=== PATIENT | female | born 1995 | race Caucasian/White ===

== ENCOUNTER 2020-07-05 13:17 | Emergency (ER) | payer MEDICARE, MEDICAID, SELFPAY ==
[2020-07-05 13:25] VITALS: BP 165/75; PULSE 100; RESP 20; TEMP 36.7; O2SAT 98; BMI 39.0
[2020-07-05 16:54] VITALS: BP 124/68; PULSE 88; RESP 18; TEMP 37.3; O2SAT 92
--- NOTE | 2020-07-05 17:20 | ED.ABDPAIN ---
HPI - Abdominal Pain General Chief Complaint: Abdominal Pain Stated Complaint: VOMITING Time Seen by Provider: 07/05/20 16:26 Source: patient Mode of arrival: ambulatory Limitations: no limitations History of Present Illness HPI narrative: Patient presents to ED for chronic abdominal pain, vomiting, and diarrhea for 6 months. Patient diagnosed with irritable bowel syndrome and gastroparesis and states he has been to many hospitals and cloth mercerizer back tender and continued to still have the same issue. Patient states she has been seen at [facility], [facility], and [facility] for this issue and she states no one is helping her. Patient states no change or worsening of belly pain or vomiting and diarrhea. Patient just states she wants this problem to be solved. Patient has history of bipolar and psycho conversion somatic disorder Related Data Allergies Allergy/AdvReac Type Severity Reaction Status Date / Time clonazepam [Klonopin] Allergy Unknown Verified 01/02/20 00:00 haloperidol [Haldol] Allergy Unknown Verified 01/02/20 00:00 NSAIDS (Non-Steroidal Allergy Unknown SWELLING Unverified 02/13/20 16:46 Anti-Inflamma [NSAIDS (NON-STEROIDAL ANTI-INFLAMMA] promethazine Allergy Unknown Verified 01/02/20 00:00 lorazepam [LORAZEPAM] AdvReac Unknown AGGRESSION Unverified 02/13/20 16:46 NSAIDS Allergy Unknown anaphylaxis Uncoded 01/02/20 00:00 seafood Allergy Unknown swelling Uncoded 01/02/20 00:00 Review of Systems Constitutional: Reports as per HPI and Reports no additional constitutional complaints Eyes: Reports as per HPI and Reports no additional eye complaints Reports system reviewed and no additional complaints, except as documented and Reports as per HPI Cardiovascular: Reports as per HPI and Reports no additional cardiovascular complaints Respiratory: Reports as per HPI and Reports no additional respiratory complaints Gastrointestinal: Reports as per HPI, Reports no additional gastrointestinal complaints, Reports abdominal pain, Reports diarrhea, Reports nausea and Reports vomiting Genitourinary: Reports no additional female genitourinary complaints and Reports as per HPI Musculoskeletal: Reports no additional musculoskeletal complaints and Reports as per HPI Reports system reviewed and no additional complaints, except as documented and Reports as per HPI Psychiatric: Reports no additional psychiatric complaints and Reports as per HPI Physical Exam Vital Signs: Vital Signs: Last Vital Signs Temp 99.1 F 07/05/20 16:54 Pulse 88 07/05/20 16:54 Resp 18 07/05/20 16:54 BP 124/68 07/05/20 16:54 Pulse Ox 92 07/05/20 16:54 Body Mass Index 39.0 Const: General: cooperative, healthy appearing, comfortable, no acute distress, well developed, alert, awake and Physically active Orientation/consciousness: patient oriented x3 HENMT: Head: Yes normal to inspection, Yes No palpable skull fracture present, Yes normocephalic, Yes atraumatic and Yes abrasion Eyes: General: appearance normal, both eyes and all related structures Neck: Neck: Yes normal visual inspection, Yes full ROM, Yes no lymphadenopathy, Yes no meningeal signs, Yes trachea midline, Yes supple and No tender Chest: Chest palpation & inspection: normal inspection of the chest and normal palpation of entire chest wall Resp: Effort & Inspection: normal respiratory effort and able to speak in complete sentences Auscultation: clear to auscultation bilaterally Cardio: Jugular venous distension: no JVD Heart sounds: S1 normal heart sound present and S2 normal heart sound present GI: Inspection: Yes normal to inspection and No abdominal wall ecchymosis Palpation (GI): Soft to palpation, not firm, nontender, no guarding and not rigid : General: No CVA tenderness and Yes no CVA tenderness Back/Spine/Pelvis: Back: no CVA tenderness, No CVA tenderness and No back tenderness Skin: General skin exam: no rashes or lesions noted and elasticity normal Neuro: General: patient oriented x3, no meningeal signs and CN's II-XI intact bilaterally Cranial nerves: Yes CN's II-XII intact bilaterally Extrem: General: Yes normal to inspection and Yes full ROM Psych: Appearance: grossly normal, well kempt and not disheveled Course Course Course Narrative: History physical exam indicate IBS or gastroparesis exacerbation. Patient will be given Bentyl, IV fluids, and Zofran. Not suspecting any surgical or emergent medical etiology. Reevaluation(s) Reevaluation #1: Reviewed multiple records from [facility]. I reviewed capsule endoscope the results from [facility] that was done on 03/25/2020 which shows normal endoscopically. Anoscopy was negative for Crohn's disease celiac disease or any small bowel pathology as per report. Endoscopy was negative for any gastic ulcer. Patient was seen in the ED on June 18 2020 at [facility] and the provider contacted her cloth mercerizer back tender as per ED note and her cloth mercerizer back tender in from the ED provider there was no need or indication for NG tube. Patient was discharged. On 04/21/2020 patient had her EGD which was negative for H pylori as per pathology of biopsy. Duodenal and gastric was normal. Patient worked up many times as per [facility] notes in the ED for admitting this patient and discharge. Patient is only admitted once. Time: 17:38 Reevaluation #2: Signed out AMA. Patient did not want to stay for results of magnesium or give urine last check for UTI. Patient was informed risks of , decreased quality of life, disability, from possible underlying deficiency shots of magnesium no patient still wanted to sign against medical advice. Patient refused to give a urine sample. Patient refused Bentyl. Patient does not want any prescription for Bentyl which is a treatment for IBS. Patient never had any episode of vomiting or diarrhea during ED visit. Time: 18:49 MDM - Abdominal Pain Lab Data Result diagrams: 07/05/20 17:20 Labs: Lab Results 07/05/20 07/05/20 07/05/20 Range/Units 17:20 17:20 17:20 WBC 11.3 H (4.8-10.8) X10*3/uL RBC 4.35 (4.20-5.50) X10*6/uL Hgb 12.5 (12.0-16.0) g/dl Hct 38.6 (37-47) % MCV 88.7 (80-98) fL MCH 28.7 (27.0-33.0) pg MCHC 32.4 (31.0-35.0) g/dl RDW 16.4 H (11.0-16.0) % Plt Count 305 (160-400) X10*3/uL MPV 10.2 (9.4-12.3) fL Immature Gran % (Auto) 0.2 (0.0-0.4) % Neut % (Auto) 54.6 (45-73) % Lymph % (Auto) 40.7 H (20-40) % [place] % (Auto) 4.1 (2-11) % Eos % (Auto) 0.2 (0-4) % Baso % (Auto) 0.2 (0-2) % Lymph # (Auto) 4.6 (1.2-4.9) X10*3/uL [place] # (Auto) 0.5 (0.1-1.2) X10*3/uL Eos # (Auto) 0.0 (0.0-0.4) X10*3/uL Baso # (Auto) 0.0 (0.0-0.2) X10*3/uL Abs Immat Gran (auto) 0.02 (0.00-0.03) X10*3/uL Absolute Neuts (auto) 6.2 (2.0-8.3) X10*3/uL Absolute Nucleated RBC 0.000 (0.0-0.012) X10*3/uL Nucleated RBC % (auto) 0.0 (0.0-0.2) /100WBC PT 13.1 H (10.8-13.0) SEC INR 1.1 (0.9-1.1) APTT 30.9 (24.1-38.0) SEC Magnesium 2.1 (1.6-2.6) mg/dL Total Bilirubin 0.3 (0.0-1.0) mg/dL Direct Bilirubin < 0.2 (0.0-0.5) mg/dL AST 25 (5-31) U/L ALT 33 H (0-31) U/L Alkaline Phosphatase 106 (39-117) U/L Total Protein 6.6 (6.5-8.0) g/dL Albumin 4.0 (3.5-5.0) g/dL Lipase 86 H (8-78) U/L Beta HCG, Quant < 2 mIU/mL Discharge Plan Discharge Clinical Impression: Irritable bowel syndrome (IBS), Abdominal pain, chronic, generalized Patient Disposition: Left Against Medical Advice Instructions: Irritable Bowel Syndrome (ED), Chronic Abdominal Pain (ED) Additional Instructions: Return to the ED immediately for worsening abdominal pain, fever, chills, nausea, vomiting, flank pain, dizziness, weakness, blood in stool, or any other concerning symptoms. Referrals: Cailin José PA [Primary Care Provider] - 2 days (Irritable bowel syndrome. Chronic abdominal pain. Patient refused to wait for magnesium results) Stand Alone Forms: Against Medical Advice Interventions: ED Discharge Assessment Last Done: 07/05/20 19:02 Discharge Date/Time: 07/05/20 19:04 Print Language: Tongan [facility] Past Medical History Medical History Anxiety Bipolar affective Depression Diabetes Gastroparesis IBS (irritable bowel syndrome) PTSD (post-traumatic stress disorder) Social History Social History Alcohol intake: never Smoking Status: Current every day smoker Use of substances other than those prescribed or required for medical reasons: Yes Substance Use Type: Marijuana Advance Directives: No Advance Directives Information Provided: No
[2020-07-05 17:24] LABS: MANUAL DIFF FLAG NO
[2020-07-05 17:26] LABS: Basophils Percent Auto 0.2 % (0-2); Eosinophils Percent Auto 0.2 % (0-4); Hematocrit 38.6 % (37-47); Hemoglobin 12.5 g/dl (12.0-16.0); Imm Gran Abs Auto 0.02 X10*3/uL (0.00-0.03); Imm Gran Pct Auto 0.2 % (0.0-0.4); Lymphocytes Absolute Auto 4.6 X10*3/uL (1.2-4.9); Lymphocytes Percent Auto 40.7 % (20-40); Mean Corpuscular HGB Conc 32.4 g/dl (31.0-35.0); Mean Corpuscular Hemoglobin 28.7 pg (27.0-33.0); Mean Corpuscular Volume 88.7 fL (80-98); Mean Platelet Volume 10.2 fL (9.4-12.3); Monocytes Absolute Auto 0.5 X10*3/uL (0.1-1.2); Monocytes Percent Auto 4.1 % (2-11); Neutrophils Absolute Auto 6.2 X10*3/uL (2.0-8.3); Neutrophils Percent Auto 54.6 % (45-73); Platelet Count 305 X10*3/uL (160-400); Red Blood Count 4.35 X10*6/uL (4.20-5.50); Red Cell Distribution Width 16.4 % (11.0-16.0); White Blood Count 11.3 X10*3/uL (4.8-10.8)
[2020-07-05 17:34] LABS: INTERNATIONAL NORM RATIO 1.1 (0.9-1.1); Prothrombin Time 13.1 SEC (10.8-13.0)
[2020-07-05 17:37] LABS: Partial Thromboplastin Time 30.9 SEC (24.1-38.0)
[2020-07-05] MEDS: ondansetron HCL 4 MG/2 ML VIAL IVPUSH (17:55)
[2020-07-05 18:00] LABS: HCG Quantitative < 2 mIU/mL
[2020-07-05 18:14] LABS: Alanine Aminotransferase 33 U/L (0-31); Alkaline Phosphatase 106 U/L (39-117); Aspartate Amino Transferase 25 U/L (5-31); Bilirubin Direct < 0.2 mg/dL (0.0-0.5); Bilirubin Total 0.3 mg/dL (0.0-1.0); Lipase 86 U/L (8-78); Total Protein 6.6 g/dL (6.5-8.0)
[2020-07-05] MEDS: PHENobarb/Hyoscy/Atropine/Scop 10 ML ELIXIR PO (18:25)
--- NOTE | 2020-07-05 18:44 | PC.NURSE ---
Pt refusing fluids, does not want to wait for pending lab results. Provider aware, plan to d/c.
[2020-07-05 18:49] LABS: Magnesium 2.1 mg/dL (1.6-2.6)
--- NOTE | 2020-07-05 19:02 | MHC.HEMONC ---
Prior to RN entering patient bedside patient seen to be resting in bed with no apparent distress. No grimacing or guarding noted.
== END 2020-07-05 19:04 | disposition left against medical advice (07) ==
PROVIDERS: Physician Assistant; Emergency Provider Internal Medicine; PCP Physician Assistant
DX: K58.9 Irritable bowel syndrome, unspecified (principal); G89.29 Other chronic pain; R10.84 Generalized abdominal pain; E11.9 Type 2 diabetes mellitus without complications; F17.200 Nicotine dependence, unspecified, uncomplicated
CPT/HCPCS: 36415; 80076; 83690; 83735; 84702; 85025; 85610; 85730; 96361; 96374; 99284; J2405

== ENCOUNTER → 2020-12-02 10:24 | Outpatient (BNVA) | payer MEDICARE, MEDICAID, SELFPAY | PROVIDERS: PCP Physician Assistant; Visit Provider Surgery | DX: L05.91 Pilonidal cyst without abscess (principal) | CPT/HCPCS: 99212 ==

== ENCOUNTER 2021-10-04 17:46 | Emergency (ER) | payer MEDICARE, MEDICAID, SELFPAY ==
[2021-10-04 17:52] VITALS: BP 152/110; PULSE 105; RESP 18; TEMP 36.3; O2SAT 97; BMI 46.6
[2021-10-04 18:12] VITALS: BP 155/100
--- NOTE | 2021-10-04 18:17 | ED_ITS ---
HPI - Psych General Chief Complaint: Psychiatric Symptoms Stated Complaint: Crisis eval Time Seen by Provider: 10/04/21 18:15 Source: patient Mode of arrival: ambulatory Limitations: no limitations History of Present Illness HPI Narrative: 2 months - preeclampsia taken off all BP meds due to hypotension actually was on labetalol and nifedipine at one point MD complaint: feels depressed and anxiety Onset (ago): week(s) (4) Duration: getting worse History of same: Yes Relieving factors: therapy Exacerbating factors: none Context: significant life stressor (lost services at [employer] ? patient didn't want certain services so she was cut off everything now her PCP is prescribing her) Associated psychiatric symptoms: depression Associated symptoms: denies other symptoms Treatments prior to arrival: none Related Data Home Medications Medication Instructions Recorded Confirmed albuterol sulfate 90 mcg/actuation 0 mcg INHALATION 12/02/20 aerosol inhaler blood sugar diagnostic #10 ea 12/02/20 bupropion HCl 150 mg 24 hr tablet, 300 mg PO QAM tab 12/02/20 extended release cetirizine 10 mg tablet 10 mg PO DAILY 12/02/20 diazepam 2 mg tablet 2 mg PO BID PRN 12/02/20 diphenhydramine HCl 25 mg capsule 25 mg PO BID PRN 12/02/20 gabapentin 100 mg capsule mg PO 12/02/20 lancets 28 gauge #100 ea 12/02/20 lithium carbonate 450 mg 450 mg PO BID 12/02/20 tablet,extended release multivitamin 1 tab PO DAILY 12/02/20 nicotine 21 mg/24 hr daily 1 patch TOPICAL DAILY 12/02/20 transdermal patch ondansetron HCl 8 mg tablet 8 mg PO TID 12/02/20 pantoprazole 20 mg tablet,delayed 20 mg PO BID 12/02/20 release propranolol 20 mg tablet 20 mg PO BID 12/02/20 quetiapine 25 mg tablet (Seroquel) 25 mg PO TID 12/02/20 valacyclovir 500 mg tablet 500 mg PO DAILY 12/02/20 Allergies Allergy/AdvReac Type Severity Reaction Status Date / Time clonazepam [Klonopin] Allergy Unknown Verified 01/02/20 00:00 haloperidol [Haldol] Allergy Unknown Verified 01/02/20 00:00 NSAIDS (Non-Steroidal Allergy Unknown SWELLING Unverified 02/13/20 16:46 Anti-Inflamma [NSAIDS (NON-STEROIDAL ANTI-INFLAMMA] promethazine Allergy Unknown Verified 01/02/20 00:00 lorazepam [LORAZEPAM] AdvReac Unknown AGGRESSION Unverified 02/13/20 16:46 NSAIDS Allergy Unknown anaphylaxis Uncoded 01/02/20 00:00 seafood Allergy Unknown swelling Uncoded 01/02/20 00:00 Review of Systems Review of Systems: Constitutional : No Fever, No Chills ENT/Mouth : No Ear Pain, No Nasal Congestion, No sore throat Eyes: No Eye Pain, No Swelling, No Redness Cardiovascular : No Chest Pain, No SOB Respiratory : No Cough, No Sputum, No Dyspnea Gastrointestinal : No Nausea, No Vomiting, No Diarrhea, No Hematochezia, No Melena Genitourinary : No Dysuria, No Urinary Frequency, No Hematuria Musculoskeletal : No Myalgias Skin : No Skin Lesions, No rash Neuro : No Weakness, No Numbness, No Paresthesias, No Dizziness, No Headache Psych : positive Anxiety, positive Depression, no SI/HI Heme/Lymph: No Lymphadenopathy Endocrine : No Polyuria, No Polydipsia All other systems reviewed and are negative [facility] Past Medical History Attestation statement: The following information was validated with the patient. Medical History Anxiety Bipolar affective Depression Diabetes Gastroparesis IBS (irritable bowel syndrome) Preeclampsia PTSD (post-traumatic stress disorder) Sacrococcygeal pilonidal cyst Social History Social History (Updated 10/04/21 @ 18:52 by Merlyn Calderon DO) Alcohol intake: never Patient Tobacco Use Status: Current everyday Tobacco user Substance Use Type: Marijuana Advance Directives: No Advance Directives Information Provided: No Patient : No Physical Exam Vital Signs: Vital Signs: Last Vital Signs Temp 97.4 F 10/04/21 17:52 Pulse 95 10/04/21 19:09 Resp 18 10/04/21 17:52 BP 143/89 H 10/04/21 19:09 Pulse Ox 97 10/04/21 17:52 BMI result Body Mass Index 46.6 Appearance: Alert. Oriented X3. No acute distress. Anxious at first and tearful but then able to be talked down and she seemed better Eyes: Pupils equal, round and reactive to light. ENT: Pharynx normal. Neck: Normal inspection. Neck supple. CVS: Normal heart rate and rhythm. Pulses normal. Respiratory: No respiratory distress. Breath sounds normal. Abdomen: Soft and non-tender. Skin: Skin warm and dry. Normal skin color. Normal skin turgor. Extremities: No lower extremity edema. No calf ttp Neuro: Oriented X 3. No motor deficit. No sensory deficit. Cn2-12 intact Course Course Course Narrative: BP trending down still anxious, plts and LFTs normal - RN team aware to trend and keep a close eye on BP Physician observation started at 721pm. Patient placed in physician observation because the patient needed more time for BHN to asses the need for psych admission. At the time observation was started the patient's vitals were stable, patient is alert and oriented but slightly agitated/anxious, Neuro: nonfocal, CV RRR, Lungs clear MDM - Psych MDM Narrative Medical decision making narrative: 25 yo female with hx of preeclampsia, depression, asthma 2 months PPM here with c/o feeling depressed and lost her services at [facility] - she reports that she is so depressed she cannot care for herself. At this time will need basic labs, repeat BP when she is less anxious and BHN consult Lab Data Result diagrams: 10/04/21 18:56 10/04/21 18:56 Labs: Lab Results 10/04/21 10/04/21 10/04/21 Range/Units 18:43 18:43 18:43 WBC (4.8-10.8) X10*3/uL RBC (4.20-5.50) X10*6/uL Hgb (12.0-16.0) g/dl Hct (37.0-47.0) % MCV (80.0-98.0) fL MCH (27.0-33.0) pg MCHC (31.0-35.0) g/dl RDW (11.0-16.0) % Plt Count (160-400) X10*3/uL MPV (9.4-12.3) fL Immature Gran % (Auto) (0.0-0.4) % Neut % (Auto) (45-73) % Lymph % (Auto) (20-40) % [place] % (Auto) (2-11) % Eos % (Auto) (0-4) % Baso % (Auto) (0-2) % Lymph # (Auto) (1.2-4.9) X10*3/uL [place] # (Auto) (0.1-1.2) X10*3/uL Eos # (Auto) (0.0-0.4) X10*3/uL Baso # (Auto) (0.0-0.2) X10*3/uL Abs Immat Gran (auto) (0.00-0.03) X10*3/uL Absolute Neuts (auto) (2.0-8.3) x10*3/uL Absolute Nucleated RBC (0.0-0.012) X10*3/uL Nucleated RBC % (auto) (0.0-0.2) /100WBC Sodium (135-145) mmol/L Potassium (3.3-5.1) mmol/L Chloride (96-108) mmol/L Carbon Dioxide (22-29) mmol/L Anion Gap (12-20) BUN (9-16) mg/dL Creatinine (0.5-1.4) mg/dL Estim Creat Clear Calc Estimated GFR Random Glucose (60-115) mg/dL Calcium (8.4-10.2) mg/dL Magnesium (1.6-2.6) mg/dL Total Bilirubin (0.0-1.0) mg/dL Direct Bilirubin (0.0-0.5) mg/dL AST (5-31) U/L ALT (0-31) U/L Alkaline Phosphatase (39-117) U/L Total Protein (6.5-8.0) g/dL Albumin (3.5-5.0) g/dL Urine Test NEGATIVE (NEGATIVE) Urine Opiates Screen Not Detected (Not Detect) Urine Fentanyl Screen Not Detected (Not Detect) Ur Barbiturates Screen Not Detected (Not Detect) Ur Phencyclidine Scrn Not Detected (Not Detect) Ur Amphetamines Screen Not Detected (Not Detect) U Benzodiazepines Scrn Not Detected (Not Detect) Urine Cocaine Screen Not Detected (Not Detect) U Marijuana (THC) Screen Not Detected (Not Detect) COVID-19 ([facility]AN [facility]ANCISCO) Negative (Negative) COVID-19 Clin Com See Note 10/04/21 10/04/21 Range/Units 18:56 18:56 WBC 9.0 (4.8-10.8) X10*3/uL RBC 4.61 (4.20-5.50) X10*6/uL Hgb 13.7 (12.0-16.0) g/dl Hct 41.7 (37.0-47.0) % MCV 90.5 (80.0-98.0) fL MCH 29.7 (27.0-33.0) pg MCHC 32.9 (31.0-35.0) g/dl RDW 13.6 (11.0-16.0) % Plt Count 361 (160-400) X10*3/uL MPV 9.2 L (9.4-12.3) fL Immature Gran % (Auto) 0.1 (0.0-0.4) % Neut % (Auto) 53.7 (45-73) % Lymph % (Auto) 39.6 (20-40) % [place] % (Auto) 5.4 (2-11) % Eos % (Auto) 0.9 (0-4) % Baso % (Auto) 0.3 (0-2) % Lymph # (Auto) 3.5 (1.2-4.9) X10*3/uL [place] # (Auto) 0.5 (0.1-1.2) X10*3/uL Eos # (Auto) 0.1 (0.0-0.4) X10*3/uL Baso # (Auto) 0.0 (0.0-0.2) X10*3/uL Abs Immat Gran (auto) 0.01 (0.00-0.03) X10*3/uL Absolute Neuts (auto) 4.8 (2.0-8.3) x10*3/uL Absolute Nucleated RBC 0.000 (0.0-0.012) X10*3/uL Nucleated RBC % (auto) 0.0 (0.0-0.2) /100WBC Sodium 143 (135-145) mmol/L Potassium 4.3 (3.3-5.1) mmol/L Chloride 112 H (96-108) mmol/L Carbon Dioxide 22 (22-29) mmol/L Anion Gap 13 (12-20) BUN 17 H (9-16) mg/dL Creatinine 1.04 (0.5-1.4) mg/dL Estim Creat Clear Calc 94.9 Estimated GFR > 60 Random Glucose 141 H (60-115) mg/dL Calcium 9.7 (8.4-10.2) mg/dL Magnesium 2.0 (1.6-2.6) mg/dL Total Bilirubin 0.2 (0.0-1.0) mg/dL Direct Bilirubin < 0.2 (0.0-0.5) mg/dL AST 15 (5-31) U/L ALT 16 (0-31) U/L Alkaline Phosphatase 139 H D (39-117) U/L Total Protein 7.6 (6.5-8.0) g/dL Albumin 4.5 (3.5-5.0) g/dL Urine Test (NEGATIVE) Urine Opiates Screen (Not Detect) Urine Fentanyl Screen (Not Detect) Ur Barbiturates Screen (Not Detect) Ur Phencyclidine Scrn (Not Detect) Ur Amphetamines Screen (Not Detect) U Benzodiazepines Scrn (Not Detect) Urine Cocaine Screen (Not Detect) U Marijuana (THC) Screen (Not Detect) COVID-19 ([facility]ANCISCO) (Negative) COVID-19 Clin Com Discharge Plan Discharge Clinical Impression: Depression Qualifiers: Depression Type: unspecified Qualified Code(s): F32.A - Depression, unspecified Patient Disposition: Still a Patient Prescriptions: No Action propranolol 20 mg tablet 20 mg PO BID 0RF cetirizine 10 mg tablet 10 mg PO DAILY 0RF pantoprazole 20 mg tablet,delayed release (DR/EC) 20 mg PO BID 0RF (DME) FreeStyle Lite Strips Strip See Rx Instructions ea Not Applicable BID Qty: 10 0RF Rx Instructions: As directed valacyclovir 500 mg tablet 500 mg PO DAILY 0RF multivitamin Tablet 1 tab PO DAILY 0RF nicotine 21 mg/24 hr patch 24 hour 1 patch topical DAILY 0RF bupropion HCl 150 mg tablet extended release 24 hr 300 mg PO QAM 0RF diazepam 2 mg tablet 2 mg PO BID PRN (Reason: anxiety) 0RF diphenhydramine HCl 25 mg capsule 25 mg PO BID PRN0RF lithium carbonate 450 mg tablet extended release 450 mg PO BID 0RF gabapentin 100 mg capsule PO 0RF ondansetron HCl 8 mg tablet 8 mg PO TID 0RF (DME) lancets 28 gauge misc See Rx Instructions ea topical BID Qty: 100 0RF Rx Instructions: As directed albuterol sulfate 90 mcg/actuation HFA aerosol inhaler 0 mcg inhalation 0RF quetiapine [Seroquel] 25 mg tablet 25 mg PO TID 0RF
[2021-10-04 18:59] LABS: UPreg QC Valid YES; Urine Pregnancy NEGATIVE (NEGATIVE)
[2021-10-04 19:01] LABS: MANUAL DIFF FLAG NO
[2021-10-04 19:06] LABS: Basophils Percent Auto 0.3 % (0-2); Eosinophils Absolute Auto 0.1 X10*3/uL (0.0-0.4); Eosinophils Percent Auto 0.9 % (0-4); Hematocrit 41.7 % (37.0-47.0); Hemoglobin 13.7 g/dl (12.0-16.0); Imm Gran Abs Auto 0.01 X10*3/uL (0.00-0.03); Imm Gran Pct Auto 0.1 % (0.0-0.4); Lymphocytes Absolute Auto 3.5 X10*3/uL (1.2-4.9); Lymphocytes Percent Auto 39.6 % (20-40); Mean Corpuscular HGB Conc 32.9 g/dl (31.0-35.0); Mean Corpuscular Hemoglobin 29.7 pg (27.0-33.0); Mean Corpuscular Volume 90.5 fL (80.0-98.0); Mean Platelet Volume 9.2 fL (9.4-12.3); Monocytes Absolute Auto 0.5 X10*3/uL (0.1-1.2); Monocytes Percent Auto 5.4 % (2-11); Neutrophils Absolute Auto 4.8 x10*3/uL (2.0-8.3); Neutrophils Percent Auto 53.7 % (45-73); Platelet Count 361 X10*3/uL (160-400); Red Blood Count 4.61 X10*6/uL (4.20-5.50); Red Cell Distribution Width 13.6 % (11.0-16.0)
[2021-10-04 19:08] LABS: Amphetamine Screen Urine Not Detected (Not Detect); Barbiturates, Urine Not Detected (Not Detect); Benzodiazepines Screen Urine Not Detected (Not Detect); Cannabinoid Screen Urine Not Detected (Not Detect); Cocaine Screen Urine Not Detected (Not Detect); Fentanyl, urine Not Detected (Not Detect); Opiate Screen Urine Not Detected (Not Detect); Phencyclidine Screen Urine Not Detected (Not Detect)
[2021-10-04 19:09] VITALS: BP 143/89; PULSE 95
[2021-10-04 19:14] LABS: COVID-19 Test Negative (Negative)
[2021-10-04 19:19] LABS: Alanine Aminotransferase 16 U/L (0-31); Albumin Level 4.5 g/dL (3.5-5.0); Alkaline Phosphatase 139 U/L (39-117); Anion Gap 13 (12-20); Aspartate Amino Transferase 15 U/L (5-31); Bilirubin Direct < 0.2 mg/dL (0.0-0.5); Bilirubin Total 0.2 mg/dL (0.0-1.0); Blood Urea Nitrogen 17 mg/dL (9-16); Calcium 9.7 mg/dL (8.4-10.2); Carbon Dioxide 22 mmol/L (22-29); Chloride 112 mmol/L (96-108); Creatinine Clr Calc Pharmacy 94.9; Estimated Glomerular Filt Rate > 60; Glucose Random 141 mg/dL (60-115); Potassium 4.3 mmol/L (3.3-5.1); Sodium 143 mmol/L (135-145); Total Protein 7.6 g/dL (6.5-8.0)
[2021-10-04 19:47] LABS: Glucose, Whole Blood 126 mg/dL (60-115)
[2021-10-04 19:57] VITALS: BP 134/87; PULSE 87; RESP 16; O2SAT 97
[2021-10-04 21:13] VITALS: BP 146/90; PULSE 87
--- NOTE | 2021-10-04 21:35 | PC.NURSE ---
Patient's healthcare proxy Maria G Alvarado notified [facility] that patient's toxemia was resolved and patient was taken off her antihypertensive medication. Per Sally patient's systolic BP currently fluctuate between 110 to 150, when it is at higher end anxiolytic helps bring her BP down. Patient had been assessed by care team/pending disposition, behavior labile, VSS, will continue to monitor.
--- NOTE | 2021-10-04 21:52 | PHA.MEDREC ---
Pharmacy Consult ? Medication Reconciliation Pharmacy has completed the medication reconciliation.
[2021-10-04 23:30] VITALS: BP 150/90; PULSE 74; RESP 16; TEMP 36.3; O2SAT 99
[2021-10-04] MEDS: ALPRAZolam 0.5 MG TABLET PO (23:44)
[2021-10-05] MEDS: hydrOXYzine HCL 25 MG TABLET PO ×3 (01:34→09:35)
[2021-10-05] MEDS: Pregabalin 150 MG CAPSULE PO ×2 (01:34→09:35)
[2021-10-05] MEDS: Famotidine 20 MG TABLET 40 MG PO ×2 (01:35→09:35)
[2021-10-05] MEDS: Ibuprofen 800 MG TABLET PO ×2 (01:35→06:19)
[2021-10-05] MEDS: Docusate Sodium 100 MG CAPSULE PO ×2 (01:35→09:35)
[2021-10-05] MEDS: Prazosin HCL 1 MG CAPSULE 4 MG PO (01:37)
[2021-10-05] MEDS: Omeprazole 20 MG CAPSULE.DR PO (05:39)
--- NOTE | 2021-10-05 06:20 | PC.NURSE ---
Patient slept through the night, no distress observed/reported except stomach pain for which Ibuprofen 800 mg administered as ordered, mood extremely labile, loud and disruptive at time, medication compliant, patient was assessed by care team pending disposition, EDWARD F/U by care team, VSS, patient has been pumping her breast milk/stored in refrigerator, VSS, will continue to monitor,
--- NOTE | 2021-10-05 07:49 | PC.NURSE ---
patient appears to remain asleep at present respirations are even and unlabored patient appears in no distress
[2021-10-05 08:58] VITALS: RESP 16
[2021-10-05] MEDS: lamoTRIgine 100 MG TABLET 200 MG PO (09:35)
[2021-10-05] MEDS: Aspirin Enteric Coated 81 MG TABLET.DR 162 MG PO (09:35)
[2021-10-05] MEDS: Multivitamin TABLET 1 TAB PO (09:35)
[2021-10-05] MEDS: QUEtiapine Fumarate 50 MG TABLET PO (09:35)
[2021-10-05] MEDS: buPROPion HCl XL 150 MG TAB.ER.24H PO (09:35)
[2021-10-05] MEDS: valACYclovir HCL 500 MG TABLET PO (09:36)
[2021-10-05] MEDS: ARIPiprazole 10 MG TABLET PO (09:36)
[2021-10-05] MEDS: Topiramate 25 MG TABLET PO (09:36)
[2021-10-05] MEDS: Prazosin HCL 1 MG CAPSULE PO (09:36)
[2021-10-05 09:38] VITALS: BP 110/80; PULSE 105; RESP 18; O2SAT 97
[2021-10-05] MEDS: ALPRAZolam 0.5 MG TABLET PO (11:56)
[2021-10-05] MEDS: QUEtiapine Fumarate 25 MG TABLET 12.5 MG PO (14:30)
--- NOTE | 2021-10-05 16:36 | MHC.CARE ---
CARE Team speaks with pt several times throughout the day regarding her plan. CARE Team has been working with pt on either a voluntary inpt admission or referral to PHP. Pt stated to TW this morning that she would prefer to attend PHP if she could get in quickly. CARE Team offered to have PHP intake while here in the ED at 1400, however, pt reported at this time that she did not want PHP because her family would not support her with children's attendant. Pt reports that her natural support system will only support a plan where pt is admitted inpt, however pt does not require an inpt admission to meet her goal of getting help with medication changes and re establishing outpatient providers. CARE Team speaks with [facility] crisis in [place] who know the pt well, and they confirm that pt has been doing very well. [facility] also reports that pt fired her therapist of 4 years, but she still has psychiatry with [facility] and can be reassigned to a new therapist. Plan is for pt to have an intake with PHP tomorrow, however, pt continues to vacillate about her treatment options. CARE Team speaks with pt' friend and HCP who agrees with PHP plan and is willing to come fiber picker pt. Case is discussed with ARMANDO Fernando.
== END 2021-10-05 16:51 | disposition home or self-care (01) ==
PROVIDERS: Emergency Provider Emergency Medicine; PCP Physician Assistant
DX: F32.A Depression, unspecified (principal); E11.9 Type 2 diabetes mellitus without complications; J45.909 Unspecified asthma, uncomplicated; Z87.59 Personal history of other complications of pregnancy, childbirth and the puerperium; Z20.822 Contact with and (suspected) exposure to COVID-19
CPT/HCPCS: 36415; 80048; 80076; 80307; 81025; 82947; 83735; 85025; 87635; 96372; 99284; 99285

== ENCOUNTER 2021-10-05 14:40 | Outpatient (RCR) | payer MEDICARE, MEDICAID, SELFPAY | END 2021-10-05 23:59 | disposition home or self-care (01) | LOC: HO.PHPA 14:40 | PROVIDERS: Visit Provider Psychiatry & Neurology Psychiatry | DX: F41.9 Anxiety disorder, unspecified (principal) ==

== ENCOUNTER 2021-10-06 13:47 | Outpatient (RCR) | payer MEDICARE, MEDICAID, SELFPAY | END 2021-10-06 23:59 | disposition home or self-care (01) | LOC: HO.PHPA 13:47 | PROVIDERS: Visit Provider Psychiatry & Neurology Psychiatry | DX: F31.32 Bipolar disorder, current episode depressed, moderate (principal); F60.3 Borderline personality disorder; F41.1 Generalized anxiety disorder | CPT/HCPCS: 90791 ==

== ENCOUNTER → 2021-11-17 15:39 | Outpatient (BNVA) | payer MEDICARE, MEDICAID, SELFPAY | PROVIDERS: PCP Physician Assistant; Visit Provider Surgery | DX: L05.91 Pilonidal cyst without abscess (principal) | CPT/HCPCS: 99212 ==

== ENCOUNTER 2021-12-07 07:34 | Day surgery (SDC) | payer MEDICARE, MEDICAID, SELFPAY ==
[2021-12-01 15:59] VITALS: BMI 44.6
--- NOTE | 2021-12-06 09:16 | P.CONAN_ITS ---
Documented by User: Diana Musa NP 12/06/21 09:23 HPI - Anesthesia Eval Consult details Narrative: 26yo F for Excision Pilonidal Cyst *Multiple allergies* ? - was per 09/2021 ED ([facility] crisis) note Factor V leiden, hx dvt and PE, no anticoag PTSD with hx of waking agitated PMFSH Active Problems Active Problems: All Active Problems (Updated 12/01/21 @ 16:04 by Dior Titus RN) Sacrococcygeal pilonidal cyst (Acute) Past Medical History Medical History (Updated 12/01/21 @ 16:04 by Dior Titus RN) Anxiety Asthma Bipolar affective Depression Diabetes Factor V Leiden Gastroparesis Hidradenitis suppurativa History of DVT (deep vein thrombosis) IBS (irritable bowel syndrome) IUD (intrauterine device) in place Loss of teeth due to extraction Nausea DARINEL (obstructive sleep apnea) Preeclampsia PTSD (post-traumatic stress disorder) Sacrococcygeal pilonidal cyst Wears hearing aid in both ears Surgical History Surgical History (Updated 12/01/21 @ 15:55 by Dior Titus RN) History of carpal tunnel release History of tonsillectomy and adenoidectomy Hx of section Hx of myringotomy Hx of umbilical hernia repair Social History Social History Household Members: Children Are you a primary critical care rn to a significant other at home: No (patient's Mother has custody of 4 month old son) Do you presently have visiting nurse or other home services: No Alcohol intake: never Patient Tobacco Use Status: Former Tobacco user Quit Date: 06/2021 Tobacco use type: Cigarette Substance Use Type: Marijuana Meds Allergies Allergy/AdvReac Type Severity Reaction Status Date / Time metoclopramide [From Reglan] Allergy Severe Hives Verified 12/01/21 15:08 NSAIDS (Non-Steroidal Allergy Severe Anaphylaxis Verified 12/01/21 15:07 Anti-Inflamma [NSAIDS (NON-STEROIDAL ANTI-INFLAMMA] clonazepam [Klonopin] AdvReac Severe Agitated Verified 12/01/21 15:08 droperidol AdvReac Severe Agitated Verified 12/01/21 15:07 haloperidol [Haldol] AdvReac Severe Agitated Verified 12/01/21 15:08 lorazepam [LORAZEPAM] AdvReac Severe AGGRESSION Verified 12/01/21 15:07 promethazine AdvReac Severe Agitated Verified 12/01/21 15:08 seafood Allergy Intermediate swelling Uncoded 12/01/21 15:07 Home Medications Medication Instructions Recorded Confirmed Last Taken Type blood sugar diagnostic #10 ea 12/02/20 11/17/21 Unknown History lancets 28 gauge #100 ea 12/02/20 11/17/21 Unknown History acetaminophen 500 mg tablet 1,000 mg PO Q4H PRN Pain 10/04/21 12/01/21 Unknown History albuterol sulfate 90 mcg/actuation 2 inh inhalation Q4H PRN Shortness 10/04/21 12/01/21 Unknown History aerosol inhaler Of Breath bupropion HCl 150 mg 24 hr tablet, 1 tab PO DAILY 10/04/21 12/01/21 12/07/21 Hi story extended release docusate sodium 100 mg capsule 100 mg PO BID 10/04/21 12/01/21 12/07/21 History famotidine 40 mg tablet 1 tab PO DAILY 10/04/21 12/01/21 12/07/21 History fluticasone propionate 220 1 puff inhalation BID PRN 10/04/21 12/01/21 Unknown History mcg/actuation HFA aerosol inhaler Shortness Of Breath Or Wheezing hydroxyzine HCl 25 mg tablet 25 mg PO BID 10/04/21 12/01/21 12/07/21 History hydroxyzine pamoate 25 mg capsule 25 mg PO DAILY PRN Anxiety 10/04/21 12/01/21 Unknown History lamotrigine 200 mg tablet 200 mg PO DAILY 10/04/21 12/01/21 12/07/21 History (Lamictal) lansoprazole 30 mg capsule,delayed 30 mg PO DAILY 10/04/21 12/01/21 12/07/21 History release melatonin 10 mg PO BEDTIME 10/04/21 12/01/21 Unknown History multivitamin with folic acid 400 1 tab PO DAILY 10/04/21 12/01/21 Unknown History mcg tablet (Daily-Elin (with folic acid)) ondansetron 8 mg disintegrating 8 mg PO Q8H PRN Nausea 10/04/21 12/01/21 Unknown History tablet prazosin 1 mg capsule 1 mg PO DAILY@0730 10/04/21 12/01/21 Unknown History prazosin 1 mg capsule 4 mg PO BEDTIME 10/04/21 12/01/21 12/07/21 History pregabalin 150 mg capsule 150 mg PO BID 10/04/21 12/01/21 12/07/21 History prochlorperazine maleate 10 mg 1 tab PO BID PRN Nausea 10/04/21 12/01/21 12/07/21 History tablet quetiapine 25 mg tablet 12.5 mg PO BID PRN Anxiety 10/04/21 12/01/21 12/07/21 History quetiapine 50 mg tablet 25 mg PO DAILY 10/04/21 12/01/21 Unknown History topiramate 25 mg tablet 25 mg PO DAILY 10/04/21 12/01/21 12/07/21 History valacyclovir 500 mg tablet 500 mg PO DAILY 10/04/21 12/01/21 12/07/21 History diazepam 2 mg tablet 1 tab PO BID 12/01/21 12/01/21 12/07/21 History lithium carbonate 300 mg 1 tab PO BID 12/01/21 12/01/21 12/07/21 History tablet,extended release sumatriptan succinate 100 mg tablet 0.5 tab PO DAILY PRN Migraine 12/01/21 12/01/21 Unknown History Headache Exam Exam Date and Time: December 06, 2021 0916 Height,Weight and Vital Signs: Height 5 ft 1.5 in Weight 108.862 kg Pertinent Lab Results Pertinent Lab Results: Laboratory Tests 10/04/21 10/04/21 18:56 18:56 WBC 9.0 Hgb 13.7 Hct 41.7 Plt Count 361 Sodium 143 Potassium 4.3 Chloride 112 H Carbon Dioxide 22 Creatinine 1.04 Assessment and Plan Assessment Anesthesia Assessment: Chart Reviewed Documented by User: Krunal Cazares MD 12/07/21 16:49 HPI - Anesthesia Eval Consult details Narrative: 26yo F for Excision Pilonidal Cyst *Multiple allergies* ? - was per 09/2021 ED ([facility] crisis) note Factor V leiden, hx dvt and PE, no anticoag PTSD with hx of waking agitated As per patient she is not any more [facility] Past Medical History Medical History (Updated 12/01/21 @ 16:04 by Dior Titus, RN) Anxiety Asthma Bipolar affective Depression Diabetes Factor V Leiden Gastroparesis Hidradenitis suppurativa History of DVT (deep vein thrombosis) IBS (irritable bowel syndrome) IUD (intrauterine device) in place Loss of teeth due to extraction Nausea DARINEL (obstructive sleep apnea) Preeclampsia PTSD (post-traumatic stress disorder) Sacrococcygeal pilonidal cyst Wears hearing aid in both ears Family History Family history of problems with anesthesia: No Surgical History Surgical History (Updated 12/01/21 @ 15:55 by Dior Titus, RN) History of carpal tunnel release History of tonsillectomy and adenoidectomy Hx of section Hx of myringotomy Hx of umbilical hernia repair History of Problems with Anesthesia: Yes (agitation at emergence ) Social History Social History Household Members: Children Are you a primary critical care rn to a significant other at home: No (patient's Mother has custody of 4 month old son) Do you presently have visiting nurse or other home services: No Alcohol intake: never Patient Tobacco Use Status: Former Tobacco user Quit Date: 06/2021 Tobacco use type: Cigarette Substance Use Type: Marijuana Meds Allergies Allergy/AdvReac Type Severity Reaction Status Date / Time metoclopramide [From Reglan] Allergy Severe Hives Verified 12/01/21 15:08 NSAIDS (Non-Steroidal Allergy Severe Anaphylaxis Verified 12/01/21 15:07 Anti-Inflamma [NSAIDS (NON-STEROIDAL ANTI-INFLAMMA] clonazepam [Klonopin] AdvReac Severe Agitated Verified 12/01/21 15:08 droperidol AdvReac Severe Agitated Verified 12/01/21 15:07 haloperidol [Haldol] AdvReac Severe Agitated Verified 12/01/21 15:08 lorazepam [LORAZEPAM] AdvReac Severe AGGRESSION Verified 12/01/21 15:07 promethazine AdvReac Severe Agitated Verified 12/01/21 15:08 seafood Allergy Intermediate swelling Uncoded 12/01/21 15:07 Home Medications Medication Instructions Recorded Confirmed Last Taken Type blood sugar diagnostic #10 ea 12/02/20 11/17/21 Unknown History lancets 28 gauge #100 ea 12/02/20 11/17/21 Unknown History acetaminophen 500 mg tablet 1,000 mg PO Q4H PRN Pain 10/04/21 12/01/21 Unknown History albuterol sulfate 90 mcg/actuation 2 inh inhalation Q4H PRN Shortness 10/04/21 12/01/21 Unknown History aerosol inhaler Of Breath bupropion HCl 150 mg 24 hr tablet, 1 tab PO DAILY 10/04/21 12/01/21 12/07/21 History extended release docusate sodium 100 mg capsule 100 mg PO BID 10/04/21 12/01/21 12/07/21 History famotidine 40 mg tablet 1 tab PO DAILY 10/04/21 12/01/21 12/07/21 History fluticasone propionate 220 1 puff inhalation BID PRN 10/04/21 12/01/21 Unknown History mcg/actuation HFA aerosol inhaler Shortness Of Breath Or Wheezing hydroxyzine HCl 25 mg tablet 25 mg PO BID 10/04/21 12/01/21 12/07/21 History hydroxyzine pamoate 25 mg capsule 25 mg PO DAILY PRN Anxiety 10/04/21 12/01/21 Unknown History lamotrigine 200 mg tablet 200 mg PO DAILY 10/04/21 12/01/21 12/07/21 History (Lamictal) lansoprazole 30 mg capsule,delayed 30 mg PO DAILY 10/04/21 12/01/21 12/07/21 History release melatonin 10 mg PO BEDTIME 10/04/21 12/01/21 Unknown History multivitamin with folic acid 400 1 tab PO DAILY 10/04/21 12/01/21 Unknown History mcg tablet (Daily-Elin (with folic acid)) ondansetron 8 mg disintegrating 8 mg PO Q8H PRN Nausea 10/04/21 12/01/21 Unknown History tablet prazosin 1 mg capsule 1 mg PO DAILY@0730 10/04/21 12/01/21 Unknown History prazosin 1 mg capsule 4 mg PO BEDTIME 10/04/21 12/01/21 12/07/21 History pregabalin 150 mg capsule 150 mg PO BID 10/04/21 12/01/21 12/07/21 History prochlorperazine maleate 10 mg 1 tab PO BID PRN Nausea 10/04/21 12/01/21 12/07/21 History tablet quetiapine 25 mg tablet 12.5 mg PO BID PRN Anxiety 10/04/21 12/01/21 12/07/21 History quetiapine 50 mg tablet 25 mg PO DAILY 10/04/21 12/01/21 Unknown History topiramate 25 mg tablet 25 mg PO DAILY 10/04/21 12/01/21 12/07/21 History valacyclovir 500 mg tablet 500 mg PO DAILY 10/04/21 12/01/21 12/07/21 History diazepam 2 mg tablet 1 tab PO BID 12/01/21 12/01/21 12/07/21 History lithium carbonate 300 mg 1 tab PO BID 12/01/21 12/01/21 12/07/21 History tablet,extended release sumatriptan succinate 100 mg tablet 0.5 tab PO DAILY PRN Migraine 12/01/21 12/01/21 Unknown History Headache Exam Airway Mallampati Class: III TM Dist: >3cm Neck ROM: Full Denture: Upper and Lower Loose/Missing/Broken Teeth: Yes Heart: S1,S2 Lungs: b/l breath sounds Assessment and Plan Assessment Anesthesia Assessment: Anesthesia Plan Discussed Final Anesthetic Review Family History of Problems with Anesthesia: No History of Problems with Anesthesia: Yes (agitation at emergence ) NPO: Yes ASA Class: III Final Preanesthetic Review: Meds/Allgs Chart Reviewed, Consent Obtained/Reviewed and Anes Risks/Benef Reviewed Patient Risk: High Procedure Risk: Intermediate Anesthetic Plan Anesthetic Plan: GA Disposition: Standard PACU
[2021-12-07] VITALS (17 sets, daily range): BP systolic 105–129; BP diastolic 53–80; PULSE 52–87; RESP 16–20; TEMP 35.9–36.3; O2SAT 95–100
[2021-12-07 09:51] LABS: UPreg QC Valid YES; Urine Pregnancy NEGATIVE (NEGATIVE)
[2021-12-07] MEDS: Lactated Ringers 1,000 ML 100 ML IVCONT (10:28)
[2021-12-07] MEDS: Heparin Sodium,Porcine 5,000 UNIT/ML VIAL 5000 UNIT SUBCUT (10:29)
[2021-12-07 11:18] LABS: COVID-19 Test Negative (Negative)
--- NOTE | 2021-12-07 11:32 | MHC.SHP ---
Pre-Procedural Eval Section A Date of Service: 12/07/21 Section B Chief Complaint: pilonidal cyst Details of Present Illness: has had recurrent swelling and drainage , sacrococcygeal area Relevant Family History (Specify if Yes): No Relevant Social History: Tobacco Use Present Medications: see Short Stay Collaborative assessment Medical History: Significant History (HTN , bipolar d/o, DM, ex-smoker) Allergies: Allergies Allergy/AdvReac Type Severity Reaction Status Date / Time metoclopramide [From Reglan] Allergy Severe Hives Verified 12/01/21 15:08 NSAIDS (Non-Steroidal Allergy Severe Anaphylaxis Verified 12/01/21 15:07 Anti-Inflamma [NSAIDS (NON-STEROIDAL ANTI-INFLAMMA] clonazepam [Klonopin] AdvReac Severe Agitated Verified 12/01/21 15:08 droperidol AdvReac Severe Agitated Verified 12/01/21 15:07 haloperidol [Haldol] AdvReac Severe Agitated Verified 12/01/21 15:08 lorazepam [LORAZEPAM] AdvReac Severe AGGRESSION Verified 12/01/21 15:07 promethazine AdvReac Severe Agitated Verified 12/01/21 15:08 seafood Allergy Intermediate swelling Uncoded 12/01/21 15:07 Review of Systems Sugical H&P ROS: Negative: Constitution, Cardiovascular, Respiratory, Neurological, Psychiatric, Hem-Onc, Allergic/Immunologic, Gastrointestinal, Genitourinary, Musculoskeletal, Integumentary, Endocrine and Eyes/Ears/Nose/Throat Exam Surgical H&P Exam: Normal: HEENT, Normal: Heart, Normal: Lungs, Normal: Extremities, Normal: Abdomen, Normal: Skin and Normal: Neurological Exam Comment: induration and draining sinus, sacrococcygeal area Plan Diagnosis/Plan: Unchanged I have reviewed the history and physical and performed a pertinent physical examination on my patient. No changes have occurred unless specified.
--- NOTE | 2021-12-07 12:40 | W.PM.OPN ---
Operative Note Operative Note Date of Service: 12/07/21 Narrative: Preop diagnosis: Pilonidal cyst, sacrococcygeal area Postop diagnosis: pilonidal cyst, sacrococcygeal area Procedure: Excision of pilonidal cyst, sacrococcygeal area Surgeon: Etienne Lucero MD Outpatient Phlebotomist: janelle Jeong student The patient is a 26-year-old female with an area of recurrent pain , swelling, drainage in the sacrococcygeal aspect. Examination showed an induration with the sinus to the right of the midline. This was suggestive of a pilonidal cyst. She understood the technique of excision under anesthesia. She was aware of the risks, benefits, and alternatives She was brought to the operating room and placed in prone position. She was under general anesthesia via endotracheal tube. The sacrococcygeal area is prepped and draped in the usual sterile fashion. A surgical time-out was done. The patient received cefazolin 2 g IV preoperatively Examination showed an induration with a sinus on the sacrococcygeal area to the right of the midline. There seemed to be another sinus more inferior to this in the midline as well. I infiltrated the planned line of incision with lidocaine 1%. I made an elliptical incision surrounding this induration way to the gluteal cleft include what appeared to be other areas of induration using a blade 15. This carried down with electrocautery through the full-thickness of the skin subcutaneous fat. I proceeded to excise this entire area of induration and there was note of some sinuses as well as hypergranulation tissue which I included with the specimen. I excised this all the way to the deep subcutaneous layer. I sent the specimen for pathology. The excised area measured about 10.5 cm long by about 2.5 cm wide. I cauterized all oozing areas until good hemostasis was confirmed. I undermined the thick subcutaneous layer with electrocautery to allow closure without tension. I closed the deep subcutaneous layer with multiple Dexon 3-0 interrupted sutures. Skin closure was achieved with nylon 2-0 vertical mattress sutures herniating with simple interrupted sutures. I infiltrated the area with Marcaine 0.5% for postop analgesia. Thick dressings were applied. The procedure was completed. The patient tolerated procedure well. There were no complications noted. Initial final counts of sponges and instruments were correct. Estimated blood loss about 40 cc . The patient was extubated without difficulty and transferred to the recovery room with stable vital signs.
[2021-12-07] MEDS: HYDROmorphone HCl 0.5 MG/0.5 ML SYRINGE IVPUSH (13:22)
[2021-12-07] MEDS: HYDROmorphone HCl 0.5 MG/0.5 ML SYRINGE 0.25 MG IVPUSH ×3 (13:45→14:55)
[2021-12-07] MEDS: ondansetron HCL 4 MG/2 ML VIAL IVPUSH (14:51)
== END 2021-12-07 15:59 | disposition home or self-care (01) ==
PROVIDERS: Anesthesiology; Nurse Practitioner; PCP Physician Assistant; Visit Provider Surgery
PROC: (CPT 11771; principal; 2021-12-07 10:20)
DX: L05.91 Pilonidal cyst without abscess (principal); G47.33 Obstructive sleep apnea (adult) (pediatric); F31.9 Bipolar disorder, unspecified; F41.8 Other specified anxiety disorders; F43.10 Post-traumatic stress disorder, unspecified; K31.84 Gastroparesis; E11.9 Type 2 diabetes mellitus without complications; Z79.51 Long term (current) use of inhaled steroids; Z79.899 Other long term (current) drug therapy; Z79.82 Long term (current) use of aspirin; Z88.1 Allergy status to other antibiotic agents; Z88.8 Allergy status to other drugs, medicaments and biological substances; Z20.822 Contact with and (suspected) exposure to COVID-19; F17.210 Nicotine dependence, cigarettes, uncomplicated; F12.90 Cannabis use, unspecified, uncomplicated
CPT/HCPCS: 11771; 81025; 87635; 88304; J0131; J0690; J1100; J1170; J2250; J2405; J3010

== ENCOUNTER 2021-12-16 11:54 | Emergency (ER) | payer MEDICARE, MEDICAID, SELFPAY | END 2021-12-16 15:40 | disposition left against medical advice (07) | PROVIDERS: Emergency Provider Emergency Medicine | DX: M53.3 Sacrococcygeal disorders, not elsewhere classified (principal) ==

== ENCOUNTER 2021-12-19 20:55 | Emergency (ER) | payer MEDICARE, MEDICAID, SELFPAY ==
[2021-12-19 20:58] VITALS: BP 121/74; PULSE 84; RESP 18; TEMP 37.1; O2SAT 98; BMI 45.3
--- NOTE | 2021-12-20 00:27 | ED_ITS ---
HPI - Wound/Laceration General Chief Complaint: Wound/Laceration Stated Complaint: cellutitis, Dr order Time Seen by Provider: 12/20/21 00:26 Source: patient Mode of arrival: ambulatory Limitations: no limitations History of Present Illness HPI narrative: Patient history of perineal abscess status post I&D done on 12/07/21 for last 1 week patient with noticing increased discharge was seen at [facility] 4 days ago had a CT scan done which shows only a cellulitis no fluid collection was given IV antibiotic and started on Flagyl and Keflex patient comes here as still having the drainage and increased pain. No fever no chills patient Dilaudid 2 mg every 4 hours and asking for more Related Data Home Medications Medication Instructions Recorded Confirmed blood sugar diagnostic #10 ea 12/02/20 11/17/21 lancets 28 gauge #100 ea 12/02/20 11/17/21 acetaminophen 500 mg tablet 1,000 mg PO Q4H PRN Pain 10/04/21 12/01/21 albuterol sulfate 90 mcg/actuation 2 inh inhalation Q4H PRN Shortness 10/04/21 12/01/21 aerosol inhaler Of Breath bupropion HCl 150 mg 24 hr tablet, 1 tab PO DAILY 10/04/21 12/01/21 extended release docusate sodium 100 mg capsule 100 mg PO BID 10/04/21 12/01/21 famotidine 40 mg tablet 1 tab PO DAILY 10/04/21 12/01/21 fluticasone propionate 220 1 puff inhalation BID PRN 10/04/21 12/01/21 mcg/actuation HFA aerosol inhaler Shortness Of Breath Or Wheezing hydroxyzine HCl 25 mg tablet 25 mg PO BID 10/04/21 12/01/21 hydroxyzine pamoate 25 mg capsule 25 mg PO DAILY PRN Anxiety 10/04/21 12/01/21 lamotrigine 200 mg tablet 200 mg PO DAILY 10/04/21 12/01/21 (Lamictal) lansoprazole 30 mg capsule,delayed 30 mg PO DAILY 10/04/21 12/01/21 release melatonin 10 mg PO BEDTIME 10/04/21 12/01/21 multivitamin with folic acid 400 1 tab PO DAILY 10/04/21 12/01/21 mcg tablet (Daily-Elin (with folic acid)) ondansetron 8 mg disintegrating 8 mg PO Q8H PRN Nausea 10/04/21 12/01/21 tablet prazosin 1 mg capsule 1 mg PO DAILY@0730 10/04/21 12/01/21 prazosin 1 mg capsule 4 mg PO BEDTIME 10/04/21 12/01/21 pregabalin 150 mg capsule 150 mg PO BID 10/04/21 12/01/21 prochlorperazine maleate 10 mg 1 tab PO BID PRN Nausea 10/04/21 12/01/21 tablet quetiapine 25 mg tablet 12.5 mg PO BID PRN Anxiety 10/04/21 12/01/21 quetiapine 50 mg tablet 25 mg PO DAILY 10/04/21 12/01/21 topiramate 25 mg tablet 25 mg PO DAILY 10/04/21 12/01/21 valacyclovir 500 mg tablet 500 mg PO DAILY 10/04/21 12/01/21 diazepam 2 mg tablet 1 tab PO BID 12/01/21 12/01/21 lithium carbonate 300 mg 1 tab PO BID 12/01/21 12/01/21 tablet,extended release sumatriptan succinate 100 mg tablet 0.5 tab PO DAILY PRN Migraine 12/01/21 12/01/21 Headache Previous Rx's Medication Instructions Recorded hydromorphone 2 mg tablet 2 mg PO Q4-6H PRN pain #20 tabs 12/11/21 (Dilaudid) hydromorphone 2 mg tablet 2 mg PO Q4-6H PRN pain #20 tabs 12/11/21 (Dilaudid) oxycodone-acetaminophen 5 mg-325 1 tab PO Q4-6H PRN pain #30 tabs 12/15/21 mg tablet (Percocet) hydromorphone 2 mg tablet 2 mg PO Q4H #20 tabs 12/16/21 (Dilaudid) Allergies Allergy/AdvReac Type Severity Reaction Status Date / Time metoclopramide [From Reglan] Allergy Severe Hives Verified 12/19/21 20:58 NSAIDS (Non-Steroidal Allergy Severe Anaphylaxis Verified 12/19/21 20:58 Anti-Inflamma [NSAIDS (NON-STEROIDAL ANTI-INFLAMMA] clonazepam [Klonopin] AdvReac Severe Agitated Verified 12/19/21 20:58 droperidol AdvReac Severe Agitated Verified 12/19/21 20:58 haloperidol [Haldol] AdvReac Severe Agitated Verified 12/19/21 20:58 lorazepam [LORAZEPAM] AdvReac Severe AGGRESSION Verified 12/19/21 20:58 promethazine AdvReac Severe Agitated Verified 12/19/21 20:58 seafood Allergy Intermediate swelling Uncoded 12/01/21 15:07 Review of Systems Review of Systems: Yes all other systems are reviewed and are negative PMFSH Past Medical History Medical History Anxiety Asthma Bipolar affective Depression Diabetes Factor V Leiden Gastroparesis Hidradenitis suppurativa History of DVT (deep vein thrombosis) IBS (irritable bowel syndrome) IUD (intrauterine device) in place Loss of teeth due to extraction Nausea DARINEL (obstructive sleep apnea) Preeclampsia PTSD (post-traumatic stress disorder) Sacrococcygeal pilonidal cyst Wears hearing aid in both ears Surgical History History of carpal tunnel release History of tonsillectomy and adenoidectomy Hx of section Hx of myringotomy Hx of umbilical hernia repair Social History Social History Household Members: Children Are you a primary group care worker to a significant other at home: No (patient's Mother has custody of 4 month old son) Do you presently have visiting nurse or other home services: No Alcohol intake: never Patient Tobacco Use Status: Former Tobacco user Quit Date: 06/2021 Tobacco use type: Cigarette Substance Use Type: Marijuana Advance Directives: No Advance Directives Information Provided: Yes Physical Exam Vital Signs: Vital Signs: Last Vital Signs Temp 98.8 F 12/19/21 20:58 Pulse 84 12/19/21 20:58 Resp 18 12/19/21 20:58 BP 121/74 12/19/21 20:58 Pulse Ox 98 12/19/21 20:58 O2 Del Method 12/19/21 20:58 BMI result Body Mass Index 45.3 Appearance: Alert. Oriented X3. No acute distress. Obese emotionally crying Neck: Normal inspection. Neck supple. CVS: Normal heart rate and rhythm. Pulses normal. Respiratory: No respiratory distress. Equal air entry bilateral, Abdomen: Soft and nontender. Bowel sounds are present, no mass palpable, Skin: Skin warm and dry. Normal skin color. Normal skin turgor. back: Healing surgical wound without any surrounding erythema minimal serosanguineous discharge Neuro: Oriented X 3. MDM - Wound/Laceration MDM Narrative Medical decision making narrative: Patient very dramatic emotional crying asking for more pain medication wound looks healthy no pus discharge was seen two bottom sutures were removed to drain any pus patient advised to follow-up with Dr. Garcia Discharge Plan Discharge Clinical Impression: Sacrococcygeal pilonidal cyst Patient Disposition: Home, Self-Care Instructions: Pilonidal Cyst (ED) Additional Instructions: Local care as advised Continue antibiotics Schedule outpatient appointment with Dr. Lucero for re-evaluation Prescriptions: No Action hydromorphone [Dilaudid] 2 mg tablet 2 mg PO Q4-6H PRN (Reason: pain) Qty: 20 0RF Rx Instructions: Partial Fill upon patient request. hydromorphone [Dilaudid] 2 mg tablet 2 mg PO Q4-6H PRN (Reason: pain) Qty: 20 0RF Rx Instructions: Partial Fill upon patient request. oxycodone-acetaminophen [Percocet] 5-325 mg tablet 1 tab PO Q4-6H PRN (Reason: pain) Qty: 30 0RF Rx Instructions: Partial Fill upon patient request. hydromorphone [Dilaudid] 2 mg tablet 2 mg PO Q4H Qty: 20 0RF Rx Instructions: Partial Fill upon patient request. lithium carbonate 300 mg tablet extended release 1 tab PO BID sumatriptan succinate 100 mg tablet 0.5 tab PO DAILY PRN (Reason: Migraine Headache) diazepam 2 mg tablet 1 tab PO BID bupropion HCl 150 mg tablet extended release 24 hr 1 tab PO DAILY valacyclovir 500 mg tablet 500 mg PO DAILY hydroxyzine HCl 25 mg tablet 25 mg PO BID famotidine 40 mg tablet 1 tab PO DAILY multivitamin with folic acid [Daily-Elin (with folic acid)] 400 mcg tablet 1 tab PO DAILY topiramate 25 mg Tablet 25 mg PO DAILY quetiapine 50 mg Tablet 25 mg PO DAILY quetiapine 25 mg Tablet 12.5 mg PO BID PRN (Reason: Anxiety) lamotrigine [Lamictal] 200 mg Tablet 200 mg PO DAILY pregabalin 150 mg Capsule 150 mg PO BID fluticasone propionate [Flovent] 220 mcg/actuation Hfa Aerosol Inhaler 1 puff INHALATION BID PRN (Reason: Shortness Of Breath Or Wheezing) melatonin 10 mg 10 mg PO BEDTIME docusate sodium 100 mg Capsule 100 mg PO BID prazosin 1 mg Capsule 4 mg PO BEDTIME prazosin 1 mg Capsule 1 mg PO DAILY@0730 lansoprazole 30 mg Capsule,Delayed Release(Dr/Ec) 30 mg PO DAILY prochlorperazine maleate 10 mg tablet 1 tab PO BID PRN (Reason: Nausea) acetaminophen 500 mg Tablet 1,000 mg PO Q4H PRN (Reason: Pain) ondansetron 8 mg Tablet,Disintegrating 8 mg PO Q8H PRN (Reason: Nausea) albuterol sulfate 90 mcg/actuation Hfa Aerosol Inhaler 2 inh INHALATION Q4H PRN (Reason: Shortness Of Breath) hydroxyzine pamoate 25 mg Capsule 25 mg PO DAILY PRN (Reason: Anxiety) (DME) FreeStyle Lite Strips Strip See Rx Instructions Not Applicable BID Qty: 10 Rx Instructions: As directed (DME) lancets 28 gauge misc See Rx Instructions topical BID Qty: 100 Rx Instructions: As directed
[2021-12-20] MEDS: HYDROmorphone HCl 2 MG/ML VIAL IM (01:01)
== END 2021-12-20 01:31 | disposition home or self-care (01) ==
PROVIDERS: Emergency Provider Internal Medicine
DX: L05.91 Pilonidal cyst without abscess (principal); Z87.891 Personal history of nicotine dependence; Z79.899 Other long term (current) drug therapy
CPT/HCPCS: 10060; 96372; 99282; 99284; J1170

== ENCOUNTER → 2022-01-26 11:14 | Outpatient (BNVA) | payer MEDICARE, MEDICAID, SELFPAY | PROVIDERS: Visit Provider Surgery | DX: L05.91 Pilonidal cyst without abscess (principal) | CPT/HCPCS: 99212 ==

== ENCOUNTER → 2022-03-16 13:21 | Outpatient (BNVA) | payer MEDICARE, MEDICAID, SELFPAY | PROVIDERS: Visit Provider Surgery | DX: L73.2 Hidradenitis suppurativa (principal) | CPT/HCPCS: 99212 ==

== ENCOUNTER 2022-03-18 09:57 | Day surgery (SDC) | payer MEDICARE, MEDICAID, SELFPAY ==
[2022-03-18] VITALS (11 sets, daily range): BP systolic 92–129; BP diastolic 58–75; PULSE 72–89; RESP 12–20; TEMP 36.2–36.6; O2SAT 93–99; BMI 40.1
[2022-03-18 10:54] LABS: UPreg QC Valid YES; Urine Pregnancy NEGATIVE (NEGATIVE)
--- NOTE | 2022-03-18 11:22 | PC.NURSE ---
difficult iv stick reported . iv attempt x 3 without success. per anesthesia diabetic diet controlled - ok to use foot. animal caretaker at bedside. emotional support given - pt tearful. holding stuffed animal.
[2022-03-18] MEDS: Lactated Ringers 1,000 ML 100 ML IVCONT (11:39)
--- NOTE | 2022-03-18 11:57 | P.CONAN_ITS ---
HPI - Anesthesia Eval Consult details Narrative: 26 F for excision of Hidradenitis axilla ? Factor V leiden, hx dvt and PE, no anticoag PTSD with hx of waking agitated PMFSH Active Problems Active Problems: All Active Problems (Updated 03/16/22 @ 13:43 by Etienne Lucero MD) Axillary hidradenitis suppurativa (Acute) Sacrococcygeal pilonidal cyst (Acute) Past Medical History Medical History Anxiety Asthma Axillary hidradenitis suppurativa Bipolar affective Depression Diabetes Factor V Leiden Gastroparesis Hidradenitis suppurativa History of DVT (deep vein thrombosis) IBS (irritable bowel syndrome) IUD (intrauterine device) in place Loss of teeth due to extraction Nausea DARINEL (obstructive sleep apnea) Preeclampsia PTSD (post-traumatic stress disorder) Sacrococcygeal pilonidal cyst Wears hearing aid in both ears Functional capacity: independent ambulation Family History Family history of problems with anesthesia: No Surgical History Surgical History History of carpal tunnel release History of tonsillectomy and adenoidectomy Hx of section Hx of myringotomy Hx of umbilical hernia repair History of Problems with Anesthesia: Yes (agitation at emergence ) Social History Social History Household Members: Children Are you a primary care support representative to a significant other at home: No (patient's Mother has custody of 4 month old son) Do you presently have visiting nurse or other home services: No Alcohol intake: never Patient Tobacco Use Status: Former Tobacco user Quit Date: 06/2021 Tobacco use type: Smokeless Tobacco Substance Use Type: Marijuana Meds Allergies Allergy/AdvReac Type Severity Reaction Status Date / Time metoclopramide [From Reglan] Allergy Severe Hives Verified 03/16/22 13:29 NSAIDS (Non-Steroidal Allergy Severe Anaphylaxis Verified 03/16/22 13:29 Anti-Inflamma [NSAIDS (NON-STEROIDAL ANTI-INFLAMMA] clonazepam [Klonopin] AdvReac Severe Agitated Verified 03/16/22 13:29 droperidol AdvReac Severe Agitated Verified 03/16/22 13:29 haloperidol [Haldol] AdvReac Severe Agitated Verified 03/16/22 13:29 lorazepam [LORAZEPAM] AdvReac Severe AGGRESSION Verified 03/16/22 13:29 promethazine AdvReac Severe Agitated Verified 03/16/22 13:29 seafood Allergy Intermediate swelling Uncoded 03/16/22 13:29 Active Medications: Current Medications Albuterol Sulfate (Albuterol Sulfate (0.083%) 2.5 Mg/3 Ml Vial.Neb) 2.5 mg INHALE ONCE PRN PRN Reason: Shortness of Breath/Wheezing Lactated Ringer's (Lr) 1,000 mls @ 100 mls/hr IVCONT .Q10H ELLY Last Admin: 03/18/22 11:39 Dose: 100 mls/hr Home Medications Medication Instructions Recorded Confirmed Last Taken Type blood sugar diagnostic #10 ea 12/02/20 03/16/22 03/18/22 History lancets 28 gauge #100 ea 12/02/20 03/16/22 03/18/22 History acetaminophen 500 mg tablet 1,000 mg PO Q4H PRN Pain 10/04/21 03/16/22 03/18/22 History albuterol sulfate 90 mcg/actuation 2 inh inhalation Q4H PRN Shortness 10/04/21 03/16/22 03/18/22 History aerosol inhaler Of Breath bupropion HCl 150 mg 24 hr tablet, 1 tab PO DAILY 10/04/21 03/16/22 03/18/22 History extended release famotidine 40 mg tablet 1 tab PO DAILY 10/04/21 03/16/22 03/18/22 History lamotrigine 200 mg tablet 200 mg PO DAILY 10/04/21 03/16/22 03/18/22 History (Lamictal) lansoprazole 30 mg capsule,delayed 30 mg PO DAILY 10/04/21 03/16/22 03/18/22 History release prazosin 1 mg capsule 1 mg PO DAILY@0730 10/04/21 03/16/22 03/18/22 History pregabalin 150 mg capsule 150 mg PO BID 10/04/21 03/16/22 03/18/22 History prochlorperazine maleate 10 mg 1 tab PO BID PRN Nausea 10/04/21 03/16/22 03/18/22 History tablet topiramate 25 mg tablet 25 mg PO DAILY 10/04/21 03/16/22 03/18/22 History valacyclovir 500 mg tablet 500 mg PO DAILY 10/04/21 03/16/22 03/18/22 History diazepam 2 mg tablet 1 tab PO BID 12/01/21 03/16/22 03/18/22 History lithium carbonate 300 mg 1 tab PO BID 12/01/21 03/16/22 03/18/22 History tablet,extended release Exam Exam Date and Time: March 18, 2022 1157 Height,Weight and Vital Signs: Height 5 ft 5.5 in Weight 111.13 kg Last Vital Signs Temp 97.9 F 03/18/22 10:46 Pulse 79 03/18/22 10:46 Resp 18 03/18/22 10:46 Pulse Ox 98 03/18/22 10:46 Pertinent Lab Results Pertinent Lab Results: Laboratory Tests 03/18/22 10:30 Urine Test NEGATIVE Airway Mallampati Class: III TM Dist: >3cm Denture: Upper and Lower Loose/Missing/Broken Teeth: Yes Heart: S1,S2 Lungs: b/l breath sounds Assessment and Plan Assessment Anesthesia Assessment: Anesthesia Plan Discussed and Chart Reviewed Final Anesthetic Review Family History of Problems with Anesthesia: No History of Problems with Anesthesia: Yes (agitation at emergence ) NPO: Yes ASA Class: III Final Preanesthetic Review: Meds/Allgs Chart Reviewed, Consent Obtained/Reviewed and Anes Risks/Benef Reviewed Patient Risk: Intermediate Procedure Risk: Intermediate Anesthetic Plan Anesthetic Plan: GA Disposition: Standard PACU
--- NOTE | 2022-03-18 12:40 | MHC.SHP ---
Pre-Procedural Eval Section A Date of Service: 03/18/22 The patient is an INPATIENT: No Changes since office visit: No Cold of Flu in the past 2 weeks, No New Medical Problems, No Changes in Medication and No Patient answered all questions The History & Physical has been completed within 30 days and I have reviewed it.: Yes Section B Chief Complaint: Hidradenitis suppurativa Allergies: Allergies Allergy/AdvReac Type Severity Reaction Status Date / Time metoclopramide [From Reglan] Allergy Severe Hives Verified 03/16/22 13:29 NSAIDS (Non-Steroidal Allergy Severe Anaphylaxis Verified 03/16/22 13:29 Anti-Inflamma [NSAIDS (NON-STEROIDAL ANTI-INFLAMMA] clonazepam [Klonopin] AdvReac Severe Agitated Verified 03/16/22 13:29 droperidol AdvReac Severe Agitated Verified 03/16/22 13:29 haloperidol [Haldol] AdvReac Severe Agitated Verified 03/16/22 13:29 lorazepam [LORAZEPAM] AdvReac Severe AGGRESSION Verified 03/16/22 13:29 promethazine AdvReac Severe Agitated Verified 03/16/22 13:29 seafood Allergy Intermediate swelling Uncoded 03/16/22 13:29 Plan I have reviewed the history and physical and performed a pertinent physical examination on my patient. No changes have occurred unless specified.
--- NOTE | 2022-03-18 13:21 | W.PM.OPN ---
Operative Note Operative Note Date of Service: 03/18/22 Narrative: Preop diagnosis: Hidradenitis suppurativa right axilla Postop diagnosis: The same Procedure: Excision of hidradenitis suppurativa right axilla Surgeon: Etienne Lucero MD technical support assistant: ARMANDO Michel The patient is a 26 year-old female with hidradenitis suppurativa on various areas of her body, seen in the office because of pain, swelling and tenderness on the right axilla is consistent with hidradenitis. She understood the technique of excision. She was aware of risks, benefits, and alternatives She was brought the operating room and placed supine with right arm abducted. She was under general anesthesia via laryngeal mask airway.The right axilla was prepped and draped in the usual sterile fashion. A surgical time-out was done. The patient received cefazolin 2 g IV preoperatively. I infiltrated the planned line of incision with lidocaine 1%. I made the incision using blade 15. Elliptically around this area of induration. This was carried down with electrocautery through the full-thickness of the skin subcutaneous fat. I excise this entire indurated area this was sent as specimen. This excised area measured about 3 cm wide by 9 cm long . . I cauterized oozing areas. Once hemostasis achieved, proceeded then reapposed the subcutaneous layer with Dexon 3-0 interrupted sutures. Skin closure was achieved with Dexon nylon 3-0 simple interrupted sutures. Dressings were applied. The area was infiltrated with Marcaine 0.5% for postop analgesia. The procedure was then completed. The patient tolerated The procedure well. There were no immediate complications. Initial and final counts of sponges and instruments were correct. Estimated blood loss about 5 cc The patient was extubated without difficulty and transferred to the recovery room with stable vital signs.
[2022-03-18] MEDS: oxyCODONE HCl Immed Release 5 MG TABLET 10 MG PO (14:06)
[2022-03-18] MEDS: fentaNYL citrate/PF 100 MCG/2 ML VIAL 50 MCG IVPUSH (14:26)
== END 2022-03-18 15:20 | disposition home or self-care (01) ==
PROVIDERS: Anesthesiology; PCP Physician Assistant; Visit Provider Surgery
PROC: (CPT 11450; principal; 2022-03-18 13:00)
DX: L73.2 Hidradenitis suppurativa (principal); G47.33 Obstructive sleep apnea (adult) (pediatric); E11.9 Type 2 diabetes mellitus without complications; F43.10 Post-traumatic stress disorder, unspecified; F32.A Depression, unspecified; Z79.899 Other long term (current) drug therapy; Z88.8 Allergy status to other drugs, medicaments and biological substances; Z86.718 Personal history of other venous thrombosis and embolism; Z87.891 Personal history of nicotine dependence
CPT/HCPCS: 11450; 81025; 88305; J0690; J2250; J2405; J2795; J3010

== ENCOUNTER → 2022-04-13 15:57 | Outpatient (BNVA) | payer MEDICARE, MEDICAID, SELFPAY | PROVIDERS: PCP Physician Assistant; Visit Provider Surgery | DX: L73.2 Hidradenitis suppurativa (principal) | CPT/HCPCS: 99212 ==

== ENCOUNTER → 2022-04-27 08:15 | Outpatient (BNVA) | payer MEDICARE, MEDICAID, SELFPAY | PROVIDERS: PCP Physician Assistant; Visit Provider Surgery | DX: E66.01 Morbid (severe) obesity due to excess calories (principal); K21.9 Gastro-esophageal reflux disease without esophagitis; K31.84 Gastroparesis; F31.9 Bipolar disorder, unspecified; E11.9 Type 2 diabetes mellitus without complications; J45.909 Unspecified asthma, uncomplicated; D68.51 Activated protein C resistance | CPT/HCPCS: Q3014 ==

== ENCOUNTER → 2022-05-05 11:21 | Outpatient (BNVA) | payer MEDICARE, MEDICAID, SELFPAY | PROVIDERS: PCP Physician Assistant; Visit Provider Surgery | DX: L73.2 Hidradenitis suppurativa (principal) | CPT/HCPCS: 99212 ==

== ENCOUNTER → 2022-05-18 10:47 | Outpatient (BNVA) | payer MEDICARE, MEDICAID, SELFPAY | PROVIDERS: PCP Physician Assistant; Visit Provider Physician Assistant Surgical | DX: E66.01 Morbid (severe) obesity due to excess calories (principal); Z68.42 Body mass index [BMI] 45.0-49.9, adult | CPT/HCPCS: 99212 ==

== ENCOUNTER → 2022-05-24 12:30 | Outpatient (BNVA) | payer MEDICARE, MEDICAID, SELFPAY | PROVIDERS: PCP Physician Assistant; Visit Provider Counselor Mental Health | DX: F31.30 Bipolar disorder, current episode depressed, mild or moderate severity, unspecified (principal); F43.10 Post-traumatic stress disorder, unspecified; E66.01 Morbid (severe) obesity due to excess calories | CPT/HCPCS: 90791 ==

== ENCOUNTER → 2022-05-26 10:01 | Outpatient (BNVA) | payer MEDICARE, MEDICAID, SELFPAY | PROVIDERS: PCP Physician Assistant; Visit Provider Physician Assistant Surgical | DX: L73.2 Hidradenitis suppurativa (principal) | CPT/HCPCS: 99212 ==

== ENCOUNTER 2022-06-02 08:47 | Day surgery (SDC) | payer MEDICARE, MEDICAID, SELFPAY ==
[2022-05-27 10:20] VITALS: BMI 47.4
[2022-05-27 11:07] VITALS: BMI 46.1
--- NOTE | 2022-05-27 20:22 | MHC.SHP ---
Pre-Procedural Eval Section A Date of Service: 05/27/22 The patient is an INPATIENT: No The History & Physical has been completed within 30 days and I have reviewed it.: Yes Section B Chief Complaint: reflux Relevant Family History (Specify if Yes): No Relevant Social History: None Present Medications: None Medical History: No relevant PMH History of Previous Operations: No relevant previous surgery Allergies: Allergies Allergy/AdvReac Type Severity Reaction Status Date / Time metoclopramide [From Reglan] Allergy Severe Hives Verified 05/26/22 10:06 NSAIDS (Non-Steroidal Allergy Severe Anaphylaxis Verified 05/26/22 10:06 Anti-Inflamma [NSAIDS (NON-STEROIDAL ANTI-INFLAMMA] clonazepam [Klonopin] AdvReac Severe Agitated Verified 05/26/22 10:06 droperidol AdvReac Severe Agitated Verified 05/26/22 10:06 haloperidol [Haldol] AdvReac Severe Agitated Verified 05/26/22 10:06 lorazepam [LORAZEPAM] AdvReac Severe AGGRESSION Verified 05/26/22 10:06 promethazine AdvReac Severe Agitated Verified 05/26/22 10:06 seafood Allergy Intermediate swelling Uncoded 05/05/22 11:35 Review of Systems Sugical H&P ROS: Negative: Constitution, Cardiovascular, Respiratory, Neurological, Psychiatric, Hem-Onc, Allergic/Immunologic, Gastrointestinal, Genitourinary, Musculoskeletal, Integumentary, Endocrine and Eyes/Ears/Nose/Throat Exam Surgical H&P Exam: Normal: HEENT, Normal: Heart, Normal: Lungs, Normal: Extremities, Normal: Abdomen, Normal: Skin and Normal: Neurological Plan Diagnosis/Plan: Unchanged (EGD to assess for esphagitis. Inability to stop PPIs for H pylori test. Risks for perforation and bleeding were discussed with patient. She is in agreement with the plan) I have reviewed the history and physical and performed a pertinent physical examination on my patient. No changes have occurred unless specified. Time Spent With Patient Time: Total time managing care of this patient today ____ minutes.
--- NOTE | 2022-06-01 10:36 | P.CONAN_ITS ---
Documented by User: Diana Musa NP 06/01/22 10:37 HPI - Anesthesia Eval Consult details Narrative: 26yo F for Upper Endoscopy *Multiple Allergies* Factor V with hx DVT, no chronic anticoag PMFSH Active Problems Active Problems: All Active Problems (Updated 05/27/22 @ 09:57 by Dior Titus RN) Bipolar disorder current episode depressed (Acute) Suppurative hidradenitis (Acute) Back pain (Acute) Migraines (Acute) Insomnia (Acute) GERD (gastroesophageal reflux disease) (Acute) Factor V Leiden (Acute) PTSD (post-traumatic stress disorder) (Acute) Gastroparesis (Acute) Diabetes (Acute) Depression (Acute) Anxiety (Acute) Asthma (Acute) Bipolar affective (Acute) Morbid obesity (Acute) Axillary hidradenitis suppurativa (Acute) Sacrococcygeal pilonidal cyst (Acute) Past Medical History Medical History Anxiety Asthma Axillary hidradenitis suppurativa Back pain Bipolar affective Depression Diabetes Factor V Leiden Gastroparesis GERD (gastroesophageal reflux disease) Hidradenitis Hidradenitis suppurativa History of DVT (deep vein thrombosis) IBS (irritable bowel syndrome) Insomnia IUD (intrauterine device) in place Loss of teeth due to extraction Migraines Morbid obesity Nausea DARINEL (obstructive sleep apnea) Pilonidal cyst Preeclampsia PTSD (post-traumatic stress disorder) Sacrococcygeal pilonidal cyst Suppurative hidradenitis Wears hearing aid in both ears Family History Family History Mother Mental health disorder Obesity Father Hypertension High cholesterol Son No problems noted. Brother No problems noted. Sister Asthma Family history of problems with anesthesia: No Surgical History Surgical History History of carpal tunnel release History of tonsillectomy and adenoidectomy Hx of section Hx of myringotomy Hx of umbilical hernia repair History of Problems with Anesthesia: Yes (agitation at emergence ) Social History Social History Household Members: Children Are you a primary acute care physical therapist to a significant other at home: No (Mother has custody of 10 month old son) Do you presently have visiting nurse or other home services: Yes ([employer] 92 hours per week) Alcohol intake: former Patient Tobacco Use Status: Current everyday Tobacco user Tobacco use type: Smokeless Tobacco Substance Use Type: Marijuana Substance Use Frequency: Occasionally Have you been hit, kicked, punched, or otherwise hurt by someone within the past year? If so, by whom?: No Are you DNR?: No Advance Directives: Yes Advance Directives Information Provided: No Advance Directives on File: Yes Advance Directives Date on File: 12/07/21 Recently lost weight without trying: No Nutrition Risks: Dental problems Patient : No FDLMP: 05/23/2022 : No Poor oral hygiene: Yes (full upper and lower dentures) Meds Allergies Allergy/AdvReac Type Severity Reaction Status Date / Time metoclopramide [From Reglan] Allergy Severe Hives Verified 06/02/22 09:03 NSAIDS (Non-Steroidal Allergy Severe Anaphylaxis Verified 06/02/22 09:03 Anti-Inflamma [NSAIDS (NON-STEROIDAL ANTI-INFLAMMA] clonazepam [Klonopin] AdvReac Severe Agitated Verified 06/02/22 09:03 droperidol AdvReac Severe Agitated Verified 06/02/22 09:03 haloperidol [Haldol] AdvReac Severe Agitated Verified 06/02/22 09:03 lorazepam [LORAZEPAM] AdvReac Severe AGGRESSION Verified 06/02/22 09:03 promethazine AdvReac Severe Agitated Verified 06/02/22 09:03 seafood Allergy Intermediate swelling Uncoded 06/02/22 09:03 Home Medications Medication Instructions Recorded Confirmed Last Taken Type blood sugar diagnostic #10 ea 12/02/20 06/02/22 03/18/22 History lancets 28 gauge #100 ea 12/02/20 06/02/22 03/18/22 History acetaminophen 500 mg tablet 1,000 mg PO Q4H PRN Pain 10/04/21 06/02/22 06/02/22 06:30 History albuterol sulfate 90 mcg/actuation 2 inh inhalation Q4H PRN Shortness 10/04/21 06/02/22 03/18/22 History aerosol inhaler Of Breath diazepam 2 mg tablet 1 tab PO BID 12/01/21 06/02/22 06/02/22 06:30 History lithium carbonate 300 mg capsule 300 mg PO BID 04/13/22 06/02/22 06/02/22 06:30 History famotidine 40 mg tablet (Pepcid) 40 mg PO BID 04/27/22 06/02/22 06/02/22 06:30 History hydroxyzine pamoate 25 mg capsule 25 mg PO TID PRN Anxiety 04/27/22 06/02/22 06/02/22 06:30 History (Vistaril) melatonin 5 mg tablet 5 mg PO BEDTIME PRN Insomnia 04/27/22 06/02/22 Unknown History omeprazole 40 mg capsule,delayed 40 mg PO DAILY 04/27/22 06/02/22 06/02/22 06:30 History release ondansetron HCl 4 mg tablet 4 mg PO Q6H PRN Nausea 04/27/22 06/02/22 Unknown History prazosin 2 mg capsule 1 mg PO DAILY@0730 04/27/22 06/02/22 06/02/22 06:30 History prochlorperazine maleate 10 mg 10 mg PO BID PRN Nausea And 04/27/22 06/02/22 06/02/22 06:30 History tablet (Compazine) Vomiting quetiapine 25 mg tablet (Seroquel) 25 mg PO DAILY PRN Anxiety 04/27/22 06/02/22 Unknown History quetiapine 50 mg tablet (Seroquel) 50 mg PO DAILY 04/27/22 06/02/22 06/02/22 06:30 History sumatriptan succinate 100 mg 100 mg PO Q2-4H PRN Migraine 04/27/22 06/02/22 Unknown History tablet (Imitrex) Headache bupropion HCl 150 mg 24 hr tablet, 150 mg PO DAILY 05/18/22 06/02/22 06/02/22 06:30 History extended release lamotrigine 100 mg tablet 200 mg PO DAILY 05/18/22 06/02/22 06/02/22 06:30 History topiramate 25 mg tablet 25 mg PO DAILY 05/18/22 06/02/22 06/02/22 06:30 History albuterol sulfate 90 mcg/actuation 2 puff inhalation Q4H 05/27/22 06/02/22 Unknown History aerosol inhaler (Ventolin HFA) multivitamin 1 tab PO DAILY 05/27/22 06/02/22 06/02/22 06:30 History prazosin 2 mg capsule 2 cap PO BEDTIME 05/27/22 06/02/22 Unknown History valacyclovir 500 mg tablet 1 tab PO DAILY 05/27/22 06/02/22 06/02/22 06:30 History Exam Exam Date and Time: June 01, 2022 1036 Height,Weight and Vital Signs: Height 5 ft 1.5 in Weight 112.582 kg Pertinent Lab Results Pertinent Lab Results: Laboratory Tests 10/04/21 10/04/21 18:56 18:56 WBC 9.0 Hgb 13.7 Hct 41.7 Plt Count 361 Sodium 143 Potassium 4.3 Chloride 112 H Carbon Dioxide 22 BUN 17 H Creatinine 1.04 Assessment and Plan Assessment Anesthesia Assessment: Chart Reviewed Final Anesthetic Review Family History of Problems with Anesthesia: No History of Problems with Anesthesia: Yes (agitation at emergence ) Documented by User: Bri Hdz MD 06/02/22 10:30 [facility] Past Medical History Medical History Anxiety Asthma Axillary hidradenitis suppurativa Back pain Bipolar affective Depression Diabetes Factor V Leiden Gastroparesis GERD (gastroesophageal reflux disease) Hidradenitis Hidradenitis suppurativa History of DVT (deep vein thrombosis) IBS (irritable bowel syndrome) Insomnia IUD (intrauterine device) in place Loss of teeth due to extraction Migraines Morbid obesity Nausea DARINEL (obstructive sleep apnea) Pilonidal cyst Preeclampsia PTSD (post-traumatic stress disorder) Sacrococcygeal pilonidal cyst Suppurative hidradenitis Wears hearing aid in both ears Functional capacity: independent ambulation Patient : No Family History Family History Mother Mental health disorder Obesity Father Hypertension High cholesterol Son No problems noted. Brother No problems noted. Sister Asthma Surgical History Surgical History History of carpal tunnel release History of tonsillectomy and adenoidectomy Hx of section Hx of myringotomy Hx of umbilical hernia repair Social History Social History Household Members: Children Are you a primary acute care physical therapist to a significant other at home: No (Mother has custody of 10 month old son) Do you presently have visiting nurse or other home services: Yes ([employer] 92 hours per week) Alcohol intake: former Patient Tobacco Use Status: Current everyday Tobacco user Tobacco use type: Smokeless Tobacco Substance Use Type: Marijuana Substance Use Frequency: Occasionally Have you been hit, kicked, punched, or otherwise hurt by someone within the past year? If so, by whom?: No Are you DNR?: No Advance Directives: Yes Advance Directives Information Provided: No Advance Directives on File: Yes Advance Directives Date on File: 12/07/21 Recently lost weight without trying: No Nutrition Risks: Dental problems Patient : No FDLMP: 05/23/2022 : No Poor oral hygiene: Yes (full upper and lower dentures) Meds Allergies Allergy/AdvReac Type Severity Reaction Status Date / Time metoclopramide [From Reglan] Allergy Severe Hives Verified 06/02/22 09:03 NSAIDS (Non-Steroidal Allergy Severe Anaphylaxis Verified 06/02/22 09:03 Anti-Inflamma [NSAIDS (NON-STEROIDAL ANTI-INFLAMMA] clonazepam [Klonopin] AdvReac Severe Agitated Verified 06/02/22 09:03 droperidol AdvReac Severe Agitated Verified 06/02/22 09:03 haloperidol [Haldol] AdvReac Severe Agitated Verified 06/02/22 09:03 lorazepam [LORAZEPAM] AdvReac Severe AGGRESSION Verified 06/02/22 09:03 promethazine AdvReac Severe Agitated Verified 06/02/22 09:03 seafood Allergy Intermediate swelling Uncoded 06/02/22 09:03 Home Medications Medication Instructions Recorded Confirmed Last Taken Type blood sugar diagnostic #10 ea 12/02/20 06/02/22 03/18/22 History lancets 28 gauge #100 ea 12/02/20 06/02/22 03/18/22 History acetaminophen 500 mg tablet 1,000 mg PO Q4H PRN Pain 10/04/21 06/02/22 06/02/22 06:30 History albuterol sulfate 90 mcg/actuation 2 inh inhalation Q4H PRN Shortness 10/04/21 06/02/22 03/18/22 History aerosol inhaler Of Breath diazepam 2 mg tablet 1 tab PO BID 12/01/21 06/02/22 06/02/22 06:30 History lithium carbonate 300 mg capsule 300 mg PO BID 04/13/22 06/02/22 06/02/22 06:30 History famotidine 40 mg tablet (Pepcid) 40 mg PO BID 04/27/22 06/02/22 06/02/22 06:30 History hydroxyzine pamoate 25 mg capsule 25 mg PO TID PRN Anxiety 04/27/22 06/02/22 06/02/22 06:30 History (Vistaril) melatonin 5 mg tablet 5 mg PO BEDTIME PRN Insomnia 04/27/22 06/02/22 Unknown History omeprazole 40 mg capsule,delayed 40 mg PO DAILY 04/27/22 06/02/22 06/02/22 06:30 History release ondansetron HCl 4 mg tablet 4 mg PO Q6H PRN Nausea 04/27/22 06/02/22 Unknown History prazosin 2 mg capsule 1 mg PO DAILY@0730 04/27/22 06/02/22 06/02/22 06:30 History prochlorperazine maleate 10 mg 10 mg PO BID PRN Nausea And 04/27/22 06/02/22 06/02/22 06:30 History tablet (Compazine) Vomiting quetiapine 25 mg tablet (Seroquel) 25 mg PO DAILY PRN Anxiety 04/27/22 06/02/22 Unknown History quetiapine 50 mg tablet (Seroquel) 50 mg PO DAILY 04/27/22 06/02/22 06/02/22 06: 30 History sumatriptan succinate 100 mg 100 mg PO Q2-4H PRN Migraine 04/27/22 06/02/22 Unknown History tablet (Imitrex) Headache bupropion HCl 150 mg 24 hr tablet, 150 mg PO DAILY 05/18/22 06/02/22 06/02/22 06:30 History extended release lamotrigine 100 mg tablet 200 mg PO DAILY 05/18/22 06/02/22 06/02/22 06:30 History topiramate 25 mg tablet 25 mg PO DAILY 05/18/22 06/02/22 06/02/22 06:30 History albuterol sulfate 90 mcg/actuation 2 puff inhalation Q4H 05/27/22 06/02/22 Unknown History aerosol inhaler (Ventolin HFA) multivitamin 1 tab PO DAILY 05/27/22 06/02/22 06/02/22 06:30 History prazosin 2 mg capsule 2 cap PO BEDTIME 05/27/22 06/02/22 Unknown History valacyclovir 500 mg tablet 1 tab PO DAILY 05/27/22 06/02/22 06/02/22 06:30 History Exam Airway Mallampati Class: IV TM Dist: <=3cm Neck ROM: Full Heart: RRR Lungs: CTA Assessment and Plan Final Anesthetic Review NPO: Yes ASA Class: III Final Preanesthetic Review: No Changes in Pt Med Stat, Meds/Allgs Chart Reviewed, Consent Obtained/Reviewed and Anes Risks/Benef Reviewed Patient Risk: Intermediate Procedure Risk: Low Anesthetic Plan Anesthetic Plan: MAC: Disposition: Standard PACU
[2022-06-01 14:12] LABS: COVID-19 Test Negative (Negative); IDNOW Serial# 16C4AD1C
[2022-06-02 09:10] LABS: UPreg QC Valid YES; Urine Pregnancy NEGATIVE (NEGATIVE)
[2022-06-02 09:21] VITALS: BP 124/74; PULSE 88; RESP 16; TEMP 36.4; O2SAT 97
[2022-06-02 09:24] LABS: Glucose, Whole Blood 112 mg/dL (60-115)
--- NOTE | 2022-06-02 09:32 | PC.NURSE ---
Patient arrived with HCP Maria G Alvarado [phone]. Patient alert and oriented. Maria G present at bedside during intake due to high anxiety. Okayed per Lorraine. Relationship to patient is friend . No forms on file.
[2022-06-02] MEDS: Lactated Ringers 1,000 ML 80 ML IVCONT (09:58)
--- NOTE | 2022-06-02 10:23 | P.BOP_ITS ---
Brief Operative Note Date of Service: 06/02/22 Pre-op diagnosis: GERD and gastroparesis Post-op diagnosis: same Procedure: PROCEDURE DATE: 06/02/2022 PREOPERATIVE DIAGNOSIS: GERD and gastroparesis POSTOPERATIVE DIAGNOSIS: ?Same as above. 1) gastritis PROCEDURE: [id number]-[id number] with biopsies Surgeon: ?Aries Vidal M.D.. Ph.D. Eligibility Technician: None ? Anesthesia: IV sedation Estimated blood loss: ?Minimal FINDINGS AND PROCEDURE: ? OPERATIVE INDICATIONS: ?The patient is a 26 year old female known to me who is interested in bariatric surgery. The patient has severe GERD and gastroparesis and is unable to tolerate anything other than liquids. Based on this information I recommended an upper endoscopy to evaluate the patient's symptoms. Risks and complications of the surgery were discussed with the patient in advance particularly the possibility of perforation or bleeding that may require surgical intervention. The patient understood the risks and was in agreement with the plan. ? PROCEDURE: After informed consent was obtained by the patient, the patient was ?transferred to the Operating Room and was placed in the supine position.? After successful induction of IV sedation, a mouth block was inserted and the patient was placed in the left lateral decubitus position. An upper endoscopy was performed next, the oropharynx and esophagus appeared within the normal limits. There was no hiatal hernia. The z-line was smooth. Two biopsies were obtained from the distal esophagus 2-3 cm proximal to the GE junction and two additional biopsies from the GE junction. The stomach was enter ed and it appeared to be of normal size. There was mild gastritis at distal antrum. There was no stricture or ulcer. A biopsy was obtained from the distal antrum. No significant bleeding was noted from any of the biopsy sites. Retroflexion showed a normal gastric fundus. The scope was then advanced into the duodenum which appeared to be normal as well. At that point the duodenum ?and the stomach were decompressed and the scope was withdrawn from the patient's mouth. The patient extubated and was transferred in stable condition to the Recovery Room for further care. I was present and performed all steps of the procedure. There were no residents to assist with this case. Aries Vidal M.D., Ph.D. Surgeon: Joseph Vidal MD Anesthesia: MAC Was an Eligibility Technician used for this Procedure?: No Estimated blood loss (mL): 0 IV fluids (mL): 400 Urine output (mL): 0 (No Vega to record output) Pathology: other (1) distal esophagus x2, 2)GE junction x2, 3) fundus x1, 4) antrum x1) Condition: stable Disposition: PACU
[2022-06-02 11:08] VITALS: BP 139/88; PULSE 90; RESP 16; TEMP 36.4; O2SAT 98
[2022-06-02 11:23] VITALS: BP 133/86; PULSE 87; RESP 18; TEMP 36.4; O2SAT 97
--- NOTE | 2022-06-02 11:58 | HO.POSTANES ---
Post Anesthesia Evaluation Post Anesthesia Evaluation Vital Signs: Vital Signs Temp Pulse Resp BP Pulse Ox O2 Del Method 06/02/22 11:23 97.6 F 87 18 133/86 97 Room Air 06/02/22 11:08 97.6 F 90 16 139/88 98 Room Air 06/02/22 09:21 97.5 F 88 16 124/74 97 Room Air Anesthesia: Monitored Mental Status: Awake Pain Control: Satisfactory Nausea/Vomiting: None Hydration: Adequate Anesthesia-Related Issues: No Anes. Related Issues
--- NOTE | 2022-06-02 12:11 | PC.NURSE ---
PATIENT GOT UP FROM HER WC IN THE DISCHARGE AREA AND LEFT THE FACILITY ON HER OWN. ARIELA MCDONNELL ADVISED.
== END 2022-06-02 12:14 | disposition home or self-care (01) ==
PROVIDERS: Nurse Practitioner; Physician Assistant Surgical; PCP Physician Assistant; Visit Provider Surgery
PROC: 0DJ08ZZ Inspection of Upper Intestinal Tract, Via Natural or Artificial Opening Endoscopic (ICD-10-PCS; CPT 43235; principal; 2022-06-02 10:10)
DX: K21.9 Gastro-esophageal reflux disease without esophagitis (principal); K31.84 Gastroparesis; K29.60 Other gastritis without bleeding; G47.33 Obstructive sleep apnea (adult) (pediatric); E66.01 Morbid (severe) obesity due to excess calories; Z68.42 Body mass index [BMI] 45.0-49.9, adult; E11.9 Type 2 diabetes mellitus without complications; K58.9 Irritable bowel syndrome, unspecified; Z20.822 Contact with and (suspected) exposure to COVID-19; J45.909 Unspecified asthma, uncomplicated; D68.51 Activated protein C resistance; F41.1 Generalized anxiety disorder; F31.9 Bipolar disorder, unspecified; Z79.899 Other long term (current) drug therapy; Z88.8 Allergy status to other drugs, medicaments and biological substances
CPT/HCPCS: 43239; 81025; 82947; 87635; 88305; 88342; J2250

== ENCOUNTER 2022-06-14 07:18 | Day surgery (SDC) | payer MEDICARE, MEDICAID, SELFPAY ==
--- NOTE | 2022-06-13 10:12 | P.CONAN_ITS ---
Documented by User: Diana Musa NP 06/13/22 10:15 HPI - Anesthesia Eval Consult details Narrative: 26yo F for Left Excision Hidradenitis of Buttock s/p EGD 06/02/22 with TIVA Factor V leiden, hx dvt and PE, no anticoag PTSD with hx of waking agitated PMFSH Active Problems Active Problems: All Active Problems (Updated 05/27/22 @ 09:57 by Dior Titus RN) Bipolar disorder current episode depressed (Acute) Suppurative hidradenitis (Acute) Back pain (Acute) Migraines (Acute) Insomnia (Acute) GERD (gastroesophageal reflux disease) (Acute) Factor V Leiden (Acute) PTSD (post-traumatic stress disorder) (Acute) Gastroparesis (Acute) Diabetes (Acute) Depression (Acute) Anxiety (Acute) Asthma (Acute) Bipolar affective (Acute) Morbid obesity (Acute) Axillary hidradenitis suppurativa (Acute) Sacrococcygeal pilonidal cyst (Acute) Past Medical History Medical History Anxiety Asthma Axillary hidradenitis suppurativa Back pain Bipolar affective Depression Diabetes Factor V Leiden Gastroparesis GERD (gastroesophageal reflux disease) Hidradenitis Hidradenitis suppurativa History of DVT (deep vein thrombosis) IBS (irritable bowel syndrome) Insomnia IUD (intrauterine device) in place Loss of teeth due to extraction Migraines Morbid obesity Nausea DARINEL (obstructive sleep apnea) Pilonidal cyst Preeclampsia PTSD (post-traumatic stress disorder) Sacrococcygeal pilonidal cyst Suppurative hidradenitis Wears hearing aid in both ears Family History Family History Mother Mental health disorder Obesity Father Hypertension High cholesterol Son No problems noted. Brother No problems noted. Sister Asthma Family history of problems with anesthesia: No Surgical History Surgical History History of carpal tunnel release History of tonsillectomy and adenoidectomy Hx of section Hx of myringotomy Hx of umbilical hernia repair History of Problems with Anesthesia: Yes (agitation at emergence ) Social History Social History Household Members: Children Are you a primary customer care voice consultant to a significant other at home: No (Mother has cus tody of 10 month old son) Do you presently have visiting nurse or other home services: Yes ([employer] CO[employer]IN[employer] 92 hours per week) Alcohol intake: former Patient Tobacco Use Status: Current everyday Tobacco user Tobacco use type: Smokeless Tobacco Use of substances other than those prescribed or required for medical reasons: Yes Substance Use Type: Marijuana Substance Use Frequency: Occasionally Are you DNR?: No Advance Directives: Yes Advance Directives on File: Yes Advance Directives Date on File: 12/07/21 Meds Allergies Allergy/AdvReac Type Severity Reaction Status Date / Time metoclopramide [From Reglan] Allergy Severe Hives Verified 06/02/22 09:03 NSAIDS (Non-Steroidal Allergy Severe Anaphylaxis Verified 06/02/22 09:03 Anti-Inflamma [NSAIDS (NON-STEROIDAL ANTI-INFLAMMA] clonazepam [Klonopin] AdvReac Severe Agitated Verified 06/02/22 09:03 droperidol AdvReac Severe Agitated Verified 06/02/22 09:03 haloperidol [Haldol] AdvReac Severe Agitated Verified 06/02/22 09:03 lorazepam [LORAZEPAM] AdvReac Severe AGGRESSION Verified 06/02/22 09:03 promethazine AdvReac Severe Agitated Verified 06/02/22 09:03 seafood Allergy Intermediate swelling Uncoded 06/02/22 09:03 Home Medications Medication Instructions Recorded Confirmed Last Taken Type blood sugar diagnostic #10 ea 12/02/20 06/02/22 03/18/22 History lancets 28 gauge #100 ea 12/02/20 06/02/22 03/18/22 History acetaminophen 500 mg tablet 1,000 mg PO Q4H PRN Pain 10/04/21 06/02/22 06/02/22 06:30 History albuterol sulfate 90 mcg/actuation 2 inh inhalation Q4H PRN Shortness 10/04/21 06/02/22 03/18/22 History aerosol inhaler Of Breath diazepam 2 mg tablet 1 tab PO BID 12/01/21 06/02/22 06/14/22 05:00 History lithium carbonate 300 mg capsule 300 mg PO BID 04/13/22 06/02/22 06/14/22 05:00 History famotidine 40 mg tablet (Pepcid) 40 mg PO BID 04/27/22 06/02/22 06/14/22 05:00 History hydroxyzine pamoate 25 mg capsule 25 mg PO TID PRN Anxiety 04/27/22 06/02/22 06/14/22 05:00 History (Vistaril) melatonin 5 mg tablet 5 mg PO BEDTIME PRN Insomnia 04/27/22 06/02/22 Unknown History omeprazole 40 mg capsule,delayed 40 mg PO DAILY 04/27/22 06/02/22 06/14/22 05:00 History release ondansetron HCl 4 mg tablet 4 mg PO Q6H PRN Nausea 04/27/22 06/02/22 Unknown History prazosin 2 mg capsule 1 mg PO DAILY@0730 04/27/22 06/02/22 06/14/22 05:00 History prochlorperazine maleate 10 mg 10 mg PO BID PRN Nausea And 04/27/22 06/02/22 06/14/22 05:00 History tablet (Compazine) Vomiting quetiapine 25 mg tablet (Seroquel) 25 mg PO DAILY PRN Anxiety 04/27/22 06/02/22 Unknown History quetiapine 50 mg tablet (Seroquel) 50 mg PO DAILY 04/27/22 06/02/22 06/14/22 05:00 History sumatriptan succinate 100 mg 100 mg PO Q2-4H PRN Migraine 04/27/22 06/02/22 Unknown History tablet (Imitrex) Headache bupropion HCl 150 mg 24 hr tablet, 150 mg PO DAILY 05/18/22 06/02/22 06/14/22 05:00 History extended release lamotrigine 100 mg tablet 200 mg PO DAILY 05/18/22 06/02/22 06/14/22 05:00 History topiramate 25 mg tablet 25 mg PO DAILY 05/18/22 06/02/22 06/14/22 05:00 History albuterol sulfate 90 mcg/actuation 2 puff inhalation Q4H 05/27/22 06/02/22 Unknown History aerosol inhaler (Ventolin HFA) multivitamin 1 tab PO DAILY 05/27/22 06/02/22 06/02/22 06:30 History prazosin 2 mg capsule 2 cap PO BEDTIME 05/27/22 06/02/22 Unknown History valacyclovir 500 mg tablet 1 tab PO DAILY 05/27/22 06/02/22 06/14/22 05:00 History Exam Exam Date and Time: June 13, 2022 1012 Pertinent Lab Results Pertinent Lab Results: Laboratory Tests 10/04/21 10/04/21 18:56 18:56 WBC 9.0 Hgb 13.7 Hct 41.7 Plt Count 361 Sodium 143 Potassium 4.3 Chloride 112 H Carbon Dioxide 22 BUN 17 H Creatinine 1.04 Assessment and Plan Assessment Anesthesia Assessment: Chart Reviewed Final Anesthetic Review Family History of Problems with Anesthesia: No History of Problems with Anesthesia: Yes (agitation at emergence ) Documented by User: Марина Pisano MD 06/14/22 09:30 REPLACED BY [facility] Past Medical History Medical History Anxiety Asthma Axillary hidradenitis suppurativa Back pain Bipolar affective Depression Diabetes Factor V Leiden Gastroparesis GERD (gastroesophageal reflux disease) Hidradenitis Hidradenitis suppurativa History of DVT (deep vein thrombosis) IBS (irritable bowel syndrome) Insomnia IUD (intrauterine device) in place Loss of teeth due to extraction Migraines Morbid obesity Nausea DARINEL (obstructive sleep apnea) Pilonidal cyst Preeclampsia PTSD (post-traumatic stress disorder) Sacrococcygeal pilonidal cyst Suppurative hidradenitis Wears hearing aid in both ears Patient : No (HCG negative) Family History Family History Mother Mental health disorder Obesity Father Hypertension High cholesterol Son No problems noted. Brother No problems noted. 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) Alcohol intake: former Patient Tobacco Use Status: Current everyday Tobacco user Tobacco use type: Smokeless Tobacco Use of substances other than those prescribed or required for medical reasons: Yes Substance Use Type: Marijuana Substance Use Frequency: Occasionally Are you DNR?: No Advance Directives: Yes Advance Directives on File: Yes Advance Directives Date on File: 12/07/21 Meds Allergies Allergy/AdvReac Type Severity Reaction Status Date / Time metoclopramide [From Reglan] Allergy Severe Hives Verified 06/02/22 09:03 NSAIDS (Non-Steroidal Allergy Severe Anaphylaxis Verified 06/02/22 09:03 Anti-Inflamma [NSAIDS (NON-STEROIDAL ANTI-INFLAMMA] clonazepam [Klonopin] AdvReac Severe Agitated Verified 06/02/22 09:03 droperidol AdvReac Severe Agitated Verified 06/02/22 09:03 haloperidol [Haldol] AdvReac Severe Agitated Verified 06/02/22 09:03 lorazepam [LORAZEPAM] AdvReac Severe AGGRESSION Verified 06/02/22 09:03 promethazine AdvReac Severe Agitated Verified 06/02/22 09:03 seafood Allergy Intermediate swelling Uncoded 06/02/22 09:03 Home Medications Medication Instructions Recorded Confirmed Last Taken Type blood sugar diagnostic #10 ea 12/02/20 06/02/22 03/18/22 History lancets 28 gauge #100 ea 12/02/20 06/02/22 03/18/22 History acetaminophen 500 mg tablet 1,000 mg PO Q4H PRN Pain 10/04/21 06/02/22 06/02/22 06:30 History albuterol sulfate 90 mcg/actuation 2 inh inhalation Q4H PRN Shortness 10/04/21 06/02/22 03/18/22 History aerosol inhaler Of Breath diazepam 2 mg tablet 1 tab PO BID 12/01/21 06/02/22 06/14/22 05:00 History lithium carbonate 300 mg capsule 300 mg PO BID 04/13/22 06/02/22 06/14/22 05:00 History famotidine 40 mg tablet (Pepcid) 40 mg PO BID 04/27/22 06/02/22 06/14/22 05:00 History hydroxyzine pamoate 25 mg capsule 25 mg PO TID PRN Anxiety 04/27/22 06/02/22 06/14/22 05:00 History (Vistaril) melatonin 5 mg tablet 5 mg PO BEDTIME PRN Insomnia 04/27/22 06/02/22 Unknown History omeprazole 40 mg capsule,delayed 40 mg PO DAILY 04/27/22 06/02/22 06/14/22 05:00 History release ondansetron HCl 4 mg tablet 4 mg PO Q6H PRN Nausea 04/27/22 06/02/22 Unknown History prazosin 2 mg capsule 1 mg PO DAILY@0730 04/27/22 06/02/22 06/14/22 05:00 History prochlorperazine maleate 10 mg 10 mg PO BID PRN Nausea And 04/27/22 06/02/22 06/14/22 05:00 History tablet (Compazine) Vomiting quetiapine 25 mg tablet (Seroquel) 25 mg PO DAILY PRN Anxiety 04/27/22 06/02/22 Unknown History quetiapine 50 mg tablet (Seroquel) 50 mg PO DAILY 04/27/22 06/02/22 06/14/22 05:00 History sumatriptan succinate 100 mg 100 mg PO Q2-4H PRN Migraine 04/27/22 06/02/22 Unknown History tablet (Imitrex) Headache bupropion HCl 150 mg 24 hr tablet, 150 mg PO DAILY 05/18/22 06/02/22 06/14/22 05:00 History extended release lamotrigine 100 mg tablet 200 mg PO DAILY 05/18/22 06/02/22 06/14/22 05:00 History topiramate 25 mg tablet 25 mg PO DAILY 05/18/22 06/02/22 06/14/22 05:00 History albuterol sulfate 90 mcg/actuation 2 puff inhalation Q4H 05/27/22 06/02/22 Unknown History aerosol inhaler (Ventolin HFA) multivitamin 1 tab PO DAILY 05/27/22 06/02/22 06/02/22 06:30 History prazosin 2 mg capsule 2 cap PO BEDTIME 05/27/22 06/02/22 Unknown History valacyclovir 500 mg tablet 1 tab PO DAILY 05/27/22 06/02/22 06/14/22 05:00 History Exam Airway Mallampati Class: II TM Dist: >3cm Neck ROM: Full Loose/Missing/Broken Teeth: Yes Heart: RR Lungs: CTA Assessment and Plan Final Anesthetic Review History of Problems with Anesthesia: Yes (agitation at emergence clostrophobicwith mask extreme anxiey on transport to OR) NPO: Yes ASA Class: III Final Preanesthetic Review: No Changes in Pt Med Stat, Meds/Allgs Chart Reviewed, Consent Obtained/Reviewed and Anes Risks/Benef Reviewed Patient Risk: Intermediate Procedure Risk: Low Anesthetic Plan Anesthetic Plan: GA Disposition: Standard PACU
[2022-06-14] VITALS (8 sets, daily range): BP systolic 110–155; BP diastolic 59–84; PULSE 78–93; RESP 15–16; TEMP 36.4–37.2; O2SAT 96–99; BMI 45.3
[2022-06-14 08:03] LABS: UPreg QC Valid YES; Urine Pregnancy NEGATIVE (NEGATIVE)
[2022-06-14] MEDS: Lactated Ringers 1,000 ML 100 ML IVCONT (08:04)
--- NOTE | 2022-06-14 08:32 | MHC.SHP ---
Pre-Procedural Eval Section A Date of Service: 06/14/22 The patient is an INPATIENT: No Changes since office visit: No Cold of Flu in the past 2 weeks, No New Medical Problems, No Changes in Medication and No Patient answered all questions The History & Physical has been completed within 30 days and I have reviewed it.: Yes Section B Chief Complaint: Hidradenitis suppurativa Allergies: Allergies Allergy/AdvReac Type Severity Reaction Status Date / Time metoclopramide [From Reglan] Allergy Severe Hives Verified 06/02/22 09:03 NSAIDS (Non-Steroidal Allergy Severe Anaphylaxis Verified 06/02/22 09:03 Anti-Inflamma [NSAIDS (NON-STEROIDAL ANTI-INFLAMMA] clonazepam [Klonopin] AdvReac Severe Agitated Verified 06/02/22 09:03 droperidol AdvReac Severe Agitated Verified 06/02/22 09:03 haloperidol [Haldol] AdvReac Severe Agitated Verified 06/02/22 09:03 lorazepam [LORAZEPAM] AdvReac Severe AGGRESSION Verified 06/02/22 09:03 promethazine AdvReac Severe Agitated Verified 06/02/22 09:03 seafood Allergy Intermediate swelling Uncoded 06/02/22 09:03 Plan I have reviewed the history and physical and performed a pertinent physical examination on my patient. No changes have occurred unless specified. Time Spent With Patient Time: Total time managing care of this patient today ____ minutes.
--- NOTE | 2022-06-14 10:09 | P.OP_ITS ---
Operative Note Operative Note Date of Service: 06/14/22 Narrative: Preop diagnosis hidradenitis, left buttock Postop diagnosis: Hidradenitis, left buttock Procedure: Excision of hidradenitis, left buttock Surgeon: Etienne Lucero MD 1st medical assistant instructor: ARMANDO Michel The patient is a 26-year-old female with a long history of hidradenitis suppurativa on multiple areas who came to the office because of recurrent ear pain, swelling drainage on the left buttock. She had this 3 cm induration. She says that she has had this for a while and wanted to proceed with excision. She understood the technique of excision under anesthesia and was aware of the risks, benefits, and alternatives. She was brought to the operating room placed in right lateral decubitus position under monitored anesthesia care. The area of the induration on the left buttock was prepped and draped in the usual sterile fashion. A surgical time-out was done. The patient received cefazolin 2 g IV preoperatively. I infiltrated the planned line of incision with lidocaine 1%. I made an elliptical incision on the skin using blade 15. This carried down with electrocautery through the full-thickness of the skin and subcutaneous fat . The deeper subcutaneous layer was also divided with curved Harrington scissors until this entire indurated area was excised and sent as a specimen. The area removed was about 3 cm in widest dimension. The subcutaneous layer was reapposed with Dexon 3-0 interrupted sutures. Skin care shows that she with nylon 3-0 interrupted sutures. Dressings were applied. The procedure completed. She tolerated procedure well. There were no immediate complications. Initial and final counts of sponges and instruments were correct. Estimated blood loss was minimal. The patient was then transferred to the recovery room with stable vital signs.
[2022-06-14] MEDS: oxyCODONE HCl Immed Release 5 MG TABLET 10 MG PO (10:45)
[2022-06-14] MEDS: fentaNYL citrate/PF 100 MCG/2 ML VIAL 25 MCG IVPUSH ×2 (10:45→10:50)
[2022-06-14] MEDS: Acetaminophen 325 MG TABLET 650 MG PO (10:49)
== END 2022-06-14 11:56 | disposition home or self-care (01) ==
PROVIDERS: Nurse Practitioner; PCP Physician Assistant; Visit Provider Surgery
PROC: (CPT 11470; principal; 2022-06-14 09:40)
DX: L73.2 Hidradenitis suppurativa (principal); G47.33 Obstructive sleep apnea (adult) (pediatric); E66.01 Morbid (severe) obesity due to excess calories; Z68.42 Body mass index [BMI] 45.0-49.9, adult; J45.909 Unspecified asthma, uncomplicated; D68.51 Activated protein C resistance; E11.9 Type 2 diabetes mellitus without complications; F32.A Depression, unspecified; F43.10 Post-traumatic stress disorder, unspecified; H91.93 Unspecified hearing loss, bilateral; Z97.4 Presence of external hearing-aid; Z79.899 Other long term (current) drug therapy; Z88.8 Allergy status to other drugs, medicaments and biological substances; Z86.718 Personal history of other venous thrombosis and embolism; Z87.891 Personal history of nicotine dependence; F12.90 Cannabis use, unspecified, uncomplicated
CPT/HCPCS: 11470; 81025; 88304; J0690; J2250; J3010

== ENCOUNTER → 2022-06-15 13:30 | Outpatient (BNVA) | payer MEDICARE, MEDICAID, SELFPAY | PROVIDERS: PCP Physician Assistant; Visit Provider Counselor Mental Health | DX: F31.30 Bipolar disorder, current episode depressed, mild or moderate severity, unspecified (principal); F43.10 Post-traumatic stress disorder, unspecified; E66.01 Morbid (severe) obesity due to excess calories | CPT/HCPCS: 90832 ==

== ENCOUNTER → 2022-06-24 11:06 | Outpatient (BNVA) | payer MEDICARE, MEDICAID, SELFPAY | PROVIDERS: PCP Physician Assistant; Visit Provider Surgery | DX: Z48.00 Encounter for change or removal of nonsurgical wound dressing (principal) | CPT/HCPCS: 99211 ==

== ENCOUNTER → 2022-06-27 11:27 | Outpatient (BNVA) | payer MEDICARE, MEDICAID, SELFPAY | PROVIDERS: PCP Physician Assistant; Visit Provider Surgery | DX: Z13.89 Encounter for screening for other disorder (principal) | CPT/HCPCS: 99212 ==

== ENCOUNTER → 2022-09-05 11:13 | Outpatient (BNVA) | payer MEDICARE, MEDICAID, SELFPAY | PROVIDERS: PCP Physician Assistant; Visit Provider Surgery | DX: L72.0 Epidermal cyst (principal) | CPT/HCPCS: 99212 ==

== ENCOUNTER 2022-11-14 14:12 | Outpatient (REF) | payer MEDICARE, MEDICAID, SELFPAY | END 2022-11-14 14:13 | disposition home or self-care (01) | LOC: HO.LNP 14:12 | PROVIDERS: PCP Physician Assistant; Visit Provider Surgery | DX: L72.0 Epidermal cyst (principal) | CPT/HCPCS: 11402; 88304 ==

== ENCOUNTER 2023-06-09 10:22 | Outpatient (AMB) | payer MEDICARE, MEDICAID, SELFPAY ==
[2023-06-09 10:29] VITALS: BP 135/74; PULSE 83
--- NOTE | 2023-06-09 10:29 | MHC.OFFVIS ---
Intake Vital Signs 06/09/23 10:29 Weight 225 lb BP 135/74 Blood Pressure Location Rt brachial Position Sitting Pulse 83 Intake Visit Reasons: Painful groin abscess Intake Note: Patient here as a tuck in appointment. C/o inflamed abscess on Lt upper thigh. Patient c/o severe pain. feels warm to touch. Hx of ingrown cysts in same area. Building Mover Required: No Accompanied by: Self / Same As Patient Allergies metoclopramide [From Reglan] Allergy (Severe, Verified 11/14/22 14:28) Hives NSAIDS (Non-Steroidal Anti-Inflamma [NSAIDS (NON-STEROIDAL ANTI-INFLAMMA] Allergy (Severe, Verified 11/14/22 14:28) Anaphylaxis clonazepam [Klonopin] Adverse Reaction (Severe, Verified 11/14/22 14:28) Agitated droperidol Adverse Reaction (Severe, Verified 11/14/22 14:28) Agitated haloperidol [Haldol] Adverse Reaction (Severe, Verified 11/14/22 14:28) Agitated lorazepam [LORAZEPAM] Adverse Reaction (Severe, Verified 11/14/22 14:28) AGGRESSION promethazine Adverse Reaction (Severe, Verified 11/14/22 14:28) Agitated seafood Allergy (Intermediate, Uncoded 11/14/22 14:28) swelling Medication List - Last Reconciled 06/09/23 by Gilson Cee MD acetaminophen 1,000 mg PO Q4H PRN albuterol sulfate 90 mcg/actuation 2 inhalations inhalation Q4H PRN albuterol sulfate 90 mcg/actuation (Ventolin HFA) 2 puffs inhalation Q4H blood sugar diagnostic As directed bupropion HCl 150 mg PO DAILY diazepam 1 tab PO BID famotidine (Pepcid) 40 mg PO BID hydroxyzine pamoate (Vistaril) 25 mg PO TID PRN lamotrigine 200 mg PO DAILY lancets As directed lithium carbonate 300 mg PO BID melatonin 5 mg PO BEDTIME PRN multivitamin 1 tab PO DAILY omeprazole 40 mg PO DAILY ondansetron HCl 4 mg PO Q6H PRN prazosin 2 caps PO BEDTIME prazosin 1 mg PO DAILY@0730 prochlorperazine maleate (Compazine) 10 mg PO BID PRN quetiapine (Seroquel) 50 mg PO DAILY quetiapine (Seroquel) 25 mg PO DAILY PRN sumatriptan succinate (Imitrex) 100 mg PO Q2-4H PRN topiramate 25 mg PO DAILY valacyclovir 1 tab PO DAILY HPI HPI Comments History of Present Illness Details Patient has a longstanding history of H. suppurativa with multiple skin abscesses in the past who presents with a similar abscess to the left of the peritoneum/labia. She has had this several days time. His increasing size, becoming more symptomatic. Presents here for further evaluation. Chart was reviewed and patient evaluated [facility] Medical History Epidermal cyst Epidermal inclusion cyst Hidradenitis suppurativa (06/14/22) Pilonidal cyst Hidradenitis Suppurative hidradenitis Back pain Migraines Insomnia GERD (gastroesophageal reflux disease) Morbid obesity Axillary hidradenitis suppurativa IUD (intrauterine device) in place History of DVT (deep vein thrombosis) Factor V Leiden Nausea DARINEL (obstructive sleep apnea) Asthma Hidradenitis suppurativa Wears hearing aid in both ears Loss of teeth due to extraction Preeclampsia Sacrococcygeal pilonidal cyst Depression Anxiety PTSD (post-traumatic stress disorder) Bipolar affective IBS (irritable bowel syndrome) Diabetes Gastroparesis Surgical History History of removal of cyst (~11/14/22) Hx of umbilical hernia repair Hx of section History of carpal tunnel release Hx of myringotomy History of tonsillectomy and adenoidectomy Family History Mother Mental health disorder Obesity Father Hypertension High cholesterol Son No problems noted. Brother No problems noted. Sister Asthma Social History Household Members: Children Are you a primary customer care associate to a significant other at home: No (Mother has custody of 10 month old son) Do you presently have visiting nurse or other home services: Yes ([employer] 92 hours per week) Alcohol intake: former Comment: aware of trip hazard Patient Tobacco Use Status: Current everyday Tobacco user Tobacco use type: Smokeless Tobacco Substance Use Type: Marijuana Advance Directives Date on File: 12/07/21 Physical Exam Vital Signs: Last Vital Signs Pulse 83 06/09/23 10:29 BP 135/74 06/09/23 10:29 Other: Just lateral to the left labia a proximally 3 x 3 cm abscess. Very tender to palpation, fluctuant, erythematous Office Procedures I&D Drain Details: Risks, benefits, alternatives of incision and drainage of left perineal abscess were reviewed with the patient and included but not limited to bleeding, recurrence, numbness, pain, scarring, and the patient wished to proceed. All questions answered. After appropriate positioning, patient underwent 1% lidocaine and Betadine prep and uneventful incision and drainage of approximate 3 x 2 cm left perineal abscess. Cultures were taken wound was evacuated of purulence, irrigated, secured hemostasis, packed, and dressing applied. Patient tolerated procedure well. [id number] of Skin Abscess, simple All charges added?: Procedure code (CPT) selection complete Assessment & Plan Assessment & Plan (1) Perineal abscess, superficial: Code(s): L02.215 - Cutaneous abscess of perineum Plan: Patient has been given antibiotics, analgesics, local wound care instructions, and will see me as directed or p.r.n. Orders: Orders AMB Incision & Drainage Today L02.215 - Cutaneous abscess of perineum Routine Culture w Gram Stain Today L02.215 - Cutaneous abscess of perineum Medications: New hydrocodone-acetaminophen 5-325 mg Partial Fill upon patient request. 1 tab PO Q4-6H PRN 30 tabs 0RF pain cephalexin 500 mg PO BID 30 caps 0RF Coding Level of Care Code New Pt Level 4 (28510) Diagnoses Perineal abscess, superficial L02.215 CPT Codes I&D Drain - Drain 1: [id number] of Skin Abscess, simple ([id number])
== END 2023-06-09 10:47 | disposition home or self-care (01) ==
PROVIDERS: PCP Physician Assistant; Visit Provider Surgery
DX: L02.215 Cutaneous abscess of perineum (principal)
CPT/HCPCS: 10060; 99204

== ENCOUNTER 2023-06-09 10:22 | Outpatient (REF) | payer MEDICARE, MEDICAID, SELFPAY | END 2023-06-09 10:23 | disposition home or self-care (01) | LOC: HO.LNP 10:22 | PROVIDERS: PCP Physician Assistant; Visit Provider Surgery | DX: L02.215 Cutaneous abscess of perineum (principal); Z79.899 Other long term (current) drug therapy | CPT/HCPCS: 10060; 87070; 87205; 99202 ==

== ENCOUNTER 2023-10-04 15:48 | Outpatient (AMB) | payer MEDICARE, MEDICAID, SELFPAY ==
--- NOTE | 2023-10-04 15:49 | MHC.OFFVIS ---
Intake Visit Reasons: abscess inner thigh Intake Note: This patient presents for an assessment for abscess of the inner thigh. Patient c/o; reports she squeezed it and it got bigger. 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 Accompanied by: Self / Same As Patient Allergies metoclopramide [From Reglan] Allergy (Severe, Verified 10/04/23 15:56) Hives NSAIDS (Non-Steroidal Anti-Inflamma [NSAIDS (NON-STEROIDAL ANTI-INFLAMMA] Allergy (Severe, Verified 10/04/23 15:56) Anaphylaxis clonazepam [Klonopin] Adverse Reaction (Severe, Verified 10/04/23 15:56) Agitated droperidol Adverse Reaction (Severe, Verified 10/04/23 15:56) Agitated haloperidol [Haldol] Adverse Reaction (Severe, Verified 10/04/23 15:56) Agitated lorazepam [LORAZEPAM] Adverse Reaction (Severe, Verified 10/04/23 15:56) AGGRESSION promethazine Adverse Reaction (Severe, Verified 10/04/23 15:56) Agitated seafood Allergy (Intermediate, Uncoded 10/04/23 15:56) swelling Medication List - Last Reconciled 10/04/23 by Etienne Lucero MD acetaminophen 1,000 mg PO Q4H PRN albuterol sulfate 90 mcg/actuation 2 inhalations inhalation Q4H PRN albuterol sulfate 90 mcg/actuation (Ventolin HFA) 2 puffs inhalation Q4H blood sugar diagnostic As directed bupropion HCl XL 150 mg PO DAILY cephalexin 500 mg PO BID diazepam 1 tab PO BID famotidine (Pepcid) 40 mg PO BID hydrocodone-acetaminophen 5-325 mg 1 tab PO Q4-6H PRN hydrocodone-acetaminophen 5-325 mg 1 tab PO Q4-6H PRN hydroxyzine pamoate (Vistaril) 25 mg PO TID PRN lamotrigine 200 mg PO DAILY lancets As directed lithium carbonate 300 mg PO BID melatonin 5 mg PO BEDTIME PRN multivitamin 1 tab PO DAILY omeprazole 40 mg PO DAILY ondansetron HCl 4 mg PO Q6H PRN prazosin 2 caps PO BEDTIME prazosin 1 mg PO DAILY@0730 prochlorperazine maleate (Compazine) 10 mg PO BID PRN quetiapine (Seroquel) 50 mg PO DAILY quetiapine (Seroquel) 25 mg PO DAILY PRN sumatriptan succinate (Imitrex) 100 mg PO Q2-4H PRN topiramate 25 mg PO DAILY valacyclovir 1 tab PO DAILY HPI HPI abscess inner thigh: Details: 27-year-old female here in the office because of recurrent area of swelling and redness in the medial aspect of the right thigh. She is well known to me for hidradenitis suppurativa She has had excision of hidradenitis in the past . She points to an area in the inner aspect of the right thigh which she says has had some recurrent swelling and tenderness. She wants this area excised. COUNT INCLUDES THE [facility] Medical History Epidermal cyst Epidermal inclusion cyst Hidradenitis suppurativa (06/14/22) Pilonidal cyst Hidradenitis Suppurative hidradenitis Back pain Migraines Insomnia GERD (gastroesophageal reflux disease) Morbid obesity Axillary hidradenitis suppurativa IUD (intrauterine device) in place History of DVT (deep vein thrombosis) Factor V Leiden Nausea DARINEL (obstructive sleep apnea) Asthma Hidradenitis suppurativa Wears hearing aid in both ears Loss of teeth due to extraction Preeclampsia Sacrococcygeal pilonidal cyst Depression Anxiety PTSD (post-traumatic stress disorder) Bipolar affective IBS (irritable bowel syndrome) Diabetes Gastroparesis Surgical History History of removal of cyst (~11/14/22) Hx of umbilical hernia repair Hx of section History of carpal tunnel release Hx of myringotomy History of tonsillectomy and adenoidectomy Family History Mother Mental health disorder Obesity Father Hypertension High cholesterol Son No problems noted. Brother No problems noted. 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) Alcohol intake: former Comment: aware of trip hazard Patient Tobacco Use Status: Current everyday Tobacco user Tobacco use type: Smokeless Tobacco Substance Use Type: Marijuana Advance Directives Date on File: 12/07/21 Review of Systems Const Denies chills and Denies fever(s) Card Denies chest pain, Denies dyspnea and Denies dyspnea on exertion Resp Denies cough, Denies dyspnea and Denies dyspnea on exertion GI Denies hematochezia and Denies change in bowel habits Denies hematuria Musc Denies back pain and Denies limited range of motion Neuro Denies focal weakness and Denies convulsions Psych Reports anxiety, Denies depression and Reports mood swings Physical Exam Const General: comfortable and no acute distress Orientation/consciousness: patient oriented x3 Neck Neck: Yes no lymphadenopathy Resp Auscultation: clear to auscultation bilaterally Cardio Rhythm: regular rhythm GI Palpation (GI): Soft to palpation, nontender and no guarding Neuro General: patient oriented x3 Extrem Other: Induration with some tenderness on the medial aspect of the right thigh, about 3 x 4 cm in size, no fluctuance Assessment & Plan Assessment & Plan (1) Suppurative hidradenitis: Code(s): L73.2 - Hidradenitis suppurativa Category: Medical Plan: She has this area of induration on the medial aspect of the right thigh that seems to be consistent with hidradenitis. She wants this excised. I explained the technique of excision which probably should be done under anesthesia in view of the size. The patient also has severe anxiety I explained the risks including but not limited to bleeding, infections, postop pain, poor healing as well as the benefits and alternatives. She has given consent This will be scheduled under anesthesia in the operating room. Coding Level of Care Code Est Pt Level 3 (73416) Diagnoses Suppurative hidradenitis L73.2
== END 2023-10-04 16:30 | disposition home or self-care (01) ==
PROVIDERS: PCP Physician Assistant; Visit Provider Surgery
DX: L73.2 Hidradenitis suppurativa (principal)
CPT/HCPCS: 99213

== ENCOUNTER → 2023-10-04 15:48 | Outpatient (BNVA) | payer MEDICARE, MEDICAID, SELFPAY | PROVIDERS: PCP Physician Assistant; Visit Provider Surgery | DX: L73.2 Hidradenitis suppurativa (principal) | CPT/HCPCS: 99212 ==

== ENCOUNTER 2023-10-13 10:39 | Day surgery (SDC) | payer MEDICARE, MEDICAID, SELFPAY ==
[2023-10-11 13:05] VITALS: BMI 41.8
--- NOTE | 2023-10-11 14:02 | P.CONAN_ITS ---
Documented by User: Diana Musa NP 10/11/23 14:04 HPI - Anesthesia Eval Consult details Narrative: 27yo F for Right Excision Hidradenitis on thigh Factor V leiden, hx dvt and PE, no anticoag DM - no rx on external record PTSD with hx of waking agitated PMFSH Active Problems Active Problems: All Active Problems Perineal abscess, superficial (Acute) Bipolar disorder current episode depressed (Acute) Epidermal cyst (Acute) Epidermal inclusion cyst (Acute) Suppurative hidradenitis (Acute) Back pain (Acute) Migraines (Acute) Insomnia (Acute) GERD (gastroesophageal reflux disease) (Acute) Factor V Leiden (Acute) PTSD (post-traumatic stress disorder) (Acute) Gastroparesis (Acute) Diabetes (Acute) Depression (Acute) Anxiety (Acute) Asthma (Acute) Bipolar affective (Acute) Morbid obesity (Acute) Axillary hidradenitis suppurativa (Acute) Sacrococcygeal pilonidal cyst (Acute) Past Medical History Medical History Hidradenitis Epidermal cyst Epidermal inclusion cyst Pilonidal cyst Suppurative hidradenitis Back pain Migraines Insomnia GERD (gastroesophageal reflux disease) Morbid obesity Axillary hidradenitis suppurativa IUD (intrauterine device) in place History of DVT (deep vein thrombosis) Factor V Leiden Nausea DARINEL (obstructive sleep apnea) Asthma Wears hearing aid in both ears Loss of teeth due to extraction Preeclampsia Sacrococcygeal pilonidal cyst Depression Anxiety PTSD (post-traumatic stress disorder) Bipolar affective IBS (irritable bowel syndrome) Diabetes Gastroparesis Family History Family History Mother Mental health disorder Obesity Father Hypertension High cholesterol Son No problems noted. Brother No problems noted. Sister Asthma Family history of problems with anesthesia: No Surgical History Surgical History History of excision of pilonidal cyst History of esophagogastroduodenoscopy (EGD) History of removal of cyst (~11/14/22) Hx of umbilical hernia repair Hx of section History of carpal tunnel release Hx of myringotomy History of tonsillectomy and adenoidectomy History of Problems with Anesthesia: Yes (agitation at emergence clostrophobicwith mask extreme anxiey on transport to OR) Social History Social History Household Members: Children Are you a primary career education teacher to a significant other at home: No (Mother has custody of 10 month old son) Do you presently have visiting nurse or other home services: 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) Alcohol intake: former Comment: aware of trip hazard Patient Tobacco Use Status: Current everyday Tobacco user Tobacco use type: Cigarette Use of substances other than those prescribed or required for medical reasons: No Substance Use Type: Marijuana Are you DNR?: No Advance Directives: No Advance Directives Information Provided: Yes Advance Directives Date on File: 12/07/21 Meds Allergies Allergy/AdvReac Type Severity Reaction Status Date / Time metoclopramide [From Reglan] Allergy Severe Hives Verified 10/04/23 15:56 NSAIDS (Non-Steroidal Allergy Severe Anaphylaxis Verified 10/04/23 15:56 Anti-Inflamma [NSAIDS (NON-STEROIDAL ANTI-INFLAMMA] clonazepam [Klonopin] AdvReac Severe Agitated Verified 10/04/23 15:56 droperidol AdvReac Severe Agitated Verified 10/04/23 15:56 haloperidol [Haldol] AdvReac Severe Agitated Verified 10/04/23 15:56 lorazepam [LORAZEPAM] AdvReac Severe AGGRESSION Verified 10/04/23 15:56 promethazine AdvReac Severe Agitated Verified 10/04/23 15:56 seafood Allergy Intermediate swelling Uncoded 10/04/23 15:56 Home Medications ?Medication ?Instructions ?Recorded ?Confirmed ?Last Taken ?Type blood sugar diagnostic #10 ea 12/02/20 10/04/23 03/18/22 History lancets 28 gauge #100 ea 12/02/20 10/04/23 03/18/22 History acetaminophen 500 mg tablet 1,000 mg PO Q4H PRN Pain 10/04/21 10/11/23 06/02/22 06:30 History albuterol sulfate 90 mcg/actuation 2 inh inhalation Q4H PRN Shortness 10/04/21 10/11/23 03/18/22 History aerosol inhaler Of Breath diazepam 2 mg tablet 1 tab PO BID 12/01/21 10/11/23 06/14/22 05:00 History lithium carbonate 300 mg capsule 300 mg PO BID 04/13/22 10/13/23 10/13/23 History famotidine 40 mg tablet (Pepcid) 40 mg PO BID 04/27/22 10/13/23 10/13/23 History hydroxyzine pamoate 25 mg capsule 25 mg PO TID PRN Anxiety 04/27/22 10/11/23 06/14/22 05:00 History (Vistaril) melatonin 5 mg tablet 5 mg PO BEDTIME PRN Insomnia 04/27/22 10/11/23 Unknown History ondansetron HCl 4 mg tablet 4 mg PO Q6H PRN Nausea 04/27/22 10/11/23 Unknown History prochlorperazine maleate 10 mg 10 mg PO BID PRN Nausea And 04/27/22 10/11/23 06/14/22 05:00 History tablet (Compazine) Vomiting quetiapine 25 mg tablet (Seroquel) 25 mg PO DAILY PRN Anxiety 04/27/22 10/11/23 Unknown History sumatriptan succinate 100 mg 100 mg PO Q2-4H PRN Migraine 04/27/22 10/11/23 Unknown History tablet (Imitrex) Headache bupropion HCl 150 mg 24 hr tablet, 150 mg PO DAILY 05/18/22 10/13/23 10/13/23 History extended release topiramate 25 mg tablet 25 mg PO DAILY 05/18/22 10/13/23 10/13/23 History albuterol sulfate 90 mcg/actuation 2 puff inhalation Q4H 05/27/22 10/11/23 Unknown History aerosol inhaler (Ventolin HFA) multivitamin 1 tab PO DAILY 05/27/22 10/13/23 10/13/23 History prazosin 2 mg capsule 2 cap PO BEDTIME 05/27/22 10/11/23 Unknown History valacyclovir 500 mg tablet 1 tab PO DAILY 05/27/22 10/13/23 10/13/23 History Exam Height,Weight and Vital Signs: Height 5 ft 1.5 in Weight 102.058 kg Assessment and Plan Assessment Anesthesia Assessment: Chart Reviewed Final Anesthetic Review Family History of Problems with Anesthesia: No History of Problems with Anesthesia: Yes (agitation at emergence clostrophobicwith mask extreme anxiey on transport to OR) Documented by User: Kerry Escamilla MD 10/13/23 13:27 [facility] Past Medical History Medical History Hidradenitis Epidermal cyst Epidermal inclusion cyst Pilonidal cyst Suppurative hidradenitis Back pain Migraines Insomnia GERD (gastroesophageal reflux disease) Morbid obesity Axillary hidradenitis suppurativa IUD (intrauterine device) in place History of DVT (deep vein thrombosis) Factor V Leiden Nausea DARINEL (obstructive sleep apnea) Asthma Wears hearing aid in both ears Loss of teeth due to extraction Preeclampsia Sacrococcygeal pilonidal cyst Depression Anxiety PTSD (post-traumatic stress disorder) Bipolar affective IBS (irritable bowel syndrome) Diabetes Gastroparesis Family History Family History Mother Mental health disorder Obesity Father Hypertension High cholesterol Son No problems noted. Brother No problems noted. 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) Alcohol intake: former Comment: aware of trip hazard Patient Tobacco Use Status: Current everyday Tobacco user Tobacco use type: Cigarette Use of substances other than those prescribed or required for medical reasons: No Substance Use Type: Marijuana Are you DNR?: No Advance Directives: No Advance Directives Information Provided: Yes Advance Directives Date on File: 12/07/21 Meds Allergies Allergy/AdvReac Type Severity Reaction Status Date / Time metoclopramide [From Reglan] Allergy Severe Hives Verified 10/04/23 15:56 NSAIDS (Non-Steroidal Allergy Severe Anaphylaxis Verified 10/04/23 15:56 Anti-Inflamma [NSAIDS (NON-STEROIDAL ANTI-INFLAMMA] clonazepam [Klonopin] AdvReac Severe Agitated Verified 10/04/23 15:56 droperidol AdvReac Severe Agitated Verified 10/04/23 15:56 haloperidol [Haldol] AdvReac Severe Agitated Verified 10/04/23 15:56 lorazepam [LORAZEPAM] AdvReac Severe AGGRESSION Verified 10/04/23 15:56 promethazine AdvReac Severe Agitated Verified 10/04/23 15:56 seafood Allergy Intermediate swelling Uncoded 10/04/23 15:56 Home Medications ?Medication ?Instructions ?Recorded ?Confirmed ?Last Taken ?Type blood sugar diagnostic #10 ea 12/02/20 10/04/23 03/18/22 History lancets 28 gauge #100 ea 12/02/20 10/04/23 03/18/22 History acetaminophen 500 mg tablet 1,000 mg PO Q4H PRN Pain 10/04/21 10/11/23 06/02/22 06:30 History albuterol sulfate 90 mcg/actuation 2 inh inhalation Q4H PRN Shortness 10/04/21 10/11/23 03/18/22 History aerosol inhaler Of Breath diazepam 2 mg tablet 1 tab PO BID 12/01/21 10/11/23 06/14/22 05:00 History lithium carbonate 300 mg capsule 300 mg PO BID 04/13/22 10/13/23 10/13/23 History famotidine 40 mg tablet (Pepcid) 40 mg PO BID 04/27/22 10/13/23 10/13/23 History hydroxyzine pamoate 25 mg capsule 25 mg PO TID PRN Anxiety 04/27/22 10/11/23 06/14/22 05:00 History (Vistaril) melatonin 5 mg tablet 5 mg PO BEDTIME PRN Insomnia 04/27/22 10/11/23 Unknown History ondansetron HCl 4 mg tablet 4 mg PO Q6H PRN Nausea 04/27/22 10/11/23 Unknown History prochlorperazine maleate 10 mg 10 mg PO BID PRN Nausea And 04/27/22 10/11/23 06/14/22 05:00 History tablet (Compazine) Vomiting quetiapine 25 mg tablet (Seroquel) 25 mg PO DAILY PRN Anxiety 04/27/22 10/11/23 Unknown History sumatriptan succinate 100 mg 100 mg PO Q2-4H PRN Migraine 04/27/22 10/11/23 Unknown History tablet (Imitrex) Headache bupropion HCl 150 mg 24 hr tablet, 150 mg PO DAILY 05/18/22 10/13/23 10/13/23 History extended release topiramate 25 mg tablet 25 mg PO DAILY 05/18/22 10/13/23 10/13/23 History albuterol sulfate 90 mcg/actuation 2 puff inhalation Q4H 05/27/22 10/11/23 Unknown History aerosol inhaler (Ventolin HFA) multivitamin 1 tab PO DAILY 05/27/22 10/13/23 10/13/23 History prazosin 2 mg capsule 2 cap PO BEDTIME 05/27/22 10/11/23 Unknown History valacyclovir 500 mg tablet 1 tab PO DAILY 05/27/22 10/13/23 10/13/23 History Exam Airway Mallampati Class: II TM Dist: >3cm Neck ROM: Full Heart: rrr Lungs: cta Assessment and Plan Assessment Anesthesia Assessment: Anesthesia Plan Discussed Final Anesthetic Review NPO: Yes ASA Class: III Final Preanesthetic Review: No Changes in Pt Med Stat, Meds/Allgs Chart Reviewed, Consent Obtained/Reviewed and Anes Risks/Benef Reviewed Patient Risk: Intermediate Procedure Risk: Low Anesthetic Plan Anesthetic Plan: GA Disposition: Standard PACU
[2023-10-13 10:54] VITALS: BMI 41.8
[2023-10-13 11:35] VITALS: BP 122/69; PULSE 77; RESP 16; TEMP 36.1; O2SAT 98
[2023-10-13 11:37] LABS: UPreg QC Valid YES; Urine Pregnancy NEGATIVE (NEGATIVE)
[2023-10-13] MEDS: Lactated Ringers 1,000 ML 100 ML IVCONT (11:37)
[2023-10-13 11:44] LABS: Glucose, Whole Blood 103 mg/dL (60-115)
--- NOTE | 2023-10-13 13:11 | MHC.SHP ---
Pre-Procedural Eval Section A - 24 Hr Update-Section A only Date of Service: 10/13/23 The patient is an INPATIENT: No Changes since office visit: No Cold of Flu in the past 2 weeks, No New Medical Problems, No Changes in Medication and No Patient answered all questions The patient has been examined within 24 hours of the surgical procedure. The History & Physical has been completed within 30 days and I have reviewed it.: Yes Section B - Complete if H&P > 30 days Chief Complaint: Hidradenitis suppurativa Allergies: Allergies Allergy/AdvReac Type Severity Reaction Status Date / Time metoclopramide [From Reglan] Allergy Severe Hives Verified 10/04/23 15:56 NSAIDS (Non-Steroidal Allergy Severe Anaphylaxis Verified 10/04/23 15:56 Anti-Inflamma [NSAIDS (NON-STEROIDAL ANTI-INFLAMMA] clonazepam [Klonopin] AdvReac Severe Agitated Verified 10/04/23 15:56 droperidol AdvReac Severe Agitated Verified 10/04/23 15:56 haloperidol [Haldol] AdvReac Severe Agitated Verified 10/04/23 15:56 lorazepam [LORAZEPAM] AdvReac Severe AGGRESSION Verified 10/04/23 15:56 promethazine AdvReac Severe Agitated Verified 10/04/23 15:56 seafood Allergy Intermediate swelling Uncoded 10/04/23 15:56 Plan I have reviewed the history and physical and performed a pertinent physical examination on my patient. No changes have occurred unless specified. Time Spent With Patient Time: Total time managing care of this patient today ____ minutes.
--- NOTE | 2023-10-13 14:11 | W.PM.OPN ---
Operative Note Operative Note Date of Service: 10/13/23 Narrative: Preop diagnosis: Hidradenitis suppurativa, right thigh Postop diagnosis: The same Procedure: Excision of hidradenitis, right thigh Surgeon: Etienne Lucero MD Recreational Therapy Technician: ARMANDO Story student The patient is a 27-year-old female with known hidradenitis, who has this area of recurrent pain, swelling drainage on the right medial thigh. She wanted to proceed with excision because of this recurrent problem. She understood the technique of the procedure as was the risks, benefits, and alternatives She pointed the area and I had marked this in preop. She was brought to the operating room and placed in supine position and general anesthesia via laryngeal mask airway. The thighs were placed in frog-leg position to expose the area of the induration. This area was prepped and draped. Lidocaine 1% was used for local anesthesia. A surgical time-out had been done earlier. No preop antibiotics was given. I made an elliptical incision around this area of induration in the medial thigh on the right using blade 15. This carried down with electrocautery through the full-thickness of the skin and subcutaneous fat to excise this entire indurated area. This was sent as a specimen. The area removed was about 3 cm x 2 cm I irrigated. I closed the incision with full-thickness nylon 3-0 simple interrupted sutures. Marcaine was used to infiltrate the area for postop analgesia Dressings were applied and the procedure was completed The patient tolerated the procedure well. There were no immediate complications. Estimated blood loss about 5 cc The patient was extubated without difficulty and transferred to the recovery room with stable vital signs.
[2023-10-13 14:16] VITALS: BP 99/44; PULSE 66; RESP 16; TEMP 36.6; O2SAT 98
[2023-10-13 14:20] VITALS: BP 112/67; PULSE 78; RESP 16; O2SAT 98
[2023-10-13] MEDS: fentaNYL citrate/PF 100 MCG/2 ML VIAL 25 MCG IVPUSH ×2 (14:20→14:25)
[2023-10-13 14:25] VITALS: BP 102/74; PULSE 79; RESP 14; RESP 16; O2SAT 95
[2023-10-13 14:30] VITALS: BP 106/70; PULSE 81; RESP 14; O2SAT 95
[2023-10-13] MEDS: ondansetron HCL 4 MG/2 ML VIAL IVPUSH (14:44)
== END 2023-10-13 15:16 | disposition home or self-care (01) ==
PROVIDERS: Nurse Practitioner; PCP Physician Assistant; Visit Provider Surgery
PROC: (CPT 11462; principal; 2023-10-13 14:00)
DX: L73.2 Hidradenitis suppurativa (principal); M79.651 Pain in right thigh; D68.51 Activated protein C resistance; E11.9 Type 2 diabetes mellitus without complications; F31.9 Bipolar disorder, unspecified; F43.10 Post-traumatic stress disorder, unspecified; G47.33 Obstructive sleep apnea (adult) (pediatric); Z86.718 Personal history of other venous thrombosis and embolism; Z86.711 Personal history of pulmonary embolism; Z79.899 Other long term (current) drug therapy; Z88.8 Allergy status to other drugs, medicaments and biological substances; Z88.6 Allergy status to analgesic agent; Z98.890 Other specified postprocedural states; J45.909 Unspecified asthma, uncomplicated; F17.210 Nicotine dependence, cigarettes, uncomplicated
CPT/HCPCS: 11462; 81025; 82947; 88305; J2250; J2405; J2704; J2795; J3010

== ENCOUNTER → 2023-10-13 10:39 | Outpatient (BNV) | payer MEDICARE, MEDICAID, SELFPAY | PROVIDERS: PCP Physician Assistant; Visit Provider Surgery | DX: L73.2 Hidradenitis suppurativa (principal) | CPT/HCPCS: 11462 ==

== ENCOUNTER 2023-10-15 14:57 | Emergency (ER) | payer MEDICARE, MEDICAID, SELFPAY ==
[2023-10-15 15:01] VITALS: BP 133/81; PULSE 92; RESP 20; TEMP 36.6; O2SAT 98; BMI 43.8
--- NOTE | 2023-10-15 15:02 | ED.GENADULT ---
HPI - General Adult General Chief complaint: Skin/Abscess/Foreign Body Stated complaint: surgical site is bleeding Time Seen by Provider: 10/15/23 17:17 Source: patient Mode of arrival: ambulatory Limitations: no limitations History of Present Illness ED Provider: Katie Reed HPI narrative: 27-year-old female who is postop day 2 after having a area of hidradenitis surgically removed from her right thigh by Dr. Lucero who presents to the ER with complaints of increasing bleeding from the site, pain unrelieved with home oxycodone. Patient reports the last 24 hours she has had to change her surgical dressing 4 times. She also reports pain is unrelieved despite taking 5 mg of oxycodone every 6 hours. She denies any fevers or chills. She denies any AC therapy use. Related Data Home Medications ?Medication ?Instructions ?Recorded ?Confirmed blood sugar diagnostic #10 ea 12/02/20 10/04/23 lancets 28 gauge #100 ea 12/02/20 10/04/23 acetaminophen 500 mg tablet 1,000 mg PO Q4H PRN Pain 10/04/21 10/11/23 albuterol sulfate 90 mcg/actuation 2 inh inhalation Q4H PRN Shortness 10/04/21 10/11/23 aerosol inhaler Of Breath diazepam 2 mg tablet 1 tab PO BID 12/01/21 10/11/23 lithium carbonate 300 mg capsule 300 mg PO BID 04/13/22 10/13/23 famotidine 40 mg tablet (Pepcid) 40 mg PO BID 04/27/22 10/13/23 hydroxyzine pamoate 25 mg capsule 25 mg PO TID PRN Anxiety 04/27/22 10/11/23 (Vistaril) melatonin 5 mg tablet 5 mg PO BEDTIME PRN Insomnia 04/27/22 10/11/23 ondansetron HCl 4 mg tablet 4 mg PO Q6H PRN Nausea 04/27/22 10/11/23 prochlorperazine maleate 10 mg 10 mg PO BID PRN Nausea And 04/27/22 10/11/23 tablet (Compazine) Vomiting quetiapine 25 mg tablet (Seroquel) 25 mg PO DAILY PRN Anxiety 04/27/22 10/11/23 sumatriptan succinate 100 mg 100 mg PO Q2-4H PRN Migraine 04/27/22 10/11/23 tablet (Imitrex) Headache bupropion HCl 150 mg 24 hr tablet, 150 mg PO DAILY 05/18/22 10/13/23 extended release topiramate 25 mg tablet 25 mg PO DAILY 05/18/22 10/13/23 albuterol sulfate 90 mcg/actuation 2 puff inhalation Q4H 05/27/22 10/11/23 aerosol inhaler (Ventolin HFA) multivitamin 1 tab PO DAILY 05/27/22 10/13/23 prazosin 2 mg capsule 2 cap PO BEDTIME 05/27/22 10/11/23 valacyclovir 500 mg tablet 1 tab PO DAILY 05/27/22 10/13/23 Previous Rx's ?Medication ?Instructions ?Recorded cephalexin 500 mg capsule 500 mg PO BID #30 caps 06/09/23 hydrocodone 5 mg-acetaminophen 325 1 tab PO Q4-6H PRN pain #30 tabs 06/09/23 mg tablet hydrocodone 5 mg-acetaminophen 325 1 tab PO Q4-6H PRN pain #30 tabs 06/16/23 mg tablet oxycodone-acetaminophen 5 mg-325 1 tab PO Q4-6H PRN pain #15 tabs 10/13/23 mg tablet (Percocet) Allergies Allergy/AdvReac Type Severity Reaction Status Date / Time metoclopramide [From Reglan] Allergy Severe Hives Verified 10/15/23 15:05 NSAIDS (Non-Steroidal Allergy Severe Anaphylaxis Verified 10/15/23 15:05 Anti-Inflamma [NSAIDS (NON-STEROIDAL ANTI-INFLAMMA] clonazepam [Klonopin] AdvReac Severe Agitated Verified 10/15/23 15:05 droperidol AdvReac Severe Agitated Verified 10/15/23 15:05 haloperidol [Haldol] AdvReac Severe Agitated Verified 10/15/23 15:05 lorazepam [LORAZEPAM] AdvReac Severe AGGRESSION Verified 10/15/23 15:05 promethazine AdvReac Severe Agitated Verified 10/15/23 15:05 seafood Allergy Intermediate swelling Uncoded 10/15/23 15:05 Review of Systems Review of Systems: Yes all other systems are reviewed and are negative Constitutional: Constitutional: Reports no additional constitutional complaints, Denies body ache(s), Denies chills, Denies fever(s), Denies headache(s) and Denies weakness Eyes: Eyes: Reports no additional eye complaints and Denies change in vision ENT: Reports system reviewed and no additional complaints, except as documented, Denies dizziness, Denies headache(s), Denies nasal congestion, Denies nasal discharge and Denies neck pain Cardiovascular: Cardiovascular: Reports no additional cardiovascular complaints, Denies chest pain, Denies leg edema and Denies dyspnea Respiratory: Respiratory: Reports no additional respiratory complaints, Denies cough and Denies dyspnea Gastrointestinal: Gastrointestinal: Reports no additional gastrointestinal complaints, Denies abdominal pain, Denies diarrhea, Denies nausea and Denies vomiting Genitourinary: Genitourinary: Reports no additional female genitourinary complaints and Denies urinary incontinence Musculoskeletal: Musculoskeletal: Reports no additional musculoskeletal complaints, Denies back pain, Denies arthralgias, Denies joint swelling, Denies neck pain, Denies numbness and Denies tingling Integumentary/Breasts: Skin/Breast: Reports system reviewed and no additional complaints, except as docu and Denies rash Neurologic: Reports system reviewed and no additional complaints, except as documented, Denies Abnormal speech present, Denies dizziness, Denies headache(s), Denies numbness, Denies tingling and Denies weakness PMFSH Past Medical History Attestation statement: The following information was validated with the patient. Source: old records reviewed and nursing notes reviewed Medical History Hidradenitis Epidermal cyst Epidermal inclusion cyst Pilonidal cyst Suppurative hidradenitis Back pain Migraines Insomnia GERD (gastroesophageal reflux disease) Morbid obesity Axillary hidradenitis suppurativa IUD (intrauterine device) in place History of DVT (deep vein thrombosis) Factor V Leiden Nausea DARINEL (obstructive sleep apnea) Asthma Wears hearing aid in both ears Loss of teeth due to extraction Preeclampsia Sacrococcygeal pilonidal cyst Depression Anxiety PTSD (post-traumatic stress disorder) Bipolar affective IBS (irritable bowel syndrome) Diabetes Gastroparesis Surgical History History of excision of pilonidal cyst History of esophagogastroduodenoscopy (EGD) History of removal of cyst (~11/14/22) Hx of umbilical hernia repair Hx of section History of carpal tunnel release Hx of myringotomy History of tonsillectomy and adenoidectomy Family History Family History Mother Mental health disorder Obesity Father Hypertension High cholesterol Son No problems noted. Brother No problems noted. Sister Asthma Social History Social History Household Members: Children Are you a primary adult care provider to a significant other at home: No (Mother has custody of 10 month old son) Do you presently have visiting nurse or other home services: Yes ([employer] 92 hours per week) Alcohol intake: former Comment: counts correct Patient Tobacco Use Status: Current everyday Tobacco user Tobacco use type: Cigarette Substance Use Type: Marijuana Advance Directives: Yes Advance Directives on File: Yes Advance Directives Date on File: 12/07/21 Physical Exam ED Vital Signs: Vital Signs - 24 hr 10/15/23 15:01 Temperature 97.8 F Pulse Rate 92 Respiratory Rate 20 Blood Pressure 133/81 Pulse Oximetry 98 Oxygen Delivery Method Room Air BMI result Body Mass Index 43.8 Const General: cooperative, healthy appearing, comfortable and no acute distress Orientation/consciousness: patient oriented x3 Limitations: no limitations HENMT Head: Yes normal to inspection Ears: hearing grossly normal bilaterally General nose exam: Normal external nose present Face and sinus: Yes normal facial exam Mouth: Normal oral and palatal mucosa present Throat: Yes posterior oropharynx normal Eyes General: appearance normal, both eyes and all related structures Pupils: Equal, round and reactive pupils present Neck Neck: Yes normal visual inspection Chest Chest palpation & inspection: normal inspection of the chest Resp Effort & Inspection: normal respiratory effort Auscultation: clear to auscultation bilaterally Cardio Rate: regular rate Rhythm: regular rhythm Peripheral pulses: Peripheral pulses 2+ throughout GI Inspection: Yes normal to inspection Palpation (GI): Soft to palpation and nontender Auscultation: normal bowel sounds Back/Spine/Pelvis Thoracic/Lumbar Spine: thoracic and lumbar spine normal to inspection Skin General skin exam: no rashes or lesions noted Neuro General: patient oriented x3, no focal motor deficits and normal sensation to monofilament Cranial nerves: Yes Equal, round and reactive pupils present Cognition (Neuro): normal cognition Speech: No Abnormal speech present Gait exam (Neuro): Normal gait present Motor exam (neuro): 5/5 motor strength present throughout Extrem General: Yes normal to inspection Upper/lower leg/hip images: 1. surgical incision site noted- there are 4 sutures present. One of the central sutures appears to be missing. There is no active bleeding noted from the site. No erythema or drainage. Compartments are soft and compressible Course Course Course Narrative: This is an RME performed by Magaly Paige [employer]INET FIN[employer]: Additional HPI, ROS, PE not included below will be deferred to primary provider. Patient is a 27-year-old female past medical history of hidradenitis suppurativa presenting to the emergency department, reports 10/13/23 had sweat gland removed, reports large amount of bloody drainage, increasing today, severe pain unrelieved by percocet. Attempted to call the surgeon's office, spoke with on-call provider, advised to come to the emergency department for further evaluation/pain management treatment. She states this morning she began having nausea vomiting dizziness lightheadedness. Denies fevers. Exam: Unable to visualize area due to privacy concerns in triage. Plan: Serum labs Reevaluation(s) Reevaluation #1: pain is improved. Hemoglobin stable. No active bleeding noted. Patient can be discharged home to follow-up with general surgery tomorrow in the office. Reviewed worrisome signs and symptoms of when to return to emergency room. Comfortable plan for discharge home Medications Administered Discontinued Medications Generic Name Dose Route Start Last Admin Trade Name Teresa PRN Reason Stop Dose Admin Morphine Sulfate 6 mg 10/15/23 17:30 10/15/23 18:00 Morphine Sulfate 10 Mg/Ml Cartridge IM 10/15/23 17:31 6 mg ONCE ONE Administration Protocol Ondansetron HCl 8 mg 10/15/23 17:30 10/15/23 18:00 Ondansetron Odt 8 Mg Tab.Rapdis TRANSLINGU 10/15/23 17:31 8 mg ONCE ONE Administration Medical Decision Making Medical Decision Making MDM Narrative: 27-year-old female who is postop day 2 after having a area of hidradenitis surgically removed from her right thigh by Dr. Lucero who presents to the ER with complaints of increasing bleeding from the site, pain unrelieved with home oxycodone. Patient reports the last 24 hours she has had to change her surgical dressing 4 times. She also reports pain is unrelieved despite taking 5 mg of oxycodone every 6 hours. She denies any fevers or chills. She denies any AC therapy use. surgical incision site noted- there are 4 sutures present. One of the central sutures appears to be missing. There is no active bleeding noted from the site. No erythema or drainage. Compartments are soft and compressible the dressing was reapplied. I will provide analgesia for the patient. Anticipate discharge home with outpatient surgical follow-up or review labs ordered from triage Differential Diagnosis Differential Diagnoses: The differential diagnosis associated with the presentation includes surgical site bleeding, surgical site infection, dehiscience Admission/Observation Consideration of admission/observation: Escalation of care including admission/observation considered see course above Lab Data MDM Lab Attestation statement: I reviewed the patient's lab results. 10/15/23 15:58 10/15/23 15:58 Labs: Lab Results 10/15/23 Range/Units 15:58 WBC 12.3 H (4.8-10.8) X10*3/uL RBC 4.12 L (4.20-5.50) X10*6/uL Hgb 11.5 L (12.0-16.0) g/dl Hct 35.4 L (37.0-47.0) % MCV 85.9 (80.0-98.0) fL MCH 27.9 (27.0-33.0) pg MCHC 32.5 (31.0-35.0) g/dl RDW 15.9 (11.0-16.0) % Plt Count 339 (160-400) X10*3/uL MPV 10.0 (9.4-12.3) fL Immature Gran % (Auto) 0.2 (0.0-0.4) % Neut % (Auto) 60.7 (45-73) % Lymph % (Auto) 33.1 (20-40) % Fisher % (Auto) 4.8 (2-11) % Eos % (Auto) 0.9 (0-4) % Baso % (Auto) 0.3 (0-2) % Lymph # (Auto) 4.1 (1.2-4.9) X10*3/uL Fisher # (Auto) 0.6 (0.1-1.2) X10*3/uL Eos # (Auto) 0.1 (0.0-0.4) X10*3/uL Baso # (Auto) 0.0 (0.0-0.2) X10*3/uL Abs Immat Gran (auto) 0.03 (0.00-0.03) X10*3/uL Absolute Neuts (auto) 7.5 (2.0-8.3) x10*3/uL Absolute Nucleated RBC 0.000 (0.0-0.012) X10*3/uL Nucleated RBC % (auto) 0.0 (0.0-0.2) /100WBC Sodium 138 (135-145) mmol/L Potassium 4.1 (3.3-5.1) mmol/L Chloride 111 H (96-108) mmol/L Carbon Dioxide 18 L (22-29) mmol/L Anion Gap 13 (12-20) BUN 11 (9-16) mg/dL Creatinine 0.91 (0.5-1.4) mg/dL Estim Creat Clear Calc 101.8 Estimated GFR > 60 Random Glucose 104 (60-115) mg/dL Calcium 9.4 (8.4-10.2) mg/dL Prescription Management I considered prescription management with: Antibiotic Discharge Plan Discharge Clinical Impression: Pain at surgical site Patient Disposition: Home, Self-Care Instructions: Pain Management After Surgery (DC) Prescriptions: No Action diazepam 2 mg tablet 1 tab PO BID prazosin 2 mg capsule 2 cap PO BEDTIME multivitamin Tablet 1 tab PO DAILY valacyclovir 500 mg tablet 1 tab PO DAILY albuterol sulfate [Ventolin HFA] 90 mcg/actuation HFA aerosol inhaler 2 puff INHALATION Q4H acetaminophen 500 mg Tablet 1,000 mg PO Q4H PRN (Reason: Pain) albuterol sulfate 90 mcg/actuation Hfa Aerosol Inhaler 2 inh INHALATION Q4H PRN (Reason: Shortness Of Breath) hydrocodone-acetaminophen 5-325 mg tablet 1 tab PO Q4-6H PRN (Reason: pain) Qty: 30 0RF Rx Instructions: Partial Fill upon patient request. oxycodone-acetaminophen [Percocet] 5-325 mg tablet 1 tab PO Q4-6H PRN (Reason: pain) Qty: 15 0RF Rx Instructions: Partial Fill upon patient request. (DME) FreeStyle Lite Strips Strip See Rx Instructions Not Applicable BID Qty: 10 Rx Instructions: As directed (DME) lancets 28 gauge misc See Rx Instructions topical BID Qty: 100 Rx Instructions: As directed topiramate 25 mg tablet 25 mg PO DAILY bupropion HCl 150 mg tablet extended release 24 hr 150 mg PO DAILY lithium carbonate 300 mg capsule 300 mg PO BID melatonin 5 mg tablet 5 mg PO BEDTIME PRN (Reason: Insomnia) prochlorperazine maleate [Compazine] 10 mg tablet 10 mg PO BID PRN (Reason: Nausea And Vomiting) quetiapine [Seroquel] 25 mg tablet 25 mg PO DAILY PRN (Reason: Anxiety) hydroxyzine pamoate [Vistaril] 25 mg capsule 25 mg PO TID PRN (Reason: Anxiety) famotidine [Pepcid] 40 mg tablet 40 mg PO BID ondansetron HCl 4 mg tablet 4 mg PO Q6H PRN (Reason: Nausea) sumatriptan succinate [Imitrex] 100 mg tablet 100 mg PO Q2-4H PRN (Reason: Migraine Headache) Rx Instructions: do not exceed 2 doses per 24 hrs cephalexin 500 mg capsule 500 mg PO BID Qty: 30 0RF hydrocodone-acetaminophen 5-325 mg tablet 1 tab PO Q4-6H PRN (Reason: pain) Qty: 30 0RF Rx Instructions: Partial Fill upon patient request. Referrals: Etienne Lucero MD [Physician] - 2 days Print Language: Canadian
[2023-10-15 16:02] LABS: MANUAL DIFF FLAG NO
[2023-10-15 16:03] LABS: Basophils Percent Auto 0.3 % (0-2); Eosinophils Absolute Auto 0.1 X10*3/uL (0.0-0.4); Eosinophils Percent Auto 0.9 % (0-4); Hematocrit 35.4 % (37.0-47.0); Hemoglobin 11.5 g/dl (12.0-16.0); Imm Gran Abs Auto 0.03 X10*3/uL (0.00-0.03); Imm Gran Pct Auto 0.2 % (0.0-0.4); Lymphocytes Absolute Auto 4.1 X10*3/uL (1.2-4.9); Lymphocytes Percent Auto 33.1 % (20-40); Mean Corpuscular HGB Conc 32.5 g/dl (31.0-35.0); Mean Corpuscular Hemoglobin 27.9 pg (27.0-33.0); Mean Corpuscular Volume 85.9 fL (80.0-98.0); Monocytes Absolute Auto 0.6 X10*3/uL (0.1-1.2); Monocytes Percent Auto 4.8 % (2-11); Neutrophils Absolute Auto 7.5 x10*3/uL (2.0-8.3); Neutrophils Percent Auto 60.7 % (45-73); Platelet Count 339 X10*3/uL (160-400); Red Blood Count 4.12 X10*6/uL (4.20-5.50); Red Cell Distribution Width 15.9 % (11.0-16.0); White Blood Count 12.3 X10*3/uL (4.8-10.8)
[2023-10-15 16:37] LABS: Anion Gap 13 (12-20); Blood Urea Nitrogen 11 mg/dL (9-16); Calcium 9.4 mg/dL (8.4-10.2); Carbon Dioxide 18 mmol/L (22-29); Chloride 111 mmol/L (96-108); Creatinine Clr Calc Pharmacy 101.8; Estimated Glomerular Filt Rate > 60; Glucose Random 104 mg/dL (60-115); Potassium 4.1 mmol/L (3.3-5.1); Sodium 138 mmol/L (135-145)
[2023-10-15] MEDS: Ondansetron ODT 8 MG TAB.RAPDIS TRANSLINGU (18:00)
[2023-10-15] MEDS: Morphine Sulfate 10 MG/ML CARTRIDGE 6 MG IM (18:00)
--- NOTE | 2023-10-15 18:02 | PC.NURSE ---
pt medicated for 10/10 rt groin pain per order
[2023-10-15 18:31] VITALS: BP 128/88; PULSE 90; RESP 20; TEMP 36.7; O2SAT 99
== END 2023-10-15 18:32 | disposition home or self-care (01) ==
PROVIDERS: Nurse Practitioner Family; Emergency Provider Internal Medicine
DX: G89.18 Other acute postprocedural pain (principal); L73.2 Hidradenitis suppurativa; E11.9 Type 2 diabetes mellitus without complications; F17.210 Nicotine dependence, cigarettes, uncomplicated; F12.90 Cannabis use, unspecified, uncomplicated; E66.9 Obesity, unspecified; Z68.41 Body mass index [BMI] 40.0-44.9, adult; Z79.899 Other long term (current) drug therapy
CPT/HCPCS: 36415; 80048; 85025; 96372; 99283; 99284; J2270

== ENCOUNTER → 2023-10-24 09:31 | Outpatient (BNVA) | payer MEDICARE, MEDICAID, SELFPAY | PROVIDERS: Visit Provider Surgery | DX: Z48.1 Encounter for planned postprocedural wound closure (principal) | CPT/HCPCS: 99211 ==

== ENCOUNTER 2024-01-21 04:40 | Emergency (ER) | payer MEDICARE, MEDICAID, SELFPAY ==
[2024-01-21] VITALS (7 sets, daily range): BP systolic 101–127; BP diastolic 35–68; PULSE 53–100; RESP 16–19; TEMP -12.4–37.2; O2SAT 98–99; BMI 43.5
--- NOTE | ~2024-01-21 | CT_ITS ---
EXAMINATION: CT ABDOMEN AND PELVIS WITH CONTRAST CLINICAL INFORMATION: Epigastric pain COMPARISON: October 13, 2018 TECHNIQUE: Multidetector volumetric images were obtained from the superior aspect of the liver through the pubic symphysis following administration 85 mL of Omnipaque 350 intravenous contrast. Sagittal and coronal reformatted images were obtained on the technologist's workstation. Oral contrast: No This CT examination was performed using dose optimization techniques as appropriate, variously including the following: *Automated exposure control *Adjustment of mA and/or kV according to patient size (this includes techniques or standardized protocols for targeted exams where dose is matched to indication/reason for exam; i.e. extremities or head) *Use of iterative reconstruction technique DLP: 832 mGy-cm FINDINGS: LUNG BASES: The visualized lung bases are unremarkable. LIVER, GALLBLADDER, AND BILIARY TREE: The liver is normal in size, shape, and attenuation. No focal hepatic lesion or biliary ductal dilatation is present. Gallbladder is surgically absent PANCREAS: Unremarkable. SPLEEN: Unremarkable. ADRENAL GLANDS: Unremarkable. KIDNEYS AND URETERS: The kidneys are normal in size, shape, and attenuation. No hydronephrosis, hydroureter, or calculi seen. No perinephric stranding. BLADDER: Urinary bladder decompressed with circumferentially subsequent wall possibly related to decompression, but correlate with urine tests for possible infection GASTROINTESTINAL TRACT: The small and large bowel are unremarkable. The appendix is not seen. ABDOMINAL WALL: Patient is status post repair of anterior abdominal wall and umbilical wall hernia with mesh in place LYMPH NODES: Normal. VASCULAR: Unremarkable. PELVIC VISCERA: There is a retroverted uterus with IUD in place and left adnexal cyst. OSSEOUS STRUCTURES: Unremarkable. CT/CT abdomen pelvis w IV con IMPRESSION: 1. No explanation for epigastric pain. 2. Status post cholecystectomy. 3. Left adnexal cyst. 4. Circumferential thickening of urinary bladder wall, correlate with urine tests. 5. Status post repair of anterior abdominal wall and umbilical wall hernia with mesh in place. Fleischner guidelines were followed. Electronically signed by: Bea Sanders MD 01/21/2024 08:51 AM EDT
--- NOTE | 2024-01-21 05:28 | ECG_ITS ---
Test Reason : ABDOMINAL PAIN Blood Pressure : / mmHG Vent. Rate : 051 BPM Atrial Rate : 051 BPM P-R Int : 178 ms QRS Dur : 094 ms QT Int : 482 ms P-R-T Axes : 012 060 050 degrees QTc Int : 444 ms Sinus bradycardia Otherwise normal ECG When compared with ECG of 27-JUN-2019 19:55, Vent. rate has decreased BY 40 BPM Nonspecific T wave abnormality no longer evident in Inferior leads Referred By: Niurka Espino Electronically Signed By:FRANK MORGAN
--- NOTE | 2024-01-21 05:30 | ED.ABDPAIN ---
HPI - Abdominal Pain General Chief Complaint: Abdominal Pain Stated Complaint: abd pain, N/V, recent abd surgery Time Seen by Provider: 01/21/24 05:19 Source: patient and EMS Mode of arrival: EMS Limitations: no limitations History of Present Illness ED Provider: Dr. Niurka Espino HPI narrative: Patient comes to the emergency room complaining of nausea vomiting and right upper quadrant pain for couple of days. Patient complaining of subjective fever. Patient states that a few days ago patient had a hydradenitis suppurativa surgery done on the right thigh, states it is healing well. Related Data Home Medications ?Medication ?Instructions ?Recorded ?Confirmed blood sugar diagnostic #10 ea 12/02/20 10/04/23 lancets 28 gauge #100 ea 12/02/20 10/04/23 acetaminophen 500 mg tablet 1,000 mg PO Q4H PRN Pain 10/04/21 10/11/23 albuterol sulfate 90 mcg/actuation 2 inh inhalation Q4H PRN Shortness 10/04/21 10/11/23 aerosol inhaler Of Breath diazepam 2 mg tablet 1 tab PO BID 12/01/21 10/11/23 lithium carbonate 300 mg capsule 300 mg PO BID 04/13/22 10/13/23 famotidine 40 mg tablet (Pepcid) 40 mg PO BID 04/27/22 10/13/23 hydroxyzine pamoate 25 mg capsule 25 mg PO TID PRN Anxiety 04/27/22 10/11/23 (Vistaril) melatonin 5 mg tablet 5 mg PO BEDTIME PRN Insomnia 04/27/22 10/11/23 ondansetron HCl 4 mg tablet 4 mg PO Q6H PRN Nausea 04/27/22 10/11/23 prochlorperazine maleate 10 mg 10 mg PO BID PRN Nausea And 04/27/22 10/11/23 tablet (Compazine) Vomiting quetiapine 25 mg tablet (Seroquel) 25 mg PO DAILY PRN Anxiety 04/27/22 10/11/23 sumatriptan succinate 100 mg 100 mg PO Q2-4H PRN Migraine 04/27/22 10/11/23 tablet (Imitrex) Headache bupropion HCl 150 mg 24 hr tablet, 150 mg PO DAILY 05/18/22 10/13/23 extended release topiramate 25 mg tablet 25 mg PO DAILY 05/18/22 10/13/23 albuterol sulfate 90 mcg/actuation 2 puff inhalation Q4H 05/27/22 10/11/23 aerosol inhaler (Ventolin HFA) multivitamin 1 tab PO DAILY 05/27/22 10/13/23 prazosin 2 mg capsule 2 cap PO BEDTIME 05/27/22 10/11/23 valacyclovir 500 mg tablet 1 tab PO DAILY 05/27/22 10/13/23 Previous Rx's ?Medication ?Instructions ?Recorded cephalexin 500 mg capsule 500 mg PO BID #30 caps 06/09/23 hydrocodone 5 mg-acetaminophen 325 1 tab PO Q4-6H PRN pain #30 tabs 06/09/23 mg tablet hydrocodone 5 mg-acetaminophen 325 1 tab PO Q4-6H PRN pain #30 tabs 06/16/23 mg tablet oxycodone-acetaminophen 5 mg-325 1 tab PO Q4-6H PRN pain #15 tabs 10/17/23 mg tablet (Percocet) Allergies Allergy/AdvReac Type Severity Reaction Status Date / Time metoclopramide [From Reglan] Allergy Severe Hives Verified 01/21/24 04:54 NSAIDS (Non-Steroidal Allergy Severe Anaphylaxis Verified 01/21/24 04:54 Anti-Inflamma [NSAIDS (NON-STEROIDAL ANTI-INFLAMMA] clonazepam [Klonopin] AdvReac Severe Agitated Verified 01/21/24 04:54 droperidol AdvReac Severe Agitated Verified 01/21/24 04:54 haloperidol [Haldol] AdvReac Severe Agitated Verified 01/21/24 04:54 lorazepam [LORAZEPAM] AdvReac Severe AGGRESSION Verified 01/21/24 04:54 promethazine AdvReac Severe Agitated Verified 01/21/24 04:54 ketorolac [From Toradol] AdvReac Anaphylaxis Verified 01/21/24 04:54 seafood Allergy Intermediate swelling Uncoded 01/21/24 04:54 Review of Systems Review of Systems Constitutional : No Weight loss, complaining of subjective fever, No Chills, No Night Sweats, No Fatigue, No Malaise ENT/Mouth : No Hearing loss, No Ear Pain, No Nasal Congestion, No Sinus Pain, No Hoarseness, No sore throat, No Rhinorrhea, No Swallowing Difficulty Eyes: No Eye Pain, No Swelling, No Redness, No Foreign Body, No Discharge, No Vision Changes Cardiovascular : No Chest Pain, No SOB, No Dyspnea on Exertion, No Orthopnea, No Edema, No Palpitations Respiratory : No Cough, No Sputum, No Wheezing, No Smoke Exposure, No Dyspnea Gastrointestinal : Complaining of nausea vomiting diarrhea, vomiting blood. Genitourinary : no irregular bleeding, No Dysuria, No Urinary Frequency, No Hematuria, No Urinary Incontinence, No Urgency, No Flank Pain, No Urinary Flow Changes, No Hesitancy Musculoskeletal : No joint pain, No Myalgias, No Joint Swelling Skin : No Skin Lesions, No rash Neuro : No Weakness, No Numbness, No Paresthesias, No Loss of Consciousness, No Dizziness, No Headache Psych : No Anxiety/Panic, No Depression, No SI/HI/AH/VH, No Social Issues, Heme/Lymph: No Bruising, No Bleeding,No Lymphadenopathy Endocrine : No Polyuria, No Polydipsia, No Temperature Intolerance PMFSH Past Medical History Medical History Hidradenitis Epidermal cyst Epidermal inclusion cyst Pilonidal cyst Suppurative hidradenitis Back pain Migraines Insomnia GERD (gastroesophageal reflux disease) Morbid obesity Axillary hidradenitis suppurativa IUD (intrauterine device) in place History of DVT (deep vein thrombosis) Factor V Leiden Nausea DARINEL (obstructive sleep apnea) Asthma Wears hearing aid in both ears Loss of teeth due to extraction Preeclampsia Sacrococcygeal pilonidal cyst Depression Anxiety PTSD (post-traumatic stress disorder) Bipolar affective IBS (irritable bowel syndrome) Diabetes Gastroparesis Surgical History History of excision of pilonidal cyst History of esophagogastroduodenoscopy (EGD) History of removal of cyst (~11/14/22) Hx of umbilical hernia repair Hx of section History of carpal tunnel release Hx of myringotomy History of tonsillectomy and adenoidectomy Family History Family History Mother Mental health disorder Obesity Father Hypertension High cholesterol Son No problems noted. Brother No problems noted. Sister Asthma Social History Social History Household Members: Children Are you a primary dog daycare provider to a significant other at home: No (Mother has custody of 10 month old son) Do you presently have visiting nurse or other home services: Yes ([employer] 92 hours per week) Alcohol intake: former Comment: counts correct Patient Tobacco Use Status: Current everyday Tobacco user Tobacco use type: Cigarette Substance Use Type: Marijuana Advance Directives Date on File: 12/07/21 Physical Exam ED Vital Signs: Vital Signs - 24 hr 01/21/24 04:53 Temperature 98.9 F Pulse Rate 56 Respiratory Rate 18 Blood Pressure 101/35 L Pulse Oximetry 99 Oxygen Delivery Method Room Air BMI result Body Mass Index 43.5 Const Other: Appearance: Alert. Oriented X3. No acute distress. Eyes: Pupils equal, round and reactive to light. ENT: Pharynx normal. Neck: Normal inspection. Neck supple. No lymph nodes noted. No crepitus CVS: Normal heart rate and rhythm. Pulses normal. Normal S1 and S2 Respiratory: No respiratory distress. Breath sounds normal. No Wheezing. No rales Abdomen: Soft , pain to palpation in the right upper quadrant pain, no rebound or guarding Skin: Skin warm and dry. Normal skin color. Normal skin turgor. Extremities: No lower extremity edema. No Lacerations. No Rash Neuro: Oriented X 3. No motor deficit. No sensory deficit. Moving all extremities. No slurred speech. CN 2 through 12 grossly intact Psych: calm, cooperative, normal affect Course Course Course Narrative: All of patient's labs and imaging pending -patient receiving IV fluids, morphine and Zofran -patient states that she has been having copious amounts of vomiting blood. Here in the ED, patient has not vomited at all yet. Patient declined rectal exam -CT scan of the abdomen pending Medical Decision Making Medical Decision Making MDM Narrative: -my interpretation of EKG: Normal sinus rhythm, heart rate 51, no ST segment depression or elevation, no T-wave inversion, QTC 444 -my interpretation of labs: Patient's white blood cell count 14.2 which is chronic for the patient, chronic anemia, -chemistry pending, LFTs pending, hCG pending -patient's CT scan pending -sign-out given to my colleague Dr. Calderon Differential Diagnosis Differential Diagnoses: The differential diagnosis associated with the presentation includes (Gastroparesis, acute cholecystitis, pancreatitis, gastritis, peptic ulcer disease) Admission/Observation Consideration of admission/observation: Escalation of care including admission/observation considered (Given patient's symptoms, observation has been considered.) Lab Data MDM Lab Attestation statement: I reviewed the patient's lab results. 01/21/24 06:28 01/21/24 06:28 Labs: Lab Results 01/21/24 01/21/24 Range/Units 06:28 06:48 WBC 14.2 H (4.8-10.8) X10*3/uL RBC 3.57 L (4.20-5.50) X10*6/uL Hgb 10.5 L (12.0-16.0) g/dl Hct 32.8 L (37.0-47.0) % MCV 91.9 (80.0-98.0) fL MCH 29.4 (27.0-33.0) pg MCHC 32.0 (31.0-35.0) g/dl RDW 15.2 (11.0-16.0) % Plt Count 311 (160-400) X10*3/uL MPV 9.8 (9.4-12.3) fL Immature Gran % (Auto) 0.5 H (0.0-0.4) % Neut % (Auto) 60.7 (45-73) % Lymph % (Auto) 31.7 (20-40) % [place] % (Auto) 5.9 (2-11) % Eos % (Auto) 1.0 (0-4) % Baso % (Auto) 0.2 (0-2) % Lymph # (Auto) 4.5 (1.2-4.9) X10*3/uL [place] # (Auto) 0.8 (0.1-1.2) X10*3/uL Eos # (Auto) 0.1 (0.0-0.4) X10*3/uL Baso # (Auto) 0.0 (0.0-0.2) X10*3/uL Abs Immat Gran (auto) 0.07 H (0.00-0.03) X10*3/uL Absolute Neuts (auto) 8.6 H (2.0-8.3) x10*3/uL Absolute Nucleated RBC 0.070 H (0.0-0.012) X10*3/uL Nucleated RBC % (auto) 0.5 H (0.0-0.2) /100WBC Hold Purple Top SEE NOTE Critical Care Time Critical Care Time Critical Care Time: Yes Total Critical Care Time: 35 Attestation: I have personally provided critical care time. Time includes review of lab data, radiology results, discussion with consultants, and monitoring for potential decompensation. Intervention performed as documented. Discharge Plan Discharge Clinical Impression: Nausea & vomiting, Abdominal pain Patient Disposition: Home, Self-Care Prescriptions: No Action oxycodone-acetaminophen [Percocet] 5-325 mg tablet 1 tab PO Q4-6H PRN (Reason: pain) Qty: 15 0RF Rx Instructions: Partial Fill upon patient request. diazepam 2 mg tablet 1 tab PO BID prazosin 2 mg capsule 2 cap PO BEDTIME multivitamin Tablet 1 tab PO DAILY valacyclovir 500 mg tablet 1 tab PO DAILY albuterol sulfate [Ventolin HFA] 90 mcg/actuation HFA aerosol inhaler 2 puff INHALATION Q4H acetaminophen 500 mg Tablet 1,000 mg PO Q4H PRN (Reason: Pain) albuterol sulfate 90 mcg/actuation Hfa Aerosol Inhaler 2 inh INHALATION Q4H PRN (Reason: Shortness Of Breath) hydrocodone-acetaminophen 5-325 mg tablet 1 tab PO Q4-6H PRN (Reason: pain) Qty: 30 0RF Rx Instructions: Partial Fill upon patient request. (DME) FreeStyle Lite Strips Strip See Rx Instructions Not Applicable BID Qty: 10 Rx Instructions: As directed (DME) lancets 28 gauge misc See Rx Instructions topical BID Qty: 100 Rx Instructions: As directed topiramate 25 mg tablet 25 mg PO DAILY bupropion HCl 150 mg tablet extended release 24 hr 150 mg PO DAILY lithium carbonate 300 mg capsule 300 mg PO BID melatonin 5 mg tablet 5 mg PO BEDTIME PRN (Reason: Insomnia) prochlorperazine maleate [Compazine] 10 mg tablet 10 mg PO BID PRN (Reason: Nausea And Vomiting) quetiapine [Seroquel] 25 mg tablet 25 mg PO DAILY PRN (Reason: Anxiety) hydroxyzine pamoate [Vistaril] 25 mg capsule 25 mg PO TID PRN (Reason: Anxiety) famotidine [Pepcid] 40 mg tablet 40 mg PO BID ondansetron HCl 4 mg tablet 4 mg PO Q6H PRN (Reason: Nausea) sumatriptan succinate [Imitrex] 100 mg tablet 100 mg PO Q2-4H PRN (Reason: Migraine Headache) Rx Instructions: do not exceed 2 doses per 24 hrs cephalexin 500 mg capsule 500 mg PO BID Qty: 30 0RF hydrocodone-acetaminophen 5-325 mg tablet 1 tab PO Q4-6H PRN (Reason: pain) Qty: 30 0RF Rx Instructions: Partial Fill upon patient request. Print Language: Portuguese
[2024-01-21 06:34] LABS: MANUAL DIFF FLAG NO
[2024-01-21 06:43] LABS: Basophils Percent Auto 0.2 % (0-2); Eosinophils Absolute Auto 0.1 X10*3/uL (0.0-0.4); Hematocrit 32.8 % (37.0-47.0); Hemoglobin 10.5 g/dl (12.0-16.0); Imm Gran Abs Auto 0.07 X10*3/uL (0.00-0.03); Imm Gran Pct Auto 0.5 % (0.0-0.4); Lymphocytes Absolute Auto 4.5 X10*3/uL (1.2-4.9); Lymphocytes Percent Auto 31.7 % (20-40); Mean Corpuscular Hemoglobin 29.4 pg (27.0-33.0); Mean Corpuscular Volume 91.9 fL (80.0-98.0); Mean Platelet Volume 9.8 fL (9.4-12.3); Monocytes Absolute Auto 0.8 X10*3/uL (0.1-1.2); Monocytes Percent Auto 5.9 % (2-11); NRBC Pct Auto 0.5 /100WBC (0.0-0.2); Neutrophils Absolute Auto 8.6 x10*3/uL (2.0-8.3); Neutrophils Percent Auto 60.7 % (45-73); Platelet Count 311 X10*3/uL (160-400); Red Blood Count 3.57 X10*6/uL (4.20-5.50); Red Cell Distribution Width 15.2 % (11.0-16.0); White Blood Count 14.2 X10*3/uL (4.8-10.8)
[2024-01-21] MEDS: 0.9 % Sodium Chloride 1,000 ML 999 ML IVCONT (07:19)
[2024-01-21] MEDS: ondansetron HCL 4 MG/2 ML VIAL IVPUSH (07:19)
[2024-01-21] MEDS: Morphine Sulfate 2 MG/ML CARTRIDGE IVPUSH (07:22)
[2024-01-21 07:49] LABS: Alanine Aminotransferase 11 U/L (0-31); Albumin Level 4.2 g/dL (3.5-5.0); Alkaline Phosphatase 120 U/L (39-117); Anion Gap 13 (12-20); Aspartate Amino Transferase 10 U/L (5-31); Bilirubin Direct < 0.2 mg/dL (0.0-0.5); Bilirubin Total 0.2 mg/dL (0.0-1.0); Blood Urea Nitrogen 6 mg/dL (9-16); Calcium 9.2 mg/dL (8.4-10.2); Carbon Dioxide 22 mmol/L (22-29); Chloride 108 mmol/L (96-108); Creatinine Clr Calc Pharmacy 93.2; Estimated Glomerular Filt Rate > 60; Glucose Random 112 mg/dL (60-115); Lipase 36 U/L (8-78); Potassium 3.9 mmol/L (3.3-5.1); Sodium 139 mmol/L (135-145); Total Protein 7.3 g/dL (6.5-8.0)
[2024-01-21 07:53] LABS: HCG Quantitative < 2 mIU/mL
[2024-01-21] MEDS: iohexoL 350 MG/ML 100 ML INFUS..BTL IV (08:28)
[2024-01-21] MEDS: 0.9 % Sodium Chloride 1,000 ML 999 ML IV (09:00)
[2024-01-21] MEDS: Morphine Sulfate 4 MG/ML CARTRIDGE IVPUSH (09:01)
[2024-01-21 09:10] LABS: Appearance Urine Clear; Color Urine Yellow; Glucose Urine UA Negative (Negative); Leukocyte Esterase Urine Small (1+) (Negative); Nitrite Urine Negative (Negative); PH 6.5 (5.0-9.0); Specific Gravity - Urine <= 1.005 (1.005-1.025); UMIC TRIGGER UACC YES; Urine Blood Negative (Negative); Urine Ketones Negative (Negative); Urine Protein Negative (Neg-Trace)
[2024-01-21 09:11] LABS: UPreg QC Valid YES
[2024-01-21 09:13] LABS: Urine Pregnancy NEGATIVE (NEGATIVE)
[2024-01-21 09:15] LABS: Bacteria Urine Trace (None Seen); Hyaline Casts Urine 0-2 /LPF (0-2); RBC Urine 0-2 /HPF (0-2); Squamous Epithelial Cell Urine 0-2 /HPF (0-2); UACC Culture Trigger YES
[2024-01-21] MEDS: cefTRIAXone sodium 1 GM in 0.9 % Sodium Chloride 50 ML IV (09:50)
== END 2024-01-21 09:56 | disposition home or self-care (01) ==
PROVIDERS: Emergency Medicine; Emergency Provider Emergency Medicine
DX: R10.31 Right lower quadrant pain (principal); N12 Tubulo-interstitial nephritis, not specified as acute or chronic; R11.2 Nausea with vomiting, unspecified; R50.9 Fever, unspecified; R00.1 Bradycardia, unspecified; R10.2 Pelvic and perineal pain; R10.13 Epigastric pain; F17.210 Nicotine dependence, cigarettes, uncomplicated; Z79.899 Other long term (current) drug therapy
CPT/HCPCS: 36415; 74177; 80048; 80076; 81001; 81025; 83690; 84702; 85025; 87086; 93005; 96361; 96365; 96375; 99284; 99285; J0696; J2270; J2405; Q9967

== ENCOUNTER 2024-01-29 02:13 | Emergency (ER) | payer MEDICARE, MEDICAID, SELFPAY ==
[2024-01-29 02:17] VITALS: BP 107/63; PULSE 84; RESP 20; TEMP 36.9; O2SAT 98; BMI 45.3
[2024-01-29 02:54] LABS: MANUAL DIFF FLAG NO
[2024-01-29 02:56] LABS: Basophils Percent Auto 0.3 % (0-2); Eosinophils Absolute Auto 0.1 X10*3/uL (0.0-0.4); Eosinophils Percent Auto 1.2 % (0-4); Hematocrit 32.4 % (37.0-47.0); Hemoglobin 10.4 g/dl (12.0-16.0); Imm Gran Abs Auto 0.03 X10*3/uL (0.00-0.03); Imm Gran Pct Auto 0.3 % (0.0-0.4); Lymphocytes Absolute Auto 3.4 X10*3/uL (1.2-4.9); Mean Corpuscular HGB Conc 32.1 g/dl (31.0-35.0); Mean Corpuscular Hemoglobin 29.4 pg (27.0-33.0); Mean Corpuscular Volume 91.5 fL (80.0-98.0); Mean Platelet Volume 9.3 fL (9.4-12.3); Monocytes Absolute Auto 0.6 X10*3/uL (0.1-1.2); Monocytes Percent Auto 6.3 % (2-11); Neutrophils Absolute Auto 5.5 x10*3/uL (2.0-8.3); Neutrophils Percent Auto 56.9 % (45-73); Platelet Count 287 X10*3/uL (160-400); Red Blood Count 3.54 X10*6/uL (4.20-5.50); Red Cell Distribution Width 15.9 % (11.0-16.0); White Blood Count 9.7 X10*3/uL (4.8-10.8)
[2024-01-29 03:23] LABS: Alanine Aminotransferase 17 U/L (0-31); Albumin Level 3.7 g/dL (3.5-5.0); Alkaline Phosphatase 106 U/L (39-117); Anion Gap 10 (12-20); Aspartate Amino Transferase 13 U/L (5-31); Bilirubin Total 0.1 mg/dL (0.0-1.0); Blood Urea Nitrogen 10 mg/dL (9-16); Calcium 8.8 mg/dL (8.4-10.2); Carbon Dioxide 21 mmol/L (22-29); Chloride 112 mmol/L (96-108); Creatinine Clr Calc Pharmacy 107.8; Estimated Glomerular Filt Rate > 60; Glucose Random 127 mg/dL (60-115); Potassium 4.1 mmol/L (3.3-5.1); Sodium 139 mmol/L (135-145); Total Protein 6.5 g/dL (6.5-8.0)
[2024-01-29 03:34] VITALS: BP 105/58; PULSE 74; RESP 16; TEMP 37.1; O2SAT 98
--- NOTE | 2024-01-29 03:37 | ED.ABDPAIN ---
HPI - Abdominal Pain General Chief Complaint: Abdominal Pain Stated Complaint: abd pain Time Seen by Provider: 01/29/24 03:37 Source: patient Mode of arrival: ambulatory Limitations: no limitations History of Present Illness ED Provider: genesis ISBELL narrative: Patient with history of gastroparesis status post G POEM surgery 3 months with partial relief for few weeks comes here with pain in upper abdomen with nausea vomiting unable to hold down her food patient is seen here on 01/[address] scan of the abdomen done which was negative status post cholecystectomy taking Xanax for anxiety Related Data Home Medications ?Medication ?Instructions ?Recorded ?Confirmed blood sugar diagnostic #10 ea 12/02/20 10/04/23 lancets 28 gauge #100 ea 12/02/20 10/04/23 acetaminophen 500 mg tablet 1,000 mg PO Q4H PRN Pain 10/04/21 10/11/23 albuterol sulfate 90 mcg/actuation 2 inh inhalation Q4H PRN Shortness 10/04/21 10/11/23 aerosol inhaler Of Breath diazepam 2 mg tablet 1 tab PO BID 12/01/21 10/11/23 lithium carbonate 300 mg capsule 300 mg PO BID 04/13/22 10/13/23 famotidine 40 mg tablet (Pepcid) 40 mg PO BID 04/27/22 10/13/23 hydroxyzine pamoate 25 mg capsule 25 mg PO TID PRN Anxiety 04/27/22 10/11/23 (Vistaril) melatonin 5 mg tablet 5 mg PO BEDTIME PRN Insomnia 04/27/22 10/11/23 ondansetron HCl 4 mg tablet 4 mg PO Q6H PRN Nausea 04/27/22 10/11/23 prochlorperazine maleate 10 mg 10 mg PO BID PRN Nausea And 04/27/22 10/11/23 tablet (Compazine) Vomiting quetiapine 25 mg tablet (Seroquel) 25 mg PO DAILY PRN Anxiety 04/27/22 10/11/23 sumatriptan succinate 100 mg 100 mg PO Q2-4H PRN Migraine 04/27/22 10/11/23 tablet (Imitrex) Headache bupropion HCl 150 mg 24 hr tablet, 150 mg PO DAILY 05/18/22 10/13/23 extended release topiramate 25 mg tablet 25 mg PO DAILY 05/18/22 10/13/23 albuterol sulfate 90 mcg/actuation 2 puff inhalation Q4H 05/27/22 10/11/23 aerosol inhaler (Ventolin HFA) multivitamin 1 tab PO DAILY 05/27/22 10/13/23 prazosin 2 mg capsule 2 cap PO BEDTIME 05/27/22 10/11/23 valacyclovir 500 mg tablet 1 tab PO DAILY 05/27/22 10/13/23 Previous Rx's ?Medication ?Instructions ?Recorded cephalexin 500 mg capsule 500 mg PO BID #30 caps 06/09/23 hydrocodone 5 mg-acetaminophen 325 1 tab PO Q4-6H PRN pain #30 tabs 06/09/23 mg tablet hydrocodone 5 mg-acetaminophen 325 1 tab PO Q4-6H PRN pain #30 tabs 06/16/23 mg tablet oxycodone-acetaminophen 5 mg-325 1 tab PO Q4-6H PRN pain #15 tabs 10/17/23 mg tablet (Percocet) cefuroxime axetil 250 mg tablet 250 mg PO BID 7 days #14 tabs 01/21/24 fluconazole 150 mg tablet 150 mg PO Q3D 2 doses #2 tabs 01/21/24 ondansetron 4 mg disintegrating 4 mg PO Q8H PRN nausea and 01/21/24 tablet vomiting #20 tabs Allergies Allergy/AdvReac Type Severity Reaction Status Date / Time metoclopramide [From Reglan] Allergy Severe Hives Verified 01/29/24 02:23 NSAIDS (Non-Steroidal Allergy Severe Anaphylaxis Verified 01/29/24 02:23 Anti-Inflamma [NSAIDS (NON-STEROIDAL ANTI-INFLAMMA] clonazepam [Klonopin] AdvReac Severe Agitated Verified 01/29/24 02:23 droperidol AdvReac Severe Agitated Verified 01/29/24 02:23 haloperidol [Haldol] AdvReac Severe Agitated Verified 01/29/24 02:23 lorazepam [LORAZEPAM] AdvReac Severe AGGRESSION Verified 01/29/24 02:23 promethazine AdvReac Severe Agitated Verified 01/29/24 02:23 ketorolac [From Toradol] AdvReac Anaphylaxis Verified 01/29/24 02:23 seafood Allergy Intermediate swelling Uncoded 01/29/24 02:23 Review of Systems Review of Systems Yes all other systems are reviewed and are negative PMFSH Past Medical History Medical History Hidradenitis Epidermal cyst Epidermal inclusion cyst Pilonidal cyst Suppurative hidradenitis Back pain Migraines Insomnia GERD (gastroesophageal reflux disease) Morbid obesity Axillary hidradenitis suppurativa IUD (intrauterine device) in place History of DVT (deep vein thrombosis) Factor V Leiden Nausea DARINEL (obstructive sleep apnea) Asthma Wears hearing aid in both ears Loss of teeth due to extraction Preeclampsia Sacrococcygeal pilonidal cyst Depression Anxiety PTSD (post-traumatic stress disorder) Bipolar affective IBS (irritable bowel syndrome) Diabetes Gastroparesis Surgical History History of excision of pilonidal cyst History of esophagogastroduodenoscopy (EGD) History of removal of cyst (~11/14/22) Hx of umbilical hernia repair Hx of section History of carpal tunnel release Hx of myringotomy History of tonsillectomy and adenoidectomy Family History Family History Mother Mental health disorder Obesity Father Hypertension High cholesterol Son No problems noted. Brother No problems noted. Sister Asthma Social History Social History Household Members: Children Are you a primary infant caregiver to a significant other at home: No (Mother has custody of 10 month old son) Do you presently have visiting nurse or other home services: Yes ([employer] 92 hours per week) Alcohol intake: former Comment: counts correct Patient Tobacco Use Status: Current everyday Tobacco user Tobacco use type: Cigarette Substance Use Type: Marijuana Advance Directives: No Advance Directives Information Provided: Yes Advance Directives Date on File: 12/07/21 Physical Exam ED Vital Signs: Vital Signs - 24 hr 01/29/24 02:17 01/29/24 03:34 01/29/24 05:30 Temperature 98.4 F 98.8 F 98.3 F Pulse Rate 84 74 71 Respiratory Rate 20 16 14 Blood Pressure 107/63 105/58 L 105/66 Pulse Oximetry 98 98 97 Oxygen Delivery Method Room Air Room Air Room Air BMI result Body Mass Index 45.3 Appearance: Alert. Oriented X3. No acute distress. Anxious Eyes: PERRLA, no pallor or icterus ENT: Pharynx normal. Oral Mucosa moist Neck: Normal inspection. Neck supple. CVS: Normal heart rate and rhythm. Pulses normal. Respiratory: No respiratory distress. Equal air entry bilateral, no wheezing/rales/rhonchi Abdomen: Soft diffuse tenderness bowel sounds are present. Bowel sounds are present, no mass palpable, no CVA tenderness Skin: Skin warm and dry. Normal skin color. Normal skin turgor. Extremities: No lower extremity edema. No calf tenderness Neuro: Oriented X 3. No motor deficit. Medical Decision Making Medical Decision Making [facility] Narrative: Patient has chronic abdominal pain with gastroparesis on multiple medications status post G-POEM procedure advised to follow with her improvement leader feels better after IM morphine no active vomiting in the ER abdominal soft, labs are stable Lab Data [facility] Lab Attestation statement: I reviewed the patient's lab results. 01/29/24 02:49 01/29/24 02:49 Labs: Lab Results 01/29/24 01/29/24 Range/Units 02:49 04:17 WBC 9.7 (4.8-10.8) X10*3/uL RBC 3.54 L (4.20-5.50) X10*6/uL Hgb 10.4 L (12.0-16.0) g/dl Hct 32.4 L (37.0-47.0) % MCV 91.5 (80.0-98.0) fL MCH 29.4 (27.0-33.0) pg MCHC 32.1 (31.0-35.0) g/dl RDW 15.9 (11.0-16.0) % Plt Count 287 (160-400) X10*3/uL MPV 9.3 L (9.4-12.3) fL Immature Gran % (Auto) 0.3 (0.0-0.4) % Neut % (Auto) 56.9 (45-73) % Lymph % (Auto) 35.0 (20-40) % Foster % (Auto) 6.3 (2-11) % Eos % (Auto) 1.2 (0-4) % Baso % (Auto) 0.3 (0-2) % Lymph # (Auto) 3.4 (1.2-4.9) X10*3/uL Foster # (Auto) 0.6 (0.1-1.2) X10*3/uL Eos # (Auto) 0.1 (0.0-0.4) X10*3/uL Baso # (Auto) 0.0 (0.0-0.2) X10*3/uL Abs Immat Gran (auto) 0.03 (0.00-0.03) X10*3/uL Absolute Neuts (auto) 5.5 (2.0-8.3) x10*3/uL Absolute Nucleated RBC 0.000 (0.0-0.012) X10*3/uL Nucleated RBC % (auto) 0.0 (0.0-0.2) /100WBC Sodium 139 (135-145) mmol/L Potassium 4.1 (3.3-5.1) mmol/L Chloride 112 H (96-108) mmol/L Carbon Dioxide 21 L (22-29) mmol/L Anion Gap 10 L (12-20) BUN 10 (9-16) mg/dL Creatinine 0.87 (0.5-1.4) mg/dL Estim Creat Clear Calc 107.8 Estimated GFR > 60 Random Glucose 127 H (60-115) mg/dL Calcium 8.8 (8.4-10.2) mg/dL Total Bilirubin 0.1 (0.0-1.0) mg/dL AST 13 (5-31) U/L ALT 17 (0-31) U/L Alkaline Phosphatase 106 (39-117) U/L Total Protein 6.5 (6.5-8.0) g/dL Albumin 3.7 (3.5-5.0) g/dL Urine Color Yellow Urine Appearance Clear Urine pH 7.0 (5.0-9.0) Ur Specific [place] <= 1.005 (1.005-1.025) Urine Protein Negative (Neg-Trace) mg/dL Urine Glucose (UA) Negative (Negative) mg/dL Urine Ketones Negative (Negative) mg/dL Urine Blood Negative (Negative) Urine Nitrite Negative (Negative) Ur Leukocyte Esterase Trace H (Negative) Urine RBC 0-2 (0-2) /HPF Urine WBC 0-5 (0-5) /HPF Ur Squamous Epith Cells 0-2 (0-2) /HPF Urine Bacteria Trace (None Seen) Hyaline Casts 0-2 (0-2) /LPF Urine Test NEGATIVE (NEGATIVE) Medications Administered Discontinued Medications Generic Name Dose Route Start Last Admin Trade Name Freq PRN Reason Stop Dose Admin Morphine Sulfate 4 mg 01/29/24 04:16 01/29/24 04:25 Morphine Sulfate 4 Mg/Ml Cartridge IM 01/29/24 04:17 4 mg ONCE ONE Administration Protocol Discharge Plan Discharge Clinical Impression: Gastroparesis, Chronic pain Patient Disposition: Home, Self-Care Instructions: Chronic Pain (ED), Gastroparesis (ED) Additional Instructions: Continue medication as prescribed before by a improvement leader and PCP Follow up with improvement leader Drink plenty of fluids Prescriptions: No Action oxycodone-acetaminophen [Percocet] 5-325 mg tablet 1 tab PO Q4-6H PRN (Reason: pain) Qty: 15 0RF Rx Instructions: Partial Fill upon patient request. diazepam 2 mg tablet 1 tab PO BID prazosin 2 mg capsule 2 cap PO BEDTIME multivitamin Tablet 1 tab PO DAILY valacyclovir 500 mg tablet 1 tab PO DAILY albuterol sulfate [Ventolin HFA] 90 mcg/actuation HFA aerosol inhaler 2 puff INHALATION Q4H acetaminophen 500 mg Tablet 1,000 mg PO Q4H PRN (Reason: Pain) albuterol sulfate 90 mcg/actuation Hfa Aerosol Inhaler 2 inh INHALATION Q4H PRN (Reason: Shortness Of Breath) hydrocodone-acetaminophen 5-325 mg tablet 1 tab PO Q4-6H PRN (Reason: pain) Qty: 30 0RF Rx Instructions: Partial Fill upon patient request. cefuroxime axetil 250 mg tablet 250 mg PO BID 7 Days Qty: 14 0RF ondansetron 4 mg tablet,disintegrating 4 mg PO Q8H PRN (Reason: nausea and vomiting) Qty: 20 0RF fluconazole 150 mg tablet 150 mg PO Q3D Qty: 2 0RF Rx Instructions: repeat dose in 3 days if symptoms persist (DME) FreeStyle Lite Strips Strip See Rx Instructions Not Applicable BID Qty: 10 Rx Instructions: As directed (DME) lancets 28 gauge misc See Rx Instructions topical BID Qty: 100 Rx Instructions: As directed topiramate 25 mg tablet 25 mg PO DAILY bupropion HCl 150 mg tablet extended release 24 hr 150 mg PO DAILY lithium carbonate 300 mg capsule 300 mg PO BID melatonin 5 mg tablet 5 mg PO BEDTIME PRN (Reason: Insomnia) prochlorperazine maleate [Compazine] 10 mg tablet 10 mg PO BID PRN (Reason: Nausea And Vomiting) quetiapine [Seroquel] 25 mg tablet 25 mg PO DAILY PRN (Reason: Anxiety) hydroxyzine pamoate [Vistaril] 25 mg capsule 25 mg PO TID PRN (Reason: Anxiety) famotidine [Pepcid] 40 mg tablet 40 mg PO BID ondansetron HCl 4 mg tablet 4 mg PO Q6H PRN (Reason: Nausea) sumatriptan succinate [Imitrex] 100 mg tablet 100 mg PO Q2-4H PRN (Reason: Migraine Headache) Rx Instructions: do not exceed 2 doses per 24 hrs cephalexin 500 mg capsule 500 mg PO BID Qty: 30 0RF hydrocodone-acetaminophen 5-325 mg tablet 1 tab PO Q4-6H PRN (Reason: pain) Qty: 30 0RF Rx Instructions: Partial Fill upon patient request. Print Language: German
[2024-01-29 04:24] LABS: Appearance Urine Clear; Color Urine Yellow; Glucose Urine UA Negative (Negative); Leukocyte Esterase Urine Trace (Negative); Nitrite Urine Negative (Negative); Specific Gravity - Urine <= 1.005 (1.005-1.025); UMIC TRIGGER UACC YES; Urine Blood Negative (Negative); Urine Ketones Negative (Negative); Urine Protein Negative (Neg-Trace)
[2024-01-29] MEDS: Morphine Sulfate 4 MG/ML CARTRIDGE IM (04:25)
[2024-01-29 04:27] LABS: Bacteria Urine Trace (None Seen); Hyaline Casts Urine 0-2 /LPF (0-2); RBC Urine 0-2 /HPF (0-2); Squamous Epithelial Cell Urine 0-2 /HPF (0-2); UPreg QC Valid YES; Urine Pregnancy NEGATIVE (NEGATIVE); WBC Urine 0-5 /HPF (0-5)
[2024-01-29 05:30] VITALS: BP 105/66; PULSE 71; RESP 14; TEMP 36.8; O2SAT 97
== END 2024-01-29 05:44 | disposition home or self-care (01) ==
PROVIDERS: Emergency Provider Internal Medicine
DX: E11.43 Type 2 diabetes mellitus with diabetic autonomic (poly)neuropathy (principal); K31.84 Gastroparesis; G89.29 Other chronic pain; R10.10 Upper abdominal pain, unspecified; R11.2 Nausea with vomiting, unspecified; Z79.899 Other long term (current) drug therapy
CPT/HCPCS: 36415; 80053; 81001; 81025; 85025; 96372; 99283; 99284; J2270

== ENCOUNTER 2024-02-03 13:24 | Emergency (ER) | payer MEDICARE, MEDICAID, SELFPAY ==
[2024-02-03 13:45] VITALS: BP 114/56; PULSE 83; RESP 20; TEMP 36.7; O2SAT 99; BMI 43.5
--- NOTE | 2024-02-03 13:47 | ED.GENADULT ---
HPI - General Adult General Chief complaint: Abdominal Pain Stated complaint: abd pain, loss of mobility in R leg Time Seen by Provider: 02/03/24 14:04 Source: patient Mode of arrival: ambulatory Limitations: no limitations History of Present Illness ED Provider: Dr. Alok Chin HPI narrative: 28-year-old female with a history of depression, anxiety, bipolar disorder, migraines, GERD, PTSD, asthma, gastroparesis status post G POEM surgery 3 months with partial relief for few weeks who presents emergency department for evaluation abdominal pain consistent with her gastroparesis, nausea, vomiting with no diarrhea, lightheadedness, dizziness, passing out at home, numbness and weakness of her extremities. The patient states that she has been passing out several times at home. Here in the emergency department the patient did have a witnessed syncopal episode here in the emergency department which was consistent with panic/pseudo-seizure. This is the patient's 3rd ED visit since 01/21/2024. Patient had a negative CT scan on her 1st visit in his had blood work which was unremarkable. Related Data Home Medications ?Medication ?Instructions ?Recorded ?Confirmed blood sugar diagnostic #10 ea 12/02/20 10/04/23 lancets 28 gauge #100 ea 12/02/20 10/04/23 acetaminophen 500 mg tablet 1,000 mg PO Q4H PRN Pain 10/04/21 10/11/23 albuterol sulfate 90 mcg/actuation 2 inh inhalation Q4H PRN Shortness 10/04/21 10/11/23 aerosol inhaler Of Breath diazepam 2 mg tablet 1 tab PO BID 12/01/21 10/11/23 lithium carbonate 300 mg capsule 300 mg PO BID 04/13/22 10/13/23 famotidine 40 mg tablet (Pepcid) 40 mg PO BID 04/27/22 10/13/23 hydroxyzine pamoate 25 mg capsule 25 mg PO TID PRN Anxiety 04/27/22 10/11/23 (Vistaril) melatonin 5 mg tablet 5 mg PO BEDTIME PRN Insomnia 04/27/22 10/11/23 ondansetron HCl 4 mg tablet 4 mg PO Q6H PRN Nausea 04/27/22 10/11/23 prochlorperazine maleate 10 mg 10 mg PO BID PRN Nausea And 04/27/22 10/11/23 tablet (Compazine) Vomiting quetiapine 25 mg tablet (Seroquel) 25 mg PO DAILY PRN Anxiety 04/27/22 10/11/23 sumatriptan succinate 100 mg 100 mg PO Q2-4H PRN Migraine 04/27/22 10/11/23 tablet (Imitrex) Headache bupropion HCl 150 mg 24 hr tablet, 150 mg PO DAILY 05/18/22 10/13/23 extended release topiramate 25 mg tablet 25 mg PO DAILY 05/18/22 10/13/23 albuterol sulfate 90 mcg/actuation 2 puff inhalation Q4H 05/27/22 10/11/23 aerosol inhaler (Ventolin HFA) multivitamin 1 tab PO DAILY 05/27/22 10/13/23 prazosin 2 mg capsule 2 cap PO BEDTIME 05/27/22 10/11/23 valacyclovir 500 mg tablet 1 tab PO DAILY 05/27/22 10/13/23 Previous Rx's ?Medication ?Instructions ?Recorded cephalexin 500 mg capsule 500 mg PO BID #30 caps 06/09/23 hydrocodone 5 mg-acetaminophen 325 1 tab PO Q4-6H PRN pain #30 tabs 06/09/23 mg tablet hydrocodone 5 mg-acetaminophen 325 1 tab PO Q4-6H PRN pain #30 tabs 06/16/23 mg tablet oxycodone-acetaminophen 5 mg-325 1 tab PO Q4-6H PRN pain #15 tabs 10/17/23 mg tablet (Percocet) cefuroxime axetil 250 mg tablet 250 mg PO BID 7 days #14 tabs 01/21/24 fluconazole 150 mg tablet 150 mg PO Q3D 2 doses #2 tabs 01/21/24 ondansetron 4 mg disintegrating 4 mg PO Q8H PRN nausea and 01/21/24 tablet vomiting #20 tabs Allergies Allergy/AdvReac Type Severity Reaction Status Date / Time metoclopramide [From Reglan] Allergy Severe Hives Verified 02/03/24 13:49 NSAIDS (Non-Steroidal Allergy Severe Anaphylaxis Verified 02/03/24 13:49 Anti-Inflamma [NSAIDS (NON-STEROIDAL ANTI-INFLAMMA] clonazepam [Klonopin] AdvReac Severe Agitated Verified 02/03/24 13:49 droperidol AdvReac Severe Agitated Verified 02/03/24 13:49 haloperidol [Haldol] AdvReac Severe Agitated Verified 02/03/24 13:49 lorazepam [LORAZEPAM] AdvReac Severe AGGRESSION Verified 02/03/24 13:49 promethazine AdvReac Severe Agitated Verified 02/03/24 13:49 ketorolac [From Toradol] AdvReac Anaphylaxis Verified 02/03/24 13:49 seafood Allergy Intermediate swelling Uncoded 01/29/24 02:23 PMFSH Past Medical History Medical History Hidradenitis Epidermal cyst Epidermal inclusion cyst Pilonidal cyst Suppurative hidradenitis Back pain Migraines Insomnia GERD (gastroesophageal reflux disease) Morbid obesity Axillary hidradenitis suppurativa IUD (intrauterine device) in place History of DVT (deep vein thrombosis) Factor V Leiden Nausea DARINEL (obstructive sleep apnea) Asthma Wears hearing aid in both ears Loss of teeth due to extraction Preeclampsia Sacrococcygeal pilonidal cyst Depression Anxiety PTSD (post-traumatic stress disorder) Bipolar affective IBS (irritable bowel syndrome) Diabetes Gastroparesis Surgical History History of excision of pilonidal cyst History of esophagogastroduodenoscopy (EGD) History of removal of cyst (~11/14/22) Hx of umbilical hernia repair Hx of section History of carpal tunnel release Hx of myringotomy History of tonsillectomy and adenoidectomy Family History Family History Mother Mental health disorder Obesity Father Hypertension High cholesterol Son No problems noted. Brother No problems noted. 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) Alcohol intake: former Comment: counts correct Patient Tobacco Use Status: Current everyday Tobacco user Tobacco use type: Cigarette Substance Use Type: Marijuana Advance Directives: Yes Advance Directives on File: Yes Advance Directives Date on File: 12/07/21 Do you have a plan to hurt others: No Plan Physical Exam ED Vital Signs: Vital Signs - 24 hr 02/03/24 13:45 02/03/24 15:12 Temperature 98.1 F 98.6 F Pulse Rate 83 62 Respiratory Rate 20 16 Blood Pressure 114/56 L 114/65 Pulse Oximetry 99 96 Oxygen Delivery Method Room Air Room Air BMI result Body Mass Index 43.5 Vital signs were normal Exam: General: Awake, alert in no distress, weight 104.3 kg, elevated BMI 43.5 kg per m2 Head: Normocephalic, atraumatic EENT: PERRL, Lids normal, sclera normal, conjunctiva normal, nose normal , ears normal, throat without erythema or exudates Neck: Supple, no adenopathy Lung: breath sounds symmetric, no wheezing, rales or rhonchi Chest: symmetric movement, nontender Heart: regular rate and rhythm, normal S1, S2 no murmurs or rubs Abdomen: soft, mild to moderate diffuse tenderness with moderate epigastric tenderness, no rebound, no voluntary or involuntary guarding Back: no vertebral tenderness, no CVAT Extremities: no deformities, moves all extremities symmetrically Neuro: Awake, alert, oriented, normal speech, cranial nerves intact, moves all extremities symmetrically Psych: Pleasant, cooperative Course Course Course Narrative: RME performed by Tatum Glasgow PA-C. Patient is a 28 year old assigned female at presenting to the emergency department with multiple complaints. Detailed physical exam and review of systems are deferred to the switch engineer. EKG and labs ordered. Medications Administered Discontinued Medications Generic Name Dose Route Start Last Admin Trade Name Teresa PRN Reason Stop Dose Admin Sodium Chloride 1,000 mls @ 999 mls/hr 02/03/24 15:16 02/03/24 16:26 Ns IV 02/03/24 16:16 Infused .Q1H1M STA Infusion Morphine Sulfate 4 mg 02/03/24 15:16 02/03/24 15:40 Morphine Sulfate 4 Mg/Ml Cartridge IVPUSH 02/03/24 15:17 4 mg ONCE STA Administration Protocol Ondansetron HCl 4 mg 02/03/24 15:16 02/03/24 15:41 Ondansetron Hcl 4 Mg/2 Ml Vial IVPUSH 02/03/24 15:17 4 mg ONCE ONE Administration Medical Decision Making Medical Decision Making [facility] Narrative: 28-year-old female with a history of depression, anxiety, bipolar disorder, migraines, GERD, PTSD, asthma, gastroparesis status post G POEM surgery 3 months with partial relief for few weeks who presents emergency department for evaluation abdominal pain consistent with her gastroparesis, nausea, vomiting with no diarrhea, lightheadedness, dizziness, passing out at home, numbness and weakness of her extremities. Patient had a syncopal episode witnessed here in the emergency department which was consistent with panic [id number]. Vital signs were unremarkable. Physical examination revealed diffuse abdominal tenderness with increased tenderness in the epigastric area. Differential diagnosis: ?Includes but is not limited to gastritis, peptic ulcer disease, pancreatitis, gastroparesis, anxiety, panic attack, pseudo-seizure Following evaluation was ordered: CBC, CMP, magnesium, quantitative beta-hCG, troponin, urinalysis, magnesium Patient was initially treated with the following: Morphine 4 mg IV, Zofran 4 mg IV and morphine 10 mg IM Course: 17:37 Patient's laboratory evaluation was unremarkable. Given her recent negative CT scan of the abdomen pelvis I do not think that she needs repeat imaging. Nurses had difficulty getting an IV and initially she received morphine 4 mg IV and Zofran 4 mg IV but then the IV infiltrated. The patient was had no nausea and vomiting and she does not appear to be dehydrated so I told her that she can drink fluids to stay hydrated. She was given a dose of morphine 10 mg IM for abdominal pain which I believe is caused by your gastroparesis. The patient's syncopal episode here in the emergency department was consistent with panic/pseudo-seizure and I did discuss this with her. She states she has medications for anxiety at home. Patient was discharged home and advised to follow up with her providers for further evaluation and with her surgeon for further evaluation of gastroparesis. Admission/Observation Consideration of admission/observation: Escalation of care including admission/observation considered Lab Data [facility] Lab Attestation statement: I reviewed the patient's lab results. My interpretation patient's laboratory evaluation is as follows: CBC revealed normocytic anemia with an H&H of 10.5 and 32.2-unchanged from previous visits. Chloride high 111, CO2 low 19, with a low anion gap. LFTs were normal. Troponin was below detectable limits. test was negative. 02/03/24 15:42 02/03/24 15:36 Labs: Lab Results 02/03/24 02/03/24 02/03/24 Range/Units 13:59 15:27 15:36 WBC (4.8-10.8) X10*3/uL RBC (4.20-5.50) X10*6/uL Hgb (12.0-16.0) g/dl Hct (37.0-47.0) % MCV (80.0-98.0) fL MCH (27.0-33.0) pg MCHC (31.0-35.0) g/dl RDW (11.0-16.0) % Plt Count (160-400) X10*3/uL MPV (9.4-12.3) fL Immature Gran % (Auto) (0.0-0.4) % Neut % (Auto) (45-73) % Lymph % (Auto) (20-40) % Florence % (Auto) (2-11) % Eos % (Auto) (0-4) % Baso % (Auto) (0-2) % Lymph # (Auto) (1.2-4.9) X10*3/uL Florence # (Auto) (0.1-1.2) X10*3/uL Eos # (Auto) (0.0-0.4) X10*3/uL Baso # (Auto) (0.0-0.2) X10*3/uL Abs Immat Gran (auto) (0.00-0.03) X10*3/uL Absolute Neuts (auto) (2.0-8.3) x10*3/uL Absolute Nucleated RBC (0.0-0.012) X10*3/uL Nucleated RBC % (auto) (0.0-0.2) /100WBC Smear Tech's Comments Sodium 137 (135-145) mmol/L Potassium 4.1 (3.3-5.1) mmol/L Chloride 111 H (96-108) mmol/L Carbon Dioxide 19 L (22-29) mmol/L Anion Gap 11 L (12-20) BUN 9 (9-16) mg/dL Creatinine 1.02 (0.5-1.4) mg/dL Estim Creat Clear Calc 89.6 Estimated GFR > 60 POC Glucose 92 (60-115) mg/dL Random Glucose 87 (60-115) mg/dL Calcium 8.6 (8.4-10.2) mg/dL Magnesium 2.6 (1.6-2.6) mg/dL Total Bilirubin 0.2 (0.0-1.0) mg/dL AST 13 (5-31) U/L ALT 13 (0-31) U/L Alkaline Phosphatase 114 (39-117) U/L Troponin I High Sens (<3.5-17.0) ng/L Total Protein 6.7 (6.5-8.0) g/dL Albumin 3.6 (3.5-5.0) g/dL Beta HCG, Quant < 2 mIU/mL Influenza Type A (PCR) NEGATIVE (Negative) Influenza Type B (PCR) NEGATIVE (Negative) RSV RNA Qual (PCR) NEGATIVE (Negative) SARS-CoV-2 RNA (RT-PCR) NEGATIVE (Negative) 02/03/24 02/03/24 Range/Units 15:42 15:44 WBC 7.7 (4.8-10.8) X10*3/uL RBC 3.64 L (4.20-5.50) X10*6/uL Hgb 10.5 L (12.0-16.0) g/dl Hct 32.2 L (37.0-47.0) % MCV 88.5 (80.0-98.0) fL MCH 28.8 (27.0-33.0) pg MCHC 32.6 (31.0-35.0) g/dl RDW 15.9 (11.0-16.0) % Plt Count 303 (160-400) X10*3/uL MPV 10.0 (9.4-12.3) fL Immature Gran % (Auto) 0.8 H (0.0-0.4) % Neut % (Auto) 57.2 (45-73) % Lymph % (Auto) 35.1 (20-40) % Florence % (Auto) 5.1 (2-11) % Eos % (Auto) 1.4 (0-4) % Baso % (Auto) 0.4 (0-2) % Lymph # (Auto) 2.7 (1.2-4.9) X10*3/uL Florence # (Auto) 0.4 (0.1-1.2) X10*3/uL Eos # (Auto) 0.1 (0.0-0.4) X10*3/uL Baso # (Auto) 0.0 (0.0-0.2) X10*3/uL Abs Immat Gran (auto) 0.06 H (0.00-0.03) X10*3/uL Absolute Neuts (auto) 4.4 (2.0-8.3) x10*3/uL Absolute Nucleated RBC 0.000 (0.0-0.012) X10*3/uL Nucleated RBC % (auto) 0.0 (0.0-0.2) /100WBC Smear Tech's Comments VERIFIED Sodium (135-145) mmol/L Potassium (3.3-5.1) mmol/L Chloride (96-108) mmol/L Carbon Dioxide (22-29) mmol/L Anion Gap (12-20) BUN (9-16) mg/dL Creatinine (0.5-1.4) mg/dL Estim Creat Clear Calc Estimated GFR POC Glucose (60-115) mg/dL Random Glucose (60-115) mg/dL Calcium (8.4-10.2) mg/dL Magnesium (1.6-2.6) mg/dL Total Bilirubin (0.0-1.0) mg/dL AST (5-31) U/L ALT (0-31) U/L Alkaline Phosphatase (39-117) U/L Troponin I High Sens < 2.7 (<3.5-17.0) ng/L Total Protein (6.5-8.0) g/dL Albumin (3.5-5.0) g/dL Beta HCG, Quant mIU/mL Influenza Type A (PCR) (Negative) Influenza Type B (PCR) (Negative) RSV RNA Qual (PCR) (Negative) SARS-CoV-2 RNA (RT-PCR) (Negative) Independent Interpretation I performed an independent interpretation of an: EKG Interpretation: My independent interpretation patient's 12 EKG done at 14:11 hours is as follows: Normal sinus rhythm with a rate of 63, normal MA interval, QRS duration QTC interval, no ST segment elevation, no ST segment depression, no PACs, no PVCs, no significant T-wave abnormalities. Chronic Conditions Patient?s care impacted by: Other (Depression, anxiety, gastroparesis) Discharge Plan Discharge Clinical Impression: Gastroparesis, Anxiety, Abdominal pain Patient Disposition: Home, Self-Care Additional Instructions: Your blood work was unremarkable and was unchanged from your last 2 ED visits. Your blood test was negative. Your EKG was normal. The CT scan visit to the emergency department on 01/21/2024 revealed no significant abnormalities which is reassuring and I do not think that you need any further imaging of your abdomen at this time. At this time I believe that your pain is caused by your abdominal pain is caused by your gastroparesis. I believe that your passing out is related to your anxiety probably triggered from your abdominal pain. Continue taking your antianxiety medications in your other medications as prescribed by your providers. Follow-up with your doctor in 2 days. Please return to the emergency department if your symptoms get worse or if you develop any symptoms that are concerning to you. Prescriptions: No Action oxycodone-acetaminophen [Percocet] 5-325 mg tablet 1 tab PO Q4-6H PRN (Reason: pain) Qty: 15 0RF Rx Instructions: Partial Fill upon patient request. diazepam 2 mg tablet 1 tab PO BID prazosin 2 mg capsule 2 cap PO BEDTIME multivitamin Tablet 1 tab PO DAILY valacyclovir 500 mg tablet 1 tab PO DAILY albuterol sulfate [Ventolin HFA] 90 mcg/actuation HFA aerosol inhaler 2 puff INHALATION Q4H acetaminophen 500 mg Tablet 1,000 mg PO Q4H PRN (Reason: Pain) albuterol sulfate 90 mcg/actuation Hfa Aerosol Inhaler 2 inh INHALATION Q4H PRN (Reason: Shortness Of Breath) hydrocodone-acetaminophen 5-325 mg tablet 1 tab PO Q4-6H PRN (Reason: pain) Qty: 30 0RF Rx Instructions: Partial Fill upon patient request. cefuroxime axetil 250 mg tablet 250 mg PO BID 7 Days Qty: 14 0RF ondansetron 4 mg tablet,disintegrating 4 mg PO Q8H PRN (Reason: nausea and vomiting) Qty: 20 0RF fluconazole 150 mg tablet 150 mg PO Q3D Qty: 2 0RF Rx Instructions: repeat dose in 3 days if symptoms persist (DME) FreeStyle Lite Strips Strip See Rx Instructions Not Applicable BID Qty: 10 Rx Instructions: As directed (DME) lancets 28 gauge misc See Rx Instructions topical BID Qty: 100 Rx Instructions: As directed topiramate 25 mg tablet 25 mg PO DAILY bupropion HCl 150 mg tablet extended release 24 hr 150 mg PO DAILY lithium carbonate 300 mg capsule 300 mg PO BID melatonin 5 mg tablet 5 mg PO BEDTIME PRN (Reason: Insomnia) prochlorperazine maleate [Compazine] 10 mg tablet 10 mg PO BID PRN (Reason: Nausea And Vomiting) quetiapine [Seroquel] 25 mg tablet 25 mg PO DAILY PRN (Reason: Anxiety) hydroxyzine pamoate [Vistaril] 25 mg capsule 25 mg PO TID PRN (Reason: Anxiety) famotidine [Pepcid] 40 mg tablet 40 mg PO BID ondansetron HCl 4 mg tablet 4 mg PO Q6H PRN (Reason: Nausea) sumatriptan succinate [Imitrex] 100 mg tablet 100 mg PO Q2-4H PRN (Reason: Migraine Headache) Rx Instructions: do not exceed 2 doses per 24 hrs cephalexin 500 mg capsule 500 mg PO BID Qty: 30 0RF hydrocodone-acetaminophen 5-325 mg tablet 1 tab PO Q4-6H PRN (Reason: pain) Qty: 30 0RF Rx Instructions: Partial Fill upon patient request. Print Language: Georgian
--- NOTE | 2024-02-03 13:51 | ECG_ITS ---
Test Reason : WEAKNESS Blood Pressure : / mmHG Vent. Rate : 063 BPM Atrial Rate : 063 BPM P-R Int : 192 ms QRS Dur : 092 ms QT Int : 456 ms P-R-T Axes : 020 059 058 degrees QTc Int : 466 ms Normal sinus rhythm Low voltage QRS Nonspecific T wave abnormality Abnormal ECG When compared with ECG of 21-JAN-2024 05:45, Nonspecific T wave abnormality, worse in Anterior leads Referred By: Tatum Glasgow Electronically Signed By:FRANK MORGAN
[2024-02-03 14:55] LABS: Glucose, Whole Blood 92 mg/dL (60-115)
[2024-02-03 15:12] VITALS: BP 114/65; PULSE 62; RESP 16; TEMP 37; O2SAT 96
[2024-02-03] MEDS: 0.9 % Sodium Chloride 1,000 ML 999 ML IV (15:40)
[2024-02-03] MEDS: Morphine Sulfate 4 MG/ML CARTRIDGE IVPUSH (15:40)
[2024-02-03] MEDS: ondansetron HCL 4 MG/2 ML VIAL IVPUSH (15:41)
[2024-02-03 15:52] LABS: Basophils Percent Auto 0.4 % (0-2); Eosinophils Absolute Auto 0.1 X10*3/uL (0.0-0.4); Eosinophils Percent Auto 1.4 % (0-4); Hematocrit 32.2 % (37.0-47.0); Hemoglobin 10.5 g/dl (12.0-16.0); Imm Gran Abs Auto 0.06 X10*3/uL (0.00-0.03); Imm Gran Pct Auto 0.8 % (0.0-0.4); Lymphocytes Absolute Auto 2.7 X10*3/uL (1.2-4.9); Lymphocytes Percent Auto 35.1 % (20-40); MANUAL DIFF FLAG SCAN; Mean Corpuscular HGB Conc 32.6 g/dl (31.0-35.0); Mean Corpuscular Hemoglobin 28.8 pg (27.0-33.0); Mean Corpuscular Volume 88.5 fL (80.0-98.0); Monocytes Absolute Auto 0.4 X10*3/uL (0.1-1.2); Monocytes Percent Auto 5.1 % (2-11); Neutrophils Absolute Auto 4.4 x10*3/uL (2.0-8.3); Neutrophils Percent Auto 57.2 % (45-73); PLT CLUMP 1; Red Blood Count 3.64 X10*6/uL (4.20-5.50); Red Cell Distribution Width 15.9 % (11.0-16.0); SCAN SMEAR FLAG 1
[2024-02-03 15:53] LABS: White Blood Count 7.7 X10*3/uL (4.8-10.8)
[2024-02-03 15:54] LABS: Platelet Count 303 X10*3/uL (160-400)
[2024-02-03 15:56] LABS: SLIDE REVIEW VERIFIED
[2024-02-03 16:03] LABS: Alanine Aminotransferase 13 U/L (0-31); Albumin Level 3.6 g/dL (3.5-5.0); Alkaline Phosphatase 114 U/L (39-117); Anion Gap 11 (12-20); Aspartate Amino Transferase 13 U/L (5-31); Bilirubin Total 0.2 mg/dL (0.0-1.0); Blood Urea Nitrogen 9 mg/dL (9-16); Calcium 8.6 mg/dL (8.4-10.2); Carbon Dioxide 19 mmol/L (22-29); Chloride 111 mmol/L (96-108); Creatinine Clr Calc Pharmacy 89.6; Estimated Glomerular Filt Rate > 60; Glucose Random 87 mg/dL (60-115); HCG Quantitative < 2 mIU/mL; Magnesium 2.6 mg/dL (1.6-2.6); Potassium 4.1 mmol/L (3.3-5.1); Sodium 137 mmol/L (135-145); Total Protein 6.7 g/dL (6.5-8.0)
[2024-02-03 16:17] LABS: Troponin-I High Sensitivity < 2.7 ng/L (<3.5-17.0)
--- NOTE | 2024-02-03 16:30 | PC.NURSE ---
Pt a/ox4, no increased wob/sob noted, respirations even and unlabored, lung sounds cta bilaterally, s1 and s2 heard, HR-70s, abdomen soft, tender on palpation. Pt states shes been slurring/mumbling speech since yesterday, neuros intact. Pt speaking in full sentences then will slur words off and on. Pt c/o 01/05 abdominal pain, medicated per JUL with morphine and zofran for nausea. Pt talking on phone with friend, laughing and moving around in bed with ease. Multiple attempts at IV access, unsuccessful, MD Chin aware. EKG and labs obtained, vital signs updated, call tapia within reach, all needs met at this time.
[2024-02-03 17:17] LABS: Influenza A PCR NEGATIVE (Negative); Influenza B PCR NEGATIVE (Negative); Resp Syncy Virus RNA Qual PCR NEGATIVE (Negative); SARS COV2 PCR INHOUSE NEGATIVE (Negative)
--- NOTE | 2024-02-03 17:18 | MHC.EDTECH ---
Patient was bladder scan and patient had 466 ml in bladder .
[2024-02-03 17:45] VITALS: BP 121/81; PULSE 67; RESP 16; TEMP 37; O2SAT 98
[2024-02-03] MEDS: Morphine Sulfate 10 MG/ML CARTRIDGE IM (17:48)
--- NOTE | 2024-02-03 17:57 | PC.NURSE ---
Pt c/o 01/05 abdominal pain, medicated per JUL with IM morphine. MD Giuseppe theodore with d/c home with mom.
[2024-02-03 18:00] VITALS: BP 121/81; PULSE 67; RESP 18; TEMP 37; O2SAT 98
== END 2024-02-03 18:01 | disposition home or self-care (01) ==
PROVIDERS: Physician Assistant Medical; Emergency Provider Emergency Medicine Emergency Medical Services
DX: K31.84 Gastroparesis (principal); F41.9 Anxiety disorder, unspecified; R10.13 Epigastric pain; Z03.818 Encounter for observation for suspected exposure to other biological agents ruled out; J45.909 Unspecified asthma, uncomplicated; E11.9 Type 2 diabetes mellitus without complications; K21.9 Gastro-esophageal reflux disease without esophagitis; F17.210 Nicotine dependence, cigarettes, uncomplicated; F12.90 Cannabis use, unspecified, uncomplicated; Z86.718 Personal history of other venous thrombosis and embolism; Z79.899 Other long term (current) drug therapy
CPT/HCPCS: 0241U; 36415; 80053; 82947; 83735; 84484; 84702; 85025; 93005; 96361; 96372; 96374; 96375; 99285; J2270; J2405

== ENCOUNTER 2024-02-08 03:46 | Emergency (ER) | payer MEDICARE, MEDICAID, SELFPAY ==
--- NOTE | ~2024-02-08 | XR_ITS ---
EXAMINATION: XR ABDOMEN KUB CLINICAL INDICATION: Low suspicion small bowel obstruction COMPARISON: 01/21/2024 TECHNIQUE: AP view of the abdomen. FINDINGS: Bowel gas pattern is nonobstructive. Moderate amount of stool is present in the colon. Limited evaluation for free air with supine positioning. IUD overlies the pelvis. Included lung bases are aerated. No acute osseous findings are seen. XR/XR KUB IMPRESSION: Nonobstructive bowel gas pattern. Moderate volume of stool. Electronically signed by: Nicko Goodman MD 02/08/2024 05:57 AM EDT
[2024-02-08 03:50] VITALS: BP 152/100; PULSE 86; O2SAT 100
[2024-02-08 03:54] VITALS: BP 107/56; PULSE 87; RESP 18; TEMP 36.7; O2SAT 98; BMI 43.8
--- NOTE | 2024-02-08 04:24 | ED.ABDPAIN ---
HPI - Abdominal Pain General Chief Complaint: Abdominal Pain Stated Complaint: ab pain n/v Time Seen by Provider: 02/08/24 04:18 Source: patient and EMS Mode of arrival: EMS Limitations: no limitations History of Present Illness ED Provider: Dr. Niurka Espino HPI narrative: Patient comes to the emergency room complaining of nausea and vomiting for 3 days. Patient states that she is known to have gastroparesis and every so often gets very bad. Patient denies diarrhea. Patient states that she feels distended. Denies any fever chills, no URI or UTI symptoms Related Data Home Medications ?Medication ?Instructions ?Recorded ?Confirmed blood sugar diagnostic #10 ea 12/02/20 10/04/23 lancets 28 gauge #100 ea 12/02/20 10/04/23 acetaminophen 500 mg tablet 1,000 mg PO Q4H PRN Pain 10/04/21 10/11/23 albuterol sulfate 90 mcg/actuation 2 inh inhalation Q4H PRN Shortness 10/04/21 10/11/23 aerosol inhaler Of Breath diazepam 2 mg tablet 1 tab PO BID 12/01/21 10/11/23 lithium carbonate 300 mg capsule 300 mg PO BID 04/13/22 10/13/23 famotidine 40 mg tablet (Pepcid) 40 mg PO BID 04/27/22 10/13/23 hydroxyzine pamoate 25 mg capsule 25 mg PO TID PRN Anxiety 04/27/22 10/11/23 (Vistaril) melatonin 5 mg tablet 5 mg PO BEDTIME PRN Insomnia 04/27/22 10/11/23 ondansetron HCl 4 mg tablet 4 mg PO Q6H PRN Nausea 04/27/22 10/11/23 prochlorperazine maleate 10 mg 10 mg PO BID PRN Nausea And 04/27/22 10/11/23 tablet (Compazine) Vomiting quetiapine 25 mg tablet (Seroquel) 25 mg PO DAILY PRN Anxiety 04/27/22 10/11/23 sumatriptan succinate 100 mg 100 mg PO Q2-4H PRN Migraine 04/27/22 10/11/23 tablet (Imitrex) Headache bupropion HCl 150 mg 24 hr tablet, 150 mg PO DAILY 05/18/22 10/13/23 extended release topiramate 25 mg tablet 25 mg PO DAILY 05/18/22 10/13/23 albuterol sulfate 90 mcg/actuation 2 puff inhalation Q4H 05/27/22 10/11/23 aerosol inhaler (Ventolin HFA) multivitamin 1 tab PO DAILY 05/27/22 10/13/23 prazosin 2 mg capsule 2 cap PO BEDTIME 05/27/22 10/11/23 valacyclovir 500 mg tablet 1 tab PO DAILY 05/27/22 10/13/23 Previous Rx's ?Medication ?Instructions ?Recorded cephalexin 500 mg capsule 500 mg PO BID #30 caps 06/09/23 hydrocodone 5 mg-acetaminophen 325 1 tab PO Q4-6H PRN pain #30 tabs 06/09/23 mg tablet hydrocodone 5 mg-acetaminophen 325 1 tab PO Q4-6H PRN pain #30 tabs 06/16/23 mg tablet oxycodone-acetaminophen 5 mg-325 1 tab PO Q4-6H PRN pain #15 tabs 10/17/23 mg tablet (Percocet) cefuroxime axetil 250 mg tablet 250 mg PO BID 7 days #14 tabs 01/21/24 fluconazole 150 mg tablet 150 mg PO Q3D 2 doses #2 tabs 01/21/24 ondansetron 4 mg disintegrating 4 mg PO Q8H PRN nausea and 01/21/24 tablet vomiting #20 tabs hyoscyamine sulfate 0.125 mg tablet 0.125 mg PO QID PRN dyspepsia #20 02/08/24 tabs ondansetron HCl 4 mg tablet 4 mg PO Q6H PRN nausea and 02/08/24 vomiting #14 tabs Allergies Allergy/AdvReac Type Severity Reaction Status Date / Time metoclopramide [From Reglan] Allergy Severe Hives Verified 02/08/24 03:56 NSAIDS (Non-Steroidal Allergy Severe Anaphylaxis Verified 02/08/24 03:56 Anti-Inflamma [NSAIDS (NON-STEROIDAL ANTI-INFLAMMA] clonazepam [Klonopin] AdvReac Severe Agitated Verified 02/08/24 03:56 droperidol AdvReac Severe Agitated Verified 02/08/24 03:56 haloperidol [Haldol] AdvReac Severe Agitated Verified 02/08/24 03:56 lorazepam [LORAZEPAM] AdvReac Severe AGGRESSION Verified 02/08/24 03:56 promethazine AdvReac Severe Agitated Verified 02/08/24 03:56 ketorolac [From Toradol] AdvReac Anaphylaxis Verified 02/08/24 03:56 seafood Allergy Intermediate swelling Uncoded 02/08/24 03:56 Review of Systems Review of Systems Constitutional : No Weight loss, No Fever, No Chills, No Night Sweats, No Fatigue, No Malaise ENT/Mouth : No Hearing loss, No Ear Pain, No Nasal Congestion, No Sinus Pain, No Hoarseness, No sore throat, No Rhinorrhea, No Swallowing Difficulty Eyes: No Eye Pain, No Swelling, No Redness, No Foreign Body, No Discharge, No Vision Changes Cardiovascular : No Chest Pain, No SOB, No Dyspnea on Exertion, No Orthopnea, No Edema, No Palpitations Respiratory : No Cough, No Sputum, No Wheezing, No Smoke Exposure, No Dyspnea Gastrointestinal : Complaining of nausea and vomiting, No Diarrhea, complaining of Constipation, complaining of abdominal discomfort, diffuse, fullness Genitourinary : no irregular bleeding, No Dysuria, No Urinary Frequency, No Hematuria, No Urinary Incontinence, No Urgency, No Flank Pain, No Urinary Flow Changes, No Hesitancy Musculoskeletal : No joint pain, No Myalgias, No Joint Swelling Skin : No Skin Lesions, No rash Neuro : No Weakness, No Numbness, No Paresthesias, No Loss of Consciousness, No Dizziness, No Headache Psych : No Anxiety/Panic, No Depression, No SI/HI/AH/VH, No Social Issues, Heme/Lymph: No Bruising, No Bleeding,No Lymphadenopathy Endocrine : No Polyuria, No Polydipsia, No Temperature Intolerance [facility] Past Medical History Medical History Hidradenitis Epidermal cyst Epidermal inclusion cyst Pilonidal cyst Suppurative hidradenitis Back pain Migraines Insomnia GERD (gastroesophageal reflux disease) Morbid obesity Axillary hidradenitis suppurativa IUD (intrauterine device) in place History of DVT (deep vein thrombosis) Factor V Leiden Nausea DARINEL (obstructive sleep apnea) Asthma Wears hearing aid in both ears Loss of teeth due to extraction Preeclampsia Sacrococcygeal pilonidal cyst Depression Anxiety PTSD (post-traumatic stress disorder) Bipolar affective IBS (irritable bowel syndrome) Diabetes Gastroparesis Surgical History History of excision of pilonidal cyst History of esophagogastroduodenoscopy (EGD) History of removal of cyst (~11/14/22) Hx of umbilical hernia repair Hx of section History of carpal tunnel release Hx of myringotomy History of tonsillectomy and adenoidectomy Family History Family History Mother Mental health disorder Obesity Father Hypertension High cholesterol Son No problems noted. Brother No problems noted. Sister Asthma Social History Social History Household Members: Children Are you a primary pediatric acute care unit nurse to a significant other at home: No (Mother has custody of 10 month old son) Do you presently have visiting nurse or other home services: Yes ([employer] 92 hours per week) Alcohol intake: former Comment: counts correct Patient Tobacco Use Status: Current everyday Tobacco user Tobacco use type: Cigarette Smoked in Last 30 Days: No Use of substances other than those prescribed or required for medical reasons: No Substance Use Type: Marijuana Advance Directives: Yes Advance Directives on File: Yes Advance Directives Date on File: 12/07/21 Do you have a plan to hurt others: No Plan Physical Exam ED Vital Signs: Vital Signs - 24 hr 02/08/24 03:54 02/08/24 06:34 Temperature 98.0 F 98.3 F Pulse Rate 87 91 Respiratory Rate 18 17 Blood Pressure 107/56 L 99/54 L Pulse Oximetry 98 97 Oxygen Delivery Method Room Air Room Air BMI result Body Mass Index 43.8 Const Other: Appearance: Alert. Oriented X3. No acute distress. Eyes: Pupils equal, round and reactive to light. ENT: Pharynx normal. Neck: Normal inspection. Neck supple. No lymph nodes noted. No crepitus CVS: Normal heart rate and rhythm. Pulses normal. Normal S1 and S2 Respiratory: No respiratory distress. Breath sounds normal. No Wheezing. No rales Abdomen: Soft , no significant pain to palpation in all quadrants, mild discomfort, no rebound, no guarding, No rigidity. No distention. Skin: Skin warm and dry. Normal skin color. Normal skin turgor. Extremities: No lower extremity edema. No Lacerations. No Rash Neuro: Oriented X 3. No motor deficit. No sensory deficit. Moving all extremities. No slurred speech. CN 2 through 12 grossly intact Psych: calm, cooperative, normal affect Course Course Course Narrative: Patient receiving IV fluids, Zofran -all of patient's labs and imaging pending. Medical Decision Making Medical Decision Making [facility] Narrative: My interpretation of labs: Hematology at baseline, chemistry at baseline, hCG negative -KUB does not show any obvious abnormality. -patient likely having gastroparesis. -patient's abdominal exam was fairly benign. At this time, there is no indication to scan the patient. -patient states that she still feels nauseous. Under her list of allergies, Compazine is listed. However, patient states that she takes Compazine at home all the time. -patient was given a dose of Compazine and morphine. Patient states she has an anaphylactic reaction to NSAIDs -patient is a longer vomiting, p.o. challenged, tolerate. Differential Diagnosis Differential Diagnoses: The differential diagnosis associated with the presentation includes (Gastritis, gastroenteritis, gastroparesis, less likely SBO) Admission/Observation Consideration of admission/observation: Escalation of care including admission/observation considered (Given patient's recurrent symptoms, observation has been considered) Lab Data [facility] Lab Attestation statement: I reviewed the patient's lab results. 02/08/24 05:02 02/08/24 05:02 Labs: Lab Results 02/08/24 Range/Units 05:02 WBC 8.1 (4.8-10.8) X10*3/uL RBC 3.68 L (4.20-5.50) X10*6/uL Hgb 10.7 L (12.0-16.0) g/dl Hct 34.0 L (37.0-47.0) % MCV 92.4 (80.0-98.0) fL MCH 29.1 (27.0-33.0) pg MCHC 31.5 (31.0-35.0) g/dl RDW 16.1 H (11.0-16.0) % Plt Count 379 D (160-400) X10*3/uL MPV 9.1 L (9.4-12.3) fL Immature Gran % (Auto) 0.2 (0.0-0.4) % Neut % (Auto) 61.7 (45-73) % Lymph % (Auto) 26.9 (20-40) % Chaves % (Auto) 8.2 (2-11) % Eos % (Auto) 2.5 (0-4) % Baso % (Auto) 0.5 (0-2) % Lymph # (Auto) 2.2 (1.2-4.9) X10*3/uL Chaves # (Auto) 0.7 (0.1-1.2) X10*3/uL Eos # (Auto) 0.2 (0.0-0.4) X10*3/uL Baso # (Auto) 0.0 (0.0-0.2) X10*3/uL Abs Immat Gran (auto) 0.02 (0.00-0.03) X10*3/uL Absolute Neuts (auto) 5.0 (2.0-8.3) x10*3/uL Absolute Nucleated RBC 0.000 (0.0-0.012) X10*3/uL Nucleated RBC % (auto) 0.0 (0.0-0.2) /100WBC Sodium 142 (135-145) mmol/L Potassium 4.1 (3.3-5.1) mmol/L Chloride 113 H (96-108) mmol/L Carbon Dioxide 24 (22-29) mmol/L Anion Gap 9 L (12-20) BUN 8 L (9-16) mg/dL Creatinine 1.06 (0.5-1.4) mg/dL Estim Creat Clear Calc 86.7 Estimated GFR > 60 Random Glucose 104 (60-115) mg/dL Calcium 9.1 (8.4-10.2) mg/dL Magnesium 2.3 (1.6-2.6) mg/dL Total Bilirubin 0.1 (0.0-1.0) mg/dL Direct Bilirubin < 0.2 (0.0-0.5) mg/dL AST 11 (5-31) U/L ALT 9 (0-31) U/L Alkaline Phosphatase 107 (39-117) U/L Total Protein 7.1 (6.5-8.0) g/dL Albumin 4.0 (3.5-5.0) g/dL Lipase 45 (8-78) U/L Beta HCG, Quant < 2 mIU/mL Independent Interpretation I performed an independent interpretation of an: Plain X-Ray Radiology Impression Discussion of test interpretation with radiology: I have reviewed the radiologist's reading. Radiologist Impression: Bowel gas pattern is nonobstructive. Moderate amount of stool is present in the colon. Limited evaluation for free air with supine positioning. IUD overlies the pelvis. Included lung bases are aerated. No acute osseous findings are seen. XR/XR KUB IMPRESSION: Nonobstructive bowel gas pattern. Moderate volume of stool. Medications Administered Discontinued Medications Generic Name Dose Route Start Last Admin Trade Name Freq PRN Reason Stop Dose Admin Sodium Chloride 1,000 mls @ 999 mls/hr 02/08/24 04:02 02/08/24 05:04 Ns IVCONT 02/08/24 05:02 999 mls/hr .Q1H1M ONE Administration Morphine Sulfate 4 mg 02/08/24 05:19 02/08/24 05:27 Morphine Sulfate 4 Mg/Ml Cartridge IVPUSH 02/08/24 05:20 4 mg ONCE ONE Administration Protocol Morphine Sulfate 4 mg 02/08/24 06:17 02/08/24 06:33 Morphine Sulfate 4 Mg/Ml Cartridge IVPUSH 02/08/24 06:18 4 mg ONCE ONE Administration Protocol Ondansetron HCl 4 mg 02/08/24 05:19 02/08/24 05:27 Ondansetron Hcl 4 Mg/2 Ml Vial IVPUSH 02/08/24 05:20 4 mg ONCE ONE Administration Prochlorperazine Edisylate 10 mg 02/08/24 06:16 02/08/24 06:32 Prochlorperazine Edisylate 10 Mg/2 Ml Vial IVPUSH 02/08/24 06:17 10 mg ONCE ONE Administration Critical Care Time Critical Care Time Critical Care Time: Yes Total Critical Care Time: 60 Attestation: I have personally provided critical care time. Time includes review of lab data, radiology results, discussion with consultants, and monitoring for potential decompensation. Intervention performed as documented. Discharge Plan Discharge Clinical Impression: Gastroparesis Patient Disposition: Home, Self-Care Instructions: Gastroparesis (ED) Additional Instructions: Please follow-up with your primary care physician tomorrow. If you have any worsening or new symptoms, please return to the emergency room or call 911 Prescriptions: New hyoscyamine sulfate 0.125 mg tablet 0.125 mg PO QID PRN (Reason: dyspepsia) Qty: 20 0RF ondansetron HCl 4 mg tablet 4 mg PO Q6H PRN (Reason: nausea and vomiting) Qty: 14 0RF No Action oxycodone-acetaminophen [Percocet] 5-325 mg tablet 1 tab PO Q4-6H PRN (Reason: pain) Qty: 15 0RF Rx Instructions: Partial Fill upon patient request. diazepam 2 mg tablet 1 tab PO BID prazosin 2 mg capsule 2 cap PO BEDTIME multivitamin Tablet 1 tab PO DAILY valacyclovir 500 mg tablet 1 tab PO DAILY albuterol sulfate [Ventolin HFA] 90 mcg/actuation HFA aerosol inhaler 2 puff INHALATION Q4H acetaminophen 500 mg Tablet 1,000 mg PO Q4H PRN (Reason: Pain) albuterol sulfate 90 mcg/actuation Hfa Aerosol Inhaler 2 inh INHALATION Q4H PRN (Reason: Shortness Of Breath) hydrocodone-acetaminophen 5-325 mg tablet 1 tab PO Q4-6H PRN (Reason: pain) Qty: 30 0RF Rx Instructions: Partial Fill upon patient request. cefuroxime axetil 250 mg tablet 250 mg PO BID 7 Days Qty: 14 0RF ondansetron 4 mg tablet,disintegrating 4 mg PO Q8H PRN (Reason: nausea and vomiting) Qty: 20 0RF fluconazole 150 mg tablet 150 mg PO Q3D Qty: 2 0RF Rx Instructions: repeat dose in 3 days if symptoms persist (DME) FreeStyle Lite Strips Strip See Rx Instructions Not Applicable BID Qty: 10 Rx Instructions: As directed (DME) lancets 28 gauge misc See Rx Instructions topical BID Qty: 100 Rx Instructions: As directed topiramate 25 mg tablet 25 mg PO DAILY bupropion HCl 150 mg tablet extended release 24 hr 150 mg PO DAILY lithium carbonate 300 mg capsule 300 mg PO BID melatonin 5 mg tablet 5 mg PO BEDTIME PRN (Reason: Insomnia) prochlorperazine maleate [Compazine] 10 mg tablet 10 mg PO BID PRN (Reason: Nausea And Vomiting) quetiapine [Seroquel] 25 mg tablet 25 mg PO DAILY PRN (Reason: Anxiety) hydroxyzine pamoate [Vistaril] 25 mg capsule 25 mg PO TID PRN (Reason: Anxiety) famotidine [Pepcid] 40 mg tablet 40 mg PO BID ondansetron HCl 4 mg tablet 4 mg PO Q6H PRN (Reason: Nausea) sumatriptan succinate [Imitrex] 100 mg tablet 100 mg PO Q2-4H PRN (Reason: Migraine Headache) Rx Instructions: do not exceed 2 doses per 24 hrs cephalexin 500 mg capsule 500 mg PO BID Qty: 30 0RF hydrocodone-acetaminophen 5-325 mg tablet 1 tab PO Q4-6H PRN (Reason: pain) Qty: 30 0RF Rx Instructions: Partial Fill upon patient request. Stand Alone Forms: Work/School Release Print Language: Telugu
[2024-02-08] MEDS: 0.9 % Sodium Chloride 1,000 ML 999 ML IVCONT (05:04)
[2024-02-08 05:09] LABS: Basophils Percent Auto 0.5 % (0-2); Eosinophils Absolute Auto 0.2 X10*3/uL (0.0-0.4); Eosinophils Percent Auto 2.5 % (0-4); Hemoglobin 10.7 g/dl (12.0-16.0); Imm Gran Abs Auto 0.02 X10*3/uL (0.00-0.03); Imm Gran Pct Auto 0.2 % (0.0-0.4); Lymphocytes Absolute Auto 2.2 X10*3/uL (1.2-4.9); Lymphocytes Percent Auto 26.9 % (20-40); MANUAL DIFF FLAG NO; Mean Corpuscular HGB Conc 31.5 g/dl (31.0-35.0); Mean Corpuscular Hemoglobin 29.1 pg (27.0-33.0); Mean Corpuscular Volume 92.4 fL (80.0-98.0); Mean Platelet Volume 9.1 fL (9.4-12.3); Monocytes Absolute Auto 0.7 X10*3/uL (0.1-1.2); Monocytes Percent Auto 8.2 % (2-11); Neutrophils Percent Auto 61.7 % (45-73); Platelet Count 379 X10*3/uL (160-400); Red Blood Count 3.68 X10*6/uL (4.20-5.50); Red Cell Distribution Width 16.1 % (11.0-16.0); White Blood Count 8.1 X10*3/uL (4.8-10.8)
--- OUTSIDE RECORDS SUMMARY | 2024-02-08 05:11 | XMS_ITS | Continuity of Care Document ---
Author Organization [facility] Address [address] [place] [address] Phone Care Team Providers Care [employer]ighter Name Role Phone Cailin José Primary Care Provider MD Wolf Gupta Emergency Provider [email or web address] Chief Complaint and Reason for Visit Chief Complaint LIZZ CLEARANCE Allergies, Adverse Reactions, Alerts Allergen Type Severity Reaction Last Updated Verified Status clonazepam Allergy Unknown September 28, 2022 11:31am Yes Active droperidol Allergy Unknown September 28, 2022 11:31am Yes Active haloperidol Allergy Unknown September 28, 2022 11:31am Yes Active lorazepam Allergy Unknown September 28, 2022 11:31am Yes Active metoclopramide Allergy Unknown September 28, 2022 11:31am Yes Active promethazine Allergy Unknown September 28, 2022 11:31am Yes Active Social History Smoking Status Unknown if ever smoked Observation Status Observation Response Date of Response Living Situation Private Home September 28, 2022 1 2:25pm Additional Data Assigned Sex Female Problems Active Problems Medical Problem Onset Date Status Depression Active Procedures Procedure Date Performed Status Urine Culture active Relevant Diagnostic Tests and/or Laboratory Data Laboratory Results Test Date/Time Result Interpretation Reference Range Result Comment Performing Site White Blood Count September 28, 2022 12:35pm 8.6 X10 3/uL 4.5-11.0 [facility] [id number] [address] [place] [address] Red Blood Count September 28, 2022 12:35pm 4.16 X10 6/uL 3.70-5.00 [facility] [id number] [address] [place] [address] Hemoglobin September 28, 2022 12:35pm 12.5 g/dl 11.0-16.0 [facility] [id number] [address] [place] [address] Hematocrit September 28, 2022 12:35pm 39.2 % 34.0-45.0 [facility] [id number] [address] [place] [address] Mean Corpuscular Volume September 28, 2022 12:35pm 94.2 fl 80.0-100.0 [facility] [id number] [address] [place] [address] Mean Corpuscular Hemoglobin September 28, 2022 12:35pm 30.0 pg 27.0-34.0 [facility] [id number] [address] [facility] [place] [address] Mean Corpuscular Hemoglobin Concent September 28, 2022 12:35pm 31.9 g/dl 31.0-36.0 [facility] [id number] [address] [place] [address] Red Cell Distribution Width September 28, 2022 12:35pm 15.0 % 11.5-15.0 [facility] [id number] [address] [place] [address] Platelet Count September 28, 2022 12:35pm 322 X10 3/uL 150-400 [facility] [id number] [address] [place] [address] Immature Granulocyte % (Auto) September 28, 2022 12:35pm 0.2 % [facility] [id number] [address] [place] [address] Neutrophils (%) (Auto) September 28, 2022 12:35pm 46.2 % [facility] [id number] [address] [place] [address] Lymphocytes (%) (Auto) September 28, 2022 12:35pm 47.6 % [facility] [id number] [address] [place] [address] Monocytes (%) (Auto) September 28, 2022 12:35pm 5.2 % [facility] [id number] [address] [place] [address] Eosinophils (%) (Auto) September 28, 2022 12:35pm 0.3 % [facility] [id number] [address] [place] [address] Basophils (%) (Auto) September 28, 2022 12:35pm 0.5 % [facility] [id number] [address] [facility] [address] Immature Granulocyte # (Auto) September 28, 2022 12:35pm 0.02 X10 3/uL 0.00-0.09 [facility] [id number] [address] [facility] [address] Neutrophils # (Auto) September 28, 2022 12:35pm 4.0 X10 3/uL 1.5-7.8 [facility] [id number] [address] [facility] [address] Lymphocytes # (Auto) September 28, 2022 12:35pm 4.1 X10 3/uL 1.0-4.8 [facility] [id number] [address] [facility] [address] Monocytes # (Auto) September 28, 2022 12:35pm 0.5 X10 3/uL 0.0-0.8 [facility] [id number] [address] [facility] [address] Eosinophils # (Auto) September 28, 2022 12:35pm 0.0 X10 3/uL 0.0-0.5 [facility] [id number] [address] [facility] [address] Basophils # (Auto) September 28, 2022 12:35pm 0.0 X10 3/uL 0.0-0.2 [facility] [id number] [address] [facility] [address] Nucleated Red Blood Cells % September 28, 2022 12:35pm 0.0 /100 WBC 0.0-0.0 [facility] [id number] [address] [facility] [address] Urine Color September 28, 2022 11:35am Yellow Yellow [facility] [id number] [address] [facility] [address] Urine Clarity September 28, 2022 11:35am Slightly cloudy Clear [facility] [id number] [address] [facility] [address] Urine pH September 28, 2022 11:35am 6.0 5.0-8.0 [facility] [id number] [address] [facility] [address] Urine Specific [place] September 28, 2022 11:35am 1.015 1.003-1.03 0 [facility] [id number] [address] [facility] [address] Urine Blood September 28, 2022 11:35am Moderate mg/dl Negative [facility] [id number] [address] [place] [address] Urine Protein September 28, 2022 11:35am Negative mg/dl Negative [facility] [id number] [address] [place] [address] Urine Glucose (UA) September 28, 2022 11:35am Negative mg/dl Negative [facility] [id number] [address] [place] [address] Urine Ketones September 28, 2022 11:35am Negative mg/dl Negative [facility] [id number] [address] [facility] [place] [address] Urine Nitrate September 28, 2022 11:35am Negative Negative [facility] [id number] [address] [facility] [place] [address] Urine Bilirubin September 28, 2022 11:35am Negative mg/dl Negative [facility] [id number] [address] [place] [address] Urine Urobilinogen September 28, 2022 11:35am Normal mg/dl Normal [facility] [id number] [address] [facility] [place] [address] Urine Leukocyte Esterase September 28, 2022 11:35am Small Negative [facility] [id number] [address] [place] [address] Urine Microscopic Indicated September 28, 2022 11:35am . [facility] [id number] [address] [place] [address] Urine RBC September 28, 2022 11:35am 4 /hpf 0-2 [facility] [id number] [address] [place] [address] Urine WBC September 28, 2022 11:35am 8 /hpf 0-5 [facility] [id number] [address] [place] [address] Urine Squamous Epithelial Cells September 28, 2022 11:35am 15 /hpf 0-5 [facility] [id number] [address] [place] [address] Urine Bacteria September 28, 2022 11:35am Many /hpf None Seen [facility] [id number] [address] [place] [address] Sodium Level September 28, 2022 12:35pm 139 mmol/L 137-146 [facility] [id number] [address] [place] [address] Potassium Level September 28, 2022 12:35pm 3.9 mmol/L 3.5-5.3 [facility] [id number] [address] [facility] [address] Chloride Level September 28, 2022 12:35pm 107 mmol/L 98-107 [facility] [id number] [address] [facility] [address] Carbon Dioxide Level September 28, 2022 12:35pm 20 mmol/L 23-32 [facility] [id number] [address] [facility] [address] Anion Gap September 28, 2022 12:35pm 12 mmol/L 5-15 [facility] [id number] [address] [facility] [address] Blood Urea Nitrogen September 28, 2022 12:35pm 17 mg/dl -25 [facility] [id number] [address] [facility] [address] Creatinine September 28, 2022 12:35pm 1.2 mg/dL 0.5-1.1 [facility] [id number] [address] [facility] [address] Estimated Creatinine Clearance September 28, 2022 12:35pm 80.1 ml/min This value is calculated by Cockcroft Gault Equation using ideal body weight. This result is dependent on an accurate patient height and weight which is obtained from patients medical record. Cockcroft, D.W. and M.H. Gault. Prediction of creatinine clearance from serum creatinine. Nephron. 1976. 16(1):31-41. [facility] [id number] [address] [facility] [address] Estimat Glomerular Filtration Rate September 28, 2022 12:35pm 63 >90 Reported eGFR is based on the CKD-EPI 2020 equation that does not use a race coefficient. Additional information can be found at:[id number] [email or web address] [email or web address] ([email or web address].org) [facility] [id number] [address] [facility] [address] BUN/Creatinine Ratio September 28, 2022 12:35pm 14.2 10.0-20.0 [facility] [id number] [address] [facility] [address] Glucose Level September 28, 2022 12:35pm 88 mg/dL 70-100 [facility] [id number] [address] [facility] [address] Calcium Level September 28, 2022 12:35pm 9.9 mg/dl 8.6-10.3 [facility] [id number] [address] [facility] [address] Phosphorus Level September 28, 2022 12:35pm 3.6 mg/dL 2.5-4.5 [facility] [id number] [address] [facility] [address] Magnesium Level September 28, 2022 12:35pm 2.3 mg/dL 1.8-2.5 [facility] [id number] [address] [facility] [address] Total Bilirubin September 28, 2022 12:35pm 0.4 mg/dl <1.1 [facility] [id number] [address] [facility] [address] Aspartate Amino Transf (AST/SGOT) September 28, 2022 12:35pm 12 U/L 15-41 [facility] [id number] [address] [facility] [address] Alanine Aminotransfera se (ALT/SGPT) September 28, 2022 12:35pm 8 U/L 14-54 [facility] [id number] [address] [facility] [address] Total Protein September 28, 2022 12:35pm 7.5 g/dL 6.4-8.3 [facility] [id number] [address] [facility] [address] Albumin September 28, 2022 12:35pm 4.5 g/dl 4.0-5.0 [facility] [id number] [address] [facility] [address] Albumin/Globul in Ratio September 28, 2022 12:35pm 1.5 1.0-2.6 [facility] [id number] [address] [facility] [address] Alkaline Phosphatase September 28, 2022 12:35pm 93 U/L 35-104 [facility] [id number] [address] [facility] [address] Urine HCG, Qualitative September 28, 2022 11:35am Negative Negative This is only a screening test. Low HCG urine level (<20mIU/ml), in case of a early or dilution of urine, may not be detected with this test. Also high concentration of certain drugs may interfere. If suspicious of early or clinically necessary to confirm, a serum Beta-HCG quantitation test is suggested. [facility] [id number] [address] [facility] [address] SARS-CoV-2 Antigen (Rapid) September 28, 2022 11:53am Negative Negative The clinical performance of rapid antigen diagnostic tests largely depends on the circumstances in which they are used. Rapid antigen tests perform best when the person is tested in the early stages of infection with SARS-CoV-2 when viral load is generally highest. They also may be informative in diagnostic testing situations in which the person has a known exposure to a confirmed case of COVID-19. Rapid antigen tests can be used for screening testing in high-risk congregate settings in which repeat testing could quickly identify persons with a SARS-CoV-2 infection to inform infection prevention and control measures, thus preventing transmission. From: CDC.gov, Interim Guidance for Rapid Antigen Testing for SARS-CoV-2- Updated 02.15; https://www.cdc. gov/coronavirus/ 2019-ncov/lab/re sources/antigen- tests-guidelines .html [facility] [id number] [address] [facility] [address] Urine Amphetamines Screen September 28, 2022 11:36am Negative Negative Amphetamines Cutoff level 1000 ng/mL. [facility] [id number] [address] [facility] [address] Urine Methadone Screen September 28, 2022 11:36am Negative Negative Methadone Cutoff level 300 ng/mL [facility] [id number] [address] [facility] [address] Urine Oxycodone Screen September 28, 2022 11:36am Positive Negative Confirmation by GC/MS not routinely performed for Non-Maternity locations. If confirmation is required, an order must be placed.Oxycontin /Oxycodone Cutoff level 100 ng/mL [facility] [id number] [address] [facility] [address] Urine Buprenorphine Screen September 28, 2022 11:36am Negative Negative Buprenorphine Cutoff level 5 ng/mL [facility] [id number] [address] [facility] [address] Urine Opiates Screen September 28, 2022 11:36am Negative Negative Opiate Cutoff level 300 ng/mLOxycontin/O xycodone is not detected below the threshold of20,000 ng/mL [facility] [id number] [address] [place] [address] Urine Fentanyl Screen September 28, 2022 11:36am Negative Negative Fentanyl Cutoff level 2.0 ng/mL [facility] [id number] [address] [facility] [address] Urine Benzodiazepine s Screen September 28, 2022 11:36am Positive Negative Please note that the current method for benzodiazepines may be less sensitive to lorazapam detection than previously. If this result is negative and you are concerned about a false negative result for lorazepam, additional testing is possible. Please contact the laboratory.Confi rmation by GC/MS not routinely performed for Non-Maternity locations. If confirmation is required, an order must be placed.Benzodiaz epine Cutoff level 200 ng/mL [facility] [id number] [address] [facility] [address] Urine Cocaine Screen September 28, 2022 11:36am Negative Negative Cocaine Cutoff level 300 ng/mL [facility] [id number] [address] [facility] [address] Urine Cannabinoids Screen September 28, 2022 11:36am Negative Negative THC Cutoff level 50 ng/mLThis report is intended for use in clinical monitoring and management of patients. It is not intended for use in employment related drug testing or court related proceedings. Samples are not routinely tested for adulteration and are assumed to be within the normal physiological pH range of 5 - 8. [facility] [id number] [address] [facility] [address] Serum Alcohol September 28, 2022 12:35pm < 10 mg/dl <10 [facility] [id number] [address] [facility] [address] Vital Signs Vital Reading Result Reference Range Collection Date/Time Height 157.48 cm September 28, 2022 1 1:31am Weight 106.59 kg September 28, 2022 1 1:31am Body Temperature 98.2 [degF] 97.6-99.6 September 28 11:31am Heart Rate 79 /min 60-90 September 28, 2022 3 :21pm Respiratory rate 16 /min -September 28 3:21pm Oxygen saturation by Pulse oximetry 100 % 95-10 0 September 28, 2022 3:21pm BP Systolic 129 mm[Hg] 90-140 September 28, 2022 3 :21pm BP Diastolic 82 mm[Hg] 60-90 September 28, 2022 3 :21pm BMI (Body Mass Index) 43.0 kg/m2 September 11:31am Advance Directives Advance Directive Response Recorded Date/ Time Advance Directives No September 28, 2022 11:05am Health Care Proxy No September 28, 2022 11:05am Insurance Providers Guarantor Maria G Javier Address [address] [address] Contact Info. Home Phone: Payer Policy Id Coverage Id Subscriber's Name Subscriber Id Effective Date Expiration Date [facility] No [facility] [id number] Maria G Javier [id number] Medicare A&B [id number] Maria G Yaya [id number] Encounters Encounter Location(s) Arrival/Admit Date Discharge/Depart Date Provider(s) Departed Emergency [facility]-Emergency Department September 28, 2022 11:03am September 28, 2022 3:23pm null Plan of Treatment Future Tests Future scheduled test information is unavailable Pending Tests Test Name Ordered Date Scheduled Date Urine Culture September 28, 2022 12:13pm Coronavirus COVID-19 DARRYN (YA) September 28, 2022 12: 47pm Future Visits Future appointment information is unavailable Referrals to Other Providers Reason for Referral Referral Start Date Provider Provider Contact Information Provider Address Cailin Perkins Brad Work Phone: [address] [place] [id number] Future Procedures Future procedure information is unavailable Future Medications Future medication information is unavailable Patient Instructions Getting the Most from a Alayna enrique ...
[2024-02-08] MEDS: ondansetron HCL 4 MG/2 ML VIAL IVPUSH (05:27)
[2024-02-08] MEDS: Morphine Sulfate 4 MG/ML CARTRIDGE IVPUSH ×2 (05:27→06:33)
[2024-02-08 05:32] LABS: Alanine Aminotransferase 9 U/L (0-31); Alkaline Phosphatase 107 U/L (39-117); Anion Gap 9 (12-20); Aspartate Amino Transferase 11 U/L (5-31); Bilirubin Direct < 0.2 mg/dL (0.0-0.5); Bilirubin Total 0.1 mg/dL (0.0-1.0); Blood Urea Nitrogen 8 mg/dL (9-16); Calcium 9.1 mg/dL (8.4-10.2); Carbon Dioxide 24 mmol/L (22-29); Chloride 113 mmol/L (96-108); Creatinine Clr Calc Pharmacy 86.7; Estimated Glomerular Filt Rate > 60; Glucose Random 104 mg/dL (60-115); HCG Quantitative < 2 mIU/mL; Lipase 45 U/L (8-78); Magnesium 2.3 mg/dL (1.6-2.6); Potassium 4.1 mmol/L (3.3-5.1); Sodium 142 mmol/L (135-145); Total Protein 7.1 g/dL (6.5-8.0)
--- NOTE | 2024-02-08 05:56 | PC.NURSE ---
pt states she is complaining of retaining urine. rpts has not been able to urinate since 2099. bladder scan 132.
[2024-02-08] MEDS: Prochlorperazine Edisylate 10 MG/2 ML VIAL IVPUSH (06:32)
[2024-02-08 06:34] VITALS: BP 99/54; PULSE 91; RESP 17; TEMP 36.8; O2SAT 97
--- NOTE | 2024-02-08 06:44 | PC.NURSE ---
given dona justus for PO challenge; within minutes pt began to actively vomit.
[2024-02-08 07:27] VITALS: BP 124/80; PULSE 83; RESP 16; TEMP 36.7; O2SAT 98
--- NOTE | 2024-02-08 07:28 | PC.NURSE ---
per prior RN, pt vomited after gingerale, plan to give medication some more time to take effect prior to additional attempt. pt given estela crackers and apple juice for PO trial - no vomiting noted by this RN. pt requesting discharge. pt educated on medications sent to pharmacy w plan to follow up w GI doctor/PCP. pt agreeable to discharge plan.
[2024-02-08 07:30] VITALS: BP 124/80; PULSE 83; RESP 16; TEMP 36.7; O2SAT 98
== END 2024-02-08 07:31 | disposition home or self-care (01) ==
PROVIDERS: Emergency Provider Emergency Medicine
DX: K31.84 Gastroparesis (principal); R11.2 Nausea with vomiting, unspecified; R10.2 Pelvic and perineal pain; Z79.899 Other long term (current) drug therapy
CPT/HCPCS: 36415; 74018; 80048; 80076; 83690; 83735; 84702; 85025; 96361; 96374; 96375; 96376; 99284; J0737; J2270; J2405

== ENCOUNTER 2024-02-11 14:58 | Emergency (ER) | payer MEDICARE, MEDICAID, SELFPAY ==
[2024-02-11 15:01] VITALS: BP 151/84; PULSE 80; O2SAT 98
[2024-02-11 15:59] VITALS: BP 114/59; PULSE 84; RESP 16; TEMP 38; O2SAT 100; BMI 47.2
--- NOTE | 2024-02-11 16:01 | ED_ITS ---
HPI - General Adult General Chief complaint: General Medical Stated complaint: WEAKNESS VOMITING FEVER Time Seen by Provider: 02/11/24 18:23 History of Present Illness ED Provider: Dr. Alok Chin HPI narrative: 28-year-old female with a history of depression, anxiety, bipolar disorder, migraines, GERD, PTSD, asthma, gastroparesis status post recent G POEM surgery who presents emergency department for evaluation abdominal pain consistent with her gastroparesis, nausea, vomiting with no diarrhea, lightheadedness, dizziness, passing out at home, numbness and weakness of her extremities. The patient has been seen multiple times in the emergency department with these similar complaints. This is her 6th visit since 10/15/2023. I saw her on 02/03/2024 with similar complaints and at that time patient's laboratory evaluation was unremarkable and she had had a CT scan on 01/21/2024 which was unremarkable. The patient states that her surgeon wanted to do a G-tube on her and the [place] folded towel machine operator refused. She states she is now being followed by folded towel machine operator at [facility] that are considering a gastric stimulator for gastroparesis. Related Data Home Medications ?Medication ?Instructions ?Recorded ?Confirmed blood sugar diagnostic #10 ea 12/02/20 10/04/23 lancets 28 gauge #100 ea 12/02/20 10/04/23 acetaminophen 500 mg tablet 1,000 mg PO Q4H PRN Pain 10/04/21 10/11/23 albuterol sulfate 90 mcg/actuation 2 inh inhalation Q4H PRN Shortness 10/04/21 10/11/23 aerosol inhaler Of Breath diazepam 2 mg tablet 1 tab PO BID 12/01/21 10/11/23 lithium carbonate 300 mg capsule 300 mg PO BID 04/13/22 10/13/23 famotidine 40 mg tablet (Pepcid) 40 mg PO BID 04/27/22 10/13/23 hydroxyzine pamoate 25 mg capsule 25 mg PO TID PRN Anxiety 04/27/22 10/11/23 (Vistaril) melatonin 5 mg tablet 5 mg PO BEDTIME PRN Insomnia 04/27/22 10/11/23 ondansetron HCl 4 mg tablet 4 mg PO Q6H PRN Nausea 04/27/22 10/11/23 prochlorperazine maleate 10 mg 10 mg PO BID PRN Nausea And 04/27/22 10/11/23 tablet (Compazine) Vomiting quetiapine 25 mg tablet (Seroquel) 25 mg PO DAILY PRN Anxiety 04/27/22 10/11/23 sumatriptan succinate 100 mg 100 mg PO Q2-4H PRN Migraine 04/27/22 10/11/23 tablet (Imitrex) Headache bupropion HCl 150 mg 24 hr tablet, 150 mg PO DAILY 05/18/22 10/13/23 extended release topiramate 25 mg tablet 25 mg PO DAILY 05/18/22 10/13/23 albuterol sulfate 90 mcg/actuation 2 puff inhalation Q4H 05/27/22 10/11/23 aerosol inhaler (Ventolin HFA) multivitamin 1 tab PO DAILY 05/27/22 10/13/23 prazosin 2 mg capsule 2 cap PO BEDTIME 05/27/22 10/11/23 valacyclovir 500 mg tablet 1 tab PO DAILY 05/27/22 10/13/23 Previous Rx's ?Medication ?Instructions ?Recorded cephalexin 500 mg capsule 500 mg PO BID #30 caps 06/09/23 hydrocodone 5 mg-acetaminophen 325 1 tab PO Q4-6H PRN pain #30 tabs 06/09/23 mg tablet hydrocodone 5 mg-acetaminophen 325 1 tab PO Q4-6H PRN pain #30 tabs 06/16/23 mg tablet oxycodone-acetaminophen 5 mg-325 1 tab PO Q4-6H PRN pain #15 tabs 10/17/23 mg tablet (Percocet) cefuroxime axetil 250 mg tablet 250 mg PO BID 7 days #14 tabs 01/21/24 fluconazole 150 mg tablet 150 mg PO Q3D 2 doses #2 tabs 01/21/24 ondansetron 4 mg disintegrating 4 mg PO Q8H PRN nausea and 01/21/24 tablet vomiting #20 tabs hyoscyamine sulfate 0.125 mg tablet 0.125 mg PO QID PRN dyspepsia #20 02/08/24 tabs ondansetron HCl 4 mg tablet 4 mg PO Q6H PRN nausea and 02/08/24 vomiting #14 tabs Allergies Allergy/AdvReac Type Severity Reaction Status Date / Time metoclopramide [From Reglan] Allergy Severe Hives Verified 02/11/24 16:03 NSAIDS (Non-Steroidal Allergy Severe Anaphylaxis Verified 02/11/24 16:03 Anti-Inflamma [NSAIDS (NON-STEROIDAL ANTI-INFLAMMA] clonazepam [Klonopin] AdvReac Severe Agitated Verified 02/11/24 16:03 droperidol AdvReac Severe Agitated Verified 02/11/24 16:03 haloperidol [Haldol] AdvReac Severe Agitated Verified 02/11/24 16:03 lorazepam [LORAZEPAM] AdvReac Severe AGGRESSION Verified 02/11/24 16:03 promethazine AdvReac Severe Agitated Verified 02/11/24 16:03 ketorolac [From Toradol] AdvReac Anaphylaxis Verified 02/11/24 16:03 seafood Allergy Intermediate swelling Uncoded 02/08/24 03:56 Review of Systems Review of Systems: Yes all other systems are reviewed and are negative [facility] Past Medical History Medical History Hidradenitis Epidermal cyst Epidermal inclusion cyst Pilonidal cyst Suppurative hidradenitis Back pain Migraines Insomnia GERD (gastroesophageal reflux disease) Morbid obesity Axillary hidradenitis suppurativa IUD (intrauterine device) in place History of DVT (deep vein thrombosis) Factor V Leiden Nausea DARINEL (obstructive sleep apnea) Asthma Wears hearing aid in both ears Loss of teeth due to extraction Preeclampsia Sacrococcygeal pilonidal cyst Depression Anxiety PTSD (post-traumatic stress disorder) Bipolar affective IBS (irritable bowel syndrome) Diabetes Gastroparesis Surgical History History of excision of pilonidal cyst History of esophagogastroduodenoscopy (EGD) History of removal of cyst (~11/14/22) Hx of umbilical hernia repair Hx of section History of carpal tunnel release Hx of myringotomy History of tonsillectomy and adenoidectomy Family History Family History Mother Mental health disorder Obesity Father Hypertension High cholesterol Son No problems noted. Brother No problems noted. Sister Asthma Social History Social History Household Members: Children Are you a primary behavioral health care coordinator to a significant other at home: No (Mother has custody of 10 month old son) Do you presently have visiting nurse or other home services: Yes ([employer] [facility] 92 hours per week) Alcohol intake: former Comment: counts correct Patient Tobacco Use Status: Current everyday Tobacco user Tobacco use type: Cigarette Substance Use Type: Marijuana Advance Directives: Yes Advance Directives on File: Yes Advance Directives Date on File: 12/07/21 Do you have a plan to hurt others: No Plan Physical Exam ED Vital Signs: Vital Signs - 24 hr 02/11/24 15:59 Temperature 100.4 F Pulse Rate 84 Respiratory Rate 16 Blood Pressure 114/59 L Pulse Oximetry 100 Oxygen Delivery Method Room Air BMI result Body Mass Index 47.2 Vital signs revealed a low-grade temperature of 100.4 degrees otherwise unremarkable Exam: General: Awake, alert in no distress Head: Normocephalic, atraumatic EENT: PERRL, Lids normal, sclera normal, conjunctiva normal, nose normal , ears normal, throat without erythema or exudates Neck: Supple, no adenopathy Lung: breath sounds symmetric, no wheezing, rales or rhonchi Chest: symmetric movement, nontender Heart: regular rate and rhythm, normal S1, S2 no murmurs or rubs Abdomen: soft, non-tender, nondistended, normal bowel sounds Back: no vertebral tenderness, no CVAT Extremities: no deformities, moves all extremities symmetrically Neuro: Awake, alert, oriented, normal speech, cranial nerves intact, moves all e xtremities symmetrically Psych: Pleasant, cooperative Course Course Course Narrative: Patient is a female with past medical history of depression, anxiety, bipolar disorder, migraines, GERD, PTSD, asthma, gastroparesis status post G POEM surgery 3 months with partial relief for few weeks. Reports a fever today of 101.5 oral, having abdominal pain, nausea, vomiting, dizziness, syncopal episodes at home, numbness and tingling of the extremities. Symptom it was 3 days ago but she states has progressively worsened. On review she has had multiple visits to the emergency department in the past with similar symptoms most recently 02/08/2020, 02/03/2024. Plan: Labs, viral panel, urinalysis, EKG 16:22 - patient is refusing to have serum labs obtained from the waiting room. Reports she is a difficult stick and will not be stuck multiple times as she knows she will need an IV. Attempted to speak with patient to encourage labs to be obtained, and she responds ?I already said no . Medical Decision Making Medical Decision Making MDM Narrative: 28-year-old female with a history of depression, anxiety, bipolar disorder, migraines, GERD, PTSD, asthma, gastroparesis status post recent G POEM surgery who presents emergency department for evaluation abdominal pain consistent with her gastroparesis, nausea, vomiting with no diarrhea, lightheadedness, dizziness, passing out at home, numbness and weakness of her extremities. Vital signs revealed slight elevation temperature of a 100.4 degrees F. vital signs otherwise unremarkable. Physical examination revealed no abdominal tenderness and her exam was otherwise unremarkable. Differential diagnosis: ?Includes but is not limited to gastritis, peptic ulcer disease, gastroparesis Course: The patient's physical examination at this time revealed no abdominal tenderness. The patient was had the same presentation on multiple visits with no significant changes in her blood work and she also had an unremarkable CT scan of the abdomen pelvis on 01/21/2024. Given these negative workups I believe the patient's symptoms are consistent with her chronic abdominal pain/gastroparesis. The patient was treated with Zofran 4 mg ODT. Patient is discharged home and advised to follow up with a folded towel machine operator for further management of her gastroparesis Admission/Observation Consideration of admission/observation: Escalation of care including admission/observation considered (No) Chronic Conditions Patient?s care impacted by: Diabetes and Other (Gastroparesis) Discharge Plan Discharge Clinical Impression: Gastroparesis, Nausea & vomiting Patient Disposition: Home, Self-Care Additional Instructions: Continue taking medications as prescribed by your providers. Follow-up with your GI doctor to discuss further treatment for your gastroparesis. Follow-up with your doctor in 2 days. Please return to the emergency department if your symptoms get worse or if you develop any symptoms that are concerning to you. Prescriptions: No Action oxycodone-acetaminophen [Percocet] 5-325 mg tablet 1 tab PO Q4-6H PRN (Reason: pain) Qty: 15 0RF Rx Instructions: Partial Fill upon patient request. diazepam 2 mg tablet 1 tab PO BID prazosin 2 mg capsule 2 cap PO BEDTIME multivitamin Tablet 1 tab PO DAILY valacyclovir 500 mg tablet 1 tab PO DAILY albuterol sulfate [Ventolin HFA] 90 mcg/actuation HFA aerosol inhaler 2 puff INHALATION Q4H acetaminophen 500 mg Tablet 1,000 mg PO Q4H PRN (Reason: Pain) albuterol sulfate 90 mcg/actuation Hfa Aerosol Inhaler 2 inh INHALATION Q4H PRN (Reason: Shortness Of Breath) hydrocodone-acetaminophen 5-325 mg tablet 1 tab PO Q4-6H PRN (Reason: pain) Qty: 30 0RF Rx Instructions: Partial Fill upon patient request. cefuroxime axetil 250 mg tablet 250 mg PO BID 7 Days Qty: 14 0RF ondansetron 4 mg tablet,disintegrating 4 mg PO Q8H PRN (Reason: nausea and vomiting) Qty: 20 0RF fluconazole 150 mg tablet 150 mg PO Q3D Qty: 2 0RF Rx Instructions: repeat dose in 3 days if symptoms persist hyoscyamine sulfate 0.125 mg tablet 0.125 mg PO QID PRN (Reason: dyspepsia) Qty: 20 0RF ondansetron HCl 4 mg tablet 4 mg PO Q6H PRN (Reason: nausea and vomiting) Qty: 14 0RF (DME) FreeStyle Lite Strips Strip See Rx Instructions Not Applicable BID Qty: 10 Rx Instructions: As directed (DME) lancets 28 gauge misc See Rx Instructions topical BID Qty: 100 Rx Instructions: As directed topiramate 25 mg tablet 25 mg PO DAILY bupropion HCl 150 mg tablet extended release 24 hr 150 mg PO DAILY lithium carbonate 300 mg capsule 300 mg PO BID melatonin 5 mg tablet 5 mg PO BEDTIME PRN (Reason: Insomnia) prochlorperazine maleate [Compazine] 10 mg tablet 10 mg PO BID PRN (Reason: Nausea And Vomiting) quetiapine [Seroquel] 25 mg tablet 25 mg PO DAILY PRN (Reason: Anxiety) hydroxyzine pamoate [Vistaril] 25 mg capsule 25 mg PO TID PRN (Reason: Anxiety) famotidine [Pepcid] 40 mg tablet 40 mg PO BID ondansetron HCl 4 mg tablet 4 mg PO Q6H PRN (Reason: Nausea) sumatriptan succinate [Imitrex] 100 mg tablet 100 mg PO Q2-4H PRN (Reason: Migraine Headache) Rx Instructions: do not exceed 2 doses per 24 hrs cephalexin 500 mg capsule 500 mg PO BID Qty: 30 0RF hydrocodone-acetaminophen 5-325 mg tablet 1 tab PO Q4-6H PRN (Reason: pain) Qty: 30 0RF Rx Instructions: Partial Fill upon patient request. Print Language: Maltese
--- NOTE | 2024-02-11 16:04 | ECG_ITS ---
Test Reason : SYNCOPE Blood Pressure : / mmHG Vent. Rate : 075 BPM Atrial Rate : 075 BPM P-R Int : 188 ms QRS Dur : 094 ms QT Int : 420 ms P-R-T Axes : 026 040 024 degrees QTc Int : 469 ms Normal sinus rhythm Low voltage QRS Nonspecific T wave abnormality Prolonged QT Abnormal ECG When compared with ECG of 03-FEB-2024 14:11, No significant change was found Referred By: Arlet Paige Electronically Signed By:FRANK MORGAN
--- NOTE | 2024-02-11 16:20 | MHC.EDTECH ---
This pct attempted to obtain labs and a sars swab but the patient refused to have labs and swab done stating she is too difficult to get labs from.RN Aware
--- NOTE | 2024-02-11 18:25 | PC.NURSE ---
yelling at someone on the phone between dryheaving. skin pwd. alert. refuses a queenie.
[2024-02-11 18:27] VITALS: BP 116/70; PULSE 74; RESP 20; TEMP 37.2; O2SAT 100
[2024-02-11 18:36] LABS: Glucose, Whole Blood 84 mg/dL (60-115)
--- NOTE | 2024-02-11 19:25 | PC.NURSE ---
at 1900 patient was no longer in room. no belongings present.
== END 2024-02-11 19:29 | disposition left against medical advice (07) ==
PROVIDERS: Emergency Provider Emergency Medicine Emergency Medical Services
DX: K31.84 Gastroparesis (principal); R53.1 Weakness; R11.2 Nausea with vomiting, unspecified; R55 Syncope and collapse; R94.31 Abnormal electrocardiogram [ECG] [EKG]; Z79.899 Other long term (current) drug therapy
CPT/HCPCS: 82947; 93005; 99284

== ENCOUNTER 2024-03-02 21:35 | Emergency (ER) | payer MEDICARE, MEDICAID, SELFPAY ==
[2024-03-02 21:41] VITALS: BP 121/84; PULSE 97; RESP 18; TEMP 37; O2SAT 99; BMI 44.8
[2024-03-02 22:11] LABS: MANUAL DIFF FLAG NO
[2024-03-02 22:12] LABS: Basophils Percent Auto 0.3 % (0-2); Eosinophils Absolute Auto 0.1 X10*3/uL (0.0-0.4); Eosinophils Percent Auto 0.7 % (0-4); Hemoglobin 12.4 g/dl (12.0-16.0); Imm Gran Abs Auto 0.02 X10*3/uL (0.00-0.03); Imm Gran Pct Auto 0.2 % (0.0-0.4); Lymphocytes Absolute Auto 2.9 X10*3/uL (1.2-4.9); Mean Corpuscular HGB Conc 31.8 g/dl (31.0-35.0); Mean Corpuscular Hemoglobin 28.7 pg (27.0-33.0); Mean Corpuscular Volume 90.3 fL (80.0-98.0); Mean Platelet Volume 10.1 fL (9.4-12.3); Monocytes Absolute Auto 0.5 X10*3/uL (0.1-1.2); Monocytes Percent Auto 5.5 % (2-11); Neutrophils Absolute Auto 5.3 x10*3/uL (2.0-8.3); Neutrophils Percent Auto 60.3 % (45-73); Platelet Count 362 X10*3/uL (160-400); Red Blood Count 4.32 X10*6/uL (4.20-5.50); Red Cell Distribution Width 15.3 % (11.0-16.0); White Blood Count 8.7 X10*3/uL (4.8-10.8)
[2024-03-02 22:30] LABS: Alanine Aminotransferase 19 U/L (0-31); Albumin Level 4.6 g/dL (3.5-5.0); Alkaline Phosphatase 153 U/L (39-117); Anion Gap 16 (12-20); Aspartate Amino Transferase 16 U/L (5-31); Bilirubin Total 0.3 mg/dL (0.0-1.0); Blood Urea Nitrogen 11 mg/dL (9-16); Calcium 9.3 mg/dL (8.4-10.2); Carbon Dioxide 17 mmol/L (22-29); Chloride 105 mmol/L (96-108); Estimated Glomerular Filt Rate 53; Glucose Random 79 mg/dL (60-115); Potassium 3.7 mmol/L (3.3-5.1); Sodium 134 mmol/L (135-145); Total Protein 8.4 g/dL (6.5-8.0)
[2024-03-03 00:17] VITALS: BP 108/59; PULSE 85; RESP 18; TEMP 36.8; O2SAT 98
--- NOTE | 2024-03-03 01:07 | ED.GENADULT ---
HPI - General Adult General Chief complaint: Fall Stated complaint: fell and hit head Time Seen by Provider: 03/03/24 00:54 Source: patient Mode of arrival: ambulatory Limitations: no limitations History of Present Illness ED Provider: genesis ISBELL narrative: Patient bipolar disorder PTSD factor 5 laden deficiency not on any anticoagulant been fired from her PCP and GI doctor also fired her plan to see a new just sql ssrs developer in 1 month comes here because while bending down to feed her cat lost balance and fell hitting her forehead to the ground this happened at 17:00 no complete loss of consciousness had minor bleeding from the nose no during interview patient says that patient has not been eating for last 1 week with epigastric pain is chronic patient is very emotional Related Data Home Medications ?Medication ?Instructions ?Recorded ?Confirmed blood sugar diagnostic #10 ea 12/02/20 10/04/23 lancets 28 gauge #100 ea 12/02/20 10/04/23 acetaminophen 500 mg tablet 1,000 mg PO Q4H PRN Pain 10/04/21 10/11/23 albuterol sulfate 90 mcg/actuation 2 inh inhalation Q4H PRN Shortness 10/04/21 10/11/23 aerosol inhaler Of Breath diazepam 2 mg tablet 1 tab PO BID 12/01/21 10/11/23 lithium carbonate 300 mg capsule 300 mg PO BID 04/13/22 10/13/23 famotidine 40 mg tablet (Pepcid) 40 mg PO BID 04/27/22 10/13/23 hydroxyzine pamoate 25 mg capsule 25 mg PO TID PRN Anxiety 04/27/22 10/11/23 (Vistaril) melatonin 5 mg tablet 5 mg PO BEDTIME PRN Insomnia 04/27/22 10/11/23 ondansetron HCl 4 mg tablet 4 mg PO Q6H PRN Nausea 04/27/22 10/11/23 prochlorperazine maleate 10 mg 10 mg PO BID PRN Nausea And 04/27/22 10/11/23 tablet (Compazine) Vomiting quetiapine 25 mg tablet (Seroquel) 25 mg PO DAILY PRN Anxiety 04/27/22 10/11/23 sumatriptan succinate 100 mg 100 mg PO Q2-4H PRN Migraine 04/27/22 10/11/23 tablet (Imitrex) Headache bupropion HCl 150 mg 24 hr tablet, 150 mg PO DAILY 05/18/22 10/13/23 extended release topiramate 25 mg tablet 25 mg PO DAILY 05/18/22 10/13/23 albuterol sulfate 90 mcg/actuation 2 puff inhalation Q4H 05/27/22 10/11/23 aerosol inhaler (Ventolin HFA) multivitamin 1 tab PO DAILY 05/27/22 10/13/23 prazosin 2 mg capsule 2 cap PO BEDTIME 05/27/22 10/11/23 valacyclovir 500 mg tablet 1 tab PO DAILY 05/27/22 10/13/23 Previous Rx's ?Medication ?Instructions ?Recorded cephalexin 500 mg capsule 500 mg PO BID #30 caps 06/09/23 hydrocodone 5 mg-acetaminophen 325 1 tab PO Q4-6H PRN pain #30 tabs 06/09/23 mg tablet hydrocodone 5 mg-acetaminophen 325 1 tab PO Q4-6H PRN pain #30 tabs 06/16/23 mg tablet oxycodone-acetaminophen 5 mg-325 1 tab PO Q4-6H PRN pain #15 tabs 10/17/23 mg tablet (Percocet) cefuroxime axetil 250 mg tablet 250 mg PO BID 7 days #14 tabs 01/21/24 fluconazole 150 mg tablet 150 mg PO Q3D 2 doses #2 tabs 01/21/24 ondansetron 4 mg disintegrating 4 mg PO Q8H PRN nausea and 01/21/24 tablet vomiting #20 tabs hyoscyamine sulfate 0.125 mg tablet 0.125 mg PO QID PRN dyspepsia #20 02/08/24 tabs ondansetron HCl 4 mg tablet 4 mg PO Q6H PRN nausea and 02/08/24 vomiting #14 tabs prucalopride 1 mg tablet 1 mg PO DAILY #14 tabs 02/28/24 (Motegrity) ondansetron 4 mg disintegrating 4 mg PO Q6-8H PRN nausea and 03/03/24 tablet vomiting #7 tabs Allergies Allergy/AdvReac Type Severity Reaction Status Date / Time metoclopramide [From Reglan] Allergy Severe Hives Verified 03/02/24 21:43 NSAIDS (Non-Steroidal Allergy Severe Anaphylaxis Verified 03/02/24 21:43 Anti-Inflamma [NSAIDS (NON-STEROIDAL ANTI-INFLAMMA] clonazepam [Klonopin] AdvReac Severe Agitated Verified 03/02/24 21:43 droperidol AdvReac Severe Agitated Verified 03/02/24 21:43 haloperidol [Haldol] AdvReac Severe Agitated Verified 03/02/24 21:43 lorazepam [LORAZEPAM] AdvReac Severe AGGRESSION Verified 03/02/24 21:43 promethazine AdvReac Severe Agitated Verified 03/02/24 21:43 ketorolac [From Toradol] AdvReac Anaphylaxis Verified 03/02/24 21:43 seafood Allergy Intermediate swelling Uncoded 03/02/24 21:43 Review of Systems Review of Systems: Yes all other systems are reviewed and are negative [facility] Past Medical History Medical History Hidradenitis Epidermal cyst Epidermal inclusion cyst Pilonidal cyst Suppurative hidradenitis Back pain Migraines Insomnia GERD (gastroesophageal reflux disease) Morbid obesity Axillary hidradenitis suppurativa IUD (intrauterine device) in place History of DVT (deep vein thrombosis) Factor V Leiden Nausea DARINEL (obstructive sleep apnea) Asthma Wears hearing aid in both ears Loss of teeth due to extraction Preeclampsia Sacrococcygeal pilonidal cyst Depression Anxiety PTSD (post-traumatic stress disorder) Bipolar affective IBS (irritable bowel syndrome) Diabetes Gastroparesis Surgical History History of excision of pilonidal cyst History of esophagogastroduodenoscopy (EGD) History of removal of cyst (~11/14/22) Hx of umbilical hernia repair Hx of section History of carpal tunnel release Hx of myringotomy History of tonsillectomy and adenoidectomy Family History Family History Mother Mental health disorder Obesity Father Hypertension High cholesterol Son No problems noted. Brother No problems noted. 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) Alcohol intake: former Comment: counts correct Patient Tobacco Use Status: Current everyday Tobacco user Tobacco use type: Cigarette Smoked in Last 30 Days: No Use of substances other than those prescribed or required for medical reasons: No Substance Use Type: Marijuana Advance Directives: No Advance Directives Information Provided: No Advance Directives Date on File: 12/07/21 Do you have a plan to hurt others: No Plan Patient : No Physical Exam ED Vital Signs: Vital Signs - 24 hr 03/02/24 21:41 03/03/24 00:17 03/03/24 01:10 Temperature 98.6 F 98.2 F Pulse Rate 97 85 80 Respiratory Rate 18 18 Blood Pressure 121/84 108/59 L 107/52 L Pulse Oximetry 99 98 Oxygen Delivery Method Room Air Room Air 03/03/24 01:11 03/03/24 01:13 Temperature Pulse Rate 86 100 Respiratory Rate Blood Pressure 122/65 117/69 Pulse Oximetry Oxygen Delivery Method BMI result Body Mass Index 44.8 Appearance: Alert. Oriented X3. No acute distress. Anxious Eyes: PERRLA, No Nystagmus ENT: Pharynx normal. Oral Mucosa moist Neck: Normal inspection. Neck supple. CVS: Normal heart rate and rhythm. Pulses normal. Respiratory: No respiratory distress. Equal air entry bilateral, no wheezing/rales/rhonchi Abdomen: Soft and tender epigastric++ Bowel sounds are present, no mass palpable, no CVA tenderness Skin: Skin warm and dry. Normal skin color. Normal skin turgor. Extremities: No lower extremity edema. No calf tenderness Neuro: Oriented X 3. No motor deficit. No sensory deficit.No cerebellar signs , cranial nerves II-XII intact Medications Administered Discontinued Medications Generic Name Dose Route Start Last Admin Trade Name Freq PRN Reason Stop Dose Admin Hydroxyzine HCl 50 mg 03/03/24 01:46 03/03/24 02:01 Hydroxyzine Hcl 50 Mg Tablet PO 03/03/24 01:47 Not Given ONCE ONE Ondansetron HCl 4 mg 03/03/24 01:45 03/03/24 02:01 Ondansetron Odt 4 Mg Tab.Rapdis TRANSLINGU 03/03/24 01:46 4 mg ONCE ONE Administration Medical Decision Making Medical Decision Making MDM Narrative: Patient with multiple complaints with history of bipolar disorder came here for minor fall which is clinically negative on the time of discharge patient is complaining of nausea vomiting for last few months patient has fired her sql ssrs developer and primary care physician patient feels better taking p.o. fluids discharge patient home Differential Diagnosis Differential Diagnoses: The differential diagnosis associated with the presentation includes Admission/Observation Consideration of admission/observation: Escalation of care including admission/observation considered Lab Data MDM Lab Attestation statement: I reviewed the patient's lab results. 03/02/24 22:04 03/02/24 22:04 Labs: Lab Results 03/02/24 03/03/24 Range/Units 22:04 01:00 WBC 8.7 (4.8-10.8) X10*3/uL RBC 4.32 (4.20-5.50) X10*6/uL Hgb 12.4 (12.0-16.0) g/dl Hct 39.0 (37.0-47.0) % MCV 90.3 (80.0-98.0) fL MCH 28.7 (27.0-33.0) pg MCHC 31.8 (31.0-35.0) g/dl RDW 15.3 (11.0-16.0) % Plt Count 362 (160-400) X10*3/uL MPV 10.1 (9.4-12.3) fL Immature Gran % (Auto) 0.2 (0.0-0.4) % Neut % (Auto) 60.3 (45-73) % Lymph % (Auto) 33.0 (20-40) % [place] % (Auto) 5.5 (2-11) % Eos % (Auto) 0.7 (0-4) % Baso % (Auto) 0.3 (0-2) % Lymph # (Auto) 2.9 (1.2-4.9) X10*3/uL [place] # (Auto) 0.5 (0.1-1.2) X10*3/uL Eos # (Auto) 0.1 (0.0-0.4) X10*3/uL Baso # (Auto) 0.0 (0.0-0.2) X10*3/uL Abs Immat Gran (auto) 0.02 (0.00-0.03) X10*3/uL Absolute Neuts (auto) 5.3 (2.0-8.3) x10*3/uL Absolute Nucleated RBC 0.000 (0.0-0.012) X10*3/uL Nucleated RBC % (auto) 0.0 (0.0-0.2) /100WBC Sodium 134 L (135-145) mmol/L Potassium 3.7 (3.3-5.1) mmol/L Chloride 105 (96-108) mmol/L Carbon Dioxide 17 L (22-29) mmol/L Anion Gap 16 (12-20) BUN 11 (9-16) mg/dL Creatinine 1.19 (0.5-1.4) mg/dL Estim Creat Clear Calc 79.0 Estimated GFR 53 Random Glucose 79 (60-115) mg/dL Calcium 9.3 (8.4-10.2) mg/dL Total Bilirubin 0.3 (0.0-1.0) mg/dL AST 16 (5-31) U/L ALT 19 (0-31) U/L Alkaline Phosphatase 153 H (39-117) U/L Total Protein 8.4 H (6.5-8.0) g/dL Albumin 4.6 (3.5-5.0) g/dL Urine Color Yellow Urine Appearance Clear Urine pH 5.5 (5.0-9.0) Ur Specific [place] 1.015 (1.005-1.025) Urine Protein Trace (Neg-Trace) mg/dL Urine Glucose (UA) Negative (Negative) mg/dL Urine Ketones 15 (Negative) mg/dL Urine Blood Trace H (Negative) Urine Nitrite Negative (Negative) Ur Leukocyte Esterase Small (1+) H (Negative) Urine RBC 0-2 (0-2) /HPF Urine WBC 11-20 H (0-5) /HPF Ur Squamous Epith Cells 0-2 (0-2) /HPF Urine Bacteria 1+ (None Seen) Hyaline Casts 3-5 (0-2) /LPF Urine Opiates Screen Not Detected (Not Detect) Ur Buprenorphine Scrn Not Detected (Not Detect) ng/mL Ur Oxycodone Screen Not Detected (Not Detect) ng/mL Urine Methadone Screen Not Detected (Not Detect) ng/mL Urine Fentanyl Screen Not Detected (Not Detect) Ur Barbiturates Screen Not Detected (Not Detect) Ur Phencyclidine Scrn Not Detected (Not Detect) Ur Amphetamines Screen Not Detected (Not Detect) U Benzodiazepines Scrn POSITIVE H (Not Detect) Urine Cocaine Screen Not Detected (Not Detect) U Marijuana (THC) Screen Not Detected (Not Detect) Discharge Plan Discharge Clinical Impression: Gastroparesis, Chronic gastritis Patient Disposition: Home, Self-Care Instructions: Gastritis (DC), Gastroparesis (ED) Additional Instructions: Drink plenty of fluid Take nausea medication and sleeping medication as prescribed by your PCP and follow with sql ssrs developer as scheduled Prescriptions: New ondansetron 4 mg tablet,disintegrating 4 mg PO Q6-8H PRN (Reason: nausea and vomiting) Qty: 7 0RF No Action oxycodone-acetaminophen [Percocet] 5-325 mg tablet 1 tab PO Q4-6H PRN (Reason: pain) Qty: 15 0RF Rx Instructions: Partial Fill upon patient request. Motegrity 1 mg tablet 1 mg PO DAILY Qty: 14 0RF diazepam 2 mg tablet 1 tab PO BID prazosin 2 mg capsule 2 cap PO BEDTIME multivitamin Tablet 1 tab PO DAILY valacyclovir 500 mg tablet 1 tab PO DAILY albuterol sulfate [Ventolin HFA] 90 mcg/actuation HFA aerosol inhaler 2 puff INHALATION Q4H acetaminophen 500 mg Tablet 1,000 mg PO Q4H PRN (Reason: Pain) albuterol sulfate 90 mcg/actuation Hfa Aerosol Inhaler 2 inh INHALATION Q4H PRN (Reason: Shortness Of Breath) hydrocodone-acetaminophen 5-325 mg tablet 1 tab PO Q4-6H PRN (Reason: pain) Qty: 30 0RF Rx Instructions: Partial Fill upon patient request. cefuroxime axetil 250 mg tablet 250 mg PO BID 7 Days Qty: 14 0RF ondansetron 4 mg tablet,disintegrating 4 mg PO Q8H PRN (Reason: nausea and vomiting) Qty: 20 0RF fluconazole 150 mg tablet 150 mg PO Q3D Qty: 2 0RF Rx Instructions: repeat dose in 3 days if symptoms persist hyoscyamine sulfate 0.125 mg tablet 0.125 mg PO QID PRN (Reason: dyspepsia) Qty: 20 0RF ondansetron HCl 4 mg tablet 4 mg PO Q6H PRN (Reason: nausea and vomiting) Qty: 14 0RF (DME) FreeStyle Lite Strips Strip See Rx Instructions Not Applicable BID Qty: 10 Rx Instructions: As directed (DME) lancets 28 gauge misc See Rx Instructions topical BID Qty: 100 Rx Instructions: As directed topiramate 25 mg tablet 25 mg PO DAILY bupropion HCl 150 mg tablet extended release 24 hr 150 mg PO DAILY lithium carbonate 300 mg capsule 300 mg PO BID melatonin 5 mg tablet 5 mg PO BEDTIME PRN (Reason: Insomnia) prochlorperazine maleate [Compazine] 10 mg tablet 10 mg PO BID PRN (Reason: Nausea And Vomiting) quetiapine [Seroquel] 25 mg tablet 25 mg PO DAILY PRN (Reason: Anxiety) hydroxyzine pamoate [Vistaril] 25 mg capsule 25 mg PO TID PRN (Reason: Anxiety) famotidine [Pepcid] 40 mg tablet 40 mg PO BID ondansetron HCl 4 mg tablet 4 mg PO Q6H PRN (Reason: Nausea) sumatriptan succinate [Imitrex] 100 mg tablet 100 mg PO Q2-4H PRN (Reason: Migraine Headache) Rx Instructions: do not exceed 2 doses per 24 hrs cephalexin 500 mg capsule 500 mg PO BID Qty: 30 0RF hydrocodone-acetaminophen 5-325 mg tablet 1 tab PO Q4-6H PRN (Reason: pain) Qty: 30 0RF Rx Instructions: Partial Fill upon patient request. Print Language: Sudanese
[2024-03-03 01:10] VITALS: BP 107/52; PULSE 80
[2024-03-03 01:11] VITALS: BP 122/65; PULSE 86
[2024-03-03 01:13] VITALS: BP 117/69; PULSE 100
[2024-03-03 01:42] LABS: Appearance Urine Clear; Color Urine Yellow; Glucose Urine UA Negative (Negative); Leukocyte Esterase Urine Small (1+) (Negative); Nitrite Urine Negative (Negative); PH 5.5 (5.0-9.0); Specific Gravity - Urine 1.015 (1.005-1.025); UMIC TRIGGER UACC YES; Urine Blood Trace (Negative); Urine Ketones 15 mg/dL (Negative); Urine Protein Trace mg/dL (Neg-Trace)
--- NOTE | 2024-03-03 01:50 | PC.NURSE ---
pt a hard stick, unable to obtain IV access
[2024-03-03 01:51] LABS: Amphetamine Screen Urine Not Detected (Not Detect); Barbiturates, Urine Not Detected (Not Detect); Benzodiazepines Screen Urine POSITIVE (Not Detect); Buprenorphine Scr Not Detected (Not Detect); Cannabinoid Screen Urine Not Detected (Not Detect); Cocaine Screen Urine Not Detected (Not Detect); Fentanyl, urine Not Detected (Not Detect); Methadone Screen, Urine Not Detected (Not Detect); Opiate Screen Urine Not Detected (Not Detect); Oxycodone Screen Urine Not Detected (Not Detect); Phencyclidine Screen Urine Not Detected (Not Detect)
[2024-03-03 01:53] LABS: Bacteria Urine 1+ (None Seen); RBC Urine 0-2 /HPF (0-2); Squamous Epithelial Cell Urine 0-2 /HPF (0-2); UACC Culture Trigger YES
[2024-03-03] MEDS: Ondansetron ODT 4 MG TAB.RAPDIS TRANSLINGU (02:01)
[2024-03-03 02:18] VITALS: BP 108/59; PULSE 86; RESP 18; TEMP 36.7; O2SAT 98
[2024-03-03] MEDS: Acetaminophen 325 MG TABLET 650 MG PO (02:20)
[2024-03-03 02:24] VITALS: BP 108/59; PULSE 86; RESP 18; TEMP 36.7; O2SAT 98
== END 2024-03-03 02:24 | disposition home or self-care (01) ==
PROVIDERS: Emergency Provider Internal Medicine
DX: K31.84 Gastroparesis (principal); K29.50 Unspecified chronic gastritis without bleeding; R10.13 Epigastric pain; K21.9 Gastro-esophageal reflux disease without esophagitis; E11.9 Type 2 diabetes mellitus without complications; J45.909 Unspecified asthma, uncomplicated; D68.51 Activated protein C resistance; F17.210 Nicotine dependence, cigarettes, uncomplicated; F12.90 Cannabis use, unspecified, uncomplicated; Z86.718 Personal history of other venous thrombosis and embolism; Z79.899 Other long term (current) drug therapy
CPT/HCPCS: 36415; 80053; 80307; 81001; 85025; 87086; 99284

== ENCOUNTER 2024-04-15 14:27 | Outpatient (AMB) | payer MEDICARE, MEDICAID, SELFPAY ==
--- NOTE | 2024-04-15 14:31 | A.OFFVIS_ITS ---
Vital Signs 04/15/24 14:37 Height 5 ft 1.5 in Weight 221 lb BMI 41.1 BP 122/73 Blood Pressure Location Lt brachial Position Sitting Pulse 83 Intake Visit Reasons: J Tube Consultation Intake Note: Maria G presents in the office as a J Tube Consultation. CC: Surgeon wants a J-G tube placed so she is here for a consult. He spoke to her about a tube and a Pace maker as well but it goes in the stomach not the heart. He is not sure if that will work so he suggested the tube may be more effective for her. Nausea, Constipation, Diarrhea, Pains in the stomach. Board Stacker Required: No Allergies metoclopramide [From Reglan] Allergy (Severe, Verified 04/15/24 14:37) Hives NSAIDS (Non-Steroidal Anti-Inflamma [NSAIDS (NON-STEROIDAL ANTI-INFLAMMA] Allergy (Severe, Verified 04/15/24 14:37) Anaphylaxis clonazepam [Klonopin] Adverse Reaction (Severe, Verified 04/15/24 14:37) Agitated droperidol Adverse Reaction (Severe, Verified 04/15/24 14:37) Agitated haloperidol [Haldol] Adverse Reaction (Severe, Verified 04/15/24 14:37) Agitated lorazepam [LORAZEPAM] Adverse Reaction (Severe, Verified 04/15/24 14:37) AGGRESSION promethazine Adverse Reaction (Severe, Verified 04/15/24 14:37) Agitated ketorolac [From Toradol] Adverse Reaction (Verified 04/15/24 14:37) Anaphylaxis seafood Allergy (Intermediate, Uncoded 04/15/24 14:37) swelling HPI Comments Details: 28 y.o F with reported history of GP who is here for 4th opinion. Pt has previously been to [facility], [facility], [facility]. Reports ongoing sx of abd discomfort, N,V since 2018. See summary of testing done below. Eventually diagnosed with gastroparesis in 2020 based on slightly abnormal GES. Has tried medical therapy reglan, droperidol, erythromycin, motegrity - with minimal response. Had GPOEM earlier this year which had a good effect x 3 months before sx returned. Has DM, reports A1c was in range but does not recall the exact number. Also carries dx of Borderline personality disorder, bipolar disorder, anxiety and PTSD and sees Karla Shirley. Meds reviewed and a few with potential GI side effects noted such as benztropine, clonidine, lamotrigine, lithium etc. Pt reports these are being monitored by her psychiatrist. Currently, main issue is persistent feeling of fullness and nausea. Pt reports unable to tolerate more than a few bites of food at a time. Has never seen a poleyard supervisor per her report and has never tried liquid and/or low residue diet either. She wonders if she can be set up for venting G-J. Hx: 04/2018?CT scan at [facility] for evaluation of abdominal pain that demonstrated possible cecal thickening.? No abnormalities seen on subsequent colonoscopy. 09/2019: Normal RUQ US, EGD with grade A esophagitis and increased IELs on duodenal biopsies, colonoscopy with normal biopsies.? Normal stool O/P and stool cultures.? Unremarkable CBC, BMP, TSH, ESR, CRP except for CBC at 14 and glucose in the 200s. Transferred care to [place]. 02/2020: VCE with normal small bowel appearance. 03/2020: Normal EGD by Dr. Salas.? Normal duodenal biopsies. 04/2020: abnormal gastric emptying (45% at 4hr) 07/2023: GES read as normal, pt reports vomiting before hand? 08/2023: G-POEM (valentin/Zakharia) [facility] Medical History Hidradenitis Epidermal cyst Epidermal inclusion cyst Pilonidal cyst Suppurative hidradenitis Back pain Migraines Insomnia GERD (gastroesophageal reflux disease) Morbid obesity Axillary hidradenitis suppurativa IUD (intrauterine device) in place History of DVT (deep vein thrombosis) Factor V Leiden Nausea DARINEL (obstructive sleep apnea) Asthma Wears hearing aid in both ears Loss of teeth due to extraction Preeclampsia Sacrococcygeal pilonidal cyst Depression Anxiety PTSD (post-traumatic stress disorder) Bipolar affective IBS (irritable bowel syndrome) Diabetes Gastroparesis Surgical History History of excision of pilonidal cyst History of esophagogastroduodenoscopy (EGD) History of removal of cyst (~11/14/22) Hx of umbilical hernia repair Hx of section History of carpal tunnel release Hx of myringotomy History of tonsillectomy and adenoidectomy Family History Mother Mental health disorder Obesity Father Hypertension High cholesterol Son No problems noted. Brother No problems noted. 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) Alcohol intake: former Comment: counts correct Patient Tobacco Use Status: Current everyday Tobacco user Tobacco use type: Cigarette Substance Use Type: Marijuana Advance Directives Date on File: 12/07/21 Review of Systems Const All systems reviewed & are unremarkable except as noted in HPI and below Physical Exam Vital Signs: Last Vital Signs Pulse 83 04/15/24 14:37 BP 122/73 04/15/24 14:37 BMI result Body Mass Index 41.1 Disheveled Intention tremors Slight dysarthria Abd soft, nontender Results Reviewed Results Reviewed: GES 05/06/2020 ([facility] records) FINDINGS: There is no prior study available for comparison. There is delayed emptying of radiotracer from the stomach visually. Percentage activity in the stomach is as follows: 1 hour: 73 % (normal is < 90%) 2 hours: 70 % (normal is < 60%) 4 hours: 45 % (normal is < 10%) Assessment & Plan Assessment & Plan (1) Gastroparesis: Code(s): K31.84 - Gastroparesis Category: Medical (2) Abdominal pain: Code(s): R10.9 - Unspecified abdominal pain Category: Medical Qualifiers: Abdominal location: right lower quadrant Qualified Code(s): R10.31 - Right lower quadrant pain (3) Nausea & vomiting: Code(s): R11.2 - Nausea with vomiting, unspecified Category: Medical Qualifiers: Vomiting type: unspecified Qualified Code(s): R11.2 - Nausea with vomiting, unspecified (4) History of gastric surgery: Code(s): Z98.890 - Other specified postprocedural states Category: Surgical Plan Longstanding hx of abd pain, N,V. Tight pylorus noted during POEM. Reviewed with the pt that unclear if current sx due to failure of GPOEM vs side effects of meds vs functional dyspepsia. Plan: - Low residue, liquid diet - Small frequent meals - Insurance And Financial Services Agent referral to help with meal planning and adequate macros - Stay upright for 45-60 mins post meals - Management of constipation as that can also exacerbate N/V. Prucalopride DCed due to significant hx of depression and anxiety. Linzess 145mcg Rxed. - Repeat GES to see if truly has delayed emptying vs other factors outlined above- pt has had almost 40 scans and understandable hesitant to undergo more radiation, so encouraged her to discuss with her mother (legal guardian) - Pt to also review meds with her psychiatrist to see if can be transitioned to more GI-friendly options with less risk of N/V. - Can also consider EGD with pyloroplasty vs botox empirically - Also reviewed alternaitve options such as accupuncture - Eventually, if neither of above with satisfactory results, may need referral to dedicated motility center Follow up 6 weeks Orders: Orders NM gastric emptying study Today K31.84 - Gastroparesis Referrals Commercial Attorney Nutrition Referral K31.84 - Gastroparesis Medications: New linaclotide (Linzess) 145 mcg PO DAILY 90 days 90 caps 0RF Discontinued prucalopride (Motegrity) Discontinued Reason: Doctor's Order 1 mg PO DAILY 14 tabs 0RF Coding Level of Care Code New Pt Level 5 (49785) Complex EM visit Add On G2211 Diagnoses Gastroparesis K31.84 Abdominal pain R10.31 Abdominal location: right lower quadrant Nausea & vomiting R11.2 Vomiting type: unspecified History of gastric surgery Z98.890
[2024-04-15 14:37] VITALS: BP 122/73; PULSE 83; BMI 41.1
== END 2024-04-15 15:35 | disposition home or self-care (01) ==
PROVIDERS: Visit Provider Internal Medicine
DX: K31.84 Gastroparesis (principal); R10.31 Right lower quadrant pain; R11.2 Nausea with vomiting, unspecified
CPT/HCPCS: 99204; G2211

== ENCOUNTER → 2024-04-15 14:27 | Outpatient (BNVA) | payer MEDICARE, MEDICAID, SELFPAY | PROVIDERS: Visit Provider Internal Medicine | DX: K31.84 Gastroparesis (principal); R10.31 Right lower quadrant pain; R11.2 Nausea with vomiting, unspecified; Z98.890 Other specified postprocedural states | CPT/HCPCS: 99202 ==

== ENCOUNTER 2024-07-10 09:20 | Emergency (ER) | payer MEDICARE, MEDICAID, SELFPAY ==
--- NOTE | ~2024-07-10 | CT_ITS ---
CLINICAL HISTORY: Abdominal pain CT abdomen and pelvis without contrast Comparison: CT/SR - CT ABDOMEN PELVIS W IV CON - 01/21/24 08:05 EDT Findings: The lung bases are clear. The unenhanced liver, spleen, splenule, adrenal glands and pancreas are unremarkable. Kidneys, ureters and bladder are stable with circumferential bladder wall thickening. No bowel obstruction. No free air, free fluid, abscess or adenopathy. Intrauterine device noted, adequately positioned. 3.5 cm left adnexal cyst noted. Gallbladder is absent. Anterior abdominal mesh noted. No definite recurrent hernia. No acute osseous findings. Impression: No definite acute process by noncontrast CT. 3.5 cm left adnexal cysts. This document has been electronically signed by: Yony Youngblood MD on 07/10/2024 20:34:15
[2024-07-10 09:25] VITALS: BP 107/65; PULSE 81; RESP 20; TEMP 36.4; O2SAT 100; BMI 40.0
[2024-07-10 10:10] LABS: MANUAL DIFF FLAG NO
[2024-07-10 10:11] LABS: Basophils Percent Auto 0.4 % (0-2); Eosinophils Absolute Auto 0.1 X10*3/uL (0.0-0.4); Eosinophils Percent Auto 0.9 % (0-4); Hemoglobin 10.4 g/dl (12.0-16.0); Imm Gran Abs Auto 0.04 X10*3/uL (0.00-0.03); Imm Gran Pct Auto 0.4 % (0.0-0.4); Lymphocytes Absolute Auto 2.4 X10*3/uL (1.2-4.9); Lymphocytes Percent Auto 23.4 % (20-40); Mean Corpuscular HGB Conc 32.5 g/dl (31.0-35.0); Mean Corpuscular Hemoglobin 30.2 pg (27.0-33.0); Mean Platelet Volume 9.3 fL (9.4-12.3); Monocytes Absolute Auto 0.5 X10*3/uL (0.1-1.2); Monocytes Percent Auto 4.9 % (2-11); Platelet Count 345 X10*3/uL (160-400); Red Blood Count 3.44 X10*6/uL (4.20-5.50); Red Cell Distribution Width 15.9 % (11.0-16.0)
[2024-07-10 10:25] LABS: Lithium 1.55 mmol/L (0.60-1.20)
[2024-07-10 10:25] LABS: Appearance Urine Clear; Color Urine Yellow; Glucose Urine UA Negative (Negative); Leukocyte Esterase Urine Negative (Negative); Nitrite Urine Negative (Negative); UPreg QC Valid YES; Urine Blood Negative (Negative); Urine Ketones 15 mg/dL (Negative); Urine Pregnancy NEGATIVE (NEGATIVE); Urine Protein Trace mg/dL (Neg-Trace)
[2024-07-10 10:27] LABS: Alanine Aminotransferase 13 U/L (0-31); Albumin Level 4.2 g/dL (3.5-5.0); Alkaline Phosphatase 101 U/L (39-117); Anion Gap 13 (12-20); Aspartate Amino Transferase 18 U/L (5-31); Bilirubin Direct 0.1 mg/dL (0.0-0.5); Bilirubin Total 0.3 mg/dL (0.0-1.0); Blood Urea Nitrogen 9 mg/dL (9-16); Calcium 8.6 mg/dL (8.4-10.2); Carbon Dioxide 18 mmol/L (22-29); Chloride 109 mmol/L (96-108); Creatinine Clr Calc Pharmacy 90.8; Estimated Glomerular Filt Rate > 60; Glucose Random 77 mg/dL (60-115); Lipase 31 U/L (8-78); Potassium 3.8 mmol/L (3.3-5.1); Sodium 136 mmol/L (135-145); Total Protein 7.6 g/dL (6.5-8.0)
[2024-07-10 10:30] LABS: Influenza A PCR NEGATIVE (Negative); Influenza B PCR NEGATIVE (Negative); Resp Syncy Virus RNA Qual PCR NEGATIVE (Negative); SARS COV2 PCR INHOUSE NEGATIVE (Negative)
[2024-07-10 10:34] LABS: Acetaminophen LAB < 3 mcg/mL (<30)
--- OUTSIDE RECORDS SUMMARY | 2024-07-10 11:42 | XMS_ITS | Clinical Summary ---
Author Organization [facility] Address [address] [place] [address] Care Team Providers Care Social Media Director Name Role Phone Unavailable Primary Care Provider Unavailabl e Social History Tobacco Use Types Packs/Day Years Used Date Smoking Tobacco: Never Assessed Comments Unknown Sex and Gender Information Value Date Recorded Sex Assigned at Not on file Legal Sex Female 8:37 AM EST Gender Identity Not on file Sexual Orientation Not on file Plan of Treatment Health Maintenance Due Date Last Done Comments DTaP,Tdap,and Td Vaccines (1 - Tdap) 2012 Hepatitis B Vaccines (1 of 3 - 19+ 3-dose series) 2012 Cervical Cancer Screening: P ap Smear 2014 Depression Screening 05/01/2022 HIV Screening 05/01/2022 Hepatitis C Screening 05/01/2022 Social Influencers of Health Screening 05/01/2022 COVID-19 Vaccine (2023-2 5 season) 2024 Influenza Vaccine (#1) 2024 HIB Vaccines Aged Out No longer eligi ble based on patient's age to complete this topic HPV Vaccines Aged Out No longer eligi ble based on patient's age to complete this topic Hepatitis A Vaccines Aged Out No long er eligible based on patient's age to complete this topic IPV Vaccines Aged Out No longer eligi ble based on patient's age to complete this topic MMR Vaccines Aged Out No longer eligi ble based on patient's age to complete this topic Meningococcal ACWY Vaccine Aged Out N o longer eligible based on patient's age to complete this topic Meningococcal B Vacine Aged Out No lo nger eligible based on patient's age to complete this topic Pneumococcal Vaccine: Pediat rics (0 to 5 Years) and At-Risk Patients (6 to 64 Years) Aged Out No longer eligible b ased on patient's age to complete this topic RSV Immunization Patients Un noemi 20 months Aged Out No longer eligible b ased on patient's age to complete this topic Varicella Vaccines Aged Out No longer eligible based on patient's age to complete this topic
--- NOTE | 2024-07-10 14:52 | ED.NAVMDI ---
HPI - Nausea/Vomiting/Diarrhea General Chief complaint: Nausea/Vomiting/Diarrhea Stated complaint: Vomiting Stomach Pain Time Seen by Provider: 07/10/24 14:50 Source: patient and RN notes reviewed Mode of arrival: ambulatory Limitations: no limitations History of Present Illness ED Provider: Emiliana Lala PA-C HPI Narrative: This is a 28-year-old female, with a past medical history of bipolar disorder, PTSD, factor 5 leiden deficiency not on anticoagulation, GERD, DARINEL, PTSD, diabetes, gastroparesis, who presents emergency department with concerns for ongoing nausea and vomiting x2 weeks. She states that she has severe gastroparesis, she has been unable to eat for over a week. Patient reports that over the last 3 weeks she has had nausea and vomiting, and was seen at [facility] where they ?overdosed me on Tylenol . She states that she was then discharged however when she was visiting 1 of her ex partners, she started vomiting, and then she was seen in the emergency room where she was admitted again. She is then reports that on July 03 through , she was seen at [facility] for vomiting. She states that she was discharged on July 05 even though they were discussing whether not to put her on TPN or PPN given inability to eat. She states that she has not been able to eat since her symptoms. She states that her psychiatrist was concerned due to lithium toxicity, given that she has not been eating and still continues to take her medications. Patient reports that she has had subjective fevers and chills, she also reports that she has had nausea and vomiting. Also endorsing some diarrhea. Patient was admitted at [facility] on July 03 through July 05 for abdominal pain, nausea and vomiting > See extensive note in MDM for details. Associated nausea: Yes Associated abdominal pain: Yes Related Data Home Medications ?Medication ?Instructions ?Recorded ?Confirmed blood sugar diagnostic #10 ea 12/02/20 10/04/23 lancets 28 gauge #100 ea 12/02/20 10/04/23 acetaminophen 500 mg tablet 1,000 mg PO Q4H PRN Pain 10/04/21 10/11/23 albuterol sulfate 90 mcg/actuation 2 inh inhalation Q4H PRN Shortness 10/04/21 10/11/23 aerosol inhaler Of Breath diazepam 2 mg tablet 1 tab PO BID 12/01/21 10/11/23 famotidine 40 mg tablet (Pepcid) 40 mg PO BID 04/27/22 10/13/23 bupropion HCl 150 mg 24 hr tablet, 150 mg PO DAILY 05/18/22 10/13/23 extended release albuterol sulfate 90 mcg/actuation 2 puff inhalation Q4H 05/27/22 10/11/23 aerosol inhaler (Ventolin HFA) multivitamin 1 tab PO DAILY 05/27/22 10/13/23 prazosin 2 mg capsule 2 cap PO BEDTIME 05/27/22 10/11/23 alprazolam 1 mg tablet mg PO 04/15/24 benztropine 0.5 mg tablet 0.5 mg PO DAILY 04/15/24 chlorpromazine 50 mg tablet mg PO 04/15/24 clonidine HCl 0.1 mg tablet 0.1 mg PO TID 04/15/24 divalproex 500 mg tablet,extended 500 mg PO DAILY 04/15/24 release 24 hr duloxetine 20 mg capsule,delayed 20 mg PO DAILY 04/15/24 release hydroxyzine HCl 25 mg tablet 25 mg PO TID 04/15/24 lamotrigine 100 mg tablet 100 mg PO BID 04/15/24 lamotrigine 25 mg tablet 25 mg PO DAILY 04/15/24 lansoprazole 30 mg capsule,delayed 30 mg PO DAILY 04/15/24 release linaclotide 72 mcg capsule 72 mcg PO QAM 04/15/24 (Linzess) lithium carbonate 300 mg tablet mg PO 04/15/24 melatonin 10 mg tablet,extended 10 mg PO BEDTIME 04/15/24 release pregabalin 150 mg capsule 150 mg PO BID 04/15/24 sumatriptan succinate 25 mg tablet See Rx Instructions PO .COMPLEX 04/15/24 sumatriptan succinate 6 mg/0.5 mL mg subcut 04/15/24 subcutaneous pen injector trazodone 150 mg tablet 150 mg PO BEDTIME 04/15/24 Previous Rx's ?Medication ?Instructions ?Recorded cephalexin 500 mg capsule 500 mg PO BID #30 caps 06/09/23 hydrocodone 5 mg-acetaminophen 325 1 tab PO Q4-6H PRN pain #30 tabs 06/09/23 mg tablet hydrocodone 5 mg-acetaminophen 325 1 tab PO Q4-6H PRN pain #30 tabs 06/16/23 mg tablet cefuroxime axetil 250 mg tablet 250 mg PO BID 7 days #14 tabs 01/21/24 fluconazole 150 mg tablet 150 mg PO Q3D 2 doses #2 tabs 01/21/24 hyoscyamine sulfate 0.125 mg tablet 0.125 mg PO QID PRN dyspepsia #20 02/08/24 tabs ondansetron 4 mg disintegrating 4 mg PO Q6-8H PRN nausea and 03/03/24 tablet vomiting #7 tabs linaclotide 145 mcg capsule 145 mcg PO DAILY 90 days #90 caps 04/15/24 (Linzess) Allergies Allergy/AdvReac Type Severity Reaction Status Date / Time metoclopramide [From Reglan] Allergy Severe Hives Verified 07/10/24 09:29 NSAIDS (Non-Steroidal Allergy Severe Anaphylaxis Verified 07/10/24 09:29 Anti-Inflamma [NSAIDS (NON-STEROIDAL ANTI-INFLAMMA] clonazepam [Klonopin] AdvReac Severe Agitated Verified 07/10/24 09:29 droperidol AdvReac Severe Agitated Verified 07/10/24 09:29 haloperidol [Haldol] AdvReac Severe Agitated Verified 07/10/24 09:29 lorazepam [LORAZEPAM] AdvReac Severe AGGRESSION Verified 07/10/24 09:29 promethazine AdvReac Severe Agitated Verified 07/10/24 09:29 ketorolac [From Toradol] AdvReac Anaphylaxis Verified 07/10/24 09:29 seafood Allergy Intermediate swelling Uncoded 04/15/24 14:37 Review of Systems Review of Systems: Yes all other systems are reviewed and are negative Constitutional: Constitutional: Reports as per HPI Gastrointestinal: Gastrointestinal: Reports nausea PMFSH Past Medical History Medical History Hidradenitis Epidermal cyst Epidermal inclusion cyst Pilonidal cyst Suppurative hidradenitis Back pain Migraines Insomnia GERD (gastroesophageal reflux disease) Morbid obesity Axillary hidradenitis suppurativa IUD (intrauterine device) in place History of DVT (deep vein thrombosis) Factor V Leiden Nausea DARINEL (obstructive sleep apnea) Asthma Wears hearing aid in both ears Loss of teeth due to extraction Preeclampsia Sacrococcygeal pilonidal cyst Depression Anxiety PTSD (post-traumatic stress disorder) Bipolar affective IBS (irritable bowel syndrome) Diabetes Gastroparesis Surgical History History of excision of pilonidal cyst History of esophagogastroduodenoscopy (EGD) History of removal of cyst (~11/14/22) Hx of umbilical hernia repair Hx of section History of carpal tunnel release Hx of myringotomy History of tonsillectomy and adenoidectomy Family History Family History Mother Mental health disorder Obesity Father Hypertension High cholesterol Son No problems noted. Brother No problems noted. Sister Asthma Social History Social History Household Members: Children Are you a primary sub acute care nurse to a significant other at home: No (Mother has custody of 10 month old son) Do you presently have visiting nurse or other home services: Yes ([employer] 92 hours per week) Alcohol intake: former Comment: counts correct Patient Tobacco Use Status: Current everyday Tobacco user Tobacco use type: Cigarette Smoked in Last 30 Days: No Substance Use Type: Marijuana Advance Directives: Yes Advance Directives on File: Yes Advance Directives Date on File: 12/07/21 Do you have a plan to hurt others: No Plan Patient : No Physical Exam Vital Signs: Vital Signs: Last Vital Signs Temp 98.0 F 07/10/24 19:20 Pulse 79 07/10/24 23:23 Resp 14 07/10/24 23:23 BP 105/56 L 07/10/24 23:23 Pulse Ox 98 07/10/24 23:23 O2 Del Method Room Air 07/10/24 23:23 BMI result Body Mass Index 40.0 Const: General: cooperative, comfortable and no acute distress Orientation/consciousness: patient oriented x3 Limitations: no limitations HEENT: Head: Yes normal to inspection, Yes normocephalic and Yes atraumatic Ears: hearing grossly normal bilaterally General nose exam: Normal external nose present Face and sinus: Yes normal facial exam Mouth: Normal oral and palatal mucosa present, oropharynx normal and moist mucous membranes Throat: Yes posterior oropharynx normal Eyes: General: appearance normal, both eyes and all related structures Eyelids: Yes eyelids normal Conjunctivae: conjunctivae normal Sclerae: sclerae normal Pupils: Equal, round and reactive pupils present EOM: EOMs intact bilaterally Neck: Neck: Yes normal visual inspection, Yes full ROM and Yes no lymphadenopathy Lymphatic: no lymphadenopathy noted Chest: Chest palpation & inspection: normal inspection of the chest Resp: Effort & Inspection: normal respiratory effort and able to speak in complete sentences Auscultation: clear to auscultation bilaterally, no crackles, no rales, no rhonchi and no wheezes Cardio: Rate: regular rate Rhythm: regular rhythm Heart sounds: S1 normal heart sound present and S2 normal heart sound present GI: Other: Abdomen is soft with tenderness palpation in the right upper quadrant. No rebound or guarding Inspection: Yes normal to inspection Skin: General skin exam: no rashes or lesions noted Trauma: no lacerations or abrasions Wounds: no wounds Neuro: General: patient oriented x3 and moves all extremities Cranial nerves: Yes Equal, round and reactive pupils present Extrem: General: Yes normal to inspection Right upper extremity: normal to inspection Left upper extremity: normal to inspection Right lower extremity: normal to inspection Left lower extremity: normal to inspection Course Reevaluation(s) Reevaluation #1: We were able to get an IV however this blew, she did not receive IV fluids as of yet. Patient in hallway, frustrated with situation. She states that she would rather be . I was able to place her back into her room however I inquired more about her thoughts, I asked specifically if she was having thoughts of killing herself, she was unable to answer this. She states that she does want to hit her head against the wall many times, and does not care she lives. Given this, she should be evaluated by the crisis team. We still need to get lithium level within normal ranges. Time: 17:29 Reevaluation #2: Received records from [facility] from her hospital admission. Multiple attempts made with ultrasound-guided IV however no luck. Discussed this with my colleague, Wendy we will reassess, and try to obtain IV access. I added TSH as well as EKG for further diagnostics. Sign-out given to my colleague, Olivia Vega PA-C, pending repeat lithium levels after receiving 2 L of IV fluids, as well as reassessment, crisis eval, and CT scan. Given body habitus, will obtain CT scan without IV contrast as this will likely show any acute process. Time: 18:47 Reevaluation #3: I Olivia Vega PA-C have accepted care of the patient and signed out pending imaging, likely med clearance, and care team evaluation. After 1 1/2 L, we repeated the lithium level. CT abdomen and pelvis, Impression: No definite acute process by noncontrast CT. 3.5 cm left adnexal cysts. This document has been electronically signed by: Yony Youngblood MD on 07/10/2024 20:34:15 repeat lithium 1.15 Additional Reevaluation(s): 0010am the patient's behavior escalated when she realized we are moving her to the Behavioral Health pad. Security had to be called, the patient became hostile and combative. For her safety she is having to be restrained and medicated. Due to her allergy profile, will give IM zyprexa with IM versed, she tolerated this earlier today... The patient will have to be seen by the care team tomorrow. Consultations Consultation #1: Dr. Alok Chin's Note 28-year-old female presented to the emergency department for SI. Patient was been in the emergency department for 21 hours. Patient was waiting to be seen by the care team. The patient to become agitated last night and required both physical and chemical restraints. No other reported incidents on the patient's since the restraint.Patient will remain in the emergency department Behavioral Health Unit until disposition can be determined or until patient's symptoms improve over time. Time: 06:46 Consultation #2: Patient was re-evaluated by the care team. The patient was no longer suicidal. The patient was well-known to the emergency department and the care team and the patient will be discharged home. Time: 08:14 Medications Administered Discontinued Medications Generic Name Dose Route Start Last Admin Trade Name Freq PRN Reason Stop Dose Admin Sodium Chloride 1,000 mls @ 2,000 mls/hr 07/10/24 15:22 07/10/24 17:09 Ns IV 07/10/24 15:51 2,000 mls/hr .Q30M ONE Administration Midazolam HCl 2 mg 07/10/24 20:15 07/10/24 20:33 Midazolam Hcl 2 Mg/2 Ml Vial IVPUSH 07/10/24 20:16 2 mg ONCE ONE Administration Midazolam HCl 2.5 mg 07/11/24 00:13 07/11/24 00:20 Midazolam Hcl 2 Mg/2 Ml Vial IM 07/11/24 00:14 2.5 mg ONCE ONE Administration Morphine Sulfate 4 mg 07/10/24 15:22 07/10/24 19:20 Morphine Sulfate 4 Mg/Ml Cartridge IVPUSH 07/10/24 15:23 4 mg ONCE ONE Administration Protocol Olanzapine 10 mg 07/11/24 00:13 07/11/24 00:20 Olanzapine 10 Mg Vial IM 07/11/24 00:14 10 mg STAT STA Administration Ondansetron HCl 4 mg 07/10/24 20:30 07/10/24 20:32 Ondansetron Hcl 4 Mg/2 Ml Vial IVPUSH 07/10/24 20:31 4 mg ONCE ONE Administration Procedures Procedure Narrative Procedure Narrative: Ultrasound-guided IV placement 20 gauge 2-1/2 inch IV placed in right upper extremity. Adequate blood return, flushes well secured with Tegaderm. Performed by Olivia Vega PA-C. The patient is line became inactive, the patient bent the IV. Placing another ultrasound-guided IV 18 gauge 1-3/4 inch IV placed in right IJ. Adequate blood return flushes well secured with Tegaderm. Performed by Olivia Vega PA-C. Medical Decision Making Medical Decision Making [facility] Narrative: This is a 28-year-old female who presents emergency department with complaints of acute nausea and vomiting x3 week. She has been unable to eat or drink secondary to the nausea and vomiting. Given recent hospitalizations at [facility], we will obtain the records. Patient does have tenderness palpation along the right mid abdominal quadrant. We will review labs, and then review to see if patient needs repeat CT scan. Will continue to closely monitor. Will also administer 2 L of IV fluids and recheck lithium level. [place] level is 1.55, will treat with IV fluids, and reassess afterwards. She tested negative for COVID, flu and RSV. Discussed case with my attending physician, Dr. Calderon, recommending IV fluids, and reassess afterwards. We will continue to closely monitor Differential Diagnosis Differential Diagnoses: The differential diagnosis associated with the presentation includes Gastroparesis, gastritis, gastroenteritis, viral syndrome, SBO, gastroparesis, lithium toxicity Lab Data [facility] Lab Attestation statement: I reviewed the patient's lab results. See MDM 07/10/24 09:59 07/10/24 09:59 Labs: Lab Results 07/10/24 07/10/24 07/10/24 Range/Units 09:48 09:59 10:18 WBC 10.0 (4.8-10.8) X10*3/uL RBC 3.44 L D (4.20-5.50) X10*6/uL Hgb 10.4 L (12.0-16.0) g/dl Hct 32.0 L (37.0-47.0) % MCV 93.0 (80.0-98.0) fL MCH 30.2 (27.0-33.0) pg MCHC 32.5 (31.0-35.0) g/dl RDW 15.9 (11.0-16.0) % Plt Count 345 (160-400) X10*3/uL MPV 9.3 L (9.4-12.3) fL Immature Gran % (Auto) 0.4 (0.0-0.4) % Neut % (Auto) 70.0 (45-73) % Lymph % (Auto) 23.4 (20-40) % Benzie % (Auto) 4.9 (2-11) % Eos % (Auto) 0.9 (0-4) % Baso % (Auto) 0.4 (0-2) % Lymph # (Auto) 2.4 (1.2-4.9) X10*3/uL Benzie # (Auto) 0.5 (0.1-1.2) X10*3/uL Eos # (Auto) 0.1 (0.0-0.4) X10*3/uL Baso # (Auto) 0.0 (0.0-0.2) X10*3/uL Abs Immat Gran (auto) 0.04 H (0.00-0.03) X10*3/uL Absolute Neuts (auto) 7.0 (2.0-8.3) x10*3/uL Absolute Nucleated RBC 0.000 (0.0-0.012) X10*3/uL Nucleated RBC % (auto) 0.0 (0.0-0.2) /100WBC Sodium 136 (135-145) mmol/L Potassium 3.8 (3.3-5.1) mmol/L Chloride 109 H (96-108) mmol/L Carbon Dioxide 18 L (22-29) mmol/L Anion Gap 13 (12-20) BUN 9 (9-16) mg/dL Creatinine 0.96 (0.5-1.4) mg/dL Estim Creat Clear Calc 90.8 Estimated GFR > 60 Random Glucose 77 (60-115) mg/dL Calcium 8.6 D (8.4-10.2) mg/dL Total Bilirubin 0.3 (0.0-1.0) mg/dL Direct Bilirubin 0.1 (0.0-0.5) mg/dL AST 18 (5-31) U/L ALT 13 (0-31) U/L Alkaline Phosphatase 101 (39-117) U/L Total Protein 7.6 (6.5-8.0) g/dL Albumin 4.2 (3.5-5.0) g/dL Lipase 31 (8-78) U/L TSH 1.24 (0.32-4.0) uIU/mL Urine Color Yellow Urine Appearance Clear Urine pH 6.0 (5.0-9.0) Ur Specific [place] 1.010 (1.005-1.025) Urine Protein Trace (Neg-Trace) mg/dL Urine Glucose (UA) Negative (Negative) mg/dL Urine Ketones 15 (Negative) mg/dL Urine Blood Negative (Negative) Urine Nitrite Negative (Negative) Ur Leukocyte Esterase Negative (Negative) Urine Test NEGATIVE (NEGATIVE) Urine Opiates Screen Not Detected (Not Detect) Ur Buprenorphine Scrn Not Detected (Not Detect) ng/mL Ur Oxycodone Screen Not Detected (Not Detect) ng/mL Urine Methadone Screen Not Detected (Not Detect) ng/mL Urine Fentanyl Screen Not Detected (Not Detect) Acetaminophen < 3 (<30) mcg/mL Ur Barbiturates Screen Not Detected (Not Detect) Ur Phencyclidine Scrn Not Detected (Not Detect) Ur Amphetamines Screen Not Detected (Not Detect) U Benzodiazepines Scrn Not Detected (Not Detect) [place] 1.55 H* (0.60-1.20) mmol/L Urine Cocaine Screen Not Detected (Not Detect) U Marijuana (THC) Screen Not Detected (Not Detect) Influenza Type A (PCR) NEGATIVE (Negative) Influenza Type B (PCR) NEGATIVE (Negative) RSV RNA Qual (PCR) NEGATIVE (Negative) SARS-CoV-2 RNA (RT-PCR) NEGATIVE (Negative) 07/10/24 Range/Units 23:51 WBC (4.8-10.8) X10*3/uL RBC (4.20-5.50) X10*6/uL Hgb (12.0-16.0) g/dl Hct (37.0-47.0) % MCV (80.0-98.0) fL MCH (27.0-33.0) pg MCHC (31.0-35.0) g/dl RDW (11.0-16.0) % Plt Count (160-400) X10*3/uL MPV (9.4-12.3) fL Immature Gran % (Auto) (0.0-0.4) % Neut % (Auto) (45-73) % Lymph % (Auto) (20-40) % Benzie % (Auto) (2-11) % Eos % (Auto) (0-4) % Baso % (Auto) (0-2) % Lymph # (Auto) (1.2-4.9) X10*3/uL Benzie # (Auto) (0.1-1.2) X10*3/uL Eos # (Auto) (0.0-0.4) X10*3/uL Baso # (Auto) (0.0-0.2) X10*3/uL Abs Immat Gran (auto) (0.00-0.03) X10*3/uL Absolute Neuts (auto) (2.0-8.3) x10*3/uL Absolute Nucleated RBC (0.0-0.012) X10*3/uL Nucleated RBC % (auto) (0.0-0.2) /100WBC Sodium (135-145) mmol/L Potassium (3.3-5.1) mmol/L Chloride (96-108) mmol/L Carbon Dioxide (22-29) mmol/L Anion Gap (12-20) BUN (9-16) mg/dL Creatinine (0.5-1.4) mg/dL Estim Creat Clear Calc Estimated GFR Random Glucose (60-115) mg/dL Calcium (8.4-10.2) mg/dL Total Bilirubin (0.0-1.0) mg/dL Direct Bilirubin (0.0-0.5) mg/dL AST (5-31) U/L ALT (0-31) U/L Alkaline Phosphatase (39-117) U/L Total Protein (6.5-8.0) g/dL Albumin (3.5-5.0) g/dL Lipase (8-78) U/L TSH (0.32-4.0) uIU/mL Urine Color Urine Appearance Urine pH (5.0-9.0) Ur Specific [place] (1.005-1.025) Urine Protein (Neg-Trace) mg/dL Urine Glucose (UA) (Negative) mg/dL Urine Ketones (Negative) mg/dL Urine Blood (Negative) Urine Nitrite (Negative) Ur Leukocyte Esterase (Negative) Urine Test (NEGATIVE) Urine Opiates Screen (Not Detect) Ur Buprenorphine Scrn (Not Detect) ng/mL Ur Oxycodone Screen (Not Detect) ng/mL Urine Methadone Screen (Not Detect) ng/mL Urine Fentanyl Screen (Not Detect) Acetaminophen (<30) mcg/mL Ur Barbiturates Screen (Not Detect) Ur Phencyclidine Scrn (Not Detect) Ur Amphetamines Screen (Not Detect) U Benzodiazepines Scrn (Not Detect) [place] 1.15 (0.60-1.20) mmol/L Urine Cocaine Screen (Not Detect) U Marijuana (THC) Screen (Not Detect) Influenza Type A (PCR) (Negative) Influenza Type B (PCR) (Negative) RSV RNA Qual (PCR) (Negative) SARS-CoV-2 RNA (RT-PCR) (Negative) Radiology Impression Discussion of test interpretation with radiology: I have reviewed the radiologist's reading. External Record Review External record reviewed: Inpatient record [facility] medical records revealing multiple hospital visits. Dr Gillis and Dr Vaughan Patient presented to the emergency department on July 03, 2024 due to nausea, vomiting and abdominal pain. She has had multiple recent similar admissions at [facility], mostly recently she was discharged on June 23, 2024 after being admitted with nausea, vomiting, abdominal pain. She was noted to have a possible acetaminophen toxicity for which she was treated with NAC. She was discharged but at that time she was still having GI symptoms. She presented back to the emergency department on July 03, 2024 with ongoing symptoms. She has been unable to tolerate p.o., constantly vomiting and having severe nausea, also with abdominal pain in the right upper quadrant epigastric region. At that time, she was afebrile, hemodynamically stable, labs with WBC of 8.9, hemoglobin 11.5, platelets 484, INR 1. Creatinine most recent 1.04, alk phos 109, AST ALT 12 in 9 respectively. Total bili less than 0.2, lithium level 0.9. Acetaminophen less than 5. No images obtained, CT abdomen from 06/20/2024 showing no acute process, and mild constipation. GI was consulted for further recommendations. They recommended that she needs a good bowel regimen but patient was resistant to having anything for constipation. GI also reported that she has limited options from a gastroparesis perspective as she has an allergy to Reglan, does not want to use erythromycin due to concerns for developing a yeast infection. GI stated that they do not have much to offer her. GI recommended to get a gastric emptying study to reassess her emptying post G palm but she has been unable to get this either due to nausea/vomiting. She was previously provided recommendations for outside his [address] [place] [address] as well as from [place] but states she does not have transport to get there. Recommendations provided by GI stated to treat constipation, did not want anything oral also trying enemas can be helpful. Zofran for antiemetics. Recommending small meals, frequent meals low in fiber and protein. Recommending outpatient gastric emptying steady. Discharge Plan Discharge Clinical Impression: Nausea & vomiting, Abdominal pain, [place] toxicity, Suicidal ideation Patient Disposition: Home, Self-Care Additional Instructions: You were evaluated by the care team and you told them that you were no longer suicidal or want to hurt yourself. Continue taking medications as prescribed by your providers. Follow the care team instructions. You were seen in our Emergency Department today for treatment of a behavioral health issue. It is important after your visit that you follow up with either your behavioral health provider or a primary care doctor within 7 days.? If you have trouble finding a therapist you can reach out to [address] [phone] The National Suicide and Crisis Lifeline can be reached 7 days a week 24 hours a day.? Call [phone] to speak with someone.? Return for any worsening symptoms or concerns such as thoughts of self harm or harm to others. Please call 911 if you feel your mental health is worsening.? Prescriptions: No Action diazepam 2 mg tablet 1 tab PO BID prazosin 2 mg capsule 2 cap PO BEDTIME multivitamin Tablet 1 tab PO DAILY albuterol sulfate [Ventolin HFA] 90 mcg/actuation HFA aerosol inhaler 2 puff INHALATION Q4H acetaminophen 500 mg Tablet 1,000 mg PO Q4H PRN (Reason: Pain) albuterol sulfate 90 mcg/actuation Hfa Aerosol Inhaler 2 inh INHALATION Q4H PRN (Reason: Shortness Of Breath) hydrocodone-acetaminophen 5-325 mg tablet 1 tab PO Q4-6H PRN (Reason: pain) Qty: 30 0RF Rx Instructions: Partial Fill upon patient request. cefuroxime axetil 250 mg tablet 250 mg PO BID 7 Days Qty: 14 0RF fluconazole 150 mg tablet 150 mg PO Q3D Qty: 2 0RF Rx Instructions: repeat dose in 3 days if symptoms persist hyoscyamine sulfate 0.125 mg tablet 0.125 mg PO QID PRN (Reason: dyspepsia) Qty: 20 0RF ondansetron 4 mg tablet,disintegrating 4 mg PO Q6-8H PRN (Reason: nausea and vomiting) Qty: 7 0RF (DME) FreeStyle Lite Strips Strip See Rx Instructions Not Applicable BID Qty: 10 Rx Instructions: As directed (DME) lancets 28 gauge misc See Rx Instructions topical BID Qty: 100 Rx Instructions: As directed bupropion HCl 150 mg tablet extended release 24 hr 150 mg PO DAILY famotidine [Pepcid] 40 mg tablet 40 mg PO BID cephalexin 500 mg capsule 500 mg PO BID Qty: 30 0RF hydrocodone-acetaminophen 5-325 mg tablet 1 tab PO Q4-6H PRN (Reason: pain) Qty: 30 0RF Rx Instructions: Partial Fill upon patient request. sumatriptan succinate 6 mg/0.5 mL pen injector subcut melatonin 10 mg tablet extended release 10 mg PO BEDTIME duloxetine 20 mg capsule,delayed release(DR/EC) 20 mg PO DAILY lithium carbonate 300 mg tablet PO divalproex 500 mg tablet extended release 24 hr 500 mg PO DAILY benztropine 0.5 mg tablet 0.5 mg PO DAILY trazodone 150 mg tablet 150 mg PO BEDTIME clonidine HCl 0.1 mg tablet 0.1 mg PO TID pregabalin 150 mg capsule 150 mg PO BID sumatriptan succinate 25 mg tablet See Rx Instructions PO .COMPLEX Rx Instructions: take 1 tab at onset of headache; if no relief may repeat 1 tab after at least 2 hrs; max = 4 tabs/24 hr PO lansoprazole 30 mg capsule,delayed release(DR/EC) 30 mg PO DAILY alprazolam 1 mg tablet PO Linzess 72 mcg capsule 72 mcg PO QAM chlorpromazine 50 mg tablet PO lamotrigine 100 mg tablet 100 mg PO BID lamotrigine 25 mg tablet 25 mg PO DAILY hydroxyzine HCl 25 mg tablet 25 mg PO TID Linzess 145 mcg capsule 145 mcg PO DAILY 90 Days Qty: 90 0RF Print Language: Georgian
--- NOTE | 2024-07-10 16:34 | PC.NURSE ---
re: delay in multimedia developer, thei nurse placed 2 peripheral IV's, both of which infiltrated. pt requires US guided access. ARMANDO Vega to bedside to assist
[2024-07-10] MEDS: 0.9 % Sodium Chloride 1,000 ML 2000 ML IV (17:09)
--- NOTE | 2024-07-10 18:06 | PC.NURSE ---
pt US guided IV in R arm occluded. PA notified. Additional US guided IV needed. fluids paused at this time
--- NOTE | 2024-07-10 18:08 | PC.NURSE ---
Per PA Spike, pt endorces passive SI 1:[address]
--- NOTE | 2024-07-10 18:40 | PC.NURSE ---
Jaycob at bedside attempting to obtain US access- provider attempted placement for 30 minutes without success, recommending central line placement
--- NOTE | 2024-07-10 19:03 | ECG_ITS ---
Test Reason : ASSESS QTC Blood Pressure : */* mmHG Vent. Rate : 71 BPM Atrial Rate : 71 BPM P-R Int : 214 ms QRS Dur : 98 ms QT Int : 436 ms P-R-T Axes : 24 53 2 degrees QTcB Int : 473 ms Sinus rhythm with 1st degree A-V block Nonspecific T wave abnormality Prolonged QT Abnormal ECG When compared with ECG of 11-Feb-2024 16:08, No significant change was found Referred By: Emiliana Lala Electronically Signed By: SMITA KWON MD
[2024-07-10 19:14] LABS: Thyroid Stimulating Hormone 1.24 uIU/mL (0.32-4.0)
[2024-07-10 19:20] VITALS: BP 104/65; PULSE 75; RESP 16; TEMP 36.7; O2SAT 97
[2024-07-10] MEDS: Morphine Sulfate 4 MG/ML CARTRIDGE IVPUSH (19:20)
[2024-07-10] MEDS: ondansetron HCL 4 MG/2 ML VIAL IVPUSH (20:32)
[2024-07-10] MEDS: Midazolam HCl 2 MG/2 ML VIAL IVPUSH (20:33)
--- NOTE | 2024-07-10 22:33 | PC.NURSE ---
pt requests pants and pull up as she has incontinent episodes at night. spoke with pt, advised next step is crisis eval d/t passive SI statements made to ARMANDO Lala on initial exam. T/w then advised EJ access could be removed to which pt replied Being sick makes me frustrated, sometimes I wonder if it would be best if I wasnt here. Pt sts that her mother has been making her feel bad about her current state of health, which stresses [her] out . Pt sts i'm not able to eat or drink, something is wrong . sitter remains at bedside for safety. call tapia within reach
[2024-07-10 23:23] VITALS: BP 105/56; PULSE 79; RESP 14; O2SAT 98
[2024-07-11 00:03] LABS: Lithium 1.15 mmol/L (0.60-1.20)
[2024-07-11] MEDS: OLANZapine 10 MG VIAL IM (00:20)
[2024-07-11] MEDS: Midazolam HCl 2 MG/2 ML VIAL 2.5 MG IM (00:20)
[2024-07-11 02:42] LABS: Amphetamine Screen Urine Not Detected (Not Detect); Barbiturates, Urine Not Detected (Not Detect); Benzodiazepines Screen Urine Not Detected (Not Detect); Buprenorphine Scr Not Detected (Not Detect); Cannabinoid Screen Urine Not Detected (Not Detect); Cocaine Screen Urine Not Detected (Not Detect); Fentanyl, urine Not Detected (Not Detect); Methadone Screen, Urine Not Detected (Not Detect); Opiate Screen Urine Not Detected (Not Detect); Oxycodone Screen Urine Not Detected (Not Detect); Phencyclidine Screen Urine Not Detected (Not Detect)
--- NOTE | 2024-07-11 07:35 | MHC.EDTECH ---
this tech attempted to obtain POC, pt refused, stated go away I dont want to , breakfast tray refused RN aware, will reattempt later
[2024-07-11 09:35] VITALS: BP 129/76; PULSE 100; RESP 18; TEMP 36.5; O2SAT 98
== END 2024-07-11 09:39 | disposition home or self-care (01) ==
PROVIDERS: Emergency Medicine; Physician Assistant Medical; Emergency Provider Emergency Medicine Emergency Medical Services
DX: F31.9 Bipolar disorder, unspecified (principal); R45.851 Suicidal ideations; R11.2 Nausea with vomiting, unspecified; I44.0 Atrioventricular block, first degree; R94.31 Abnormal electrocardiogram [ECG] [EKG]; T56.891A Toxic effect of other metals, accidental (unintentional), initial encounter; R10.2 Pelvic and perineal pain; R19.7 Diarrhea, unspecified; F17.210 Nicotine dependence, cigarettes, uncomplicated; R79.89 Other specified abnormal findings of blood chemistry; K31.84 Gastroparesis; Y92.9 Unspecified place or not applicable; Z03.818 Encounter for observation for suspected exposure to other biological agents ruled out; Z79.899 Other long term (current) drug therapy
CPT/HCPCS: 0241U; 36415; 74176; 80048; 80076; 80143; 80178; 80307; 81003; 81025; 83690; 84443; 85025; 93005; 96372; 96374; 96375; 99285; J2250; J2270; J2359; J2405; S9485

== ENCOUNTER → 2024-07-10 19:03 | Outpatient (BNV) | payer MEDICARE, MEDICAID, SELFPAY | PROVIDERS: Emergency Provider Emergency Medicine Emergency Medical Services; Visit Provider Internal Medicine Cardiovascular Disease | DX: I44.0 Atrioventricular block, first degree (principal) | CPT/HCPCS: 93010 ==

== ENCOUNTER → 2024-07-10 19:05 | Outpatient (BNV) | payer MEDICARE, MEDICAID, SELFPAY | PROVIDERS: Emergency Provider Emergency Medicine; Visit Provider Radiology Vascular & Interventional Radiology | DX: R10.9 Unspecified abdominal pain (principal) | CPT/HCPCS: 74176 ==

== ENCOUNTER 2024-07-22 15:21 | Outpatient (AMB) | payer MEDICARE, MEDICAID, SELFPAY ==
--- NOTE | 2024-07-22 15:24 | A.OFFVIS_ITS ---
Vital Signs 07/22/24 15:38 Height 5 ft 1 in Weight 211 lb 13.828 oz BMI 40.0 BP 114/59 L Blood Pressure Location Rt brachial Position Sitting Pulse 76 Intake Visit Reasons: Abscess/puss Intake Note: This patient presents for abscess. Pt c/o; pain, groin, no draining. Clinical Research Spec Required: No Senior Engineering Team Leader: Senior Engineering Team Leader Present (Kely) and Senior Engineering Team Leader offered & declined Accompanied by: Self / Same As Patient Allergies metoclopramide [From Reglan] Allergy (Severe, Verified 07/22/24 15:39) Hives NSAIDS (Non-Steroidal Anti-Inflamma [NSAIDS (NON-STEROIDAL ANTI-INFLAMMA] Allergy (Severe, Verified 07/22/24 15:39) Anaphylaxis clonazepam [Klonopin] Adverse Reaction (Severe, Verified 07/22/24 15:39) Agitated droperidol Adverse Reaction (Severe, Verified 07/22/24 15:39) Agitated haloperidol [Haldol] Adverse Reaction (Severe, Verified 07/22/24 15:39) Agitated lorazepam [LORAZEPAM] Adverse Reaction (Severe, Verified 07/22/24 15:39) AGGRESSION promethazine Adverse Reaction (Severe, Verified 07/22/24 15:39) Agitated ketorolac [From Toradol] Adverse Reaction (Verified 07/22/24 15:39) Anaphylaxis seafood Allergy (Intermediate, Uncoded 07/22/24 15:39) swelling Medication List - Last Reconciled 07/22/24 by Etienne Lucero MD acetaminophen 1,000 mg PO Q4H PRN albuterol sulfate 90 mcg/actuation 2 inhalations inhalation Q4H PRN albuterol sulfate 90 mcg/actuation (Ventolin HFA) 2 puffs inhalation Q4H alprazolam mg PO benztropine 0.5 mg PO DAILY blood sugar diagnostic As directed bupropion HCl XL 150 mg PO DAILY cefuroxime axetil 250 mg PO BID 7 days cephalexin 500 mg PO BID chlorpromazine mg PO clonidine HCl 0.1 mg PO TID diazepam 1 tab PO BID divalproex ER 500 mg PO DAILY duloxetine 20 mg PO DAILY famotidine (Pepcid) 40 mg PO BID fluconazole 150 mg PO Q3D 2 doses hydrocodone-acetaminophen 5-325 mg 1 tab PO Q4-6H PRN hydrocodone-acetaminophen 5-325 mg 1 tab PO Q4-6H PRN hydroxyzine HCl 25 mg PO TID hyoscyamine sulfate 0.125 mg PO QID PRN lamotrigine 100 mg PO BID lamotrigine 25 mg PO DAILY lancets As directed lansoprazole 30 mg PO DAILY linaclotide (Linzess) 145 mcg PO DAILY 90 days linaclotide (Linzess) 72 mcg PO QAM lithium carbonate mg PO melatonin ER 10 mg PO BEDTIME multivitamin 1 tab PO DAILY ondansetron 4 mg PO Q6-8H PRN prazosin 2 caps PO BEDTIME pregabalin 150 mg PO BID sumatriptan succinate mg subcut sumatriptan succinate take 1 tab at onset of headache; if no relief may repeat 1 tab after at least 2 hrs; max = 4 tabs/24 hr PO trazodone 150 mg PO BEDTIME HPI HPI Abscess/puss: Details: She is well known to me for hidradenitis suppurativa. She has had multiple procedures for this in the past She wanted an area of the left groin near the vidya anal region check. She says she has noticed some drainage and tenderness on the area. She denies fever or chills PFSH Medical History Hidradenitis Epidermal cyst Epidermal inclusion cyst Pilonidal cyst Suppurative hidradenitis Back pain Migraines Insomnia GERD (gastroesophageal reflux disease) Morbid obesity Axillary hidradenitis suppurativa IUD (intrauterine device) in place History of DVT (deep vein thrombosis) Factor V Leiden Nausea DARINEL (obstructive sleep apnea) Asthma Wears hearing aid in both ears Loss of teeth due to extraction Preeclampsia Sacrococcygeal pilonidal cyst Depression Anxiety PTSD (post-traumatic stress disorder) Bipolar affective IBS (irritable bowel syndrome) Diabetes Gastroparesis Surgical History History of excision of pilonidal cyst History of esophagogastroduodenoscopy (EGD) History of removal of cyst (~11/14/22) Hx of umbilical hernia repair Hx of section History of carpal tunnel release Hx of myringotomy History of tonsillectomy and adenoidectomy Family History Mother Mental health disorder Obesity Father Hypertension High cholesterol Son No problems noted. Brother No problems noted. Sister Asthma Social History Household Members: Children Are you a primary tire care manager to a significant other at home: No (Mother has custody of 10 month old son) Do you presently have visiting nurse or other home services: Yes ([employer] 92 hours per week) Alcohol intake: former Comment: counts correct Patient Tobacco Use Status: Current everyday Tobacco user Tobacco use type: Cigarette Substance Use Type: Marijuana Advance Directives Date on File: 12/07/21 Review of Systems Const Denies chills and Denies fever(s) Card Denies chest pain at rest Resp Denies cough GI Denies abdominal pain Psych Reports depression and Reports mood swings Physical Exam Vital Signs: Last Vital Signs Pulse 76 07/22/24 15:38 BP 114/59 L 07/22/24 15:38 BMI result Body Mass Index 40.0 Const Other: With flat affect and appearing little drowsy General: comfortable and no acute distress Resp Effort & Inspection: normal respiratory effort Cardio Rate: regular rate GI Palpation (GI): Soft to palpation Other: In the left medial thigh area near the perineum is note of a small sinus, with tenderness but no significant induration, very scanty drainage currently no cellulitis Assessment & Plan Assessment & Plan (1) Suppurative hidradenitis: Code(s): L73.2 - Hidradenitis suppurativa Category: Medical Plan: She has this small area of drainage on the left medial thigh near the groin. This has a sinus consistent with her hidradenitis suppurativa. There was no fluctuance at this time I assured her that this does not require any surgical intervention or I and D at this time. However, I did recommend for her to continue massaging the area to promote drainage. Warm compresses we will also help. If there is any worsening, she can come back to the office and we can re- evaluate for possible need for I and D or surgical excision. Coding Level of Care Code Est Pt Level 3 (96792) Diagnoses Suppurative hidradenitis L73.2
[2024-07-22 15:38] VITALS: BP 114/59; PULSE 76; BMI 40.0
--- OUTSIDE RECORDS SUMMARY | 2024-07-22 17:36 | XMS_ITS | Clinical Summary ---
Author Organization [facility] Address [address] [place] [address] Care Team Providers Care Insole Department Worker Name Role Phone Unavailable Primary Care Provider [...]
== END 2024-07-22 15:38 | disposition home or self-care (01) ==
PROVIDERS: Visit Provider Surgery
DX: L73.2 Hidradenitis suppurativa (principal)
CPT/HCPCS: 99213

== ENCOUNTER → 2024-07-22 15:21 | Outpatient (BNVA) | payer MEDICARE, MEDICAID, SELFPAY | PROVIDERS: Visit Provider Surgery | DX: L73.2 Hidradenitis suppurativa (principal) | CPT/HCPCS: 99212 ==

== ENCOUNTER 2024-07-24 13:27 | Outpatient (AMB) | payer MEDICARE, MEDICAID, SELFPAY ==
--- NOTE | 2024-07-24 13:27 | MHC.OFFVIS ---
Intake Visit Reasons: f/u gatroparess Intake Note: Maria G presents as a follow up telehealth for gastroparesis. CC: nausea and vomiting, air and gas she states it is in the epigastric region. Deals with constipation as well. She also has issues with taking her medications due to issues with her swallowing. Allergies metoclopramide [From Reglan] Allergy (Severe, Verified 07/24/24 13:27) Hives NSAIDS (Non-Steroidal Anti-Inflamma [NSAIDS (NON-STEROIDAL ANTI-INFLAMMA] Allergy (Severe, Verified 07/24/24 13:27) Anaphylaxis clonazepam [Klonopin] Adverse Reaction (Severe, Verified 07/24/24 13:27) Agitated droperidol Adverse Reaction (Severe, Verified 07/24/24 13:27) Agitated haloperidol [Haldol] Adverse Reaction (Severe, Verified 07/24/24 13:27) Agitated lorazepam [LORAZEPAM] Adverse Reaction (Severe, Verified 07/24/24 13:27) AGGRESSION promethazine Adverse Reaction (Severe, Verified 07/24/24 13:27) Agitated ketorolac [From Toradol] Adverse Reaction (Verified 07/24/24 13:27) Anaphylaxis seafood Allergy (Intermediate, Uncoded 07/24/24 13:27) swelling HPI Comments Details: 28 y.o F with reported history of GP who is here for 4th opinion. Pt has previously been to [facility], [facility], [facility]. Reports ongoing sx of abd discomfort, N,V since 2018. See summary of testing done below. Eventually diagnosed with gastroparesis in 2020 based on slightly abnormal GES. Has tried medical therapy reglan, droperidol, erythromycin, motegrity - with minimal response. Had GPOEM earlier this year which had a good effect x 3 months before sx returned. Has DM, reports A1c was in range but does not recall the exact number. Also carries dx of Borderline personality disorder, bipolar disorder, anxiety and PTSD and sees Karla Shirley. Meds reviewed and a few with potential GI side effects noted such as benztropine, clonidine, lamotrigine, lithium etc. Pt reports these are being monitored by her psychiatrist. Currently, main issue is persistent feeling of fullness and nausea. Pt reports unable to tolerate more than a few bites of food at a time. Has never seen a cafe attendant per her report and has never tried liquid and/or low residue diet either. She wonders if she can be set up for venting G-J. 07/24/24: Here for video follow up. Was admitted back to back in [facility] - initially for inadvertent tylenol overdose. A second time for gastroparesis flare. Now reports another flare up since the last 2 days. Has only be able to keep down fluids, hesitant to go to hospital due to prev experience as outlined. In terms of constipation prucalopride was DCed due to no change in sx and significant hx of depression and anxiety. Pt reports good response to Linzess. Hx: 04/2018?CT scan at [facility] for evaluation of abdominal pain that demonstrated possible cecal thickening.? No abnormalities seen on subsequent colonoscopy. 09/2019: Normal RUQ US, EGD with grade A esophagitis and increased IELs on duodenal biopsies, colonoscopy with normal biopsies.? Normal stool O/P and stool cultures.? Unremarkable CBC, BMP, TSH, ESR, CRP except for CBC at 14 and glucose in the 200s. Transferred care to [place]. 02/2020: VCE with normal small bowel appearance. 03/2020: Normal EGD by Dr. Salas.? Normal duodenal biopsies. 04/2020: abnormal gastric emptying (45% at 4hr) 07/2023: GES read as normal, pt reports vomiting before hand? 08/2023: G-POEM (valentin/Zakharia) [facility] Medical History Hidradenitis Epidermal cyst Epidermal inclusion cyst Pilonidal cyst Suppurative hidradenitis Back pain Migraines Insomnia GERD (gastroesophageal reflux disease) Morbid obesity Axillary hidradenitis suppurativa IUD (intrauterine device) in place History of DVT (deep vein thrombosis) Factor V Leiden Nausea DARINEL (obstructive sleep apnea) Asthma Wears hearing aid in both ears Loss of teeth due to extraction Preeclampsia Sacrococcygeal pilonidal cyst Depression Anxiety PTSD (post-traumatic stress disorder) Bipolar affective IBS (irritable bowel syndrome) Diabetes Gastroparesis Surgical History History of excision of pilonidal cyst History of esophagogastroduodenoscopy (EGD) History of removal of cyst (~11/14/22) Hx of umbilical hernia repair Hx of section History of carpal tunnel release Hx of myringotomy History of tonsillectomy and adenoidectomy Family History Mother Mental health disorder Obesity Father Hypertension High cholesterol Son No problems noted. Brother No problems noted. Sister Asthma Social History Household Members: Children Are you a primary family day carer to a significant other at home: No (Mother has custody of 10 month old son) Do you presently have visiting nurse or other home services: Yes ([employer] 92 hours per week) Alcohol intake: former Comment: counts correct Patient Tobacco Use Status: Current everyday Tobacco user Tobacco use type: Cigarette Substance Use Type: Marijuana Advance Directives Date on File: 12/07/21 Review of Systems Const All systems reviewed & are unremarkable except as noted in HPI and below Physical Exam Vital Signs: Video visit: No acute distress No icterus noted No facial asymmetry Speaking in full sentences Telehealth Telehealth Telehealth Platform: [email or web address] Location of provider rendering services: practice address Location of patient: address on file Patient Identification confirmed using: Name, : Yes Telehealth method: video Patient verbally consented to treatment: Yes Patient verbally consented to billing insurance company: Yes Patient informed of any privacy concerns related to visit: Yes Minutes spent on Phone/Video with Pt.: 18 Assessment & Plan Assessment & Plan (1) Gastroparesis: Code(s): K31.84 - Gastroparesis Category: Medical (2) Abdominal pain: Code(s): R10.9 - Unspecified abdominal pain Category: Medical Qualifiers: Abdominal location: right lower quadrant Qualified Code(s): R10.31 - Right lower quadrant pain (3) Nausea & vomiting: Code(s): R11.2 - Nausea with vomiting, unspecified Category: Medical Qualifiers: Vomiting type: unspecified Qualified Code(s): R11.2 - Nausea with vomiting, unspecified (4) History of gastric surgery: Code(s): Z98.890 - Other specified postprocedural states Category: Surgical Plan Longstanding hx of abd pain, N,V. Tight pylorus noted during POEM. Reviewed with the pt that unclear if current sx due to failure of GPOEM vs side effects of meds vs functional dyspepsia. Also expressed concern that she has not followed testing and nutritional referral recommended at previous visit and therefore at a status quo at this time. Again counseled on small particle diet, taking small sips of protein shakes during a flare for caloric intake. GES reordered. Plan: - Low residue, liquid diet. Pt requests another copy of GP diet handout - sent through portal. - Small frequent meals - [employer] referral pending. Pt encouraged to seek OSH cafe attendant, and we can fax referral to facilitate - Stay upright for 45-60 mins post meals - Management of constipation as that can also exacerbate N/V. Linzess 145mcg - Repeat GES to see if truly has delayed emptying vs other factors outlined above - If has persistent delayed emptying, will proceed with EGD with pyloroplasty vs botox empirically - Pt to also review meds with her psychiatrist to see if can be transitioned to more GI-friendly options with less risk of N/V. Follow up 3 months Orders: Orders NM gastric emptying study Today K31.84 - Gastroparesis Medications: Refilled linaclotide (Linzess) 145 mcg PO DAILY 90 days 90 caps 1RF ondansetron 4 mg PO Q6-8H PRN 7 tabs 0RF nausea and vomiting Coding Level of Care Code Tele Est Pt Level 5 (83840) Diagnoses Gastroparesis K31.84 Abdominal pain R10.31 Abdominal location: right lower quadrant Nausea & vomiting R11.2 Vomiting type: unspecified History of gastric surgery Z98.890
--- OUTSIDE RECORDS SUMMARY | 2024-07-24 16:30 | XMS_ITS | Clinical Summary ---
Author Organization [facility] Address [address] [place] [address] Care Team Providers Care Pipe Bending Machine Operator Name Role Phone Unavailable Primary Care Provider [...]
== END 2024-07-25 11:32 | disposition home or self-care (01) ==
LOC: HO.HGI 13:27
PROVIDERS: Visit Provider Internal Medicine
DX: K31.84 Gastroparesis (principal); R10.31 Right lower quadrant pain; R11.2 Nausea with vomiting, unspecified
CPT/HCPCS: 99214

== ENCOUNTER → 2024-08-15 07:25 | Outpatient (REF) | payer MEDICARE, MEDICAID, SELFPAY ==
--- NOTE | ~2024-08-15 | NM_ITS ---
EXAMINATION: DC RADIONUCLIDE SOLID FOOD GASTRIC EMPTYING 4-HOUR STUDY CLINICAL INFORMATION: K31.84 - Gastroparesis COMPARISON: None TECHNIQUE: A standard meal consisting of 4 oz of Egg Beaters brand tagged with 0.98 mCi Tc-99m Sulfur Colloid and 8 oz water was administered orally to the patient. Images were obtained using a dual head gamma camera in the anterior and posterior projections over of the stomach immediately post ingestion and at hourly intervals up to 4 hours post ingestion. The anterior and posterior counts at each time interval were averaged using the geometric mean and expressed as percentage of the immediate post ingestion counts. FINDINGS: There is good visualization of activity in the stomach immediately post ingestion. As the study progresses, there is mild clearance of activity from the stomach and visualization of progressively increasing small bowel activity. Retention in the stomach at each time interval was: 1 hour 100% (normal 37%-90%) 2 hours 100% (normal 30%-60%) 3 hours 98% 4 hours 44% (normal 0%-10%) DC/DC gastric emptying study IMPRESSION: Delayed gastric emptying. For solid meal, rapid gastric emptying is less than 30% at 60 minutes. Delayed gastric emptying criteria is more than 60% remaining at 120 minutes or more than 10% at 240 minutes. The 4-hour value is the best discriminator of a normal or abnormal result). Gastric emptying study grading per JNMT Consensus Recommendations in 2008 (https://tech.snmjournals.org/content/36/44) Grade 1 (mild retention): 11-20% at 4h Grade 2 (moderate retention): 21-35% at 4h Grade 3 (severe retention): 36-50% at 4h Grade 4 (very severe retention): >50% retention at 4h Electronically signed by: Geoff Rizvi MD 08/15/2024 12:38 PM EDT
== END ==
LOC: HO.NUCMED 07:25
PROVIDERS: PCP Family Medicine; Visit Provider Internal Medicine
DX: K31.84 Gastroparesis (principal)
CPT/HCPCS: 78264; A9541

== ENCOUNTER → 2024-08-15 07:26 | Outpatient (BNV) | payer MEDICARE, MEDICAID, SELFPAY | PROVIDERS: PCP Family Medicine; Visit Provider Radiology Diagnostic Radiology | DX: K31.84 Gastroparesis (principal) | CPT/HCPCS: 78264 ==

== ENCOUNTER 2024-10-24 17:40 | Emergency (ER) | payer MEDICARE, MEDICAID, SELFPAY ==
[2024-10-24 18:09] VITALS: BP 143/86; BP 150/100; PULSE 93; PULSE 97; RESP 18; TEMP 36.8; O2SAT 98; O2SAT 99; BMI 38.1
[2024-10-24 18:23] VITALS: BP 143/86; PULSE 93; RESP 18; TEMP 36.8; O2SAT 98
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
--- NOTE | 2024-10-24 19:01 | ED.SEIZURE ---
HPI - Seizure General Chief Complaint: Seizure Stated Complaint: found twitching no med hx of twitching Time Seen by Provider: 10/24/24 18:52 Source: patient Mode of arrival: ambulatory Limitations: no limitations History of Present Illness ED Provider: HPI Narrative: Patient's history of bipolar disorder anxiety came from [facility] for questionable anxiety/seizure-like activity patient was twitching not responding no postictal patient did not any complaints at this time no incontinence no tongue bite no prior history of seizure patient does get anxiety attack Related Data Home Medications ?Medication ?Instructions ?Recorded ?Confirmed blood sugar diagnostic #10 ea 12/02/20 07/22/24 lancets 28 gauge #100 ea 12/02/20 07/22/24 acetaminophen 500 mg tablet 1,000 mg PO Q4H PRN Pain 10/04/21 07/22/24 albuterol sulfate 90 mcg/actuation 2 inh inhalation Q4H PRN Shortness 10/04/21 07/22/24 aerosol inhaler Of Breath diazepam 2 mg tablet 1 tab PO BID 12/01/21 07/22/24 famotidine 40 mg tablet (Pepcid) 40 mg PO BID 04/27/22 07/22/24 albuterol sulfate 90 mcg/actuation 2 puff inhalation Q4H 05/27/22 07/22/24 aerosol inhaler (Ventolin HFA) prazosin 2 mg capsule 2 cap PO BEDTIME 05/27/22 07/22/24 alprazolam 1 mg tablet mg PO 04/15/24 07/22/24 benztropine 0.5 mg tablet 0.5 mg PO DAILY 04/15/24 07/22/24 chlorpromazine 50 mg tablet mg PO 04/15/24 07/22/24 clonidine HCl 0.1 mg tablet 0.1 mg PO TID 04/15/24 07/22/24 divalproex 500 mg tablet,extended 500 mg PO DAILY 04/15/24 07/22/24 release 24 hr duloxetine 20 mg capsule,delayed 20 mg PO DAILY 04/15/24 07/22/24 release hydroxyzine HCl 25 mg tablet 25 mg PO TID 04/15/24 07/22/24 lamotrigine 100 mg tablet 100 mg PO BID 04/15/24 07/22/24 lamotrigine 25 mg tablet 25 mg PO DAILY 04/15/24 07/22/24 lansoprazole 30 mg capsule,delayed 30 mg PO DAILY 04/15/24 07/22/24 release lithium carbonate 300 mg tablet mg PO 04/15/24 07/22/24 melatonin 10 mg tablet,extended 10 mg PO BEDTIME 04/15/24 07/22/24 release pregabalin 150 mg capsule 150 mg PO BID 04/15/24 07/22/24 sumatriptan succinate 25 mg tablet See Rx Instructions PO .COMPLEX 04/15/24 07/22/24 sumatriptan succinate 6 mg/0.5 mL mg subcut 04/15/24 07/22/24 subcutaneous pen injector trazodone 150 mg tablet 150 mg PO BEDTIME 04/15/24 07/22/24 bupropion HCl 100 mg tablet,12 hr mg PO 07/24/24 sustained-release bupropion HCl 150 mg 24 hr tablet, 100 mg PO BID 07/24/24 extended release mupirocin 2 % topical ointment topical 07/24/24 sennosides 8.6 mg tablet (senna) 8.6 mg PO BID PRN constipation 07/24/24 valacyclovir 500 mg tablet mg PO DAILY 07/24/24 Previous Rx's ?Medication ?Instructions ?Recorded cefuroxime axetil 250 mg tablet 250 mg PO BID 7 days #14 tabs 01/21/24 hyoscyamine sulfate 0.125 mg tablet 0.125 mg PO QID PRN dyspepsia #20 02/08/24 tabs linaclotide 145 mcg capsule 145 mcg PO DAILY 90 days #90 caps 07/24/24 (Linzess) ondansetron 4 mg disintegrating 4 mg PO Q6-8H PRN nausea and 07/24/24 tablet vomiting #7 tabs Allergies Allergy/AdvReac Type Severity Reaction Status Date / Time metoclopramide [From Reglan] Allergy Severe Hives Verified 10/24/24 18:21 NSAIDS (Non-Steroidal Allergy Severe Anaphylaxis Verified 10/24/24 18:21 Anti-Inflamma [NSAIDS (NON-STEROIDAL ANTI-INFLAMMA] clonazepam [Klonopin] AdvReac Severe Agitated Verified 10/24/24 18:21 droperidol AdvReac Severe Agitated Verified 10/24/24 18:21 haloperidol [Haldol] AdvReac Severe Agitated Verified 10/24/24 18:21 lorazepam [LORAZEPAM] AdvReac Severe AGGRESSION Verified 10/24/24 18:21 promethazine AdvReac Severe Agitated Verified 10/24/24 18:21 ketorolac [From Toradol] AdvReac Anaphylaxis Verified 10/24/24 18:21 seafood Allergy Intermediate swelling Uncoded 10/24/24 18:21 Review of Systems Review of Systems: Yes all other systems are reviewed and are negative [facility] Past Medical History Medical History Hidradenitis Epidermal cyst Epidermal inclusion cyst Pilonidal cyst Suppurative hidradenitis Back pain Migraines Insomnia GERD (gastroesophageal reflux disease) Morbid obesity Axillary hidradenitis suppurativa IUD (intrauterine device) in place History of DVT (deep vein thrombosis) Factor V Leiden Nausea DARINEL (obstructive sleep apnea) Asthma Wears hearing aid in both ears Loss of teeth due to extraction Preeclampsia Sacrococcygeal pilonidal cyst Depression Anxiety PTSD (post-traumatic stress disorder) Bipolar affective IBS (irritable bowel syndrome) Diabetes Gastroparesis Surgical History History of excision of pilonidal cyst History of esophagogastroduodenoscopy (EGD) History of removal of cyst (~11/14/22) Hx of umbilical hernia repair Hx of section History of carpal tunnel release Hx of myringotomy History of tonsillectomy and adenoidectomy Family History Family History Mother Mental health disorder Obesity Father Hypertension High cholesterol Son No problems noted. Brother No problems noted. 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) Alcohol intake: former Comment: counts correct Patient Tobacco Use Status: Current everyday Tobacco user Tobacco use type: Cigarette Smoked in Last 30 Days: No Use of substances other than those prescribed or required for medical reasons: No Substance Use Type: Marijuana Advance Directives: Yes Advance Directives on File: Yes Advance Directives Date on File: 12/07/21 Do you have a plan to hurt others: No Plan Patient : No Physical Exam Vital Signs: Vital Signs: Last Vital Signs Temp 98.1 F 10/24/24 20:29 Pulse 88 10/24/24 20:29 Resp 16 10/24/24 20:29 BP 136/77 10/24/24 20:29 Pulse Ox 98 10/24/24 20:29 O2 Del Method Room Air 10/24/24 20:29 BMI result Body Mass Index 38.1 Appearance: Alert. Oriented X3. No acute distress. Eyes: PERRLA, No Nystagmus ENT: Pharynx normal. Oral Mucosa moist Neck: Normal inspection. Neck supple. CVS: Normal heart rate and rhythm. Pulses normal. Respiratory: No respiratory distress. Equal air entry bilateral, no wheezing/rales/rhonchi Abdomen: Soft and nontender. Bowel sounds are present, no mass palpable, no CVA tenderness Skin: Skin warm and dry. Normal skin color. Normal skin turgor. Extremities: No lower extremity edema. No calf tenderness psych: Mood stable no hallucination or delusion at this time, having p.o. fluids in the ER Neuro: Oriented X 3. No motor deficit. No sensory deficit.No cerebellar signs , cranial nerves II-XII intact Medications Administered Discontinued Medications Generic Name Dose Route Start Last Admin Trade Name Freq PRN Reason Stop Dose Admin Haloperidol 5 mg 10/24/24 19:37 10/24/24 20:05 Haloperidol 5 Mg Tablet PO 10/24/24 19:38 5 mg ONCE ONE Administration Olanzapine 10 mg 10/24/24 19:37 10/24/24 20:05 Olanzapine 10 Mg Tablet PO 10/24/24 19:38 10 mg ONCE ONE Administration Oxcarbazepine 600 mg 10/24/24 19:37 10/24/24 20:05 Oxcarbazepine 300 Mg Tablet PO 10/24/24 19:38 600 mg ONCE ONE Administration Medical Decision Making Medical Decision Making [facility] Narrative: Patient with bipolar disorder no history of seizure disorder comes here for twitching movements likely anxiety patient at this time with stable mood will discharge patient to psych [facility] Discharge Plan Discharge Clinical Impression: Psychogenic nonepileptic seizure Patient Disposition: Xfer Other Transfer Details: Transfer back to [facility] Instructions: Conversion Disorder (ED) Additional Instructions: Continue medication which was prescribed by psychiatrist and follow up Patient's symptoms were likely from anxiety Patient was given her evening medication olanzapine, Haldol, oxcarbazepine Prescriptions: No Action diazepam 2 mg tablet 1 tab PO BID prazosin 2 mg capsule 2 cap PO BEDTIME albuterol sulfate [Ventolin HFA] 90 mcg/actuation HFA aerosol inhaler 2 puff INHALATION Q4H acetaminophen 500 mg Tablet 1,000 mg PO Q4H PRN (Reason: Pain) albuterol sulfate 90 mcg/actuation Hfa Aerosol Inhaler 2 inh INHALATION Q4H PRN (Reason: Shortness Of Breath) cefuroxime axetil 250 mg tablet 250 mg PO BID 7 Days Qty: 14 0RF hyoscyamine sulfate 0.125 mg tablet 0.125 mg PO QID PRN (Reason: dyspepsia) Qty: 20 0RF (DME) FreeStyle Lite Strips Strip See Rx Instructions Not Applicable BID Qty: 10 Rx Instructions: As directed (DME) lancets 28 gauge misc See Rx Instructions topical BID Qty: 100 Rx Instructions: As directed bupropion HCl 150 mg tablet extended release 24 hr 100 mg PO BID famotidine [Pepcid] 40 mg tablet 40 mg PO BID mupirocin 2 % ointment topical bupropion HCl 100 mg tablet sustained-release 12 hr PO valacyclovir 500 mg tablet PO DAILY ondansetron 4 mg tablet,disintegrating 4 mg PO Q6-8H PRN (Reason: nausea and vomiting) Qty: 7 0RF sennosides [senna] 8.6 mg tablet 8.6 mg PO BID PRN (Reason: constipation) Linzess 145 mcg capsule 145 mcg PO DAILY 90 Days Qty: 90 1RF sumatriptan succinate 6 mg/0.5 mL pen injector subcut melatonin 10 mg tablet extended release 10 mg PO BEDTIME duloxetine 20 mg capsule,delayed release(DR/EC) 20 mg PO DAILY lithium carbonate 300 mg tablet PO divalproex 500 mg tablet extended release 24 hr 500 mg PO DAILY benztropine 0.5 mg tablet 0.5 mg PO DAILY trazodone 150 mg tablet 150 mg PO BEDTIME clonidine HCl 0.1 mg tablet 0.1 mg PO TID pregabalin 150 mg capsule 150 mg PO BID sumatriptan succinate 25 mg tablet See Rx Instructions PO .COMPLEX Rx Instructions: take 1 tab at onset of headache; if no relief may repeat 1 tab after at least 2 hrs; max = 4 tabs/24 hr PO lansoprazole 30 mg capsule,delayed release(DR/EC) 30 mg PO DAILY alprazolam 1 mg tablet PO chlorpromazine 50 mg tablet PO lamotrigine 100 mg tablet 100 mg PO BID lamotrigine 25 mg tablet 25 mg PO DAILY hydroxyzine HCl 25 mg tablet 25 mg PO TID Interventions: ED Discharge Assessment Last Done: 10/24/24 20:29 Discharge Date/Time: 10/24/24 20:40 Print Language: Portuguese
--- NOTE | 2024-10-24 19:17 | PC.NURSE ---
assumed care of patient at 1900. report received from Ching GAYTAN
--- NOTE | 2024-10-24 19:25 | PC.NURSE ---
call out to jessica henriquez to inquire if patient just needs medical clearance or psychiatric as well at the request of MD Alvarado. per staff member pt just needs medical clearance to return back to facility
[2024-10-24] MEDS: OXcarbazepine 300 MG TABLET 600 MG PO (20:05)
[2024-10-24] MEDS: OLANZapine 10 MG TABLET PO (20:05)
[2024-10-24] MEDS: HaloperidoL 5 MG TABLET PO (20:05)
--- NOTE | 2024-10-24 20:26 | PC.NURSE ---
attempting to call jessica henriquez again to give report/let staff know patient is returning to facility however no answer on the phone, left message
[2024-10-24 20:29] VITALS: BP 136/77; PULSE 88; RESP 16; TEMP 36.7; O2SAT 98
== END 2024-10-24 20:40 | disposition other institution (70) ==
PROVIDERS: Emergency Provider Internal Medicine; PCP Family Medicine
DX: R56.9 Unspecified convulsions (principal); Z79.899 Other long term (current) drug therapy; F17.210 Nicotine dependence, cigarettes, uncomplicated
CPT/HCPCS: 99284

== ENCOUNTER 2024-10-29 15:12 | Emergency (ER) | payer MEDICARE, MEDICAID, SELFPAY ==
--- NOTE | ~2024-10-29 | CT_ITS ---
CLINICAL HISTORY: neck pain after fall CT CERVICAL SPINE WITHOUT CONTRAST Comparison: None Findings: There is significant motion artifact. Normal vertebral body alignment. No significant degenerative change. No acute fractures or dislocations. No acute findings on limited view of the intracranial contents. Soft tissues of the neck are grossly intact. Lung apices are clear. IMPRESSION: 1. Image degradation secondary to significant motion artifact. 2. No definite fracture in the cervical spine. This document has been electronically signed by: Gina Lucas DO on 10/29/2024 17:21:23
[2024-10-29 15:28] VITALS: BP 146/80; BP 149/89; PULSE 72; PULSE 78; RESP 18; TEMP 36.3; O2SAT 99; BMI 40.8
--- NOTE | 2024-10-29 16:05 | ED_ITS ---
HPI - General Adult General Chief complaint: Seizure Stated complaint: unwitnessed fall, possible seizure, spin pain12/05 Time Seen by Provider: 10/29/24 16:05 History of Present Illness ED Provider: Ranjeet ISBELL narrative: The patient is a 28-year-old female with a long history of behavioral health illness and emergency room visits who was currently an inpatient at the [facility]. She apparently had a seizure-like episode today. She has no history of epilepsy. She says that she was in her room by herself when she was standing. That is the last thing she remembers before finding herself on the floor, possibly having had a seizure. Apparently staff said that they heard a fall in the patient's room and found the patient with eyelids fluttering and apparently postictal. 911 was called. The patient had no urinary incontinence. No tongue biting. The patient was not confused or postictal when EMS arrived. The patient was placed in a collar complaining of neck pain as well as left shoulder pain. In the emergency room she is also saying that she cannot feel her feet. Related Data Home Medications ?Medication ?Instructions ?Recorded ?Confirmed blood sugar diagnostic #10 ea 12/02/20 07/22/24 lancets 28 gauge #100 ea 12/02/20 07/22/24 acetaminophen 500 mg tablet 1,000 mg PO Q4H PRN Pain 10/04/21 07/22/24 albuterol sulfate 90 mcg/actuation 2 inh inhalation Q4H PRN Shortness 10/04/21 07/22/24 aerosol inhaler Of Breath diazepam 2 mg tablet 1 tab PO BID 12/01/21 07/22/24 famotidine 40 mg tablet (Pepcid) 40 mg PO BID 04/27/22 07/22/24 albuterol sulfate 90 mcg/actuation 2 puff inhalation Q4H 05/27/22 07/22/24 aerosol inhaler (Ventolin HFA) prazosin 2 mg capsule 2 cap PO BEDTIME 05/27/22 07/22/24 alprazolam 1 mg tablet mg PO 04/15/24 07/22/24 benztropine 0.5 mg tablet 0.5 mg PO DAILY 04/15/24 07/22/24 chlorpromazine 50 mg tablet mg PO 04/15/24 07/22/24 clonidine HCl 0.1 mg tablet 0.1 mg PO TID 04/15/24 07/22/24 divalproex 500 mg tablet,extended 500 mg PO DAILY 04/15/24 07/22/24 release 24 hr duloxetine 20 mg capsule,delayed 20 mg PO DAILY 04/15/24 07/22/24 release hydroxyzine HCl 25 mg tablet 25 mg PO TID 04/15/24 07/22/24 lamotrigine 100 mg tablet 100 mg PO BID 04/15/24 07/22/24 lamotrigine 25 mg tablet 25 mg PO DAILY 04/15/24 07/22/24 lansoprazole 30 mg capsule,delayed 30 mg PO DAILY 04/15/24 07/22/24 release lithium carbonate 300 mg tablet mg PO 04/15/24 07/22/24 melatonin 10 mg tablet,extended 10 mg PO BEDTIME 04/15/24 07/22/24 release pregabalin 150 mg capsule 150 mg PO BID 04/15/24 07/22/24 sumatriptan succinate 25 mg tablet See Rx Instructions PO .COMPLEX 04/15/24 07/22/24 sumatriptan succinate 6 mg/0.5 mL mg subcut 04/15/24 07/22/24 subcutaneous pen injector trazodone 150 mg tablet 150 mg PO BEDTIME 04/15/24 07/22/24 bupropion HCl 100 mg tablet,12 hr mg PO 07/24/24 sustained-release bupropion HCl 150 mg 24 hr tablet, 100 mg PO BID 07/24/24 extended release mupirocin 2 % topical ointment topical 07/24/24 sennosides 8.6 mg tablet (senna) 8.6 mg PO BID PRN constipation 07/24/24 valacyclovir 500 mg tablet mg PO DAILY 07/24/24 Previous Rx's ?Medication ?Instructions ?Recorded cefuroxime axetil 250 mg tablet 250 mg PO BID 7 days #14 tabs 01/21/24 hyoscyamine sulfate 0.125 mg tablet 0.125 mg PO QID PRN dyspepsia #20 02/08/24 tabs linaclotide 145 mcg capsule 145 mcg PO DAILY 90 days #90 caps 07/24/24 (Linzess) ondansetron 4 mg disintegrating 4 mg PO Q6-8H PRN nausea and 07/24/24 tablet vomiting #7 tabs valacyclovir 1 gram tablet 1,000 mg PO DAILY #5 tabs 10/29/24 Allergies Allergy/AdvReac Type Severity Reaction Status Date / Time metoclopramide [From Reglan] Allergy Severe Hives Verified 10/29/24 15:31 NSAIDS (Non-Steroidal Allergy Severe Anaphylaxis Verified 10/29/24 15:31 Anti-Inflamma [NSAIDS (NON-STEROIDAL ANTI-INFLAMMA] clonazepam [Klonopin] AdvReac Severe Agitated Verified 10/29/24 15:31 droperidol AdvReac Severe Agitated Verified 10/29/24 15:31 haloperidol [Haldol] AdvReac Severe Agitated Verified 10/29/24 15:31 lorazepam [LORAZEPAM] AdvReac Severe AGGRESSION Verified 10/29/24 15:31 promethazine AdvReac Severe Agitated Verified 10/29/24 15:31 ketorolac [From Toradol] AdvReac Anaphylaxis Verified 10/29/24 15:31 seafood Allergy Intermediate swelling Uncoded 10/24/24 18:21 Review of Systems Review of Systems: Yes all other systems are reviewed and are negative [facility] Past Medical History Medical History Hidradenitis Epidermal cyst Epidermal inclusion cyst Pilonidal cyst Suppurative hidradenitis Back pain Migraines Insomnia GERD (gastroesophageal reflux disease) Morbid obesity Axillary hidradenitis suppurativa IUD (intrauterine device) in place History of DVT (deep vein thrombosis) Factor V Leiden Nausea DARINEL (obstructive sleep apnea) Asthma Wears hearing aid in both ears Loss of teeth due to extraction Preeclampsia Sacrococcygeal pilonidal cyst Depression Anxiety PTSD (post-traumatic stress disorder) Bipolar affective IBS (irritable bowel syndrome) Diabetes Gastroparesis Surgical History History of excision of pilonidal cyst History of esophagogastroduodenoscopy (EGD) History of removal of cyst (~11/14/22) Hx of umbilical hernia repair Hx of section History of carpal tunnel release Hx of myringotomy History of tonsillectomy and adenoidectomy Family History Family History Mother Mental health disorder Obesity Father Hypertension High cholesterol Son No problems noted. Brother No problems noted. 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) Unable to assess alcohol history related to: Unknown Alcohol intake: former Comment: counts correct Patient Tobacco Use Status: Current everyday Tobacco user Tobacco use type: Cigarette Smoked in Last 30 Days: No Use of substances other than those prescribed or required for medical reasons: Unknown Substance Use Type: Marijuana Advance Directives: Yes Advance Directives on File: Yes Advance Directives Date on File: 12/07/21 Physical Exam ED Vital Signs: Vital Signs - 24 hr 10/29/24 15:28 10/29/24 18:29 Temperature 97.3 F 97.7 F Pulse Rate 72 83 Respiratory Rate 18 16 Blood Pressure 149/89 H 137/80 Pulse Oximetry 99 100 Oxygen Delivery Method Room Air Room Air BMI result Body Mass Index 40.8 Const Other: the patient is a 28-year-old woman who looks quite chronically ill. She was in a cervical collar. She was complaining of neck pain. She did not seem obviously injured or in distress however. Eyes General: appearance normal, both eyes and all related structures Eyelids: Yes eyelids normal Conjunctivae: conjunctivae normal Pupils: Equal, round and reactive pupils present EOM: EOMs intact bilaterally Neck Other: The patient reported severe tenderness with palpation of the midline of the C- spine. She reported severe tenderness with the attempts to move her neck. Resp Effort & Inspection: normal respiratory effort Auscultation: clear to auscultation bilaterally Cardio Rate: regular rate Rhythm: regular rhythm Heart sounds: S1 normal heart sound present and S2 normal heart sound present GI Other: Abdomen is soft and nontender Skin Other: skin is dry and unremarkable Neuro Other: the patient was awake and alert with a normal mental status. Cranial nerves 2- 12 are intact. She reports an inability to feel her feet. However she seemed to have intact strength in all 4 extremities. She had 2+ reflexes at the knees and ankles. She had downgoing toes bilaterally. Subjectively the patient reported inability to feel her feet but she did not have any objective neurological findings. Cranial nerves: Yes Equal, round and reactive pupils present Extrem Other: No signs of injury to the extremities. No peripheral edema. Medications Administered Discontinued Medications Generic Name Dose Route Start Last Admin Trade Name Teresa PRN Reason Stop Dose Admin Acetaminophen 975 mg 10/29/24 16:18 10/29/24 16:30 Acetaminophen 325 Mg Tablet PO 10/29/24 16:19 975 mg ONCE ONE Administration Lorazepam 2 mg 10/29/24 17:34 10/29/24 17:39 Lorazepam 1 Mg Tablet PO 10/29/24 17:35 2 mg ONCE ONE Administration Valacyclovir HCl 1,000 mg 10/29/24 18:02 10/29/24 18:26 Valacyclovir Hcl 1,000 Mg Tablet PO 10/29/24 18:03 1,000 mg ONCE ONE Administration Medical Decision Making Medical Decision Making [facility] Narrative: The patient is a 28-year-old female with a long history of chronic mental illness who was sent to the emergency room from the [facility] where she is currently an inpatient after a question of a possible seizure-like episode. The patient is a not have a history of epilepsy. I suspect she might have had a functional seizure. Alternatively she may have had an episode that is essentially done for secondary gain. She complained of severe neck pain and she said that she had hit her head when she had her episode. She therefore had a cervical spine CT that was negative. After the negative cervical spine CT she was moving her neck easily without apparent discomfort. She also complained of an inability to feel her feet and she said that since she could not feel her feet she would not be able to walk. She says that she has had this before and that she was 1 sent to [facility] where she was admitted for several days for a neurology evaluation. She says that no diagnosis was ever made in her symptoms improve without intervention. She feels this is very much the same phenomenon and she attributes it distress. The patient was given 2 mg of lorazepam. She seemed to feel better. She then announced that she felt that she was having an outbreak of recurrent genital herpes and requested valacyclovir. She was given 1000 mg of oral valacyclovir. She seemed to be feeling better and I felt she was appropriate [facility] She was provided with a prescription for additional valacyclovir 1000 mg by mouth daily x5 days. Discharge Plan Discharge Clinical Impression: Seizure-like activity, Neck pain, Genital herpes Patient Disposition: Xfer Psychiatric Hosp Additional Instructions: The CAT scan of your neck shows no fracture. Please continue your regular medications. I have provided a prescription for valacyclovir tablets, 1000 mg daily for 5 days. Please continue your regular program at [facility]. Please plan on following up with your regular providers after discharge from [facility]. Prescriptions: New valacyclovir 1 gram tablet 1,000 mg PO DAILY Qty: 5 0RF No Action diazepam 2 mg tablet 1 tab PO BID prazosin 2 mg capsule 2 cap PO BEDTIME albuterol sulfate [Ventolin HFA] 90 mcg/actuation HFA aerosol inhaler 2 puff INHALATION Q4H acetaminophen 500 mg Tablet 1,000 mg PO Q4H PRN (Reason: Pain) albuterol sulfate 90 mcg/actuation Hfa Aerosol Inhaler 2 inh INHALATION Q4H PRN (Reason: Shortness Of Breath) cefuroxime axetil 250 mg tablet 250 mg PO BID 7 Days Qty: 14 0RF hyoscyamine sulfate 0.125 mg tablet 0.125 mg PO QID PRN (Reason: dyspepsia) Qty: 20 0RF (DME) FreeStyle Lite Strips Strip See Rx Instructions Not Applicable BID Qty: 10 Rx Instructions: As directed (DME) lancets 28 gauge misc See Rx Instructions topical BID Qty: 100 Rx Instructions: As directed bupropion HCl 150 mg tablet extended release 24 hr 100 mg PO BID famotidine [Pepcid] 40 mg tablet 40 mg PO BID mupirocin 2 % ointment topical bupropion HCl 100 mg tablet sustained-release 12 hr PO valacyclovir 500 mg tablet PO DAILY ondansetron 4 mg tablet,disintegrating 4 mg PO Q6-8H PRN (Reason: nausea and vomiting) Qty: 7 0RF sennosides [senna] 8.6 mg tablet 8.6 mg PO BID PRN (Reason: constipation) Linzess 145 mcg capsule 145 mcg PO DAILY 90 Days Qty: 90 1RF sumatriptan succinate 6 mg/0.5 mL pen injector subcut melatonin 10 mg tablet extended release 10 mg PO BEDTIME duloxetine 20 mg capsule,delayed release(DR/EC) 20 mg PO DAILY lithium carbonate 300 mg tablet PO divalproex 500 mg tablet extended release 24 hr 500 mg PO DAILY benztropine 0.5 mg tablet 0.5 mg PO DAILY trazodone 150 mg tablet 150 mg PO BEDTIME clonidine HCl 0.1 mg tablet 0.1 mg PO TID pregabalin 150 mg capsule 150 mg PO BID sumatriptan succinate 25 mg tablet See Rx Instructions PO .COMPLEX Rx Instructions: take 1 tab at onset of headache; if no relief may repeat 1 tab after at least 2 hrs; max = 4 tabs/24 hr PO lansoprazole 30 mg capsule,delayed release(DR/EC) 30 mg PO DAILY alprazolam 1 mg tablet PO chlorpromazine 50 mg tablet PO lamotrigine 100 mg tablet 100 mg PO BID lamotrigine 25 mg tablet 25 mg PO DAILY hydroxyzine HCl 25 mg tablet 25 mg PO TID Print Language: Spanish
[2024-10-29] MEDS: Acetaminophen 325 MG TABLET 975 MG PO (16:30)
--- NOTE | 2024-10-29 16:35 | PC.NURSE ---
Pt admitted to ED via EMS from [facility] for question of seizures. C-Collar in place per EMS. Pt reporting 8/10 pain in cervical neck. APAP admin with moderate effect. Attempting to obtain labs and awaiting CT.
--- OUTSIDE RECORDS SUMMARY | 2024-10-29 17:06 | XMS_ITS | Clinical Summary ---
Author Organization [address] [facility] Address [address] [place] [address] Phone Care Team Providers Care Acetylene Torch Solderer Name Role Phone Ana Luisa Torre Primary Care Provider [phone] Encounters Date Type Department Care Team Description 10/28/2024 Lab Requisition [facility] Lab [address] [place] [address] Ana Luisa Torre Other buttermilk drier operator (current) drug therapy 10/28/2024 Lab Requisition [facility] Lab [address] [place] [address] Ana Luisa Torre from Last 3 Months Social History Tobacco Use Types Packs/Day Years [...] Influencers of Health Screening 05/01/2022 COVID-19 Vaccine ( - 2023-2 5 season) 2024 Influenza Vaccine (Season Ended) 2025 Cholesterol Screening (Lipid Panel) 10/28/2029 10/28/2024 HIB Vaccines Aged Out No longer eligi [...] age to complete this topic Meningococcal B Vaccine Aged Out No l onger eligible based on patient's age to complete this topic Pneumococcal Vaccine: Pediat rics (0 to 5 Years) and At-Risk Patients (6 to 64 Years) Aged Out No longer eligi ble based on patient's age to complete this topic RSV Immunization Patients Un noemi 20 months Aged Out No longer eligible b ased on patient's age to complete this topic Varicella Vaccines Aged Out No longer eligible based on patient's age to complete this topic Procedures Procedure Name Priority Date/Time Associated Diagnosis Comments LIPID PANEL WITH REFLEX TO DIRECT LDL Routine 10/28/2024 7:00 AM EDT Other buttermilk drier operator (current) drug therapy GLUCOSE, RANDOM Routine 10/28/2024 7:00 AM EDT Other nursing home (current) drug therapy HEMOGLOBIN A1C Routine 10/28/2024 7:00 AM EDT Other nursing home (current) drug therapy from Last 3 Months Results * (ABNORMAL) Lipid panel with reflex to direct LDL (10/28/2024 7:00 AM EDT) Cholesterol 237(H) 0 - 200 mg/dL LAB CHEMISTRY METHOD 10/28/2024 12:36 PM EDT [facility] Triglycerides 147 0 - 150 mg/dL LAB CHEMISTRY METHOD 10/28/2024 12:36 PM EDT [facility] HDL 51 >=40 mg/dL LAB CHEMISTRY METHOD 10/28/2024 12:36 PM T [facility] LDL Calculated 157(H) 0 - 100 mg/dL LAB CHEMISTRY METHOD 10/28/2024 12:36 PM T [facility] VLDL Cholesterol Adan 29.4 mg/dL LAB CHEMISTRY METHOD 10/28/2024 12:36 PM EDT [facility] Non HDL Chol. (LDL+VLDL) 186(H) <145 mg/dL LAB CHEMISTRY METHOD 10/28/2024 12:36 PM EDT [facility] Chol/HDL Ratio 4.6(H) 0.0 - 4.4 LAB CHEMISTRY METHOD 10/28/2024 12:36 PM EDT [facility] Blood Venous blood specimen / Unknown Venipuncture / Unknown 10/28/2024 7:00 AM EDT 10/28/2024 10:23 AM EDT [facility] LAB BLOOD ORDERABLES Silvia l Result Performing Organization Address [facility]/ZIP Co de Phone Number [facility] [address] [place] [address], [place] [phone] * Hemoglobin A1c (10/28/2024 7:00 AM EDT) Hemoglobin A1C 5.4 <6.5 % LAB CHEMISTRY METHOD 10/28/2024 1:31 PM EDT [facility] Mean Bld Glu Estim. 108 mg/dL LAB CHEMISTRY METHOD 10/28/2024 1:31 PM EDT [facility] Blood Venous blood specimen / Unknown Venipuncture / Unknown 10/28/2024 7:00 AM EDT 10/28/2024 10:23 AM EDT [facility] LAB BLOOD ORDERABLES Silvia l Result [facility] [address] [place] [address], [place] [phone] * (ABNORMAL) Glucose, random (10/28/2024 7:00 AM EDT) Glucose 126(H) 70 - 100 mg/dL LAB CHEMISTRY METHOD 10/28/2024 12:35 PM EDT [facility] Blood Venous blood specimen / Unknown Venipuncture / Unknown 10/28/2024 7:00 AM EDT 10/28/2024 10:23 AM EDT Ana Luisa Torre LAB BLOOD ORDERABLES Silvia l Result [facility] [address] [place] [address], from Last 3 Months Care Teams Acetylene Torch Solderer Relationship Specialty Start Date End Date Ana Luisa Torre [address] [place] [id number] PCP - General Psychiatry 10/28/24
--- NOTE | 2024-10-29 17:10 | PC.NURSE ---
patient placed self on floor and refused help from staff, scooted to bathroom on floor stating she cant use her legs or feet. patient remains in c collar. ED provider notified. it took 4 people to get patient off of floor.
--- NOTE | 2024-10-29 17:14 | PC.NURSE ---
patient carried from toilet back to bed. patient used knees and legs to hoist self back up on bed. states she cant feel her legs and feet and cant walk.
--- NOTE | 2024-10-29 17:20 | PC.NURSE ---
patient keeps yelling out that she is paralyzed by anxiety. patient yelling at someone on the phone that she is paralyzed. patient is not redirectable at this time. using profanity against staff and people walking by. patient has sitter in place. ED charge nurse made aware of patient situation
[2024-10-29] MEDS: LORazepam 1 MG TABLET 2 MG PO (17:39)
--- NOTE | 2024-10-29 17:49 | PC.NURSE ---
ED provider removed c collar, patient medicated per JUL. takes meds whole with water
--- NOTE | 2024-10-29 18:25 | PC.NURSE ---
patient sitting up and eating sandwich, medicated per MAR. awaiting ambulance ride back to [facility]. patient is now calm and cooperative
[2024-10-29] MEDS: valACYclovir HCL 1,000 MG TABLET 1000 MG PO (18:26)
[2024-10-29 18:29] VITALS: BP 137/80; PULSE 83; RESP 16; TEMP 36.5; O2SAT 100
--- NOTE | 2024-10-29 18:45 | PC.NURSE ---
Attempted to call report to [facility] to reach floor
== END 2024-10-30 06:43 ==
PROVIDERS: Emergency Provider Emergency Medicine; PCP Family Medicine
DX: R56.9 Unspecified convulsions (principal); M54.2 Cervicalgia; M25.512 Pain in left shoulder; A60.04 Herpesviral vulvovaginitis; F17.210 Nicotine dependence, cigarettes, uncomplicated; Z79.899 Other long term (current) drug therapy
CPT/HCPCS: 72125; 99284

== ENCOUNTER → 2024-10-29 16:16 | Outpatient (BNV) | payer MEDICARE, MEDICAID, SELFPAY | PROVIDERS: Emergency Provider Emergency Medicine; Visit Provider Radiology Diagnostic Radiology | DX: M54.2 Cervicalgia (principal); W19.XXXA Unspecified fall, initial encounter | CPT/HCPCS: 72125 ==

== ENCOUNTER 2025-03-06 13:20 | Outpatient (AMB) | payer MEDICARE, MEDICAID, SELFPAY ==
[2025-03-06 13:23] VITALS: BP 146/80; PULSE 105; BMI 44.6
--- NOTE | 2025-03-06 13:23 | A.OFFVIS_ITS ---
Vital Signs 03/06/25 13:23 Height 5 ft 1 in Weight 236 lb BMI 44.6 BP 146/80 H Blood Pressure Location Rt brachial Position Sitting Pulse 105 H Intake Visit Reasons: 2 abscesses Intake Note: This patient presents for an assessment for x2 abscess. Pt c/o; right axilla and right buttock, reports the abscess on the rt buttock had minimal drainage, no drainage on the rt axilla, reports no fever or chills. 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 Accompanied by: Other Relationship Allergies metoclopramide (From Reglan) Allergy (Severe, Verified 03/06/25 13:33) Hives NSAIDS (Non-Steroidal Anti-Inflamma (NSAIDS (NON-STEROIDAL ANTI-INFLAMMA) Allergy (Severe, Verified 03/06/25 13:33) Anaphylaxis clonazepam (Klonopin) Adverse Reaction (Severe, Verified 03/06/25 13:33) Agitated droperidol Adverse Reaction (Severe, Verified 03/06/25 13:33) Agitated haloperidol (Haldol) Adverse Reaction (Severe, Verified 03/06/25 13:33) Agitated lorazepam (LORAZEPAM) Adverse Reaction (Severe, Verified 03/06/25 13:33) AGGRESSION promethazine Adverse Reaction (Severe, Verified 03/06/25 13:33) Agitated ketorolac (From Toradol) Adverse Reaction (Verified 03/06/25 13:33) Anaphylaxis seafood Allergy (Intermediate, Uncoded 03/06/25 13:33) swelling Medication List - Last Reconciled 03/06/25 by Etienne Lucero MD acetaminophen 1,000 mg PO Q4H PRN albuterol sulfate 90 mcg/actuation 2 inhalations inhalation Q4H PRN albuterol sulfate 90 mcg/actuation (Ventolin HFA) 2 puffs inhalation Q4H alprazolam mg PO benztropine 0.5 mg PO DAILY blood sugar diagnostic As directed bupropion HCl SR mg PO bupropion HCl XL 100 mg PO BID cefuroxime axetil 250 mg PO BID 7 days chlorpromazine mg PO clonidine HCl 0.1 mg PO TID diazepam 1 tab PO BID divalproex ER 500 mg PO DAILY duloxetine 20 mg PO DAILY famotidine (Pepcid) 40 mg PO BID hydroxyzine HCl 25 mg PO TID hyoscyamine sulfate 0.125 mg PO QID PRN lamotrigine 100 mg PO BID lamotrigine 25 mg PO DAILY lancets As directed lansoprazole 30 mg PO DAILY linaclotide (Linzess) 145 mcg PO DAILY 90 days lithium carbonate mg PO lorazepam 1 mg PO BID melatonin ER 10 mg PO BEDTIME mupirocin 2% topical ondansetron 4 mg PO Q6-8H PRN oxcarbazepine (Trileptal) 600 mg PO BID prazosin 2 caps PO BEDTIME pregabalin 150 mg PO BID sennosides (senna) 8.6 mg PO BID PRN sumatriptan succinate mg subcut sumatriptan succinate take 1 tab at onset of headache; if no relief may repeat 1 tab after at least 2 hrs; max = 4 tabs/24 hr PO trazodone 150 mg PO BEDTIME valacyclovir 1,000 mg PO DAILY valacyclovir mg PO DAILY HPI HPI 2 abscesses: Details: She is well known to me for cysts and hidradenitis in the past She says she has an area of recurrent swelling and tenderness on the skin near the right axilla. This has been going for a few months. A similar area has he had noted as well on the right buttock but she says that seems to have improved. [facility] Medical History Hidradenitis Epidermal cyst Epidermal inclusion cyst Pilonidal cyst Suppurative hidradenitis Back pain Migraines Insomnia GERD (gastroesophageal reflux disease) Morbid obesity Axillary hidradenitis suppurativa IUD (intrauterine device) in place History of DVT (deep vein thrombosis) Factor V Leiden Nausea DARINEL (obstructive sleep apnea) Asthma Wears hearing aid in both ears Loss of teeth due to extraction Preeclampsia Sacrococcygeal pilonidal cyst Depression Anxiety PTSD (post-traumatic stress disorder) Bipolar affective IBS (irritable bowel syndrome) Diabetes Gastroparesis Surgical History History of excision of pilonidal cyst History of esophagogastroduodenoscopy (EGD) History of removal of cyst (~11/14/22) Hx of umbilical hernia repair Hx of section History of carpal tunnel release Hx of myringotomy History of tonsillectomy and adenoidectomy Family History Mother Mental health disorder Obesity Father Hypertension High cholesterol Son No problems noted. Brother No problems noted. 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) Alcohol intake: former Comment: counts correct Patient Tobacco Use Status: Current everyday Tobacco user Tobacco use type: Cigarette Substance Use Type: Marijuana Advance Directives Date on File: 12/07/21 Review of Systems Const Denies chills and Denies fever(s) Card Denies chest pain, Denies dyspnea and Denies dyspnea on exertion Resp Denies cough, Denies dyspnea and Denies dyspnea on exertion GI Denies hematochezia and Denies change in bowel habits Denies hematuria Musc Denies back pain and Denies limited range of motion Neuro Denies focal weakness and Denies convulsions Psych Reports anxiety, Reports depression and Reports mood swings Physical Exam Vital Signs: Last Vital Signs Pulse 105 H 03/06/25 13:23 BP 146/80 H 03/06/25 13:23 BMI result Body Mass Index 44.6 Const Other: Morbidly obese General: comfortable and no acute distress Orientation/consciousness: patient oriented x3 Neck Neck: Yes no lymphadenopathy Resp Auscultation: clear to auscultation bilaterally Cardio Rhythm: regular rhythm GI Palpation (GI): Soft to palpation, nontender and no guarding Skin Other: Below the right axilla is note of a cystic induration, about 1.5 cm consistent with a an epidermal cyst In the lower right buttock is also note of a small cystic induration, less than 1 cm, non fluctuant, nontender, no redness Neuro General: patient oriented x3 Assessment & Plan Assessment & Plan (1) Epidermal cyst: Code(s): L72.0 - Epidermal cyst Category: Medical Plan: She wants this area of recurrent swelling and tenderness on the right axilla excised. I explained the technique of excision under local anesthesia. I reviewed the risks, benefits, and alternatives. She wants to proceed. This will be done in the office on her next visit Similar area is seen on the right buttock but this has much smaller and I told her that I would hold off on excising this. Coding Level of Care Code Est Pt Level 3 (91686) Diagnoses Epidermal cyst L72.0
== END 2025-03-06 13:55 | disposition home or self-care (01) ==
LOC: HO.HGS 13:21
PROVIDERS: PCP Family Medicine; Visit Provider Surgery
DX: L72.0 Epidermal cyst (principal)
CPT/HCPCS: 99213

== ENCOUNTER → 2025-03-06 13:20 | Outpatient (BNVA) | payer MEDICARE, MEDICAID, SELFPAY | PROVIDERS: PCP Family Medicine; Visit Provider Surgery | DX: L72.0 Epidermal cyst (principal); F41.9 Anxiety disorder, unspecified; E66.01 Morbid (severe) obesity due to excess calories; Z68.41 Body mass index [BMI] 40.0-44.9, adult; Z72.0 Tobacco use | CPT/HCPCS: 99212 ==

== ENCOUNTER 2025-04-10 13:01 | Outpatient (AMB) | payer MEDICARE, MEDICAID, SELFPAY ==
--- NOTE | 2025-04-10 13:15 | A.OFFVIS_ITS ---
Vital Signs 04/10/25 13:22 Height 5 ft 1 in Weight 226 lb BMI 42.7 BP 146/70 H Blood Pressure Location Rt brachial Position Sitting Pulse 92 Comment weight stated by Pt Intake Visit Reasons: check cyst status Intake Note: Patient presents for an assessment for wound check. Pt c/o; reports no complaints at this time. Continuous Churn Buttermaker Required: No Accompanied by: Mother Allergies metoclopramide (From Reglan) Allergy (Severe, Verified 04/10/25 13:23) Hives NSAIDS (Non-Steroidal Anti-Inflamma (NSAIDS (NON-STEROIDAL ANTI-INFLAMMA) Allergy (Severe, Verified 04/10/25 13:23) Anaphylaxis clonazepam (Klonopin) Adverse Reaction (Severe, Verified 04/10/25 13:23) Agitated droperidol Adverse Reaction (Severe, Verified 04/10/25 13:23) Agitated haloperidol (Haldol) Adverse Reaction (Severe, Verified 04/10/25 13:23) Agitated lorazepam (LORAZEPAM) Adverse Reaction (Severe, Verified 04/10/25 13:23) AGGRESSION promethazine Adverse Reaction (Severe, Verified 04/10/25 13:23) Agitated ketorolac (From Toradol) Adverse Reaction (Verified 04/10/25 13:23) Anaphylaxis seafood Allergy (Intermediate, Uncoded 04/10/25 13:23) swelling Medication List - Last Reconciled 04/10/25 by Etienne Lucero MD acetaminophen 1,000 mg PO Q4H PRN albuterol sulfate 90 mcg/actuation 2 inhalations inhalation Q4H PRN albuterol sulfate 90 mcg/actuation (Ventolin HFA) 2 puffs inhalation Q4H alprazolam mg PO benztropine 0.5 mg PO DAILY blood sugar diagnostic As directed bupropion HCl SR mg PO bupropion HCl XL 100 mg PO BID cefuroxime axetil 250 mg PO BID 7 days chlorpromazine mg PO clonidine HCl 0.1 mg PO TID diazepam 1 tab PO BID divalproex ER 500 mg PO DAILY duloxetine 20 mg PO DAILY famotidine (Pepcid) 40 mg PO BID hydroxyzine HCl 25 mg PO TID hyoscyamine sulfate 0.125 mg PO QID PRN lamotrigine 100 mg PO BID lamotrigine 25 mg PO DAILY lancets As directed lansoprazole 30 mg PO DAILY linaclotide (Linzess) 145 mcg PO DAILY 90 days lithium carbonate mg PO lorazepam 0.5 mg PO QID PRN melatonin ER 10 mg PO BEDTIME mupirocin 2% topical ondansetron 4 mg PO Q6-8H PRN oxcarbazepine (Trileptal) 600 mg PO BID prazosin 2 caps PO BEDTIME pregabalin 150 mg PO BID prucalopride (Motegrity) 2 mg PO DAILY sennosides (senna) 8.6 mg PO BID PRN sumatriptan succinate mg subcut sumatriptan succinate take 1 tab at onset of headache; if no relief may repeat 1 tab after at least 2 hrs; max = 4 tabs/24 hr PO trazodone 150 mg PO BEDTIME valacyclovir 1,000 mg PO DAILY valacyclovir mg PO DAILY HPI HPI check cyst status: Details: I had scheduled her for excision of a cyst from the right axilla under anesthesia as she had requested. However, her primary care physician had relayed to us that she does not feel the cyst anymore and she did not think that the procedure needs to proceed so I had asked the patient to come back to the office to be re-evaluated She denies any new complaints. She again says that she wants this ?sweat gland? on the right axilla removed. [facility] Medical History Hidradenitis Epidermal cyst Epidermal inclusion cyst Pilonidal cyst Suppurative hidradenitis Back pain Migraines Insomnia GERD (gastroesophageal reflux disease) Morbid obesity Axillary hidradenitis suppurativa IUD (intrauterine device) in place History of DVT (deep vein thrombosis) Factor V Leiden Nausea DARINEL (obstructive sleep apnea) Asthma Wears hearing aid in both ears Loss of teeth due to extraction Preeclampsia Sacrococcygeal pilonidal cyst Depression Anxiety PTSD (post-traumatic stress disorder) Bipolar affective IBS (irritable bowel syndrome) Diabetes Gastroparesis Surgical History History of excision of pilonidal cyst History of esophagogastroduodenoscopy (EGD) History of removal of cyst (~11/14/22) Hx of umbilical hernia repair Hx of section History of carpal tunnel release Hx of myringotomy History of tonsillectomy and adenoidectomy Family History Mother Mental health disorder Obesity Father Hypertension High cholesterol Son No problems noted. Brother No problems noted. 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) Alcohol intake: former Comment: counts correct Patient Tobacco Use Status: Current everyday Tobacco user Tobacco use type: Cigarette Substance Use Type: Marijuana Advance Directives Date on File: 12/07/21 Review of Systems Const Denies chills and Denies fever(s) Card Denies chest pain at rest GI Denies abdominal pain Psych Reports anxiety Physical Exam Vital Signs: Last Vital Signs Pulse 92 04/10/25 13:22 BP 146/70 H 04/10/25 13:22 BMI result Body Mass Index 42.7 Const Other: Morbidly obese General: comfortable and no acute distress Resp Effort & Inspection: normal respiratory effort Cardio Rate: regular rate Skin Other: She points to a very small 5 mm induration in the right axilla that seems to be old cyst that had previously drained. There is no redness, there is no discharge, there is no fluctuance Assessment & Plan Assessment & Plan (1) Epidermal cyst: Code(s): L72.0 - Epidermal cyst Category: Medical Plan: She has a very small cystic induration in the right axilla. I explained to her that she does not require general anesthesia or sedation to have this removed in view of the very small-sized. I explained to her that it we will best be re moved under local anesthesia in the office. I explained the technique of excision under local anesthesia and reviewed the risks, benefits, and alternatives. Her mother Misti was with her during the visit he had both the patient and the mother had given consent to have this done under anesthesia in the office. Her mother is her legal guardian. The patient will be scheduled for this procedure in the office. Coding Level of Care Code Est Pt Level 2 (34678) Diagnoses Epidermal cyst L72.0
[2025-04-10 13:22] VITALS: BP 146/70; PULSE 92; BMI 42.7
--- OUTSIDE RECORDS SUMMARY | 2025-04-10 16:20 | XMS_ITS | Clinical Summary ---
Author Organization Formerly [facility] Address [address] [place] [address] Care Team Providers Care Senior Care Assistant Name Role Phone Joyce Matson MD Primary Care Provider + [phone] Allergies Active Allergy Reactions Criticality Noted Date Comments Clindamycin GI Intolerance/Nausea/Vomi ting Low 10/13/2024 Domperidone Other (See Comments) Low 10/13/2023 Level of certainty: Moderately Certain; Other Reaction(s): Agitation Other Reaction(s): Other (See Comments) Level of certainty: Moderately Certain; Other Reaction(s): Agitation Doxycycline GI Intolerance/Nausea/Vomi ting Low 09/15/2022 Haloperidol Other (See Comments) Low 10/18/2019 Level of certainty: Very Certain; Other Reaction(s): aggresive behavior Becomes very aggressive haloperidol Ibuprofen Unknown/Patient and Family Unable to Define Medium 07/19/2017 Other Reaction(s): mixes with medication, gi upset Pt is taking Coumadin and [place] Ketorolac Delirium/Confusion/P syc hosis Medium 09/15/2022 Lorazepam Delirium/Confusion/P syc hosis,Other (See Comments),GI Intolerance/Nausea/Vomi ting Medium 05/10/2017 Level of certainty: Moderately Certain; Other Reaction(s): aggression Ativan Metoclopramide Hives Medium 08/09/2020 Level of certainty: Moderately Certain Promethazine Delirium/Confusion/P syc hosis,Other (See Comments) Medium 11/07/2019 Level of certainty: Moderately Certain; Other Reaction(s): aggression promethazine Seafood Delirium/Confusion/P syc hosis Medium 03/11/2025 Valproic Acid Delirium/Confusion/P syc hosis High 10/21/2024 Medications albuterol (PROVENTIL HFA; VENTOLIN HFA) 108 (90 Base) MCG/ACT inhaler Inhale 2 puffs every 4 (four) hours. Active ALPRAZolam (XANAX) 0.5 MG tablet TAKE 1 TABLET BY MOUTH ONCE 1 HOUR PRIOR TO PROCEDURE, MAY REPEAT DOSE IN 1-2 HRS Active benztropine (COGENTIN) 0.5 MG tablet TAKE 1 TABLET BY MOUTH EVERY NIGHT AT BEDTIME NEEDED FOR INVOLUNTARY MUSCLE MOVEMENT 08/17/19 25 Active buPROPion (WELLBUTRIN SR) 100 MG 12 hr tablet Take 100 mg by mouth. 10/21/19 25 Active cloNIDine (CATAPRES) 0.1 MG tablet Take 0.1 mg by mouth 2 (two) times a day as needed. For Anxiety Active cyclobenzaprine (FLEXERIL) 10 MG tablet Take 10 mg by mouth as needed. Active Banophen 25 MG capsule TAKE 1 CAPSULE BY MOUTH FOUR TIMES A DAY NEEDED FOR ANXIETY Active diphenhydrAMINE (BENADRYL) 12.5 mg/5 mL liquid TAKE 10 ML BY MOUTH FOUR TIMES A DAY NEEDED FOR ANXIETY 02/01/20 25 Active divalproex (DEPAKOTE) [address] TAKE 2 TABLETS (1,000 MG TOTAL) BY MOUTH NIGHTLY AT BEDTIME 09/19/19 25 Active erythromycin (MAGDALENO-TAB) 250 MG EC tablet TAKE 1 TABLET BY MOUTH 3 TIMES A DAY FOR 1 WEEK AT A TIME 2-4 WEEKS BETWEEN USE 09/03/19 25 Active famotidine (PEPCID) 20 MG tablet Take 40 mg by mouth. Active fluconazole (diFLUcan) 100 MG tablet TAKE 2 TABLETS BY MOUTH EVERY DAY FOR 14 DAYS Active haloperidol (HALDOL) 5 MG tablet Take 5 mg by mouth 3 (three) times a day. 10/21/19 25 Active haloperidol lactate (Haldol) 5 mg/mL injection Acti ve hydrOXYzine HCl (ATARAX) 25 MG tablet TAKE 1 TABLET BY MOUTH TWICE DAILY AND 1 ADDITIONAL TABLET NEEDED AT NOON Active lansoprazole (PREVACID) 30 MG capsule Take by mouth. Activ e Linzess 145 MCG Cap capsule Take 145 mcg by mouth. 12/21/19 25 Active lithium carbonate 300 MG IR tablet TAKE 1 TABLET EVERY MORNING AND 2 TABLETS AT BEDTIME DIRECTED 10/26/19 25 Active LORazepam (ATIVAN) 0.5 MG tablet TAKE 1 TABLET BY MOUTH FOUR TIMES A DAY NEEDED FOR ANXIETY 01/29/20 25 Active Melatonin ER 10 MG Tab CR TAKE 1 TABLET BY MOUTH EVERYDAY AT BEDTIME OTC DRUG NOT COVERED 08/29/19 25 Active nicotine polacrilex (NICORETTE) 2 MG gum CHEWED 1 GUM EVERY 2 HR NEEDED SMOKING CESSATION 09/26/19 25 Active nitrofurantoin monohydrate (MACROBID) 100 MG capsule TAKE 1 CAPSULE BY MOUTH EVERY 12 HOURS FOR 5 DAYS Active nystatin (MYCOSTATIN) 372886 UNIT/GM cream Apply topically 2 times a day. Apply to affected area 01/03/20 25 Active OLANZapine zydis (ZyPREXA ZYDIS) 10 MG disintegrating tablet TAKE 1 TABLET (10 MG TOTAL) BY MOUTH 2 (TWO) TIMES A DAY NEEDED (AGITATION). FOR 14 DAYS Active ondansetron (ZOFRAN-ODT) 4 MG disintegrating tablet DISSOLVE 1 TABLET BY MOUTH EVERY 6 HOURS NEEDED FOR NAUSEA AND VOMITING Active ondansetron (ZOFRAN-ODT) 8 MG disintegrating tablet DISSOLVE 1 TABLET ON TONGUE 3 TIMES A DAY A DAY NEEDED FOR NAUSEA Active OXcarbazepine (TRILEPTAL) 300 MG tablet Take 300 mg by mouth 3 (three) times a day. Active OXcarbazepine (TRILEPTAL) 600 MG tablet Take 600 mg by mouth 2 times a day. 12/01/19 25 Active oxyCODONE-acetamin ophen (PERCOCET) 5-325 mg per tablet TAKE 1 TABLET BY MOUTH EVERY 4 - 6 HOURS NEEDED FOR PAIN *E* Active PANTOprazole (PROTONIX) 40 MG EC tablet Take 40 mg by mouth. 11/12/19 25 Active prazosin (MINIPRESS) 2 MG capsule Take 4 mg by mouth nightly. Active pregabalin (LYRICA) 150 MG capsule Take 150 mg by mouth 2 times a day. Active proCHLORPERAZINE (COMPAZINE) 5 MG tablet TAKE 2 TABLETS BY MOUTH EVERY 6 HOURS NEEDED FOR NAUSEA 11/10/19 25 Active QUEtiapine (SEROquel) 100 MG tablet Take 100 mg by mouth. 09/26/19 25 Active Senna-Time 8.6 MG Tab tablet TAKE 1 TABLET BY MOUTH TWICE A DAY FOR 14 DAYS NEEDED FOR CONSTIPATION 07/05/19 25 Active SUMAtriptan (IMITREX) 50 MG tablet TAKE 1 TABLET BY MOUTH AT FIRST SIGN OF MIGRAINE. MAY REPEAT DOSE ONCE IN 2 HOURS IF NEEDED. 01/29/20 25 Active SUMAtriptan succinate (IMITREX STATDOSE) 6 MG/0.5ML injection Please see attached for detailed directions Active topiramate (TOPAMAX) 25 MG tablet Take 25 mg by mouth. 09/26/19 25 Active traZODone (DESYREL) 100 MG tablet TAKE 1-2 TABLET BY MOUTH EVERY NIGHT AT BEDTIME 08/29/19 25 Active valACYclovir (VALTREX) 1000 MG tablet TAKE 1 TABLET BY MOUTH TWICE A DAY FOR 5 DAYS FOR HERPES Active valACYclovir (VALTREX) 500 MG tablet TAKE 1 TABLET BY MOUTH TWICE A DAY FOR THREE DAYS 01/29/20 25 Active Active Problems No known active problems Encounters Date Type Department Care Team Description 03/11/2025 10:30 AM EDT Consult [address] [id number] Mere Sharif MD Gastroparesis (Primary Dx) from Last 3 Months Family History Medical History Relation Name Comments Bleeding Disorder Father Rosalino Diabetes Father Rosalino Alcohol abuse Maternal Aunt Violetta Bleeding Disorder Mother Rushelle Blood Clots Mother Rushelle Mental illness Mother Rushelle Relation Name Status Comments Father Rosalino Alive Maternal Aunt Violetta Alive Mother Rushelle Alive Social History Tobacco Use Types Packs/Day Years Used Date Smoking Tobacco: Every Day Cigarettes 1 4 Smokeless Tobacco: Current Alcohol Use Standard Drinks/Week Comments Yes 0 (1 standard drink = 0.6 oz pur e alcohol) Comments Unknown Sex and Gender Information Value Date Recorded Sex Assigned at Female 2024 9:30 AM EDT Legal Sex Female 2:26 PM EDT Gender Identity Female 2024 9:30 AM EDT Sexual Orientation Heterosexual (straight) 12/03 9:30 AM EDT Last Filed Vital Signs Vital Sign Reading Time Taken Comments Blood Pressure 138/88 03/11/2025 10:27 AM EDT Pulse 67 03/11/2025 10:27 AM EDT Temperature - - Respiratory Rate - - Oxygen Saturation - - Inhaled Oxygen Concentration - - Weight 108 kg (237 lb) 03/11/2025 10:27 AM EDT Height 156.2 cm (5' 1.5 ) 03/11/2025 10:27 AM ED T Body Mass Index 44.06 03/11/2025 10:27 AM EDT Plan of Treatment Health Maintenance Due Date Last Done Comments Hepatitis C Virus Screening 1993 HIV Screening 2006 DTaP/Tdap/Td Vaccines (1 - Tdap) 2012 Hepatitis B Vaccines (1 of 3 - 19+ 3-dose series) 2012 Pneumococcal Vaccine: Pediat raissa (0-5 Years) and At-Risk Patients (6 to 49 Years) (1 of 2 - PCV) 2012 Pap Smear (Ages 21-65) 2014 Influenza Vaccine 12/27/2024 06/04/2022, , 03/26/2021, Additional history exists COVID-19 Vaccine (2024-2 6 season) 2025 11/10/2020, 10/09/2020 HPV Vaccines (No Doses Required) Completed Insurance MEDICARE PART A & B Care Teams Senior Care Assistant Relationship Specialty Start Date End Date Joyce Matson MD [address] [place] [id number] PCP - General Family Medicine 12/05/24
--- OUTSIDE RECORDS SUMMARY | 2025-04-10 16:20 | XMS_ITS | Encounter Summary ---
Author Organization [facility] Address [address] [place] [id number] Care Team Providers Care Seaming Inspector Name Role Phone Ana Luisa Torre Primary Care Provider [phone] Encounter Details Date Type Department Care Team (Late st Contact Info) Description 10/28/2024 Lab Requisition [facility] - Main Lab [address] [facility] [address] Ana Luisa Torre [address] [place] [address] Social History Tobacco Use Types Packs/Day Years Used Date Smoking Tobacco: Never Assessed Comments Unknown Sex and Gender Information Value Date Recorded Sex Assigned at Not on file Legal Sex Female 8:37 AM EST Gender Identity Not on file Sexual Orientation Not on file documented as of this encounter Plan of Treatment Not on file documented as of this encounter Visit Diagnoses Not on filedocumented in this encounter Care Teams Seaming Inspector Relationship Specialty Start Date End Date Ana Luisa Torre [address] [place] [address] PCP - General Psychiatry 10/28/24 documented as of this encounter
--- OUTSIDE RECORDS SUMMARY | 2025-04-10 16:20 | XMS_ITS | Clinical Summary ---
Author Organization [address] Address [address] [place] [phone] Phone Care Team Providers Care Surface Supply Breathing Apparatus Name Role Phone Ana Luisa Torre Primary Care Provider [phone] Social History Tobacco Use Types Packs/Day Years [...] Cervical Cancer Screening: P ap Smear 2014 HPV Vaccines (1 - 3-dose SCD M series) 2020 HIV Screening 05/01/2022 Hepatitis C Screening 05/01/2022 Social Influencers of Health Screening 05/01/2022 Depression Screening 05/29/2024 COVID-19 Vaccine (1 - 2024-2 6 season) 2025 Influenza Vaccine (#1) 2025 Cholesterol Screening (Lipid Panel) 10/28/2029 10/28/2024 RSV Immunization Adult Patie nts (1 - 1-dose 75+ series) 2068 HIB Vaccines Aged Out No longer eligi [...] 5 Years) and At-Risk Patients (6 to 49 Years) Aged Out No longer eligi ble [...] LDL Routine 10/28/2024 7:00 AM EDT Other senior living (current) drug therapy from Last 3 Months or Most Recently Relevant to Health Maintenance Results * (ABNORMAL) Lipid panel with reflex to direct LDL (10/28/2024 7:00 AM EDT) Cholesterol 237(H) 0 - 200 mg/dL LAB CHEMISTRY METHOD 10/28/2024 12:36 PM [facility] Triglycerides 147 0 - 150 mg/dL LAB CHEMISTRY METHOD 10/28/2024 12:36 PM [facility] HDL 51 >=40 mg/dL LAB CHEMISTRY METHOD 10/28/2024 12:36 PM [facility] LDL Calculated 157(H) 0 - 100 mg/dL LAB CHEMISTRY METHOD 10/28/2024 12:36 PM [facility] VLDL Cholesterol Adan 29.4 mg/dL LAB CHEMISTRY METHOD 10/28/2024 12:36 PM [facility] Non HDL Chol. (LDL+VLDL) 186(H) <145 mg/dL LAB CHEMISTRY METHOD 10/28/2024 12:36 PM [facility] Chol/HDL Ratio 4.6(H) 0.0 - 4.4 LAB CHEMISTRY METHOD 10/28/2024 12:36 PM [facility] Blood Venous blood specimen / Unknown Venipuncture / Unknown 10/28/2024 7:00 AM EDT 10/28/2024 10:[address] [facility] LAB BLOOD ORDERABLES Silvia l Result [facility] ([facility]) [facility] [address] [place] [address], from Last 3 Months or Most Recently Relevant to Health Maintenance Care Teams Surface Supply Breathing Apparatus Relationship Specialty Start Date End Date RonnellAna Luisa chavez Gaurijevon [address] [place] [id number] PCP - General Psychiatry 10/28/24
--- OUTSIDE RECORDS SUMMARY | 2025-04-10 16:20 | XMS_ITS | Data Portability ---
Author Organization [place] - [facility], Allergy Address [address] [address] Care Team Providers Care Charge Master Analyst Name Role Phone ZOEY DOMINGUEZ Primary Care Provider [phone] Assessment No assessment recorded. Plan of Treatment Reminders Order Date Submit Date Provider Last Modified By Organization Details Last Modified Time Details Appointments None record ed. Lab None record ed. Referral None record ed. Procedures None record ed. Surgeries None record ed. Imaging None record ed. Medication Orders None record ed. Patient TargetsNo targets recorded. Patient InstructionsNo instructions recorded. Reason for Referral None Reported. Results Created Date Observation Date Name Description Value Unit Range Abnormal Flag Note LastModifiedBy Organization Detail LastModifiedTime 12/20/19 25 12/26/2019 audio gram No observ ation record ed. [email or web address] Not Available 11/27 15:44:53 12/20/19 25 03/19/2013 audio gram No observ ation record ed. [email or web address] Not Available 11/27 15:46:37 12/20/19 25 04/01/2014 audio gram No observ ation record ed. [email or web address] Not Available 11/27 15:48:00 12/20/19 audio gram No observ ation record ed. BARCODE Not Available 2024 15:57:24 12/25/19 25 04/01/2014 audio gram No observ ation record ed. [email or web address] Not Available 11/27 13:12:07 12/25/19 25 10/15/2013 audio gram No observ ation record ed. [email or web address] Not Available 11/27 13:12:55 12/25/19 25 03/19/2013 audio gram No observ ation record ed. [email or web address] Not Available 11/27 13:13:58 12/25/19 25 12/26/2019 audio gram No observ ation record ed. [email or web address] Not Available 11/27 13:15:03 Result Notes None recorded. Problems Name Problem SNOMED Code Status Onset Date Resolution Date Notes Provider Name and Address Organization Details Recorded Time Adhesive middle ear disease 5483251 Active 2017 Adhesive middle ear disease, bilateral ; Note: Changed from H74.11 to H74.13 (08/31/2017 11:40 AM) , Date Diagnosed : 07/24/2017 11:23 AM (H74.11) Not Available [facility] 4 02:36:47 Marginal perforati on of tympanic membrane 53986606 Active 2017 Other marginal perforati ons of tympanic membrane, right ear; Note: Date Diagnosed : 07/24/2017 11:23 AM (H72.2X1) Not Available [facility] 4 02:36:54 Bilateral disorder of Eustachia n tubes [id number] 65418 Active 2017 Other specified disorders of Eustachia n tube, bilateral ; Note: Date Diagnosed : 07/24/2017 11:24 AM (H69.83) Not Available [facility] 4 02:36:48 Conductiv e hearing loss, bilateral 458614596 Active 2017 Conductiv e hearing loss, bilateral ; Note: Date Diagnosed : 08/31/2017 12:06 PM (H90.0) Not Available [facility] 4 02:36:42 Otalgia of left ear 3512044824 Active 2019 Otalgia, left ear; Note: Date Diagnosed : 0 2:53 PM (H92.02) Not Available [facility] 4 02:36:43 Conductiv e hearing loss 06204128 Active 2020 Conductiv e hearing loss, unilatera l, right ear, with unrestric henrietta hearing on the contralat eral side; Note: Date Diagnosed : 07/07/2020 4:05 PM (H90.11) Not Available [facility] 4 02:36:52 Otorrhea of right ear [id number] 98594 Active 2020 Otorrhea, right ear; Note: Date Diagnosed : 11/03/2020 3:07 PM (H92.11) Not Available [facility] 4 02:36:45 Impacted cerumen in right ear 93578625055 27889 Active 2021 Impacted cerumen, right ear; Note: Date Diagnosed : 07/14/2021 10:19 AM (H61.21) Not Available [facility] 4 02:36:53 Acute serous otitis media of bilateral ears 57838127492 05056 Active 2021 Acute serous otitis media, bilateral ; Note: Date Diagnosed : 07/14/2021 10:20 AM (H65.03) Not Available [facility] 4 02:36:49 Otorrhea of bilateral ears 94349561849 75486 Active 2021 Otorrhea, bilateral ; Note: Date Diagnosed : 2 4:42 PM (H92.13) Otorrhe a, bilateral ; Note: Date Diagnosed : 07/24/2017 11:27 AM (H92.13) ; Start Date : 8 Not Available [facility] 4 02:36:44 Acute suppurati ve otitis media without spontaneo us rupture of ear drum 21512545 Active 2021 Acute suppurati ve otitis media without spontaneo us rupture of ear drum, right ear; Note: Date Diagnosed : 2 2:12 PM (H66.001) Not Available [facility] 4 02:36:54 Impacted cerumen of bilateral ears [id number] 44724 Active 2024 MARIANNA GONZALEZ MD [address] [place] [address], [facility] [place], [address] , [facility] - [facility] 5 14:48:21 Bilateral referred otalgia of ears 61182474361 93911 Active 2024 MARIANNA GONZALEZ MD [address] [place] [address], [facility] [place], [address] , [facility] - [facility] 14:49:01 Sensorine ural hearing loss of bilateral ears 128728686 Active 2024 VENU SERRATO MA, [facility] [address] [facility],[place] [address], [facility] [place], [address] , [facility] 15:22:12 Problem Notes None recorded. Procedures Surgical History Date Name Laterality Status Provider Name and Address Organization Details Recorded Time Comp Audio with Tymps - 45601 & 18444 completed VENU SERRATO MA, [address],[place] [address], [place], [address], [facility] 12/19/2024 15:20:16 Cerumen removal with microscope bilateral completed MARIANNA GONZALEZ MD [address] [place] [address],[place] [address], [place], [address], [facility] 12/19/2024 14:48:11 Imaging Results None recorded. Procedure Notes None recorded. Medical Equipment None Reported. Allergies Allergen ID Allergen Name Allergen Category Reaction Reaction Severity Criticality Documentation Date Start Date Code Code System Note Provider Name and Address Organization Details Recorded Time 30798 Non-stero idal anti-infl ammatory agent (substanc e) medicatio n other Not available Not available 10/10/2023 97822 5008 SNOMED React ion: unkno wn, unspe cifie d;; Not Available [facility] 4 00:56:24 84614 clonazepa m medicatio n other Not available Not available 10/10/2023 2598 RxNorm React ion: other react ion, Unkno wn; Not Available [facility] 4 00:56:24 30929 Ativan medicatio n other Not available Not available 10/10/2023 41587 9 RxNorm React ion: other react ion, Unkno wn; Not Available [facility] 4 00:56:31 75250 promethaz ine medicatio n other Not available Not available 10/10/2023 8745 RxNorm React ion: other react ion, Unkno wn; Not Available [facility] 4 00:56:32 05064 haloperid ol medicatio n other Not available Not available 10/10/2023 5093 RxNorm React ion: other react ion, Unkno wn; Not Available [facility] 4 00:56:33 46842 Fish (substanc e) food,medi cation other Not available Not available 10/10/2023 84213 1005 SNOMED React ion: other react ion, Unkno wn; Not Available [facility] 4 00:56:36 Medications Name Sig Start Date Stop Date Status Note LastModified by Organization Details LastModified Time Prescript ion - New 12/19 completed Rx^Rx_20 425502 Not Available Not Available Not Available quetiapin e 25 mg tablet 12/19 completed Medicati on ID: [id number] B rand Name: quetiapi ne Send Method: E-Prescr ibed Sub s Allowed: subs OK Medic ationGen ericName : quetiapi ne Not Available Not Available Not Available cyclobenz aprine 10 mg tablet TAKE 1 TABLET BY MOUTH NEEDED active Not Available Not Available No t Available fluconazo le 100 mg tablet TAKE 2 TABLETS BY MOUTH EVERY DAY FOR 14 DAYS active Not Available Not Available No t Available metformin 500 mg tablet 07/14 completed Medicati on ID: [id number] B rand Name: metformi n Send Method: E-Prescr ibed Sub s Allowed: subs OK Medic ationGen ericName : metformi n Not Available Not Available Not Available terconazo le 0.4 % vaginal cream 12/19 completed Medicati on ID: [id number] B rand Name: terconaz ole Send Method: E-Prescr ibed Sub s Allowed: subs OK Medic ationGen ericName : terconaz ole Not Available Not Available Not Available bupropion HCl SR 150 mg tablet,12 hr sustained -release 12/19 completed Medicati on ID: [id number] B rand Name: bupropio n HCl Send Method: E-Prescr ibed Sub s Allowed: subs OK Speci al Instruct ion: TAKE 1 TABLET BY MOUTH TWICE A DAY Medi cationGe nericNam e: bupropio n HCl Not Available Not Available Not Available clonidine HCl 0.1 mg tablet TAKE 1 TABLET BY MOUTH TWICE A DAY NEEDED FOR ANXIETY active Not Available Not Available No t Available acetamino phen 325 mg tablet TAKE 2 TABLETS BY MOUTH EVERY 4 HOURS NEEDED FOR PAIN 12/19 completed Not Available Not Available Not Available cefuroxim e axetil 250 mg tablet TAKE 1 TABLET BY MOUTH TWICE A DAY FOR 7 DAYS 12/19 completed Not Available Not Available Not Available benztropi ne 0.5 mg tablet TAKE 1 TABLET BY MOUTH EVERY NIGHT AT BEDTIME NEEDED FOR INVOLUNT TOMMIE MUSCLE MOVEMENT active Not Available Not Available No t Available haloperid ol 5 mg tablet TAKE 1 TABLET BY MOUTH THREE TIMES A DAY active Not Available Not Available No t Available clindamyc in HCl 300 mg capsule TAKE 1 CAPSULE BY MOUTH EVERY 8 HOURS FOR 7 DAYS 12/19 completed Not Available Not Available Not Available albuterol sulfate 2.5 mg/3 mL (0.083 %) solution for nebulizat ion 12/19 completed Medicati on ID: [id number] B rand Name: albutero l sulfate Send Method: E-Prescr ibed Sub s Allowed: subs OK Speci al Instruct ion: INHALE 3 ML BY NEBULIZA TION 3 TIMES A DAY [facility] nericNam e: albutero l sulfate Not Available Not Available Not Available trazodone 50 mg tablet TAKE 1 TABLET BY MOUTH EVERYDAY AT BEDTIME 12/19 completed Not Available Not Available Not Available alprazola m 1 mg tablet TAKE 1 TABLET BY MOUTH TWICE A DAY NEEDED FOR ANXIETY 12/19 completed Not Available Not Available Not Available Lidocaine Viscous 2 % mucosal solution MIX 1/2 TABLESPO ONFUL (7.5 MLS) WITH SMALL AMOUNT OF WATER TO GARGLE & SPIT EVERY 2 HOURS NEEDED 12/19 completed Not Available Not Available Not Available nicotine (polacril ex) 2 mg gum CHEWED 1 GUM EVERY 2 HR NEEDED SMOKING CESSATIO N active Not Available Not Available No t Available fluconazo le 150 mg tablet TAKE 1 TABLET BY MOUTH EVERY WEEK active Not Available Not Available No t Available valacyclo vir 1 gram tablet TAKE 1 TABLET BY MOUTH TWICE A DAY FOR 5 DAYS FOR HERPES active Not Available Not Available No t Available sumatript an 100 mg tablet TAKE 1/2 TABLET BY MOUTH AT ONSET OF MIGRAINE , MAY REPEAT DOSE IN 2 HRS. MAX DAILY DOSE 2 TABLETS 12/19 completed Not Available Not Available Not Available warfarin 10 mg tablet 04/10 completed Medicati on ID: [id number] D uration Value: 1 Brand Name: warfarin Send Method: E-Prescr ibed Sub s Allowed: subs OK Speci al Instruct ion: TAKE 1 TABLET BY MOUTH EVERY DAY Medi cationGe nericNam e: warfarin Not Available Not Available Not Available prazosin 1 mg capsule 12/19 completed Medicati on ID: [id number] B rand Name: prazosin Send Method: E-Prescr ibed Sub s Allowed: subs OK Medic ationGen ericName : prazosin Not Available Not Available Not Available senna 8.6 mg tablet TAKE 1 TABLET BY MOUTH TWICE A DAY FOR 14 DAYS NEEDED FOR CONSTIPA TION active Not Available Not Available No t Available prochlorp erazine maleate 5 mg tablet TAKE 2 TABLETS BY MOUTH EVERY 6 HOURS NEEDED FOR NAUSEA active Not Available Not Available No t Available sucralfat e 1 gram tablet 07/14 completed Medicati on ID: [id number] B rand Name: sucralfa te Send Method: E-Prescr ibed Sub s Allowed: subs OK Speci al Instruct ion: TAKE 1 TABLET BY MOUTH THREE TIMES A DAY BEFORE MEALS AND AT BEDTIME Medicati onGeneri cName: sucralfa te Not Available Not Available Not Available ondansetr on HCl 4 mg tablet TAKE 1 TABLET BY MOUTH EVERY 8 HOURS NEEDED FOR NAUSEA AND VOMITING 12/19 completed Not Available Not Available Not Available famotidin e 40 mg tablet TAKE 1 TABLET BY MOUTH EVERY DAY active Not Available Not Available No t Available sumatript an 50 mg tablet TAKE 1 TABLET BY MOUTH AT FIRST SIGN OF MIGRAINE . MAY REPEAT DOSE ONCE IN 2 HOURS IF NEEDED. active Not Available Not Available No t Available hydroxyzi ne pamoate 50 mg capsule TAKE 1 CAPSULE BY MOUTH ONCE NEEDED FOR ANXIETY active Not Available Not Available No t Available lithium carbonate ER 300 mg tablet,ex tended release TAKE 1 TABLET BY MOUTH EVERY MORNING AND 2 TABLETS BY MOUTH AT BEDTIME. 12/19 completed Not Available Not Available Not Available topiramat e 25 mg tablet TAKE 1 TABLET BY MOUTH EVERY DAY active Not Available Not Available No t Available erythromy reina 250 mg tablet,de layed release TAKE 1 TABLET BY MOUTH 3 TIMES A DAY FOR 1 WEEK AT A TIME 2-4 WEEKS BETWEEN USE active Not Available Not Available No t Available metronida zole 500 mg tablet TAKE 1 TABLET BY MOUTH TWICE A DAY FOR 7 DAYS 12/19 completed Not Available Not Available Not Available hydroxyzi ne HCl 50 mg tablet TAKE 1 TABLET BY MOUTH EVERY DAY NEEDED FOR ANXIETY active Not Available Not Available No t Available oxcarbaze pine 300 mg tablet TAKE 1 TABLET BY MOUTH THREE TIMES A DAY active Not Available Not Available No t Available prochlorp erazine maleate 10 mg tablet 12/19 completed Medicati on ID: [id number] B rand Name: prochlor perazine maleate Send Method: E-Prescr ibed Sub s Allowed: subs OK Speci al Instruct ion: TAKE 1 TABLET BY MOUTH UP TO TWICE A DAY NEEDED FOR NAUSEA M edicatio nGeneric Name: prochlor perazine maleate Not Available Not Available Not Available divalproe x 500 mg tablet,de layed release TAKE 2 TABLETS (1,000 MG TOTAL) BY MOUTH NIGHTLY AT BEDTIME active Not Available Not Available No t Available valacyclo vir 500 mg tablet TAKE 1 TABLET BY MOUTH TWICE A DAY FOR THREE DAYS active Not Available Not Available No t Available aspirin 81 mg tablet,de layed release 12/19 completed Medicati on ID: [id number] B rand Name: aspirin Send Method: E-Prescr ibed Sub s Allowed: subs OK Speci al Instruct ion: TAKE 2 TABLETS BY MOUTH EVERY DAY Medi cationGe nericNam e: aspirin Not Available Not Available Not Available Nicotrol 10 mg inhalatio n cartridge 12/19 completed Medicati on ID: [id number] B rand Name: Nicotrol Send Method: E-Prescr ibed Sub s Allowed: subs OK Speci al Instruct ion: PLEASE SEE ATTACHED FOR DETAILED DIRECTIO NS Medic ationGen ericName : Nicotrol Not Available Not Available Not Available quetiapin e 100 mg tablet 12/19 completed Medicati on ID: [id number] B rand Name: quetiapi ne Send Method: E-Prescr ibed Sub s Allowed: subs OK Medic ationGen ericName : quetiapi ne Not Available Not Available Not Available bupropion HCl SR 100 mg tablet,12 hr sustained -release TAKE 1 TABLET BY MOUTH EVERY DAY active Not Available Not Available No t Available ondansetr on 8 mg disintegr ating tablet DISSOLVE 1 TABLET ON TONGUE 3 TIMES A DAY A DAY NEEDED FOR NAUSEA active Not Available Not Available No t Available cyprohept adine 4 mg tablet 07/14 completed Medicati on ID: [id number] B rand Name: cyprohep tadine S end Method: E-Prescr ibed Sub s Allowed: subs OK Medic ationGen ericName : cyprohep tadine Not Available Not Available Not Available prazosin 5 mg capsule TAKE 1 CAPSULE BY MOUTH EVERY NIGHT AT BEDTIME. active Not Available Not Available No t Available oxycodone -acetamin ophen 5 mg-325 mg tablet TAKE 1 TABLET BY MOUTH EVERY 4 - 6 HOURS NEEDED FOR PAIN *E* active Not Available Not Available No t Available alprazola m 0.5 mg tablet TAKE 1 TABLET BY MOUTH ONCE 1 HOUR PRIOR TO PROCEDUR E, MAY REPEAT DOSE IN 1-2 HRS active Not Available Not Available No t Available ofloxacin 0.3 % ear drops 4 drop 12/19 completed Medicati on ID: [id number] D uration Value: 7 Prescri bed By Name: Greg Aden nd Name: ofloxajermain nickerson Send Method: E-Prescr ibed Sub s Allowed: subs OK Speci al Instruct ion: x 7 days Med icationG enericNa me: ofloxaci n Not Available Not Available Not Available famotidin e 20 mg tablet TAKE 2 TABLETS BY MOUTH EVERY DAY active Not Available Not Available No t Available lorazepam 0.5 mg tablet TAKE 1 TABLET BY MOUTH FOUR TIMES A DAY NEEDED FOR ANXIETY active Not Available Not Available No t Available triamcino lone acetonide 0.1 % dental paste APPLY TO AFFECTED AREAS TWICE A DAY NEEDED active Not Available Not Available No t Available trazodone 100 mg tablet TAKE 1-2 TABLET BY MOUTH EVERY NIGHT AT BEDTIME active Not Available Not Available No t Available amitripty line 10 mg tablet 07/14 completed Medicati on ID: [id number] B rand Name: amitript yline Se nd Method: E-Prescr ibed Sub s Allowed: subs OK Medic ationGen ericName : amitript yline Not Available Not Available Not Available bisacodyl [address] ry PLACE 1 SUPPOSIT ORY RECTALLY EVERY DAY NEEDED CONSTIPA TION 12/19 completed Not Available Not Available Not Available pantopraz ole 40 mg tablet,de layed release TAKE 1 TABLET BY MOUTH EVERY DAY active Not Available Not Available No t Available hyoscyami ne sulfate 0.125 mg tablet TAKE 1 TABLET BY MOUTH 4 TIMES A DAY NEEDED FOR DYSPEPSI A 12/19 completed Not Available Not Available Not Available trazodone 150 mg tablet TAKE 1 TABLET BY MOUTH EVERYDAY AT BEDTIME active Not Available Not Available No t Available lansopraz ole 30 mg capsule,d elayed release TAKE 1 CAPSULE BY MOUTH EVERY DAY active Not Available Not Available No t Available divalproe x ER 500 mg tablet,ex tended release 24 hr TAKE 1 TABLET BY MOUTH EVERYDAY AT BEDTIME active Not Available Not Available No t Available olanzapin e 10 mg disintegr ating tablet TAKE 1 TABLET (10 MG TOTAL) BY MOUTH 2 (TWO) TIMES A DAY NEEDED (AGITATI ON). FOR 14 DAYS active Not Available Not Available No t Available docusate sodium 100 mg capsule 12/19 completed Medicati on ID: [id number] B rand Name: docusate sodium S end Method: E-Prescr ibed Sub s Allowed: subs OK Speci al Instruct ion: TAKE 1 CAPSULE BY MOUTH TWICE A DAY Medi cationGe nericNam e: docusate sodium Not Available Not Available Not Available omeprazol e 20 mg capsule,d elayed release TAKE 2 CAPSULES BY MOUTH EVERY DAY active Not Available Not Available No t Available Banophen 25 mg capsule TAKE 1 CAPSULE BY MOUTH FOUR TIMES A DAY NEEDED FOR ANXIETY active Not Available Not Available No t Available oxcarbaze pine 600 mg tablet TAKE 1 TABLET BY MOUTH TWICE A DAY active Not Available Not Available No t Available hydroxyzi ne HCl 25 mg tablet TAKE 1 TABLET BY MOUTH TWICE DAILY AND 1 ADDITION AL TABLET NEEDED AT NOON active Not Available Not Available No t Available mupirocin 2 % topical ointment APPLY SPARINGL Y TO AFFECTED AREA 3 TIMES A DAY FOR 7 DAYS 12/19 completed Not Available Not Available Not Available lorazepam 1 mg tablet TAKE 1 TABLET BY MOUTH TWICE A DAY active Not Available Not Available No t Available albuterol sulfate HFA 90 mcg/actua tion aerosol inhaler INHALE 2 PUFFS BY MOUTH EVERY 4 HOURS active Not Available Not Available No t Available ondansetr on 4 mg disintegr ating tablet DISSOLVE 1 TABLET BY MOUTH EVERY 6 HOURS NEEDED FOR NAUSEA AND VOMITING active Not Available Not Available No t Available cefdinir 300 mg capsule TAKE 1 CAPSULE BY MOUTH EVERY 12 HOURS FOR 7 DAYS active Not Available Not Available No t Available lithium carbonate 300 mg tablet TAKE 1 TABLET EVERY MORNING AND 2 TABLETS AT BEDTIME DIRECTED active Not Available Not Available No t Available clotrimaz ole 1 % topical cream APPLY TO AFFECTED AREA TWICE A DAY IN THE MORNING AND IN THE EVENING 12/19 completed Not Available Not Available Not Available dicyclomi ne 10 mg capsule TAKE 1 CAPSULE BY MOUTH 4 TIMES A DAY BEFORE MEALS AND NIGHTLY. 12/19 completed Not Available Not Available Not Available olanzapin e 20 mg tablet TAKE 1 TABLET BY MOUTH AT BEDTIME active Not Available Not Available No t Available lamotrigi ne 100 mg tablet 12/19 completed Medicati on ID: [id number] B rand Name: lamotrig ine Send Method: E-Prescr ibed Sub s Allowed: subs OK Medic ationGen ericName : lamotrig ine Not Available Not Available Not Available prazosin 2 mg capsule TAKE 2 CAPSULE BY MOUTH EVERY NIGHT AT BEDTIME active Not Available Not Available No t Available chlorprom azine 50 mg tablet TAKE 1/2-1 TABLET BY MOUTH TWICE A DAY NEEDED FOR ANXIOUS AGITATIO N 12/19 completed Not Available Not Available Not Available amoxicill in 875 mg-potass ium clavulana te 125 mg tablet TAKE 1 TABLET BY MOUTH TWICE A DAY FOR 2 DAYS 12/16 completed Not Available Not Available Not Available oxycodone 5 mg tablet TAKE 2 TABLETS BY MOUTH EVERY 6 HOURS NEEDED FOR PAIN 12/19 completed Not Available Not Available Not Available sumatript an 6 mg/0.5 mL subcutane ous pen injector PLEASE SEE ATTACHED FOR DETAILED DIRECTIO NS active Not Available Not Available No t Available TobraDex 0.3 %-0.1 % eye drops,[place] pension 2021 active Medicati on ID: [id number] B rand Name: TobraDex Send Method: E-Prescr ibed Sub s Allowed: subs OK Speci al Instruct ion: Instill 4 drops in the affect ear BID for 10 days Med icationG enericNa me: TobraDex Not Available Not Available Not Available enoxapari n 40 mg/0.4 mL subcutane ous syringe 12/19 completed Medicati on ID: [id number] B rand Name: enoxapar in Send Method: E-Prescr ibed Sub s Allowed: subs OK Speci al Instruct ion: INJECT THE CONTENTS OF 1 SYRINGE (0.4 ML) SUBCUTAN EOUSLY EVERY DAY FOR 4 WEEKS Me dication GenericN lexie: enoxapar in Not Available Not Available Not Available nicotine (polacril ex) 4 mg buccal lozenge 12/19 completed Medicati on ID: [id number] B rand Name: nicotine (polacri sulaiman) Sen d Method: E-Prescr ibed Sub s Allowed: subs OK Speci al Instruct ion: TAKE 1 TABLET EVERY 2 HOURS BY ORAL ROUTE. Jose A Ferrera Name: nicotine (polacri sulaiman) Not Available Not Available Not Available cyclobenz aprine 5 mg tablet TAKE 1 TABLET BY MOUTH THREE TIMES A DAY NEEDED FOR 5 DAYS 12/19 completed Not Available Not Available Not Available Ciprodex 0.3 %-0.1 % ear drops,diana pension Instill 4 drop into both ears twice a day as directed 12/19 completed Medicati on ID: [id number] D uration Value: 10 Brand Name: Ciprodex Send Method: E-Prescr ibed Sub s Allowed: subs OK Speci al Instruct ion: x 10 days Med icationG enericNa me: Ciprodex Not Available Not Available Not Available bupropion HCl XL 150 mg 24 hr tablet, extended release TAKE 1 TABLET BY MOUTH EVERY DAY IN THE MORNING active Not Available Not Available No t Available Wellbutri n XL 300 mg 24 hr tablet, extended release 07/14 completed Medicati on ID: [id number] B rand Name: Wellbutr in XL Send Method: E-Prescr ibed Sub s Allowed: subs OK Medic ationGen ericName : Wellbutr in XL Not Available Not Available Not Available topiramat e 50 mg tablet TAKE 1 TABS ONCE DAILY FOR HEADACHE PREVENTI ON 12/19 completed Not Available Not Available Not Available nitrofura ntoin monohydra te/macroc rystals 100 mg capsule TAKE 1 CAPSULE BY MOUTH EVERY 12 HOURS FOR 5 DAYS active Not Available Not Available No t Available duloxetin e 20 mg capsule,d elayed release TAKE 1 CAPSULE BY MOUTH EVERY DAY IN THE MORNING active Not Available Not Available No t Available pregabali n 150 mg capsule TAKE 1 CAPSULE BY MOUTH TWICE A DAY active Not Available Not Available No t Available FreeStyle Lite Strips USE TWICE DAILY DIRECTED FOR MONITORI NG GLUCOSE (E11.9) active Not Available Not Available No t Available GaviLyte- G 236 gram-22.7 4 gram-6.74 gram-5.86 gram oral solution PLEASE SEE ATTACHED FOR DETAILED DIRECTIO NS 12/19 completed Not Available Not Available Not Available Gavilax 17 gram/dose oral powder TAKE 17 GRAMS BY MOUTH DISSOLVE IN 4 TO 8 OZ OF BEVERAGE 12/19 completed Not Available Not Available Not Available Nasal Mist 0.9 % spray aerosol 2 puff into both nostrils 12/19 completed Medicati on ID: [id number] D uration Value: 10 Prescri bed By Name: Greg Aden nd Name: Nasal Mist Sen d Method: E-Prescr ibed Sub s Allowed: subs OK Speci al Instruct ion: x 10 days Med icationG enericNa me: Nasal Mist Not Available Not Available Not Available Linzess 145 mcg capsule TAKE 1 CAPSULE BY MOUTH EVERY DAY active Not Available Not Available No t Available Linzess 290 mcg capsule TAKE 1 CAPSULE BY MOUTH EVERY DAY active Not Available Not Available No t Available Eliquis 2.5 mg tablet TAKE 1 TABLET (2.5 MG TOTAL) BY MOUTH TWICE A DAY FOR 28 DAYS 12/19 completed Not Available Not Available Not Available melatonin 10 mg capsule TAKE 1 CAPSULE BY MOUTH EVERYDAY AT BEDTIME 12/19 completed Not Available Not Available Not Available melatonin ER 10 mg tablet,ex tended release TAKE 1 TABLET BY MOUTH EVERYDAY AT BEDTIME OTC DRUG NOT COVERED active Not Available Not Available No t Available Flonase Allergy Relief 50 mcg/actua tion nasal spray,diana pension 12/19 completed Medicati on ID: [id number] B rand Name: Flonase Allergy Relief S end Method: E-Prescr ibed Sub s Allowed: subs OK Medic ationGen ericName : Flonase Allergy Relief Not Available Not Available Not Available Linzess 72 mcg capsule TAKE 1 CAPSULE BY MOUTH EVERY DAY DO NOT CRUSH OR CHEW 12/19 completed Not Available Not Available Not Available Motegrity 1 mg tablet TAKE 1 TABLET BY MOUTH EVERY DAY 12/19 completed Not Available Not Available Not Available Daily-Vit e (with folic acid) 400 mcg tablet active Medicati on ID: [id number] B rand Name: Daily-Vi te (with folic acid) Se nd Method: E-Prescr ibed Sub s Allowed: subs OK Speci al Instruct ion: TAKE 1 TABLET BY MOUTH EVERY DAY Medi cationGe nericNam e: Daily-Vi te (with folic acid) Not Available Not Available Not Available Vitals Date Recorded Body height Body mass index (BMI) Body weight Provider Name and Address Organization Details Last Updated DateTime 12/19/2024 154.94 cm 39.7 kg/m2 05346.4 g [facility] 12/19/2024 14:32:06 Social History None recorded. Functional Status None recorded. Mental Status None recorded. Family History Nothing Reported. Medical History No medical history recorded. Gynecological HistoryNo gynecological history recorded. Obstetrics History GPAL:G 0 P 0 0 0 0 Past Encounters Encounter ID Performer Location Encounter Start Date Encounter Closed Date Diagnosis/Indication Diagnosis SNOMED-CT Code Diagnosis ICD10 Code Diagnosis IMO Codes Diagnosis Note [id number] MARIANNA GONZALEZ MD [facility] [address] [address] 12/19/2024 14:15:51 12/19/2024 14:23:54 Impacted cerumen of bilateral ears [id number] 944202 H61.23 [id number] Large amount of deeply impacted excess cerumen disimpacte d bilaterall y. This was secondary to Q-tip use. Today we spent some time talking about the fact that cerumen is a natural antibiotic , antifungal , waterproof er, and moisturize r of the delicate external auditory canal skin. The use of Q-tips strips away this natural protection and makes the ear canal skin more likely to become itchy, irritated or become infected. There is also the risk of trauma to the tympanic membranes as well. We discussed proper aural hygiene techniques to maintain the health of the external ears. Bilateral referred otalgia of ears [id number] 622824 H92.03 M26.623 M79.11 The patient complains of chronic bilateral periauricu lar discomfort . Physical exam reveals no identifiab le source of these symptoms involving the auricle, external auditory canal, or tympanic membrane. Audiometri c testing and tympanomet ry are similarly unrevealin g. Furthermor e, examinatio n was positive for crepitus and tenderness of the bilateral jaw joint and vidya-TMJ musculatur e. The patient's periauricu lar discomfort is most likely consistent with intermitte nt inflammati on of the jaw joint or spasm of the surroundin g musculatur e. This is likely exacerbate d by her missing teeth and lack of denture use. Patient reports that she used to grind her teeth before and had a nightguard for this in the past. I recommende d the patient use light massage, warm compresses and anti-infla mmatories for symptomati c management . Stressed chewing evenly on both sides of the mouth to keep from overworkin g the jaw joint. Use soft food diet as needed. Jaw Joint Program informatio n sheet was shared. If this treatment plan is ineffectiv e, recommend follow up with their dentist. Referral to physical therapist who specialize s in TMJ disorders could also be considered . Sensorineu ral hearing loss of bilateral ears 230222014 H90.3 [id number] Audiologic al evaluation results:Ri ght ear:Mild SNHL with excellent word recognitio n.Left ear:Border line normal/mil d SNHL with excellent word recognitio n. Tympanomet ry:Right Ear:Type ALeft Ear:Type AI have given the patient a copy of her audiogram and medical clearance for binaural amplificat ion to bring back to her audiologis t at [facility] to see if her old hearing aids can be adjusted to match her current level of hearing loss. If not, she may be eligible for new amplificat ion technology . [id number] VENU SERRATO MA, CCC-A [facility] [address] [place] [address] 12/19/2024 14:16:05 12/19/2024 14:52:25 Otalgia of left ear [id number] H92.02 Audiologic al evaluation results: Right ear: Mild SNHL with excellent word recognitio n. Left ear: Borderline normal/mil d SNHL with excellent word recognitio n. Tympanomet ry: Right Ear:Type A Left Ear:Type A Sensorineu ral hearing loss of bilateral ears [id number] H90.3 [id number] Health Concerns Section Related Observation LastModified by Organization Detai ls LastModified Time None Recorded Concern Status LastModified by Organization Details LastModified Time None Recorded Advance Directives Directive None Recorded Payers Insurance Date Sequence Insurance Name Policy Number Policy Cooper Covered Member ID Cooper Member ID Guarantor Name 12/19/2024 1 [place]: [email or web address] Maria G Javier [id number] Maria G Javier 01/10/2025 2 [place]: [facility] Maria G Javier [id number] Maria G Javier Notes Date Note Type Note Provider Name and Address Organization Details Recorded Time 12/19/2024 text/html 29-year-old female with history of chronic eustachian tube dysfunction. Status post bilateral balloon dilation of the eustachian tubes with concurrent placement of short acting tympanostomy tubes in 2019. Tubes extruded as expected with subsequent adequate aeration of the middle ear spaces. She had residual retraction of the right tympanic membrane last seen back in 2021 with right suppurative otitis media. She no-showed subsequent follow-up visit afterwards. She has been lost to follow-up since. Patient does have hearing aids dispensed through [employer], but they are currently both broken. MARIANNA GONZALEZ MD [address] [place] [address], [phone], [facility] - [facility] 12/19/2024 15:28:46 12/19/2024 text/html Longstanding eustachian tube dysfunction VENU SERRATO MA, CCC-A [address] [place] [address], [phone], [facility] - [facility] 12/19/2024 15:22:32 OBGyn Episode No OBEpisode recorded.
--- OUTSIDE RECORDS SUMMARY | 2025-04-10 16:20 | XMS_ITS | Encounter Summary ---
Author Organization [facility] Address [address] [place] [phone] Care Team Providers Care Emissions Technician Name Role Phone SlimAna Luisa briseno Primary Care Provider [phone] Encounter Details Date Type Department Care Team (Late st Contact Info) Description 10/28/2024 Lab Requisition [facility] - Main Lab [address] [facility] [place] [address] RonnellAna Luisa chavez Ariana [address] [place], [place] [phone] Other senior care (current) drug therapy Social History Tobacco Use Types Packs/Day Years Used Date Smoking Tobacco: Never Assessed Comments Unknown Sex and Gender Information Value Date Recorded Sex Assigned at Not on file Legal Sex Female 8:37 AM EST Gender Identity Not on file Sexual Orientation Not on file documented as of this encounter Plan of Treatment Not on file documented as of this encounter Procedures Procedure Name Priority Date/Time Associated Diagnosis Comments LIPID PANEL WITH REFLEX TO DIRECT LDL Routine 10/28/2024 7:00 AM EDT Other infection prevention practitioner (current) drug therapy HEMOGLOBIN A1C Routine 10/28/2024 7:00 AM EDT Other senior care (current) drug therapy GLUCOSE, RANDOM Routine 10/28/2024 7:00 AM EDT Other senior care (current) drug therapy documented in this encounter Results * (ABNORMAL) Lipid panel with reflex to direct LDL (10/28/2024 7:00 AM EDT) Cholesterol 237(H) 0 - 200 mg/dL LAB CHEMISTRY METHOD 10/28/2024 12:36 PM EDT [facility] Triglycerides 147 0 - 150 mg/dL LAB CHEMISTRY METHOD 10/28/2024 12:36 PM EDT [facility] HDL 51 >=40 mg/dL LAB CHEMISTRY METHOD 10/28/2024 12:36 PM EDT [facility] LDL Calculated 157(H) 0 - 100 mg/dL LAB CHEMISTRY METHOD 10/28/2024 12:36 PM EDT [facility] VLDL Cholesterol Adan 29.4 mg/dL LAB CHEMISTRY METHOD 10/28/2024 12:36 PM EDT [facility] Non HDL Chol. (LDL+VLDL) 186(H) <145 mg/dL LAB CHEMISTRY METHOD 10/28/2024 12:36 PM [facility] Chol/HDL Ratio 4.6(H) 0.0 - 4.4 LAB CHEMISTRY METHOD 10/28/2024 12:36 PM EDT [facility] Blood Venous blood specimen / Unknown Venipuncture / Unknown 10/28/2024 7:00 AM EDT 10/28/2024 10:23 AM EDT [employer] ([facility] [employer]) LAB BLOOD ORDERABLES Silvia l Result Performing Organization Address City/[facility]/ZIP Co de Phone Number [facility] [address] [place] [address], * (ABNORMAL) Glucose, random (10/28/2024 7:00 AM EDT) Glucose 126(H) 70 - 100 mg/dL LAB CHEMISTRY METHOD 10/28/2024 12:35 PM EDT [facility] Blood Venous blood specimen / Unknown Venipuncture / Unknown 10/28/2024 7:00 AM EDT 10/28/2024 10:23 AM EDT [employer] ([facility] [employer]) LAB BLOOD ORDERABLES Silvia l Result [facility] [address] [place] [address], [place] [phone] * Hemoglobin A1c (10/28/2024 7:00 AM EDT) Hemoglobin A1C 5.4 <6.5 % LAB CHEMISTRY METHOD 10/28/2024 1:31 PM EDT [facility] Mean Bld Glu Estim. 108 mg/dL LAB CHEMISTRY METHOD 10/28/2024 1:31 PM EDT [facility] Blood Venous blood specimen / Unknown Venipuncture / Unknown 10/28/2024 7:00 AM EDT 10/28/2024 10:23 AM EDT Ana Luisa Torre LAB BLOOD ORDERABLES Silvia l Result Performing Organization Address [facility]/ZIP Co de Phone Number [facility] [address] [place] [address], documented in this encounter Visit Diagnoses Diagnosis Other infection prevention practitioner (current) drug therapy documented in this encounter Care Teams Emissions Technician Relationship Specialty Start Date End Date Ana Luisa Torre [address] [place] [id number] PCP - General Psychiatry 10/28/24 documented as of this encounter
== END 2025-04-10 13:35 | disposition home or self-care (01) ==
LOC: HO.HGS 13:02
PROVIDERS: Visit Provider Surgery
DX: L72.0 Epidermal cyst (principal)
CPT/HCPCS: 99212

== ENCOUNTER → 2025-04-10 13:01 | Outpatient (BNVA) | payer MEDICARE, MEDICAID, SELFPAY | PROVIDERS: Visit Provider Surgery | DX: L72.0 Epidermal cyst (principal); Z98.890 Other specified postprocedural states; Z72.0 Tobacco use | CPT/HCPCS: 99212 ==